=== PATIENT | female | born 1970 | race Two or more races ===

== ENCOUNTER 2021-03-06 11:56 | Outpatient (REF) | payer OTHER, SELFPAY ==
[2021-03-07 12:08] LABS: BV Int Neg Control Negative (Negative); BV Int Pos Control Positive (Positive)
== END 2021-03-06 11:57 | disposition home or self-care (01) ==
LOC: HO.LAB 11:56
PROVIDERS: PCP Internal Medicine; Visit Provider Obstetrics & Gynecology
DX: Z01.411 Encounter for gynecological examination (general) (routine) with abnormal findings (principal); B37.3 Candidiasis of vulva and vagina
CPT/HCPCS: 87480; 87510; 87660

== ENCOUNTER → 2021-03-29 12:27 | Outpatient (BNVA) | payer OTHER, SELFPAY | PROVIDERS: PCP Internal Medicine; Visit Provider Obstetrics & Gynecology | DX: B37.3 Candidiasis of vulva and vagina (principal) | CPT/HCPCS: 99212 ==

== ENCOUNTER 2021-04-03 14:09 | Outpatient (REF) | payer OTHER, SELFPAY ==
--- NOTE | ~2021-04-03 | MM_ITS ---
EXAMINATION: MM SCREENING DIGITAL BREAST TOMOSYNTHESIS, BILATERAL CLINICAL INFORMATION: Screening. Asymptomatic. The lifetime risk of breast cancer based on the Tyrer-Cuzick Model is 18%. COMPARISON: Mammography: 06/19/2019, outside exam 01/07/2016 ([facility]). TECHNIQUE: Digital breast tomosynthesis is performed in both the craniocaudal and mediolateral oblique views along with computer-aided detection (CAD). Synthesized 2D images are generated from the tomosynthesis. Additional left cleavage view is provided. FINDINGS: There are scattered areas of fibroglandular density (ACR BI-RADS breast composition Category b). Parenchymal pattern is similar to prior exams. There are degenerating fibroadenomas again seen with associated coarse calcifications, right breast posterior upper outer quadrant and 3 on left. There is no developing density or interval mass or architectural abnormality. The axilla and skin contours are unremarkable. MM/MM tomosynthesis screening BI IMPRESSION: 1. No mammographic evidence of malignancy. 2. Bilateral degenerating fibroadenomas. No significant changes. ASSESSMENT: BI-RADS 2: Benign RECOMMENDATION: Routine annual mammography screening. This patient's information was entered into a reminder system with a target due date for their next mammogram.
== END 2021-04-03 14:10 | disposition home or self-care (01) ==
LOC: HO.MAMMO 14:09
PROVIDERS: Visit Provider Internal Medicine
DX: Z12.31 Encounter for screening mammogram for malignant neoplasm of breast (principal)
CPT/HCPCS: 77063; 77067

== ENCOUNTER 2021-10-21 06:48 | Outpatient (REF) | payer OTHER, SELFPAY ==
[2021-10-21 11:29] LABS: MANUAL DIFF FLAG NO
[2021-10-21 11:32] LABS: Basophils Absolute Auto 0.1 X10*3/uL (0.0-0.2); Eosinophils Absolute Auto 0.1 X10*3/uL (0.0-0.4); Eosinophils Percent Auto 2.5 % (0-4); Hematocrit 45.2 % (37.0-47.0); Hemoglobin 14.6 g/dl (12.0-16.0); Imm Gran Abs Auto 0.02 X10*3/uL (0.00-0.03); Imm Gran Pct Auto 0.4 % (0.0-0.4); Lymphocytes Absolute Auto 1.8 X10*3/uL (1.2-4.9); Lymphocytes Percent Auto 35.5 % (20-40); Mean Corpuscular HGB Conc 32.3 g/dl (31.0-35.0); Mean Corpuscular Hemoglobin 27.3 pg (27.0-33.0); Mean Corpuscular Volume 84.5 fL (80.0-98.0); Mean Platelet Volume 12.3 fL (9.4-12.3); Monocytes Absolute Auto 0.4 X10*3/uL (0.1-1.2); Monocytes Percent Auto 8.5 % (2-11); Neutrophils Absolute Auto 2.7 x10*3/uL (2.0-8.3); Neutrophils Percent Auto 52.1 % (45-73); Platelet Count 260 X10*3/uL (160-400); Red Blood Count 5.35 X10*6/uL (4.20-5.50); Red Cell Distribution Width 13.8 % (11.0-16.0); White Blood Count 5.2 X10*3/uL (4.8-10.8)
[2021-10-21 12:20] LABS: Anion Gap 15 (12-20); Carbon Dioxide 26 mmol/L (22-29); Chloride 99 mmol/L (96-108); Potassium 4.2 mmol/L (3.3-5.1); Sodium 136 mmol/L (135-145)
[2021-10-21 12:21] LABS: Alanine Aminotransferase 30 U/L (0-31); Albumin Level 3.9 g/dL (3.5-5.0); Alkaline Phosphatase 127 U/L (39-117); Aspartate Amino Transferase 18 U/L (5-31); Bilirubin Total 0.4 mg/dL (0.0-1.0); Blood Urea Nitrogen 12 mg/dL (9-16); Calcium 9.5 mg/dL (8.4-10.2); Cholesterol 326 mg/dL; Estimated Glomerular Filt Rate > 60; HDL Cholesterol 48 mg/dL; LDL Cholesterol Calculated 219 mg/dl; Total Protein 7.4 g/dL (6.5-8.0); Triglycerides 297 mg/dL
[2021-10-21 13:06] LABS: Glucose Fasting 455 mg/dL (60-99)
== END 2021-10-21 06:49 | disposition home or self-care (01) ==
LOC: HO.HMGCLDS 06:48
PROVIDERS: PCP Internal Medicine; Visit Provider Internal Medicine
DX: E11.9 Type 2 diabetes mellitus without complications (principal); Z79.4 Long term (current) use of insulin
CPT/HCPCS: 36415; 80053; 80061; 84443; 85025

== ENCOUNTER 2022-01-23 06:04 | Outpatient (REF) | payer OTHER, SELFPAY ==
[2022-01-23 11:47] LABS: Alanine Aminotransferase 18 U/L (0-31); Albumin Level 3.9 g/dL (3.5-5.0); Alkaline Phosphatase 92 U/L (39-117); Anion Gap 14 (12-20); Aspartate Amino Transferase 13 U/L (5-31); Bilirubin Total 0.4 mg/dL (0.0-1.0); Blood Urea Nitrogen 18 mg/dL (9-16); Calcium 9.5 mg/dL (8.4-10.2); Carbon Dioxide 30 mmol/L (22-29); Chloride 102 mmol/L (96-108); Cholesterol 160 mg/dL; Estimated Glomerular Filt Rate > 60; Glucose Fasting 143 mg/dL (60-99); HDL Cholesterol 50 mg/dL; LDL Cholesterol Calculated 91 mg/dl; Sodium 142 mmol/L (135-145); Total Protein 7.3 g/dL (6.5-8.0); Triglycerides 98 mg/dL
[2022-01-23 12:06] LABS: Estimated Average Glucose 315 mg/dL; Hemoglobin A1c % 12.6 %
[2022-01-23 12:23] LABS: Creatinine Urine 219.79 mg/dL; Microalbum/Creatinine Ratio Ur 31.3 ug/mg cr
== END 2022-01-23 06:05 | disposition home or self-care (01) ==
LOC: HO.HMGCLDS 06:04
PROVIDERS: PCP Internal Medicine; Visit Provider Internal Medicine
DX: E11.9 Type 2 diabetes mellitus without complications (principal); E78.5 Hyperlipidemia, unspecified; Z79.4 Long term (current) use of insulin
CPT/HCPCS: 36415; 80053; 80061; 82043; 83036

== ENCOUNTER 2022-02-01 07:18 | Emergency (ER) | payer OTHER, SELFPAY ==
[2022-02-01 07:22] VITALS: BP 199/94; PULSE 98; RESP 18; TEMP 36.6; O2SAT 99; BMI 25.7
--- NOTE | 2022-02-01 08:11 | ED.GENADULT ---
HPI - General Adult General Chief complaint: Extremity Injury, Lower Stated complaint: R Leg Pain No Injury Time Seen by Provider: 02/01/22 08:11 Source: patient Mode of arrival: ambulatory Limitations: no limitations History of Present Illness HPI narrative: Patient is a 51 year old female presenting to the emergency department today with right right lower back pain that radiates down the right leg. Patient states that for the last month she has had low back pain that radiates down her right leg. Patient states that she was given muscle relaxers at an urgent care but it does not seem to be helping. Patient states that she does have an appointment with a specialist for this in the next few days. Patient denies any dizziness, lightheadedness, abdominal pain, nausea, vomiting, fever, chills, blurry vision, double vision, loss of vision, chest pain, difficulty breathing, shortness of breath, night sweats, pain with urination, increased urinary frequency, increased urinary urgency, blood in her urine or stool, syncope or a near syncopal episode, recent trauma or falls, bowel incontinence, bladder incontinence, bowel retention, bladder retention, or any other complaints at this time. Onset (ago): month(s) (1) Location: back Radiation: extremity Severity: mild Severity scale (1-10): 3 Quality: aching and dull Pain Consistency: intermittent Relieving factors: none Exacerbating factors: none Associated symptoms: denies other symptoms Treatments prior to arrival: none Related Data Home Medications Medication Instructions Recorded Confirmed cyclobenzaprine 10 mg tablet 10 mg PO BEDTIME PRN muscle spasm 01/18/22 01/18/22 meloxicam 7.5 mg tablet 7.5 mg PO DAILY PRN pain 01/18/22 01/18/22 Previous Rx's Medication Instructions Recorded clotrimazole-betamethasone 1 1 appl topical BID 5 days #45 grams 03/06/21 %-0.05 % topical cream terconazole 0.8 % vaginal cream 1 appful vaginal BEDTIME 3 days 03/06/21 #20 grams blood sugar diagnostic (FreeStyle #100 ea 08/02/21 Lite Strips) albuterol sulfate 90 mcg/actuation 2 puff inhalation QID #8.5 grams 10/20/21 aerosol inhaler blood sugar diagnostic (Embrace #100 ea 10/20/21 Blood Glucose System strips) metformin 1,000 mg tablet 1,000 mg PO BID #180 tabs 10/20/21 atorvastatin 40 mg tablet (Lipitor) 40 mg PO DAILY #30 tabs 11/30/21 insulin glargine 100 unit/mL (3 40 unit (0.4 mL) subcut QAM #15 mL 01/18/22 mL) subcutaneous pen (Lantus Solostar U-100 Insulin) prednisone 20 mg tablet 20 mg PO DAILY 12 days #26 tabs 02/01/22 Allergies Allergy/AdvReac Type Severity Reaction Status Date / Time No Known Allergies Allergy Verified 01/18/22 12:26 [No Known Allergies*] Review of Systems Constitutional: Constitutional: Reports no additional constitutional complaints, Denies chills, Denies fever(s) and Denies night sweats Eyes: Eyes: Reports no additional eye complaints, Denies blurry vision, Denies change in vision, Denies diplopia, Denies eye discharge, Denies loss of vision and Denies eye pain ENT: Denies dizziness Cardiovascular: Cardiovascular: Reports no additional cardiovascular complaints, Denies chest pain, Denies lightheadedness, Denies Loss of Consciousness and Denies dyspnea Respiratory: Respiratory: Reports no additional respiratory complaints and Denies dyspnea Gastrointestinal: Gastrointestinal: Reports no additional gastrointestinal complaints, Denies abdominal pain, Denies melena, Denies hematochezia, Denies change in bowel habits and Denies change in stool character Genitourinary: Genitourinary: Denies hematuria, Denies urinary frequency, Denies dysuria, Denies urinary incontinence, Denies urinary hesitancy and Denies urinary urgency Musculoskeletal: Musculoskeletal: Reports no additional musculoskeletal complaints, Reports back pain, Denies numbness and Denies tingling Neurologic: Denies dizziness, Denies loss of vision, Denies numbness and Denies tingling Psychiatric: Psychiatric: Reports no additional psychiatric complaints Endocrine: Endocrine: Reports no additional endocrine complaints Hematologic/Lymphatic: Hematologic/Lymphatic: Reports no additional hematologic/lymphatic complaints Allergic/Immunologic: Allergic/Immunologic: Reports no additional allergic/immunologic complaints PMFSH Past Medical History Attestation statement: The following information was validated with the patient. Source: old records reviewed Medical History Colon cancer screening Diabetes type 2, uncontrolled Surgical History H/O abdominal hysterectomy H/O gastric sleeve Hx of section Family History Family History Sister Breast CA Maternal Aunt Breast CA Social History Social History Housing: Apartment Patient Tobacco Use Status: Never used Tobacco e-Cigarette/Vaping Use: Never Used Second Hand Smoke Exposure: No Advance Directives: No Advance Directives Information Provided: No Current occupational status: employed Current occupation: [employer] 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/hazards: Yes Cognitive needs: No Hearing needs: No Vision needs: No Physical Exam ED Vital Signs: Vital Signs - 24 hr 02/01/22 07:22 Temperature 97.9 F Pulse Rate 98 Respiratory Rate 18 Blood Pressure 199/94 H Pulse Oximetry 99 Oxygen Delivery Method Room Air BMI result Body Mass Index 25.7 Const General: cooperative, no acute distress, alert and awake Nutritional Appearance: well nourished Orientation/consciousness: patient oriented x3 Limitations: no limitations HENMT Head: Yes normal to inspection and Yes atraumatic Ears: hearing grossly normal bilaterally and external ears normal General nose exam: Normal external nose present, no nasal discharge noted and no epistaxis Face and sinus: Yes normal facial exam, No abrasion and No laceration Mouth: Normal oral and palatal mucosa present, no drooling and no muffled voice Eyes General: appearance normal, both eyes and all related structures Periorbital: periorbital findings normal Eyelids: Yes eyelids normal Conjunctivae: conjunctivae normal Pupils: Equal, round and reactive pupils present EOM: EOMs intact bilaterally Neck Neck: Yes normal visual inspection, Yes full ROM and Yes no lymphadenopathy Chest Chest palpation & inspection: normal inspection of the chest Resp Effort & Inspection: normal respiratory effort and able to speak in complete sentences Auscultation: clear to auscultation bilaterally Cardio Rate: regular rate Rhythm: regular rhythm GI Inspection: Yes normal to inspection General: Yes no CVA tenderness Back/Spine/Pelvis Back: no CVA tenderness Cervical Spine: normal cervical lordosis and cervical ROM normal Thoracic/Lumbar Spine: thoracic and lumbar spine normal to inspection and thoraco-lumbar ROM normal Pelvis: no pain with anterior-posterior compression Neuro General: patient oriented x3 and moves all extremities Cranial nerves: Yes Equal, round and reactive pupils present Cognition (Neuro): normal cognition Motor exam (neuro): 5/5 motor strength present throughout Sensory Exam: Normal double simultaneous stimulation for sensation Coordination: [id number] test normal Extrem General: Yes normal to inspection, Yes full ROM and Yes capillary refill normal Psych Appearance: grossly normal Mental Status: mental status grossly normal Affect: normal affect Attitude: cooperative Thought process: Normal thought process present Thought content: Normal thought content present Insight: Good insight present (Psych) Medical Decision Making MDM Narrative Medical decision making narrative: Patient is a 51 year old female presenting to the emergency department today with back pain that radiates down her right leg. Patient's physical exam was unremarkable. I explained my physical exam findings to the patient. I answered all questions asked by the patient. Patient received IM Toradol and PO Flexeril which she stated helped her pain significantly. I stressed the importance of the patient taking her medication as prescribed. I stressed the importance of the patient following up with her primary care provider and keeping the appointment that's scheduled with the specialist for this issue. I stressed the importance of the patient returning to the emergency department immediately if her symptoms were to worsen or if she were to develop any dizziness, shortness of breath, difficulty breathing, chest pain, blurry vision, loss of vision, nausea, vomiting, abdominal pain, fever, chills, back pain, or any other complaints. Patient verbalized agreement and understanding with this treatment plan and discharge. Medical Records Medical records reviewed: Yes I reviewed the patient's medical records. Discharge Plan Discharge Clinical Impression: Sciatica Patient Disposition: Home, Self-Care Instructions: Sciatica (ED) Additional Instructions: Follow up with your primary care provider and the orthopedic / business applications specialist you have scheduled later this month. Return to the emergency department immediately if your symptoms worsen or if you develop any dizziness, shortness of breath, difficulty breathing, chest pain, blurry vision, loss of vision, nausea, vomiting, abdominal pain, fever, chills, back pain, or any other complaints. Wilian un seguimiento con jones proveedor de atenci?n primaria y el especialista en ortop[employer]/colum[place] vertebral que haya programado para finales de matheus mes. Regrese al departamento de emergencias de inmediato si erickson s?ntomas empeoran o si presenta mareos, falta de aire, dificultad para respirar, dolor de pecho, visi?n borrosa, p?rdida de la visi?n, n?useas, v?mitos, dolor abdominal, fiebre, escalofr?os, dolor de espalda o cualquier otras quejas. Prescriptions: New prednisone 20 mg tablet 20 mg PO DAILY 12 Days Qty: 26 0RF Rx Instructions: Take 3 tablets for 5 days THEN; Take 2 tablets for 4 days THEN; Take 1 tablet for 3 days No Action (DME) FreeStyle Lite Strips Strip See Rx Instructions .ROUTE .MEDSUPPLY Qty: 100 3RF Rx Instructions: As directed - twice a day metformin 1,000 mg tablet 1,000 mg PO BID Qty: 180 3RF albuterol sulfate 90 mcg/actuation HFA aerosol inhaler 2 puff inhalation QID Qty: 8.5 1RF (DME) Embrace Blood Glucose System Strip See Rx Instructions .Route Qty: 100 3RF Rx Instructions: 1 bid atorvastatin [Lipitor] 40 mg tablet 40 mg PO DAILY Qty: 30 3RF meloxicam 7.5 mg tablet 7.5 mg PO DAILY PRN (Reason: pain) cyclobenzaprine 10 mg tablet 10 mg PO BEDTIME PRN (Reason: muscle spasm) insulin glargine [Lantus Solostar U-100 Insulin] 100 unit/mL (3 mL) insulin pen 40 unit subcut QAM Qty: 15 3RF clotrimazole-betamethasone 1-0.05 % cream 1 appl topical BID 5 Days Qty: 45 0RF terconazole 0.8 % cream 1 appful vaginal BEDTIME 3 Days Qty: 20 0RF Referrals: [facility] [Provider Group] [facility] [Provider Group] Nichol Brown MD [Primary Care Provider] - Stand Alone Forms: Work/School Release Interventions: ED Discharge Assessment Last Done: 02/01/22 08:45 Discharge Date/Time: 02/01/22 08:45 Print Language: Micronesian
[2022-02-01] MEDS: methylPREDNISolone Sod Succ 125 MG/2 ML VIAL 60 MG IM (08:39)
[2022-02-01] MEDS: Ketorolac Tromethamine 15 MG/ML VIAL IM (08:40)
== END 2022-02-01 08:45 | disposition home or self-care (01) ==
PROVIDERS: Emergency Provider Emergency Medicine Emergency Medical Services; PCP Internal Medicine
DX: M54.41 Lumbago with sciatica, right side (principal); E11.9 Type 2 diabetes mellitus without complications; E78.5 Hyperlipidemia, unspecified; Z79.4 Long term (current) use of insulin; Z79.02 Long term (current) use of antithrombotics/antiplatelets
CPT/HCPCS: 96372; 99283; 99284; J1885; J2930

== ENCOUNTER → 2022-02-06 13:45 | Outpatient (BNVA) | payer OTHER, SELFPAY | PROVIDERS: PCP Internal Medicine; Visit Provider Internal Medicine Endocrinology, Diabetes & Metabolism | DX: E11.9 Type 2 diabetes mellitus without complications (principal); Z79.4 Long term (current) use of insulin | CPT/HCPCS: 82947; 96372; 99202; J1815 ==

== ENCOUNTER 2022-02-08 | Emergency (ER) | payer OTHER, SELFPAY ==
[2022-02-08 00:35] VITALS: BP 161/98; PULSE 76; RESP 14; TEMP 36.7; O2SAT 98; BMI 25.7
--- NOTE | 2022-02-08 03:42 | ED_ITS ---
HPI - Back Pain/Injury General Chief Complaint: Back Pain/Injury Stated Complaint: pain in leg Time Seen by Provider: 02/08/22 03:42 Source: patient Mode of arrival: ambulatory Limitations: no limitations History of Present Illness HPI Narrative: Patient's right lower back pain off and on for last few months seen her PCP ER and urgent care for same plan to see the authorization specialist next week comes here for pain which is not getting better no bladder or bowel incontinence no weakness pain radiates to the right leg no known trauma Related Data Home Medications Medication Instructions Recorded Confirmed cyclobenzaprine 10 mg tablet 10 mg PO BEDTIME PRN muscle spasm 01/18/22 01/18/22 meloxicam 7.5 mg tablet 7.5 mg PO DAILY PRN pain 01/18/22 01/18/22 blood sugar diagnostic (FreeStyle 02/06/22 Lite Strips) lancets 28 gauge (FreeStyle 02/06/22 Lancets) Previous Rx's Medication Instructions Recorded clotrimazole-betamethasone 1 1 appl topical BID 5 days #45 grams 03/06/21 %-0.05 % topical cream terconazole 0.8 % vaginal cream 1 appful vaginal BEDTIME 3 days 03/06/21 #20 grams blood sugar diagnostic (FreeStyle #100 ea 08/02/21 Lite Strips) albuterol sulfate 90 mcg/actuation 2 puff inhalation QID #8.5 grams 10/20/21 aerosol inhaler blood sugar diagnostic (Embrace #100 ea 10/20/21 Blood Glucose System strips) metformin 1,000 mg tablet 1,000 mg PO BID #180 tabs 10/20/21 atorvastatin 40 mg tablet (Lipitor) 40 mg PO DAILY #30 tabs 11/30/21 insulin glargine 100 unit/mL (3 40 unit (0.4 mL) subcut QAM #15 mL 01/18/22 mL) subcutaneous pen (Lantus Solostar U-100 Insulin) prednisone 20 mg tablet 20 mg PO DAILY 12 days #26 tabs 02/01/22 carisoprodol 350 mg tablet (Soma) 350 mg PO TID PRN muscle pain #20 02/08/22 tabs Allergies Allergy/AdvReac Type Severity Reaction Status Date / Time No Known Allergies Allergy Verified 02/06/22 13:54 [No Known Allergies*] Review of Systems Review of Systems: Yes all other systems are reviewed and are negative [facility] Past Medical History Medical History Colon cancer screening Diabetes type 2, uncontrolled Surgical History H/O abdominal hysterectomy H/O gastric sleeve Hx of section Family History Family History Sister Breast CA Maternal Aunt Breast CA Social History Social History Housing: Apartment Patient Tobacco Use Status: Never used Tobacco e-Cigarette/Vaping Use: Never Used Second Hand Smoke Exposure: No Advance Directives: No Current occupational status: employed Current occupation: [employer] 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/hazards: Yes Cognitive needs: No Hearing needs: No Vision needs: No Physical Exam Vital Signs: Vital Signs: Last Vital Signs Temp 98.1 F 02/08/22 00:35 Pulse 76 02/08/22 00:35 Resp 18 02/08/22 04:10 BP 161/98 H 02/08/22 00:35 Pulse Ox 98 02/08/22 00:35 O2 Del Method 02/08/22 00:35 BMI result Body Mass Index 25.7 Appearance: Alert. Oriented X3. No acute distress. Eyes: PERRLA, No Nystagmus ENT: Pharynx normal. Oral Mucosa moist Neck: Normal inspection. Neck supple. CVS: Normal heart rate and rhythm. Pulses normal. Respiratory: No respiratory distress. Equal air entry bilateral, no wheezing/rales/rhonchi Abdomen: Soft and nontender. Bowel sounds are present, no mass palpable, no CVA tenderness Skin: Skin warm and dry. Normal skin color. Normal skin turgor. Extremities: No lower extremity edema. No calf tenderness no spinal tenderness , tenderness at right sciatic notch area SLR positive at 45 degrees right side Neuro: Oriented X 3. No motor deficit. No sensory deficit.No cerebellar signs , cranial nerves II-XII intact Discharge Plan Discharge Clinical Impression: Piriformis muscle pain Patient Disposition: Home, Self-Care Instructions: Piriformis Syndrome (ED) Additional Instructions: Continue to take pain medication as prescribed and follow-up with specialist as scheduled Prescriptions: New carisoprodol [Soma] 350 mg tablet 350 mg PO TID PRN (Reason: muscle pain) Qty: 20 0RF No Action (DME) FreeStyle Lite Strips Strip See Rx Instructions .ROUTE .MEDSUPPLY Qty: 100 3RF Rx Instructions: As directed - twice a day prednisone 20 mg tablet 20 mg PO DAILY 12 Days Qty: 26 0RF Rx Instructions: Take 3 tablets for 5 days THEN; Take 2 tablets for 4 days THEN; Take 1 tablet for 3 days metformin 1,000 mg tablet 1,000 mg PO BID Qty: 180 3RF albuterol sulfate 90 mcg/actuation HFA aerosol inhaler 2 puff inhalation QID Qty: 8.5 1RF (DME) Embrace Blood Glucose System Strip See Rx Instructions .Route Qty: 100 3RF Rx Instructions: 1 bid atorvastatin [Lipitor] 40 mg tablet 40 mg PO DAILY Qty: 30 3RF meloxicam 7.5 mg tablet 7.5 mg PO DAILY PRN (Reason: pain) cyclobenzaprine 10 mg tablet 10 mg PO BEDTIME PRN (Reason: muscle spasm) insulin glargine [Lantus Solostar U-100 Insulin] 100 unit/mL (3 mL) insulin pen 40 unit subcut QAM Qty: 15 3RF clotrimazole-betamethasone 1-0.05 % cream 1 appl topical BID 5 Days Qty: 45 0RF terconazole 0.8 % cream 1 appful vaginal BEDTIME 3 Days Qty: 20 0RF (DME) FreeStyle Lite Strips Strip See Rx Instructions .ROUTE Rx Instructions: As directed (DME) lancets [FreeStyle Lancets] 28 gauge misc See Rx Instructions .ROUTE Rx Instructions: As directed Interventions: ED Discharge Assessment Last Done: 02/08/22 04:22 Discharge Date/Time: 02/08/22 04:23
[2022-02-08 04:10] VITALS: RESP 18
[2022-02-08] MEDS: Morphine Sulfate 4 MG/ML CARTRIDGE IM (04:10)
[2022-02-08] MEDS: Cyclobenzaprine HCl 10 MG TABLET PO (04:10)
== END 2022-02-08 04:23 | disposition home or self-care (01) ==
PROVIDERS: Emergency Provider Internal Medicine; PCP Internal Medicine
DX: G57.01 Lesion of sciatic nerve, right lower limb (principal); M54.50 Low back pain, unspecified; E11.9 Type 2 diabetes mellitus without complications; E78.5 Hyperlipidemia, unspecified; Z79.4 Long term (current) use of insulin; Z79.02 Long term (current) use of antithrombotics/antiplatelets; Z79.899 Other long term (current) drug therapy
CPT/HCPCS: 96372; 99283; 99284; J2270

== ENCOUNTER 2022-02-14 05:18 | Outpatient (REF) | payer OTHER, SELFPAY ==
--- NOTE | ~2022-02-14 | XR_ITS ---
EXAMINATION: XR HIP, RIGHT CLINICAL INFORMATION: Hip pain COMPARISON: None TECHNIQUE: Two views of the right hip. FINDINGS: Bones and soft tissues are normal. No fracture. Alignment is anatomic. Hip joint space is maintained. XR/XR hip RT w PEL1V IMPRESSION: Normal right hip.
== END 2022-02-14 05:19 | disposition home or self-care (01) ==
LOC: HO.HOSX 05:18
PROVIDERS: Visit Provider Physician Assistant
DX: M70.61 Trochanteric bursitis, right hip (principal)
CPT/HCPCS: 73502; 99202

== ENCOUNTER → 2022-02-15 14:06 | Outpatient (BNVA) | payer OTHER, SELFPAY | PROVIDERS: PCP Internal Medicine; Visit Provider Registered Nurse Diabetes Educator | DX: E11.9 Type 2 diabetes mellitus without complications (principal); Z79.4 Long term (current) use of insulin | CPT/HCPCS: 99211 ==

== ENCOUNTER → 2022-03-01 15:10 | Outpatient (BNVA) | payer OTHER, SELFPAY | PROVIDERS: PCP Internal Medicine; Visit Provider Registered Nurse Diabetes Educator | DX: E11.9 Type 2 diabetes mellitus without complications (principal); Z79.4 Long term (current) use of insulin | CPT/HCPCS: 99211 ==

== ENCOUNTER → 2022-03-29 13:40 | Outpatient (BNVA) | payer OTHER, SELFPAY | PROVIDERS: PCP Internal Medicine; Visit Provider Registered Nurse Diabetes Educator | DX: E11.9 Type 2 diabetes mellitus without complications (principal); Z79.4 Long term (current) use of insulin | CPT/HCPCS: 99211 ==

== ENCOUNTER 2022-04-09 | Outpatient (REF) | payer OTHER, SELFPAY | END 2022-04-09 00:01 | disposition home or self-care (01) | LOC: CF | PROVIDERS: PCP Internal Medicine; Visit Provider Anesthesiology | DX: M54.50 Low back pain, unspecified (principal) | CPT/HCPCS: 99202 ==

== ENCOUNTER 2022-04-10 13:54 | Outpatient (REF) | payer OTHER, SELFPAY ==
--- NOTE | ~2022-04-10 | XR_ITS ---
EXAMINATION: XR LUMBOSACRAL SPINE WITH OBLIQUES CLINICAL INFORMATION: Low back pain with sciatica. COMPARISON: None TECHNIQUE: AP, both oblique, and lateral views of the lumbar spine. Lateral view of the lumbosacral junction. FINDINGS: There are 5 [id number] lumbar vertebra. No acute fracture or spondylolysis identified. There is a grade 1 spondylolisthesis at the L1-L2 level. There is significant disc space narrowing with vacuum disc phenomena seen at L4 through S1. Sacroiliac joints appear unremarkable. XR/XR lumbar spine 4V min IMPRESSION: Degenerative disc disease L4 through S1.
== END 2022-04-10 13:55 | disposition home or self-care (01) ==
LOC: HO.XRAY 13:54
PROVIDERS: PCP Internal Medicine; Visit Provider Anesthesiology
DX: M54.50 Low back pain, unspecified (principal)
CPT/HCPCS: 72110

== ENCOUNTER 2022-04-18 13:56 | Outpatient (REF) | payer OTHER, SELFPAY | END 2022-04-18 13:57 | disposition home or self-care (01) | LOC: HO.MAMMO 13:56 | PROVIDERS: PCP Internal Medicine; Visit Provider Internal Medicine | DX: Z12.31 Encounter for screening mammogram for malignant neoplasm of breast (principal) | CPT/HCPCS: 77063; 77067 ==

== ENCOUNTER 2022-04-20 12:34 | Outpatient (REF) | payer OTHER, SELFPAY ==
[2022-04-21 04:37] LABS: CT PCR NOT DETECTED (Not Detect.); NG PCR NOT DETECTED (Not Detect.)
[2022-04-21 11:25] LABS: BV Int Neg Control Negative (Negative); BV Int Pos Control Positive (Positive)
== END 2022-04-20 12:35 | disposition home or self-care (01) ==
LOC: HO.LNP 12:34
PROVIDERS: PCP Internal Medicine; Visit Provider Advanced Practice Midwife
DX: Z01.419 Encounter for gynecological examination (general) (routine) without abnormal findings (principal); I10 Essential (primary) hypertension; M54.30 Sciatica, unspecified side
CPT/HCPCS: 87480; 87491; 87510; 87591; 87660

== ENCOUNTER 2022-04-26 06:55 | Outpatient (REF) | payer OTHER, SELFPAY ==
[2022-04-26 11:11] LABS: MANUAL DIFF FLAG NO
[2022-04-26 11:18] LABS: Basophils Percent Auto 0.6 % (0-2); Eosinophils Absolute Auto 0.1 X10*3/uL (0.0-0.4); Eosinophils Percent Auto 1.6 % (0-4); Hematocrit 46.3 % (37.0-47.0); Hemoglobin 15.3 g/dl (12.0-16.0); Imm Gran Abs Auto 0.02 X10*3/uL (0.00-0.03); Imm Gran Pct Auto 0.3 % (0.0-0.4); Lymphocytes Absolute Auto 2.3 X10*3/uL (1.2-4.9); Mean Corpuscular Hemoglobin 27.9 pg (27.0-33.0); Mean Corpuscular Volume 84.5 fL (80.0-98.0); Mean Platelet Volume 12.1 fL (9.4-12.3); Monocytes Absolute Auto 0.5 X10*3/uL (0.1-1.2); Monocytes Percent Auto 6.7 % (2-11); Neutrophils Absolute Auto 4.1 x10*3/uL (2.0-8.3); Neutrophils Percent Auto 57.8 % (45-73); Platelet Count 311 X10*3/uL (160-400); Red Blood Count 5.48 X10*6/uL (4.20-5.50); Red Cell Distribution Width 13.3 % (11.0-16.0)
[2022-04-26 11:39] LABS: Alanine Aminotransferase 13 U/L (0-31); Alkaline Phosphatase 82 U/L (39-117); Anion Gap 11 (12-20); Aspartate Amino Transferase 11 U/L (5-31); Bilirubin Total 0.8 mg/dL (0.0-1.0); Blood Urea Nitrogen 15 mg/dL (9-16); Calcium 9.7 mg/dL (8.4-10.2); Carbon Dioxide 30 mmol/L (22-29); Chloride 104 mmol/L (96-108); Cholesterol 235 mg/dL; Estimated Glomerular Filt Rate > 60; Glucose Fasting 189 mg/dL (60-99); HDL Cholesterol 49 mg/dL; LDL Cholesterol Calculated 158 mg/dl; Potassium 4.1 mmol/L (3.3-5.1); Sodium 141 mmol/L (135-145); Total Protein 7.3 g/dL (6.5-8.0); Triglycerides 144 mg/dL
[2022-04-26 11:51] LABS: Estimated Average Glucose 183 mg/dL
== END 2022-04-26 06:56 | disposition home or self-care (01) ==
LOC: HO.HMGCLDS 06:55
PROVIDERS: PCP Internal Medicine; Visit Provider Internal Medicine
DX: E11.9 Type 2 diabetes mellitus without complications (principal); E78.5 Hyperlipidemia, unspecified; Z79.4 Long term (current) use of insulin
CPT/HCPCS: 36415; 80053; 80061; 83036; 85025

== ENCOUNTER → 2022-05-09 14:22 | Outpatient (BNVA) | payer OTHER, SELFPAY | PROVIDERS: PCP Internal Medicine; Visit Provider Internal Medicine Endocrinology, Diabetes & Metabolism | DX: E11.9 Type 2 diabetes mellitus without complications (principal); Z79.4 Long term (current) use of insulin | CPT/HCPCS: 82947; 99212 ==

== ENCOUNTER 2022-05-26 06:39 | Outpatient (REF) | payer OTHER, SELFPAY ==
[2022-05-26 11:23] LABS: Anion Gap 12 (12-20); Blood Urea Nitrogen 16 mg/dL (9-16); Calcium 9.4 mg/dL (8.4-10.2); Carbon Dioxide 28 mmol/L (22-29); Chloride 105 mmol/L (96-108); Estimated Glomerular Filt Rate > 60; Glucose Random 101 mg/dL (60-115); Potassium 3.9 mmol/L (3.3-5.1); Sodium 141 mmol/L (135-145)
== END 2022-05-26 06:40 | disposition home or self-care (01) ==
LOC: HO.HMGCLDS 06:39
PROVIDERS: PCP Internal Medicine; Visit Provider Internal Medicine Endocrinology, Diabetes & Metabolism
DX: E11.9 Type 2 diabetes mellitus without complications (principal); Z79.4 Long term (current) use of insulin
CPT/HCPCS: 36415; 80048

== ENCOUNTER 2022-06-11 15:00 | Outpatient (RCR) | payer OTHER, SELFPAY ==
--- NOTE | 2022-05-18 16:08 | MHC.PT.EP ---
[facility] [place] Office [place] Office [place] Office [address] Genaro Horan [address] [phone] F: [phone] F: [phone] F: [phone] F: [phone] Physical Therapy Plan of Care Date of Evaluation: Date of Surgery: Diagnosis: LBP (MD Dx) DDD L4-S1, Gr 1 spondylolisthesis L1-L2 (PT Dx, confirmed x-ray); possible sciatica on R Assessment: Patient is a Stateless speaking 51 y.o. female who is referred to PT by Dr. Mukesh Baptiste MD with Dx of low back pain. PT diagnosis is degenerative disc disease L4-S1 with Gr 1 spondylolisthesis L1-L2, questionable sciatica on R. Patient impairments include pain, limited ROM, weakness in core, hips, and knee. Patient current functional limitations are prolonged sitting or standing, lying down, bending, walking longer distances, stair use, sit to stand.Patient will benefit from skilled PT to address aforementioned impairments and functional limitations to meet established goals. Frequency and Duration: The patient will be seen 2x/week for 4 weeks Short Term Goals: 2 weeks Patient demonstrates consistency and independence with HEP to self manage symptoms. She is able to utilize lumbar support in sitting to reduce LBP and improve sit to stand. Mcfp Goals: 4 weeks Patient presents with increased lumbar spine flexion 90 degrees to be able to improve sit to stand. Patient presents with increased R hip glute med 4+/5 to improve gait longer distances without pain. Treatment Plan: Modalities to reduce pain, spasms and effusion. Manual therapy to restore motion and function. Therapeutic exercise to improve strength and flexibility. Neuromuscular re-education for posture and balance. Therapeutic activities to return to functional activities of daily living. Electronically signed by: Lc Horowitz, PT, DPT Please sign and return to therapist. Thank you for your referral.
--- NOTE | 2022-07-09 16:47 | MHC.PT.DC ---
[facility] [place] Office [place] Office [place] Office [address] Genaro Horan [address] [phone] F: [phone] F: [phone] F: [phone] F: [phone] Physical Therapy Discharge Report Diagnosis: LBP (MD Dx) DDD L4-S1, Gr 1 spondylolisthesis L1-L2 (PT Dx, confirmed x-ray); possible sciatica on R Date of Surgery: Date of Evaluation: 05/18/22 Date of Discharge: 07/09/22 Treatments to Date: 5 Cancellations to Date: 0 No Shows to Date: 0 Discharge Status: Discharge Summary: Patient ceased attending PT on her own accord, with her last PT session being 06/11/22. She is therefore discharged from PT at this time. She has and independent HEP. Electronically signed by: Lc Horowitz, PT, DPT Please sign and return to therapist. Thank you for your referral.
== END 2022-07-09 16:47 | disposition home or self-care (01) ==
LOC: HO.PT 15:00
PROVIDERS: Visit Provider Anesthesiology
DX: M54.50 Low back pain, unspecified (principal)
CPT/HCPCS: 97110; 97140; 97161

== ENCOUNTER → 2022-08-08 14:18 | Outpatient (BNVA) | payer OTHER, SELFPAY | PROVIDERS: PCP Internal Medicine; Visit Provider Internal Medicine Endocrinology, Diabetes & Metabolism | DX: E11.9 Type 2 diabetes mellitus without complications (principal); Z79.4 Long term (current) use of insulin | CPT/HCPCS: 82947; 83036; 99202 ==

== ENCOUNTER → 2022-09-11 12:26 | Outpatient (BNVA) | payer OTHER, SELFPAY | PROVIDERS: PCP Internal Medicine; Visit Provider Dietitian, Registered | DX: E11.65 Type 2 diabetes mellitus with hyperglycemia (principal); E78.00 Pure hypercholesterolemia, unspecified; Z79.4 Long term (current) use of insulin; Z90.3 Acquired absence of stomach [part of]; Z71.3 Dietary counseling and surveillance | CPT/HCPCS: 97802 ==

== ENCOUNTER 2022-10-15 07:34 | Outpatient (REF) | payer OTHER, SELFPAY ==
[2022-10-15 11:36] LABS: Estimated Average Glucose 180 mg/dL; Hemoglobin A1c % 7.9 %
[2022-10-15 11:39] LABS: Creatinine Urine 143.99 mg/dL
[2022-10-15 11:56] LABS: Alanine Aminotransferase 16 U/L (0-31); Albumin Level 3.9 g/dL (3.5-5.0); Alkaline Phosphatase 89 U/L (39-117); Anion Gap 16 (12-20); Aspartate Amino Transferase 12 U/L (5-31); Bilirubin Total 0.9 mg/dL (0.0-1.0); Blood Urea Nitrogen 16 mg/dL (9-16); Carbon Dioxide 24 mmol/L (22-29); Chloride 107 mmol/L (96-108); Cholesterol 278 mg/dL; Estimated Glomerular Filt Rate > 60; Glucose Fasting 164 mg/dL (60-99); HDL Cholesterol 61 mg/dL; LDL Cholesterol Calculated 190 mg/dl; Potassium 4.1 mmol/L (3.3-5.1); Sodium 143 mmol/L (135-145); Total Protein 7.7 g/dL (6.5-8.0); Triglycerides 136 mg/dL
== END 2022-10-15 07:35 | disposition home or self-care (01) ==
LOC: HO.HMGCLDS 07:34
PROVIDERS: PCP Internal Medicine; Visit Provider Internal Medicine
DX: E11.9 Type 2 diabetes mellitus without complications (principal); E78.5 Hyperlipidemia, unspecified; Z79.4 Long term (current) use of insulin
CPT/HCPCS: 36415; 80053; 80061; 82043; 83036

== ENCOUNTER 2022-12-26 14:18 | Outpatient (AMB) | payer OTHER, SELFPAY ==
[2022-12-26 14:23] VITALS: BP 130/90; PULSE 82; BMI 24.4
--- NOTE | 2022-12-26 14:23 | A.OFFVIS_ITS ---
Intake Vital Signs 12/26/22 14:23 Height 5 ft 4 in Weight 142 lb 3.17 oz BMI 24.4 BP 130/90 H Blood Pressure Location Lt brachial Position Sitting Pulse 82 Pulse Source Pulse Oximeter Intake Visit Reasons: DM2/CONFIRM Intake Note: Patient present today to follow up on Type 2 Diabetes Mellitus. Patient receives DME supplies through: Last Diabetic Eye exam: 2020 Last Podiatry Visit: None Random Glucose: 116 mg/dl HgA1C: 7.9% 10/15/2022 Senior Java J2Ee Developer Required: Yes Senior Java J2Ee Developer Language: Technical Director Name: Renate medical staff Information Interpreted: non-clinical & clinical Accompanied by: Self / Same As Patient Allergies No Known Allergies [No Known Allergies*] Allergy (Verified 12/26/22 14:27) HPI HPI Comments History of Present Illness Details 52 YO F who is seen in consultation for T2DM at the request of PCP. Initially diagnosed with T2DM in 22 yrs . Saw darwin at [facility] Was initially started on treatment with metformin . Jardiance 25 mg QD Current regimen metformin 1000 mg QD Trulicity 3 mg Qwkly Lantus 15 units . Joe 3 download from 11/30/2019 3-2022 shows sensors being use 97% of the time. Average glucose is 195 with G mi of 8% and variation of 27.6%. 47% glucoses are in range with 32% hyperglycemia and 21% very hyperglycemic and no8.0 hypoglycemia. Colon shows increase in point cares post breakfast and to lesser extent post lunch Reports no low sugars . Had bariatric surgery 5 yrs ago Family history of T2DM in mother , father and sister . Not Has eyes checked yearly, last eye exam 2 yrs ago , denies retinopathy. Denies neuropathy, , will sees podiatry 02/14/22 . Denies nephropathy,Not on NAYANA/ARB. . Has HLD, on statin. Denies CAD. Had diabetes education many yrs ago . [facility] Medical History (Updated 10/08/22 @ 15:09 by Nichol Brown MD) Colon cancer screening Diabetes type 2, uncontrolled High cholesterol Surgical History H/O abdominal hysterectomy H/O gastric sleeve Hx of section Family History Sister Breast CA Maternal Aunt Breast CA Social History Household Members: None Housing: Apartment Alcohol intake: current Alcohol intake frequency: does not drink Patient Tobacco Use Status: Never used Tobacco e-Cigarette/Vaping Use: Never Used Second Hand Smoke Exposure: No Current occupational status: employed Current occupation: [employer] 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/hazards: Yes Cognitive needs: No Hearing needs: No Vision needs: No Female Reproductive History Menstrual Age of Menarche: 10 Physical Exam Vital Signs: Last Vital Signs Pulse 82 12/26/22 14:23 BP 130/90 H 12/26/22 14:23 BMI result Body Mass Index 24.4 Absence of Cushingoid features. Absence of acromegalic features. Neck exam reveals nl size thyroid about 15 gms. No thyroid nodules palpable. No carotid bruits present. Lungs CTA. Heart S1 S2, Reg R/R. No M/R/ G. Skin exam reveals absence of vitiligo or acanthosis nigricans. Abdominal exam reveals Soft NT/ND with NA BS. No organomegaly present. Neck Other: . Extrem Other: Visual exam of foot performed. No ulcerations or open lesions. No onchomycosis, no callouses.Pulses 2 + distally Sensation intact to monofilament exam. Vibratory sensation sensed is intact with 128 Hz tuning fork Results Reviewed Results Reviewed: 12/26/22 14:33 Glucose, Whole Blood Routine Laboratory Last Values Glucose (Clinic) 116 mg/dL (60-115) H 12/26/22 14:33 Assessment & Plan Assessment & Plan (1) Insulin dependent type 2 diabetes mellitus: Code(s): E11.9 - Type 2 diabetes mellitus without complications; Z79.4 - nursing home (current) use of insulin Plan: This is a 51-year-old female with a history of type 2 diabetes being treated metformin, Trulicity and basal insulin with fair glycemic control and no known microvascular or macrovascular complication Plan is is to start NovoLog scale prior to breakfast with point care 81-150 4 units , 151-200 6 units, > 200 8 units . Patient will follow-up with the inclusion special educator. Orders: Referrals Ophthalmology Referral E11.9 - Type 2 diabetes mellitus without complications, Z79.4 - nursing home (current) use of insulin Medications: New Novolog FlexPen U-100 Insulin (insulin aspart U-100) 6 units (0.06 mL) subcut TID 15 mL 4RF NS Refilled blood-glucose sensor (FreeStyle Joe 3 Sensor device) As directed 2 ea 6RF Coding Level of Care Code Est Pt Level 4 (98026) Diagnoses Insulin dependent type 2 diabetes mellitus E11.9; Z79.4
[2022-12-26 14:37] LABS: Glucose, Whole Blood 116 mg/dL (60-115)
== END 2022-12-26 14:56 | disposition home or self-care (01) ==
PROVIDERS: PCP Internal Medicine; Visit Provider Internal Medicine Endocrinology, Diabetes & Metabolism
DX: E11.9 Type 2 diabetes mellitus without complications (principal); Z79.4 Long term (current) use of insulin
CPT/HCPCS: 99214

== ENCOUNTER → 2022-12-26 14:18 | Outpatient (BNVA) | payer OTHER, SELFPAY | PROVIDERS: PCP Internal Medicine; Visit Provider Internal Medicine Endocrinology, Diabetes & Metabolism | DX: E11.9 Type 2 diabetes mellitus without complications (principal); Z79.4 Long term (current) use of insulin | CPT/HCPCS: 82947; 99212 ==

== ENCOUNTER 2022-12-28 08:02 | Outpatient (AMB) | payer OTHER, SELFPAY ==
--- NOTE | 2022-12-28 08:10 | AM.OFFWIN_ITS ---
Intake Vital Signs 12/28/22 08:11 Height 5 ft 4 in Weight 139 lb BMI 23.9 BP 120/80 Blood Pressure Location Rt brachial Position Sitting Pulse 69 Pulse Source Pulse Oximeter Pulse Oximetry (%) 96 Oxygen Delivery Method Room Air Intake Visit Reasons: EP Work PE Intake Note: Patient here for work Physical. Patient Tobacco Use Status: Never used Tobacco Allergies No Known Allergies [No Known Allergies*] Allergy (Verified 12/28/22 08:23) Medication List - Last Reconciled 12/28/22 by Keegan Givens MD albuterol sulfate 90 mcg/actuation 2 puffs inhalation QID atorvastatin 80 mg PO DAILY blood sugar diagnostic (FreeStyle Lite Strips) As directed - twice a day blood sugar diagnostic (Embrace Blood Glucose System strips) 1 bid blood sugar diagnostic (FreeStyle Lite Strips) As directed tests 4x/day blood-glucose sensor (FreeStyle Joe 3 Sensor device) As directed dulaglutide (Trulicity) 3 mg (0.5 mL) subcut QWEEK empagliflozin (Jardiance) 25 mg PO DAILY insulin glargine (Lantus Solostar U-100 Insulin) 15 units subcut QAM lancets (FreeStyle Lancets) tests 4 X/day metformin 1,000 mg PO BID Novolog FlexPen U-100 Insulin (insulin aspart U-100) 6 units (0.06 mL) subcut TID NS pen needle, diabetic (BD Yumiko 2nd Gen Pen Needle) As directed injects once a day Do you need a note to return to daycare/school/sports/work: No HPI EP Work PE HPI Details 52-year-old female presents for a work physical. She requires a TB test to be allowed to work. [facility] Medical History (Updated 12/28/22 @ 08:24 by Keegan Givens MD) Colon cancer screening Diabetes type 2, uncontrolled High cholesterol Surgical History H/O abdominal hysterectomy H/O gastric sleeve Hx of section Family History Sister Breast CA Maternal Aunt Breast CA Social History Household Members: None Housing: Apartment Alcohol intake: current Alcohol intake frequency: does not drink Patient Tobacco Use Status: Never used Tobacco e-Cigarette/Vaping Use: Never Used Second Hand Smoke Exposure: No Current occupational status: employed Current occupation: [employer] 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/hazards: Yes Cognitive needs: No Hearing needs: No Vision needs: No Female Reproductive History Menstrual Age of Menarche: 10 Physical Exam Vital Signs: Last Vital Signs Pulse 69 12/28/22 08:11 BP 120/80 12/28/22 08:11 Pulse Ox 96 12/28/22 08:11 Oxygen Delivery Method Room Air 12/28/22 08:11 BMI result Body Mass Index 23.9 Const General: cooperative and healthy appearing Nutritional Appearance: well nourished Orientation/consciousness: patient oriented x3 Limitations: no limitations HEENT Head: Yes normal to inspection Eyes General: appearance normal, both eyes and all related structures Neck Neck: Yes normal visual inspection Chest Chest palpation & inspection: normal palpation of entire chest wall Resp Effort & Inspection: normal respiratory effort Neuro General: patient oriented x3 Assessment & Plan Assessment & Plan (1) Physical exam, pre-employment: Code(s): Z02.1 - Encounter for pre-employment examination Plan: Blood work for T spot ordered. Orders: Orders T Spot TB Today Z02.0 - Encounter for examination for admission to educational institution Coding Level of Care Code Sports/Work/School Physical Diagnoses Physical exam, pre-employment Z02.1
[2022-12-28 08:11] VITALS: BP 120/80; PULSE 69; O2SAT 96; BMI 23.9
== END 2022-12-28 09:14 | disposition home or self-care (01) ==
PROVIDERS: PCP Internal Medicine; Visit Provider Internal Medicine
DX: Z02.1 Encounter for pre-employment examination (principal)
CPT/HCPCS: 86580; 99080

== ENCOUNTER 2022-12-28 08:23 | Outpatient (REF) | payer OTHER, SELFPAY ==
[2022-12-31 12:08] LABS: TS Negative Control Passed; TS Panel A 0; TS Panel B 2; TS Positive Control Passed; TSpotTB Negative (Negative)
== END 2022-12-28 08:24 | disposition home or self-care (01) ==
LOC: HO.HMGCLDS 08:23
PROVIDERS: PCP Internal Medicine; Visit Provider Internal Medicine
DX: Z02.0 Encounter for examination for admission to educational institution (principal); K59.01 Slow transit constipation
CPT/HCPCS: 36415; 86481; 99202

== ENCOUNTER 2022-12-28 14:56 | Outpatient (AMB) | payer OTHER, SELFPAY ==
[2022-12-28 15:03] VITALS: BP 139/93; PULSE 96; BMI 24.0
--- NOTE | 2022-12-28 15:03 | A.OFFVIS_ITS ---
Intake Vital Signs 12/28/22 15:03 Height 5 ft 4 in Weight 139 lb 12.369 oz BMI 24.0 BP 139/93 H Blood Pressure Location Lt brachial Position Sitting Pulse 96 Intake Visit Reasons: [place] screening Intake Note: Amee presents in office as a new.patient for a colonoscopy screening. PT CC: pt reports having constipation , 1st colo pt denies any other GI Issues Impregnator Electrolytic Capacitors Required: Yes Impregnator Electrolytic Capacitors Language: Animal Sticker Name: Nivia Accompanied by: Self / Same As Patient Allergies No Known Allergies [No Known Allergies*] Allergy (Verified 12/28/22 15:04) HPI [place] screening HPI Details 52 year old? female here today for pre colonoscopy screening.? Patient was sent to us by her PCP.? This is her first colonoscopy screening.? Patient reports history of constipation sometimes no bowel movements 2-3 days. Denies any personal or family history of gastrointestinal disease, colon polyps, or cancer.? Denies history of difficulty with sedation or anesthesia in the past.? History of gastric sleeve 8 years ago. Negative for history of sleep apnea.? Denies any history of cardiac, renal, pulmonary, or hepatic disease.?? No history of infectious? diseases like hepatitis A, B, C, HIV or tuberculosis.? Patient is not on any anticoagulation therapy. 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/hazards: Yes Cognitive needs: No Hearing needs: No Vision needs: No Female Reproductive History Menstrual Age of Menarche: 10 Review of Systems Const Denies weight gain and Denies weight loss ENT Reports no additional complaints, Denies dysphagia and Denies odynophagia Card Reports no additional complaints Resp Reports no additional complaints GI Denies abdominal pain, Denies belching, Denies melena, Denies bloating, Reports constipation, Denies dysphagia, Denies excessive flatus, Denies dyspepsia, Denies heartburn, Denies diarrhea, Denies loose stools, Denies nausea, Denies odynophagia and Denies vomiting Reports no additional complaints Musc Reports no additional complaints Neuro Reports no additional complaints Psych Reports no additional complaints Endo Reports no additional complaints Physical Exam Vital Signs: Last Vital Signs Pulse 96 12/28/22 15:03 BP 139/93 H 12/28/22 15:03 BMI result Body Mass Index 24.0 Const General: healthy appearing, no acute distress and well developed Nutritional Appearance: well nourished Orientation/consciousness: patient oriented x3 HEENT Head: Yes normal to inspection, Yes normocephalic and Yes atraumatic Face and sinus: Yes normal facial exam Mouth: Normal oral and palatal mucosa present Throat: Yes posterior oropharynx normal, Yes tonsils normal and Yes uvula midline Eyes General: appearance normal, both eyes and all related structures Neck Neck: Yes normal visual inspection, Yes full ROM and Yes trachea midline Thyroid: Thyroid normal Resp Effort & Inspection: normal respiratory effort, able to speak in complete sentences, no tracheal deviation and symmetric chest movement Auscultation: clear to auscultation bilaterally Cardio Rate: regular rate Heart sounds: S1 normal heart sound present and S2 normal heart sound present GI Inspection: Yes normal to inspection and No distended Palpation (GI): Soft to palpation, not firm, nontender and No hepatosplenomegaly present Auscultation: normal bowel sounds General: Yes no CVA tenderness Back/Spine/Pelvis Back: no CVA tenderness Skin General skin exam: elasticity normal, turgor normal and dry skin Neuro General: patient oriented x3 Psych Appearance: grossly normal Mental Status: mental status grossly normal Speech and movement: Normal speech and movement present Assessment & Plan Assessment & Plan (1) Colon cancer screening: Code(s): Z12.11 - Encounter for screening for malignant neoplasm of colon Plan: Patient denies any cardiac or respiratory symptoms.? Denies any issues with anesthesia in the past.? Denies any history of sleep apnea.? No history infectious diseases in the past or present.? Not on any anticoagulation therapy.? No family or personal history of colon cancer or polyps.? Patient denies melena, hematochezia, unintentional weight loss or ribbon like stools.? Patient is not moving her bowels well. Will send her home with script for Senokot. Patient will return and we will rediscuss colonoscopy. Briefly discuss what to expect before during and after the procedure today. (2) Constipation: Code(s): K59.00 - Constipation, unspecified Qualifiers: Constipation type: slow transit constipation Qualified Code(s): K59.01 - Slow transit constipation Plan: Patient reports constipation, no bowel movements for 2-3 days. Patient was encouraged to increase fluid intake and activity to promote better bowel motility. Patient will be started on Senokot. She will call our office in 2 weeks if she will continue to be constipated. I will see her in 5-6 weeks, sooner on as needed basis. Please schedule patient for colonoscopy in the [facility]. She is agreeable to this plan and verbalizes understanding of instructions. She was given the opportunity to ask questions all questions answered. Thank you for allowing me to participate in her care high Medications: New sennosides (Natural Senna Laxative) 17.2 mg (2 x 8.6 mg) PO BEDTIME 60 tabs 3RF constipation K59.00 - Constipation, unspecified Coding Level of Care Code New Pt Level 3 (80107) Diagnoses Colon cancer screening Z12.11 Constipation K59.01 Constipation type: slow transit constipation Time Spent (min) 40 Comment 30 minutes spent with patient and additional 10 minutes spent reviewing her records
== END 2022-12-28 15:34 | disposition home or self-care (01) ==
PROVIDERS: PCP Internal Medicine; Visit Provider Nurse Practitioner Family
DX: Z12.11 Encounter for screening for malignant neoplasm of colon (principal); K59.01 Slow transit constipation; Z01.818 Encounter for other preprocedural examination
CPT/HCPCS: 99203

== ENCOUNTER 2023-01-29 14:28 | Outpatient (AMB) | payer MEDICAID, SELFPAY ==
--- NOTE | 2023-01-29 14:33 | MHC.OFFVIS ---
Intake Vital Signs 01/29/23 14:36 Height 5 ft 4 in Weight 141 lb 1.533 oz BMI 24.2 BP 128/73 Blood Pressure Location Rt brachial Position Sitting Pulse 99 Intake Visit Reasons: 5 week follow up Intake Note: Amee presents in the office as a 5 week follow up. CC: She states that she is not having any GI concerns today. Laboratory Mechanic Helper Required: Yes Laboratory Mechanic Helper Name: Génesis [id number] Allergies No Known Allergies [No Known Allergies*] Allergy (Verified 01/29/23 14:37) HPI 5 week follow up HPI Details LAST VISIT: Colon cancer screening Patient denies any cardiac or respiratory symptoms.? Denies any issues with anesthesia in the past.? Denies any history of sleep apnea.? No history infectious diseases in the past or present.? Not on any anticoagulation therapy.? No family or personal history of colon cancer or polyps.? Patient denies melena, hematochezia, unintentional weight loss or ribbon like stools.? Patient is not moving her bowels well. Will send her home with script for Senokot. Patient will return and we will rediscuss colonoscopy. Briefly discuss what to expect before during and after the procedure today. Constipation Patient reports constipation, no bowel movements for 2-3 days. Patient was encouraged to increase fluid intake and activity to promote better bowel motility. Patient will be started on Senokot. She will call our office in 2 weeks if she will continue to be constipated. I will see her in 5-6 weeks, sooner on as needed basis. Please schedule patient for colonoscopy in the meantime. She is agreeable to this plan and verbalizes understanding of instructions. She was given the opportunity to ask questions all questions answered. TODAY'S VISIT Patient is here today for follow-up and to discuss going for colonoscopy. Patient reports that she is moving her bowels better now she is taking Senokot and states that she is moving her bowels daily. Patient denies any melena, hematochezia, unintentional weight loss or ribbon like stools. Patient denies any dyspepsia, dysphagia or odynophagia. Patient reports that she has been doing well. Patient is on Trulicity and will need to make sure that we will schedule the procedure accordingly. Recent study showed decreased gastric empty that could have an affect on patient's anesthesia causing possible aspiration. Patient denies any nausea or vomiting. Patient denies any cardiac or respiratory symptoms. [facility] Medical History High cholesterol Diabetes type 2, uncontrolled Colon cancer screening Surgical History Hx of section H/O gastric sleeve H/O abdominal hysterectomy Family History Sister Breast CA Maternal Aunt Breast CA Social History Household Members: None Housing: Apartment Alcohol intake: current Alcohol intake frequency: does not drink Patient Tobacco Use Status: Never used Tobacco e-Cigarette/Vaping Use: Never Used Second Hand Smoke Exposure: No Current occupational status: employed Current occupation: [employer] 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/hazards: Yes Cognitive needs: No Hearing needs: No Vision needs: No Female Reproductive History Menstrual Age of Menarche: 10 Review of Systems Const Denies weight gain and Denies weight loss ENT Reports no additional complaints, Denies dysphagia and Denies odynophagia Card Reports no additional complaints Resp Reports no additional complaints GI Denies abdominal pain, Denies belching, Denies melena, Denies bloating, Denies change in bowel habits, Denies dysphagia, Denies excessive flatus, Denies dyspepsia, Denies heartburn, Denies diarrhea, Denies loose stools, Denies nausea, Denies odynophagia and Denies vomiting Musc Reports no additional complaints Neuro Reports no additional complaints Psych Reports no additional complaints Endo Reports no additional complaints Physical Exam Vital Signs: Last Vital Signs Pulse 99 01/29/23 14:36 BP 128/73 01/29/23 14:36 BMI result Body Mass Index 24.2 Const General: healthy appearing, no acute distress and well developed Nutritional Appearance: well nourished Orientation/consciousness: patient oriented x3 HEENT Head: Yes normal to inspection, Yes normocephalic and Yes atraumatic Face and sinus: Yes normal facial exam Mouth: Normal oral and palatal mucosa present Throat: Yes posterior oropharynx normal, Yes tonsils normal and Yes uvula midline Eyes General: appearance normal, both eyes and all related structures Neck Neck: Yes normal visual inspection, Yes full ROM and Yes trachea midline Thyroid: Thyroid normal Resp Effort & Inspection: normal respiratory effort, able to speak in complete sentences, no tracheal deviation and symmetric chest movement Auscultation: clear to auscultation bilaterally Cardio Rate: regular rate Heart sounds: S1 normal heart sound present and S2 normal heart sound present GI Inspection: Yes normal to inspection and No distended Palpation (GI): Soft to palpation, not firm, nontender and No hepatosplenomegaly present Auscultation: normal bowel sounds General: Yes no CVA tenderness Back/Spine/Pelvis Back: no CVA tenderness Skin General skin exam: elasticity normal, turgor normal and dry skin Neuro General: patient oriented x3 Psych Appearance: grossly normal Mental Status: mental status grossly normal Speech and movement: Normal speech and movement present Assessment & Plan Assessment & Plan (1) Colon cancer screening: Code(s): Z12.11 - Encounter for screening for malignant neoplasm of colon (2) Constipation: Code(s): K59.00 - Constipation, unspecified Qualifiers: Constipation type: slow transit constipation Qualified Code(s): K59.01 - Slow transit constipation Plan Continue Senokot. Patient will be scheduled for colonoscopy. Please make sure patient holds Trulicity depending on when her procedure will be scheduled. What to expect before during and after procedure discussed with patient. Clear liquid diet day before procedure discussed with her. Patient is not on any anticoagulation of the patient. No history of sleep apnea. No issues with anesthesia in the past. I will see patient after the procedure, sooner on as needed basis. Patient is agreeable to plan of care and verbalizes understanding of instructions. She was given the opportunity to ask questions and all questions answered. Thank you for allowing me to participate in her care Medications: New bisacodyl (Dulcolax (bisacodyl)) take 2 tabs at noon the day before your colonoscopy 10 mg (2 x 5 mg) PO ONCE 2 tabs 0RF 1 day Z12.11 - Encounter for screening for malignant neoplasm of colon polyethylene glycol 3350 (Miralax) As directed by gastroenterology department at [facility] 238 grams PO ONCE 238 grams 0RF Z12.11 - Encounter for screening for malignant neoplasm of colon Coding Level of Care Code Est Pt Level 3 (28293) Diagnoses Colon cancer screening Z12.11 Slow transit constipation K59.01 Constipation type: slow transit constipation Time Spent (min) 30 Comment 20 minutes spent with patient and additional 10 minutes spent reviewing her records
[2023-01-29 14:36] VITALS: BP 128/73; PULSE 99; BMI 24.2
== END 2023-01-29 15:10 | disposition home or self-care (01) ==
PROVIDERS: PCP Internal Medicine; Visit Provider Nurse Practitioner Family
DX: Z12.11 Encounter for screening for malignant neoplasm of colon (principal); K59.01 Slow transit constipation; Z01.818 Encounter for other preprocedural examination
CPT/HCPCS: 99213

== ENCOUNTER → 2023-01-29 14:28 | Outpatient (BNVA) | payer MEDICAID, SELFPAY | PROVIDERS: PCP Internal Medicine; Visit Provider Nurse Practitioner Family | DX: Z01.818 Encounter for other preprocedural examination (principal); K59.01 Slow transit constipation; Z79.899 Other long term (current) drug therapy | CPT/HCPCS: 99212 ==

== ENCOUNTER 2023-03-06 11:08 | Outpatient (AMB) | payer MEDICAID, SELFPAY ==
[2023-03-06 11:28] VITALS: BMI 25.4
--- NOTE | 2023-03-06 11:28 | MHC.AMNUTRGE ---
Intake VS Expanded 03/06/23 11:28 Height 5 ft 4 in Weight 148 lb 2.41 oz BMI 25.4 Intake Visit Reasons: DM Allergies No Known Allergies [No Known Allergies*] Allergy (Verified 01/29/23 14:37) HPI Nutrition Presentation Details Pt presents for MNT f/u for T2 DM. Pt reports feeling well, reports typically having the same meal routine Hx of sleeve gastrectomy surgery in 2018 9am breakfast meal: cereal with milk or sandwich with egg/ham/cheese, coffee or tea 12-1 pm pasta/ground beef, tomato sauce, water 4-6 tuna sandwich with light olson, water, or milk (nov veg added) 8-11 pm cheerios /milk 1% or sand or crackers or ice cream Pt reports today taking all DM meds Lantus 16 units per day Novolog on a sliding scale at breakfast (4 units for BG 81-15-, 6 unit for BG 151-200, 8 units for BG > 200 Jardiance 25 mg/d Trulicity 3 mg per week Pt bg 14 d bg average 268mg/dl gluc variability 36.6% 21% within target, 31 % high, 48% very high , NO low BG Most Recent Diabetes Results: Microalb/Creat Ratio 318.0 ug/mg cr 10/15/22 Cholesterol 278 mg/dL 10/15/22 HDL Cholesterol 61 mg/dL 10/15/22 Triglycerides 136 mg/dL 10/15/22 Creatinine 0.75 mg/dL (0.5-1.4) 10/15/22 Blood Urea Nitrogen 16 mg/dL (9-16) 10/15/22 Sodium 143 mmol/L (135-145) 10/15/22 Potassium 4.1 mmol/L (3.3-5.1) 10/15/22 Chloride 107 mmol/L (96-108) 10/15/22 Carbon Dioxide 24 mmol/L (22-29) 10/15/22 Calcium 10.0 mg/dL (8.4-10.2) 10/15/22 AST 12 U/L (5-31) 10/15/22 ALT 16 U/L (0-31) 10/15/22 Total Protein 7.7 g/dL (6.5-8.0) 10/15/22 Albumin 3.9 g/dL (3.5-5.0) 10/15/22 [facility] Medical History High cholesterol Diabetes type 2, uncontrolled Colon cancer screening Surgical History Hx of section H/O gastric sleeve H/O abdominal hysterectomy Family History Sister Breast CA Maternal Aunt Breast CA Social History Household Members: None Housing: Apartment Alcohol intake: current Alcohol intake frequency: does not drink Patient Tobacco Use Status: Never used Tobacco e-Cigarette/Vaping Use: Never Used Second Hand Smoke Exposure: No Current occupational status: employed Current occupation: [employer] 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/hazards: Yes Cognitive needs: No Hearing needs: No Vision needs: No Female Reproductive History Menstrual Age of Menarche: 10 Assessment & Plan Assessment & Plan (1) Insulin dependent type 2 diabetes mellitus: Code(s): E11.9 - Type 2 diabetes mellitus without complications; Z79.4 - [facility] (current) use of insulin Plan: Review Pt on healthy plate method, review carbohydrates and fiber rich food Pt having elevated blood glucose with 14 d bg average 268 mg/dl. Case discussed with Dr. Blakely who recommended for Pt to continue all DM meds as established and to take Novolog as per sliding scale 15 minutes prior to breakfast and ALSO 15 minutes prior to dinner (sliding scale 4 units for BG 81-150, 6 units for BG 151-200, 8 units for BG > 200 ? Used wt : 64 kg Est kcal as per MSJ: 1479 (40% carb, 30% fat/prot) Est fluid needs: 1602 ml/d (25 ml/kg bw) Rec fiber: increase to 8-10 g per day and gradually increase to 25 g/d or as tolerated Rec Na: < 2000 mg /d Educate patient on: (R= Reviewed, V = verbalizes understanding N/R= Needs review N/A= not applicable) Food sources of carbohydrates and serving adequate serving sizes : R Difference between complex carbohydrates and simple carbohydrates, role of fiber: R Differences between fats (MUFA/PUFA/saturated fats, trans fats) and food sources of various fats: R Food sources of sodium and salt and healthy modifications for heart health and kidney health: R Vitamins and minerals: R How to interpret food labels: R Healthy Plate method concept: R V Physical activity: benefits and precaution: R Patient Instructions: Bring all your DM medications to your appointment with the clinical document improvement educator on 03/19/2023 Take all your medications as prescribed by your doctor - take novolog 15 minutes before breakfast and also 15 minutes before dinner as per sliding scale (4 units for BG 81-150, 6 units for BG 151-200, 8 units for BG higher than 200 Have a bedtimes snack consisting of 30 g carb and 2 ounces of protein (reducing on carbohydrates at bedtime snack) (2 slice of bread with peanut butter or tuna or ham/cheese or 1/2 sand and 1 cup of milk or 2/3 c cottage cheese and 4 crackers or 1 fruit and peantu butterg or glucerna shake FRISIAN: Parviz todas tus medicinas de diabetes contigo a tu proxima visita con el doctor y con la educadora de diabetes el 03/19/2023 Coge Novolog 15 minutos antes de tu desayuno y tambien antes de la rg siguiendo la escala (4 units for BG 81-150, 6 units for BG 151-200, 8 units for BG higher than 200 Reduce los carbohidratos en la merienda en la noche a menos de 30 g de carbs 1 sandwhich de umer/queso (30 g carbs) o de tuna o de mantequilla de renetta y agua o 1 taza de queso (cottage cheese) y 4 galletas wheaties (cerca de 25 g carbs) 1 manzana con mantequilla de renetta 1 glucerna/high protein shaake Coding Level of Care Code Nutr Indiv Subseq (04698) Diagnoses Insulin dependent type 2 diabetes mellitus E11.9; Z79.4 Time Spent (min) 30
== END 2023-03-06 12:30 | disposition home or self-care (01) ==
PROVIDERS: PCP Internal Medicine; Visit Provider Dietitian, Registered
DX: E11.9 Type 2 diabetes mellitus without complications (principal); Z79.4 Long term (current) use of insulin

== ENCOUNTER → 2023-03-06 11:08 | Outpatient (BNVA) | payer MEDICAID, SELFPAY | PROVIDERS: PCP Internal Medicine; Visit Provider Dietitian, Registered | DX: E11.9 Type 2 diabetes mellitus without complications (principal); Z79.4 Long term (current) use of insulin | CPT/HCPCS: 97803 ==

== ENCOUNTER 2023-03-19 11:06 | Outpatient (AMB) | payer MEDICAID, SELFPAY ==
--- NOTE | 2023-03-19 12:13 | A.OFFVIS_ITS ---
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 Required: Yes Professor Of Pathology Name: Debi [facility] [place] Accompanied by: Self / Same As Patient Allergies No Known Allergies [No Known Allergies*] Allergy (Verified 01/29/23 14:37) HPI Comprehensive Diabetes Asmnt Most Recent Diabetes Results: Microalb/Creat Ratio 318.0 ug/mg cr 10/15/22 Cholesterol 278 mg/dL 10/15/22 HDL Cholesterol 61 mg/dL 10/15/22 Triglycerides 136 mg/dL 10/15/22 Creatinine 0.75 mg/dL (0.5-1.4) 10/15/22 Blood Urea Nitrogen 16 mg/dL (9-16) 10/15/22 Sodium 143 mmol/L (135-145) 10/15/22 Potassium 4.1 mmol/L (3.3-5.1) 10/15/22 Chloride 107 mmol/L (96-108) 10/15/22 Carbon Dioxide 24 mmol/L (22-29) 10/15/22 Calcium 10.0 mg/dL (8.4-10.2) 10/15/22 AST 12 U/L (5-31) 10/15/22 ALT 16 U/L (0-31) 10/15/22 Total Protein 7.7 g/dL (6.5-8.0) 10/15/22 Albumin 3.9 g/dL (3.5-5.0) 10/15/22 [facility] Medical History High cholesterol Diabetes type 2, uncontrolled Colon cancer screening Surgical History Hx of section H/O gastric sleeve H/O abdominal hysterectomy Family History Sister Breast CA Maternal Aunt Breast CA Household Members: None Housing: Apartment Alcohol intake: current Alcohol intake frequency: does not drink Patient Tobacco Use Status: Never used Tobacco e-Cigarette/Vaping Use: Never Used Second Hand Smoke Exposure: No Current occupational status: employed Current occupation: [employer] 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/hazards: Yes Cognitive needs: No Hearing needs: No Vision needs: No Female Reproductive History Menstrual Age of Menarche: 10 Assessment & Plan Assessment & Plan (1) Insulin dependent type 2 diabetes mellitus: Code(s): E11.9 - Type 2 diabetes mellitus without complications; Z79.4 - [facility] (current) use of insulin Plan: Personal Continuous Glucose Monitor: Patients CGM information reviewed Reviewed patient's sensor data: Hypoglycemia: ? 0% Hyperglycemia:?56% Time in Range:?44% Average glucose for the last 2 weeks?207 mg/dL Patient reports taking Lantus 16 units daily NovoLog sliding scale Metformin 1000 mg b.i.d. 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 New prescription requested from Dr. Blakely at today's visit. Patient also requested insulin pen needles and glucometer supplies Patient's blood sugars have improved since visit with RD, average glucose on 03/06/2023 268 mg/dL Reviewed with patient action of Lantus, NovoLog, Trulicity and metformin Instructed patient to restart Trulicity 3 mg, before visit with Dr. Blakely If patient begins to experience hypoglycemic events contact clinic for adjustment in insulin. Reviewed with patient how to treat hypoglycemia with rule of 15s, handout given in Norwegian Recommended to patient she try and be more proactive in self-care. 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 At the end of the visit patient requested carbohydrate list, , Planning Healthy meal handout given in Norwegian Patient has upcoming appointment with Dr. Blakely, nutrition, and PCP all in March 2023 Patient able to insert sensor independently at home without issue.? Patient Instructions: Follow-up with health promotion educator in 3 months Coding Level of Care Code Est Pt Level 1 (04644) Diagnoses Insulin dependent type 2 diabetes mellitus E11.9; Z79.4
== END 2023-03-19 12:18 | disposition home or self-care (01) ==
PROVIDERS: PCP Internal Medicine; Visit Provider Registered Nurse Diabetes Educator
DX: E11.9 Type 2 diabetes mellitus without complications (principal); Z79.4 Long term (current) use of insulin

== ENCOUNTER → 2023-03-19 11:06 | Outpatient (BNVA) | payer MEDICAID, SELFPAY | PROVIDERS: PCP Internal Medicine; Visit Provider Registered Nurse Diabetes Educator | DX: E11.65 Type 2 diabetes mellitus with hyperglycemia (principal); Z79.4 Long term (current) use of insulin | CPT/HCPCS: 99211 ==

== ENCOUNTER 2023-04-04 14:18 | Outpatient (AMB) | payer MEDICAID, SELFPAY ==
[2023-04-04 14:20] VITALS: BP 160/90; PULSE 92; BMI 25.8
--- NOTE | 2023-04-04 14:20 | MHC.OFFVIS ---
Intake Vital Signs 04/04/23 14:20 Height 5 ft 4 in Weight 150 lb 9.211 oz BMI 25.8 BP 160/90 H Blood Pressure Location Rt brachial Position Sitting Pulse 92 Pulse Source Pulse Oximeter Intake Visit Reasons: dm/confirm Intake Note: Patient present today to follow up on Type 2 Diabetes Mellitus. 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 Initially diagnosed with T2DM in 22 yrs . Saw darwin at [facility] Was initially started on treatment with metformin . Jardiance 25 mg QD Current regimen metformin 1000 mg BID Trulicity 3 mg Qwkly Lantus 15 units . Novolog 5 units TID Joe 3 download from 03/22/23-04/04/23 shows sensors being use 98% of the time. Average glucose is 214 with G mi of 8.4% and variation of 32.3%. 33% glucoses are in range with 41% hyperglycemia and 26% very hyperglycemic and no0 hypoglycemia. Colon shows increase in point cares t post lunch Reports occasional low sugars . Had bariatric surgery 5 yrs ago Family history of T2DM in mother , father and sister . Not Has eyes checked yearly, last eye exam yrs ago , denies retinopathy.Needs to make appt Denies neuropathy, , will sees podiatry 02/14/22 . Denies nephropathy,Not on NAYANA/ARB. . Has HLD, on statin. Denies CAD. Had diabetes education many yrs ago . PFSH Medical History High cholesterol Diabetes type 2, uncontrolled Colon cancer screening Surgical History Hx of section H/O gastric sleeve H/O abdominal hysterectomy Family History Sister Breast CA Maternal Aunt Breast CA Social History Household Members: None Housing: Apartment Alcohol intake: current Alcohol intake frequency: does not drink Patient Tobacco Use Status: Never used Tobacco e-Cigarette/Vaping Use: Never Used Second Hand Smoke Exposure: No Current occupational status: employed Current occupation: [employer] 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/hazards: Yes Cognitive needs: No Hearing needs: No Vision needs: No Female Reproductive History Menstrual Age of Menarche: 10 Physical Exam Vital Signs: Last Vital Signs Pulse 92 04/04/23 14:20 BP 160/90 H 04/04/23 14:20 BMI result Body Mass Index 25.8 Absence of Cushingoid features. Absence of acromegalic features. Neck exam reveals nl size thyroid about 15 gms. No thyroid nodules palpable. No carotid bruits present. Lungs CTA. Heart S1 S2, Reg R/R. No M/R/ G. Skin exam reveals absence of vitiligo or acanthosis nigricans. Abdominal exam reveals Soft NT/ND with NA BS. No organomegaly present. Neck Other: . Extrem Other: Visual exam of foot performed. No ulcerations or open lesions. No onchomycosis, no callouses.Pulses 2 + distally Sensation intact to monofilament exam. 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 Patient will follow-up with the certified lactation educator. Want over side effects of Ozempic and Mounjaro including but not limited to nausea, vomiting and rare risk of pancreatitis Donato 2.5 mg samples given to pt . 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
[2023-04-04 14:36] LABS: Glucose, Whole Blood 131 mg/dL (60-115)
== END 2023-04-04 15:20 | disposition home or self-care (01) ==
PROVIDERS: PCP Internal Medicine; Visit Provider Internal Medicine Endocrinology, Diabetes & Metabolism
DX: E11.9 Type 2 diabetes mellitus without complications (principal); Z79.4 Long term (current) use of insulin
CPT/HCPCS: 99214

== ENCOUNTER → 2023-04-04 14:18 | Outpatient (BNVA) | payer MEDICAID, SELFPAY | PROVIDERS: PCP Internal Medicine; Visit Provider Internal Medicine Endocrinology, Diabetes & Metabolism | DX: E11.9 Type 2 diabetes mellitus without complications (principal); Z79.4 Long term (current) use of insulin | CPT/HCPCS: 82947; 83036; 99212 ==

== ENCOUNTER 2023-04-09 12:30 | Outpatient (AMB) | payer MEDICAID, SELFPAY ==
--- NOTE | 2023-04-09 12:47 | A.OFFPC_ITS ---
"Vital Signs 04/09/23 12:49 Height 5 ft 4 in Weight 148 lb BMI 25.4 BP 140/85 H Blood Pressure Location Lt brachial Position Sitting Pulse 93 Pulse Source Pulse Oximeter Pulse Oximetry (%) 98 Oxygen Delivery Method Room Air Intake Visit Reasons: Annual pe Intake Note: Pt is here today for PE. 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 Allergies No Known Allergies [No Known Allergies*] Allergy (Verified 04/09/23 12:51) Medication List - Last Reconciled 04/09/23 by Nichol Brown MD atorvastatin 80 mg PO DAILY bisacodyl (Dulcolax (bisacodyl)) 10 mg (2 x 5 mg) PO ONCE 1 day blood sugar diagnostic ([employer] Blood Glucose System strips) 1 bid blood sugar diagnostic (FreeStyle Lite Strips) As directed - twice a day blood sugar diagnostic (FreeStyle Lite Strips) As directed tests 4x/day blood-glucose sensor (FreeStyle Joe 3 Sensor device) As directed empagliflozin (Jardiance) 25 mg PO DAILY insulin glargine (Lantus Solostar U-100 Insulin) 15 units subcut QAM lancets (FreeStyle Lancets) tests 4 X/day metformin 1,000 mg PO BID Novolog FlexPen U-100 Insulin (insulin aspart U-100) 6 units (0.06 mL) subcut TID NS pen needle, diabetic (BD Yumiko 2nd Gen Pen Needle) As directed injects once a day polyethylene glycol 3350 (Miralax) 238 grams PO ONCE sennosides (Natural Senna Laxative) 17.2 mg (2 x 8.6 mg) PO BEDTIME tirzepatide (Mounjaro) 2.5 mg subcut QWEEK Tobacco use date assessed: 10/20/21 HPI Annual pe HPI Details Patient presents for PE. She reports high fasting blood glucose readings between 160-200 and before bedtime over 200. She has been working on improving her diet and started Mounjaro last weekend. Patient is up-to-date with the Pap smear and mammogram by take away worker and will have a colonoscopy next year. [facility] Medical History High cholesterol Diabetes type 2, uncontrolled Colon cancer screening Surgical History Hx of section H/O gastric sleeve H/O abdominal hysterectomy Family History Sister Breast CA Maternal Aunt Breast CA Social History Household Members: None Housing: Apartment Alcohol intake: current Alcohol intake frequency: does not drink Patient Tobacco Use Status: Never used Tobacco e-Cigarette/Vaping Use: Never Used Second Hand Smoke Exposure: No Current occupational status: employed Current occupation: [employer] 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/hazards: Yes Cognitive needs: No Hearing needs: No Vision needs: No Female Reproductive History Menstrual Age of Menarche: 10 Questionnaire Thrive Questionnaire Date Thrive assessed: 10/08/22 TYLER-7 AMB Questionnaire TYLER-7 Date TYLER - 7 assessed: 10/08/22 Source: Developed by Drs. Bertrand Baker, Julia Sears, Kemar Talley and colleagues, with an educational mariella from [employer]. Review of Systems Const All systems reviewed & are unremarkable except as noted in HPI and below Reports no additional complaints Eyes Reports no additional complaints ENT Reports no additional complaints Card Reports no additional complaints Resp Reports no additional complaints GI Reports no additional complaints Reports no additional complaints Physical exam (Primary Care) Vital Signs: Last Vital Signs Pulse 93 04/09/23 12:49 BP 104/66 04/09/23 12:49 Pulse Ox 98 04/09/23 12:49 Oxygen Delivery Method Room Air 04/09/23 12:49 BMI result Body Mass Index 25.4 Tobacco/Smoking Status: Tobacco use Status Tobacco use date assessed 10/20/21 04/09/23 12:47 Patient Tobacco Use Status Never used Tobacco 04/09/23 12:47 e-Cigarette/Vaping Use Never Used 04/09/23 12:47 Thrive Assessment: Date of Thrive Assessment Date Thrive assessed 10/08/22 04/09/23 12:47 Const General: no acute distress HENMT Head: Yes normal to inspection Ears: hearing grossly normal bilaterally Face and sinus: Yes normal facial exam Mouth: Normal oral and palatal mucosa present Throat: Yes posterior oropharynx normal Eyes General: appearance normal, both eyes and all related structures Neck Neck: Yes no lymphadenopathy and Yes supple Resp Effort & Inspection: normal respiratory effort Auscultation: clear to auscultation bilaterally Cardio Rhythm: regular rhythm Heart sounds: S1 normal heart sound present and S2 normal heart sound present GI Inspection: Yes normal to inspection Palpation (GI): Soft to palpation Percussion: Yes normal to percussion Auscultation: normal bowel sounds Assessment and Plan Assessment & Plan (1) Annual physical exam: Code(s): Z00.00 - Encounter for general adult medical examination without abnormal findings Plan: Well-balanced diet and regular exercise discussed with the patient . she is up-to-date with mammogram Pap smear by lay out technician and will have a colonoscopy next year (2) Insulin dependent type 2 diabetes mellitus: Comment: Poorly controlled, follow-up with Dr. 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 Patient started Mounjaro 2.5 mg 3 days ago. ADA diet, increase physical activity discussed with the patient. She will continue Jardiance, metformin and will increase Lantus to 20 units at bedtime and Humalog with sliding scale between 6-10 units before meals. (3) Hyperlipidemia: Code(s): E78.5 - Hyperlipidemia, unspecified Plan: Continue statin (4) Hypertension: Code(s): I10 - Essential (primary) hypertension Plan: Low-sodium diet regular physical activity discussed with the patient. 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 Medications: New lisinopril 5 mg PO DAILY 90 tabs 0RF Changed From insulin glargine (Lantus Solostar U-100 Insulin) 15 units subcut QAM To insulin glargine (Lantus Solostar U-100 Insulin) 20 units subcut QPM From Novolog FlexPen U-100 Insulin (insulin aspart U-100) 6 units (0.06 mL) subcut TID 15 mL 4RF NS To Novolog FlexPen U-100 Insulin (insulin aspart U-100) before meals tid, if glucose is less than 200 take 6 units, if more then 200 , take 10 units 6 units (0.06 mL) subcut TID 30 mL 4RF NS From Novolog FlexPen U-100 Insulin (insulin aspart U-100) before meals tid, if glucose is less than 200 take 6 units, if more then 200 , take 10 units 6 units (0.06 mL) subcut TID 30 mL 4RF NS To Novolog FlexPen U-100 Insulin (insulin aspart U-100) before meals tid, if glucose is less than 200 take 6 units, if more then 200 , take 10 units 10 units (0.1 mL) subcut TID 30 mL 4RF NS Discontinued blood sugar diagnostic ([employer] Blood Glucose System strips) Discontinued Reason: Doctor's Order 1 bid 100 ea 3RF Coding Level of Care Code Est Pt Prev Care 40-64y(91217) Diagnoses Annual physical exam Z00.00 Insulin dependent type 2 diabetes mellitus E11.9; Z79.4 Hyperlipidemia E78.5 Hypertension I10"
[2023-04-09 12:49] VITALS: BP 140/85; PULSE 93; O2SAT 98; BMI 25.4
== END 2023-04-09 13:54 | disposition home or self-care (01) ==
PROVIDERS: PCP Internal Medicine; Visit Provider Internal Medicine
DX: Z00.00 Encounter for general adult medical examination without abnormal findings (principal); E11.9 Type 2 diabetes mellitus without complications; Z79.4 Long term (current) use of insulin; E78.5 Hyperlipidemia, unspecified; I10 Essential (primary) hypertension
CPT/HCPCS: 99396

== ENCOUNTER 2023-04-11 11:00 | Outpatient (AMB) | payer MEDICAID, SELFPAY ==
[2023-04-11 11:47] VITALS: BMI 25.6
--- NOTE | 2023-04-11 11:47 | A.OFFVIS_ITS ---
Intake VS Expanded 04/11/23 11:47 Height 5 ft 4 in Weight 149 lb 4.047 oz BMI 25.6 Intake Visit Reasons: DM/CONFIRMED Allergies No Known Allergies [No Known Allergies*] Allergy (Verified 04/09/23 12:51) HPI Nutrition Presentation Details Pt presents for MNT for T2DM Pt reports doing well, working on reducing night eating. Pt reports B1-2 boiled eggs with 4 soda crackers and black coffee L: sandwiches (tuna or egg, or ham/cheese and vegetables) , drinks water 30-45 min after dinner: Caesar salad with avocado light dressing snack: fruit or protein shake Choosing water with flavor added following up with inclusion special educator and senior recruiter Most Recent Diabetes Results: No Data to Display [facility] Medical History High cholesterol Diabetes type 2, uncontrolled Colon cancer screening Surgical History Hx of section H/O gastric sleeve H/O abdominal hysterectomy Family History Sister Breast CA Maternal Aunt Breast CA Social History Household Members: None Housing: Apartment Alcohol intake: current Alcohol intake frequency: does not drink Patient Tobacco Use Status: Never used Tobacco e-Cigarette/Vaping Use: Never Used Second Hand Smoke Exposure: No Current occupational status: employed Current occupation: [employer] 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/hazards: Yes Cognitive needs: No Hearing needs: No Vision needs: No Female Reproductive History Menstrual Age of Menarche: 10 Assessment & Plan Assessment & Plan (1) Insulin dependent type 2 diabetes mellitus: Comment: Poorly controlled, follow-up with Dr. Blakely Code(s): E11.9 - Type 2 diabetes mellitus without complications; Z79.4 - intermediate designer (cu rrent) use of insulin Plan: Review carbohydrate counting and working on following healthy plate method, and choosing balanced snacks at bedtime ? Used wt : 64 kg Est kcal as per MSJ: 1479 (40% carb, 30% fat/prot) Est fluid needs: 1602 ml/d (25 ml/kg bw) Rec fiber: increase to 8-10 g per day and gradually increase to 25 g/d or as tolerated Rec Na: < 2000 mg /d Educate patient on: (R= Reviewed, V = verbalizes understanding N/R= Needs review N/A= not applicable) * Food sources of carbohydrates and serving adequate serving sizes : R * Difference between complex carbohydrates and simple carbohydrates, role of fiber: R * Differences between fats (MUFA/PUFA/saturated fats, trans fats) and food sources of various fats: R * Food sources of sodium and salt and healthy modifications for heart health and kidney health: R * Vitamins and minerals: R * How to interpret food labels: R * Healthy Plate method concept: R V * Physical activity: benefits and precaution: R Patient Instructions: Balanced bedtime snack by having 1-2 carb choices and 1-2 protein choices - see list of options Read food labels to help you choice balanced snacks Coding Level of Care Code Nutr Indiv Subseq (42953) Diagnoses Insulin dependent type 2 diabetes mellitus E11.9; Z79.4 Time Spent (min) 30
== END 2023-04-11 12:14 | disposition home or self-care (01) ==
PROVIDERS: PCP Internal Medicine; Visit Provider Dietitian, Registered
DX: E11.9 Type 2 diabetes mellitus without complications (principal); Z79.4 Long term (current) use of insulin

== ENCOUNTER → 2023-04-11 11:00 | Outpatient (BNVA) | payer MEDICAID, SELFPAY | PROVIDERS: PCP Internal Medicine; Visit Provider Dietitian, Registered | DX: E11.9 Type 2 diabetes mellitus without complications (principal); Z79.4 Long term (current) use of insulin | CPT/HCPCS: 97803 ==

== ENCOUNTER 2023-04-25 13:21 | Outpatient (REF) | payer MEDICAID, SELFPAY ==
--- NOTE | ~2023-04-25 | MM_ITS ---
EXAMINATION: MM SCREENING DIGITAL BREAST TOMOSYNTHESIS, BILATERAL CLINICAL INFORMATION: Screening. Asymptomatic. COMPARISON: Mammography: This study is compared with prior exams dating back to 2016. TECHNIQUE: Digital breast tomosynthesis is performed in both the craniocaudal and mediolateral oblique views along with computer-aided detection (CAD). Synthesized 2D images are generated from the tomosynthesis. FINDINGS: There are scattered areas of fibroglandular density (ACR BI-RADS breast composition Category b). There are no significant masses, abnormal calcifications, or other abnormalities. There are 3 coarsely calcified, benign masses in the left breast and one coarsely calcified, benign mass in the right breast. These are litigation claim representative of involuting fibroadenomata. MM/MM tomosynthesis screening BI IMPRESSION: No mammographic evidence of malignancy. ASSESSMENT: BI-RADS BI-RADS 2 - Benign Findings RECOMMENDATION: Routine annual mammography screening. 1 year F/U This examination should not preclude the clinical evaluation of a suspicious palpable abnormality. This patient's information was entered into a reminder system with a target due date for their next mammogram.
== END 2023-04-25 13:22 | disposition home or self-care (01) ==
LOC: HO.MAMMO 13:21
PROVIDERS: Visit Provider Internal Medicine
DX: Z12.31 Encounter for screening mammogram for malignant neoplasm of breast (principal)
CPT/HCPCS: 77063; 77067

== ENCOUNTER → 2023-04-25 14:00 | Outpatient (BNV) | payer MEDICAID, SELFPAY | PROVIDERS: Visit Provider Radiology Diagnostic Radiology | DX: Z12.31 Encounter for screening mammogram for malignant neoplasm of breast (principal) | CPT/HCPCS: 77063; 77067 ==

== ENCOUNTER 2023-06-19 10:43 | Outpatient (AMB) | payer OTHER, SELFPAY ==
--- NOTE | 2023-06-19 11:12 | A.OFFVIS_ITS ---
Intake Intake Visit Reasons: dm Machine Chocolate Molder Required: Yes Machine Chocolate Molder Language: Boat Patcher Plastic Name: [place] [facility] [place] Interpreted: non-clinical & clinical Accompanied by: Self / Same As Patient Allergies No Known Allergies [No Known Allergies*] Allergy (Verified 04/09/23 12:51) HPI Comprehensive Diabetes Asmnt Most Recent Diabetes Results: Hemoglobin A1c 11.4 % 10/07/19 Microalb/Creat Ratio 318.0 ug/mg cr 10/15/22 Cholesterol 278 mg/dL 10/15/22 HDL Cholesterol 61 mg/dL 10/15/22 Triglycerides 136 mg/dL 10/15/22 Creatinine 0.75 mg/dL (0.5-1.4) 10/15/22 Blood Urea Nitrogen 16 mg/dL (9-16) 10/15/22 Sodium 143 mmol/L (135-145) 10/15/22 Potassium 4.1 mmol/L (3.3-5.1) 10/15/22 Chloride 107 mmol/L (96-108) 10/15/22 Carbon Dioxide 24 mmol/L (22-29) 10/15/22 Calcium 10.0 mg/dL (8.4-10.2) 10/15/22 AST 12 U/L (5-31) 10/15/22 ALT 16 U/L (0-31) 10/15/22 Total Protein 7.7 g/dL (6.5-8.0) 10/15/22 Albumin 3.9 g/dL (3.5-5.0) 10/15/22 PFSH Medical History High cholesterol Diabetes type 2, uncontrolled Colon cancer screening Surgical History Hx of section H/O gastric sleeve H/O abdominal hysterectomy Family History Sister Breast CA Maternal Aunt Breast CA Social History Household Members: None Housing: Apartment Alcohol intake: current Alcohol intake frequency: does not drink Patient Tobacco Use Status: Never used Tobacco e-Cigarette/Vaping Use: Never Used Second Hand Smoke Exposure: No Current occupational status: employed Current occupation: [employer] 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/hazards: Yes Cognitive needs: No Hearing needs: No Vision needs: No Female Reproductive History Menstrual Age of Menarche: 10 Assessment & Plan Assessment & Plan (1) Insulin dependent type 2 diabetes mellitus: Comment: Poorly controlled, follow-up with Dr. Blakely Code(s): E11.9 - Type 2 diabetes mellitus without complications; Z79.4 - salvage determiner (current) use of insulin Plan: Personal Continuous Glucose Monitor: Patients CGM information reviewed Reviewed patient's sensor data: Hypoglycemia: ? 0% Hyperglycemia:? 40% Time in Range:60%? Average glucose for the last 2 weeks?177 mg/dL Patient reports she is still taking Trulicity 3 mg weekly, instructed patient on how to use Ozempic pen. Let patient know that she has approval for Ozempic in her chart and she contact pharmacy to traffic personnel supervisor new prescription. No changes made to patient's insulin plan at today's visit, we will follow-up in 1 month after the initiation of Ozempic to see if insulin needs to be adjusted Reviewed how to interpret trend arrows Reminded patient that to check finger sticks if symptoms do not match sensor reading. Discussed lag time between finger stick and sensor data.? Patient able to insert sensor independently at home without issue.? Patient Instructions: Start Ozempic 1 mg Follow-up with special education paraeducator in 1 month Coding Level of Care Code Est Pt Level 1 (62478) Diagnoses Insulin dependent type 2 diabetes mellitus E11.9; Z79.4
== END 2023-06-19 11:16 | disposition home or self-care (01) ==
PROVIDERS: PCP Internal Medicine; Visit Provider Registered Nurse Diabetes Educator
DX: E11.9 Type 2 diabetes mellitus without complications (principal); Z79.4 Long term (current) use of insulin

== ENCOUNTER → 2023-06-19 10:43 | Outpatient (BNVA) | payer OTHER, SELFPAY | PROVIDERS: Visit Provider Registered Nurse Diabetes Educator | DX: E11.9 Type 2 diabetes mellitus without complications (principal); Z79.4 Long term (current) use of insulin | CPT/HCPCS: 99211 ==

== ENCOUNTER 2023-06-24 07:32 | Outpatient (REF) | payer OTHER, SELFPAY ==
[2023-06-24 11:44] LABS: Basophils Percent Auto 0.3 % (0-2); Eosinophils Absolute Auto 0.2 X10*3/uL (0.0-0.4); Eosinophils Percent Auto 2.7 % (0-4); Hematocrit 40.8 % (37.0-47.0); Hemoglobin 13.2 g/dl (12.0-16.0); Imm Gran Abs Auto 0.01 X10*3/uL (0.00-0.03); Imm Gran Pct Auto 0.2 % (0.0-0.4); Lymphocytes Absolute Auto 2.2 X10*3/uL (1.2-4.9); Lymphocytes Percent Auto 37.2 % (20-40); MANUAL DIFF FLAG NO; Mean Corpuscular HGB Conc 32.4 g/dl (31.0-35.0); Mean Corpuscular Hemoglobin 27.3 pg (27.0-33.0); Mean Corpuscular Volume 84.3 fL (80.0-98.0); Mean Platelet Volume 11.8 fL (9.4-12.3); Monocytes Absolute Auto 0.5 X10*3/uL (0.1-1.2); Monocytes Percent Auto 7.7 % (2-11); Neutrophils Percent Auto 51.9 % (45-73); Platelet Count 271 X10*3/uL (160-400); Red Blood Count 4.84 X10*6/uL (4.20-5.50); Red Cell Distribution Width 14.6 % (11.0-16.0); White Blood Count 5.8 X10*3/uL (4.8-10.8)
[2023-06-24 11:55] LABS: Estimated Average Glucose 160 mg/dL; Hemoglobin A1c % 7.2 % (<6.0)
[2023-06-24 12:07] LABS: Alanine Aminotransferase 11 U/L (0-31); Albumin Level 3.9 g/dL (3.5-5.0); Alkaline Phosphatase 93 U/L (39-117); Anion Gap 10 (12-20); Aspartate Amino Transferase 13 U/L (5-31); Bilirubin Total 0.5 mg/dL (0.0-1.0); Blood Urea Nitrogen 16 mg/dL (9-16); Calcium 9.5 mg/dL (8.4-10.2); Carbon Dioxide 28 mmol/L (22-29); Chloride 106 mmol/L (96-108); Cholesterol 249 mg/dL (<200); Estimated Glomerular Filt Rate > 60; Glucose Fasting 177 mg/dL (60-99); HDL Cholesterol 60 mg/dL (>40); LDL Cholesterol Calculated 161 mg/dL (<100); Potassium 3.8 mmol/L (3.3-5.1); Sodium 140 mmol/L (135-145); Total Protein 7.4 g/dL (6.5-8.0); Triglycerides 142 mg/dL (<150)
[2023-06-24 14:42] LABS: Creatinine Urine 260.37 mg/dL
== END 2023-06-24 07:33 | disposition home or self-care (01) ==
LOC: HO.HMGCLDS 07:32
PROVIDERS: PCP Internal Medicine; Visit Provider Internal Medicine
DX: I10 Essential (primary) hypertension (principal); E78.5 Hyperlipidemia, unspecified; E11.9 Type 2 diabetes mellitus without complications; Z79.4 Long term (current) use of insulin
CPT/HCPCS: 36415; 80053; 80061; 82043; 82570; 83036; 85025

== ENCOUNTER 2023-06-28 09:22 | Outpatient (AMB) | payer OTHER, SELFPAY ==
[2023-06-28 09:32] VITALS: BP 118/74; PULSE 99; O2SAT 99; BMI 26.8
--- NOTE | 2023-06-28 09:32 | A.OFFPC_ITS ---
Vital Signs 06/28/23 09:32 Height 5 ft 4 in Weight 156 lb BMI 26.8 BP 118/74 Blood Pressure Location Lt brachial Position Sitting Pulse 99 Pulse Source Pulse Oximeter Pulse Oximetry (%) 99 Oxygen Delivery Method Room Air Intake Visit Reasons: 1 month follow up/No Show 05/12 due to insurance Allergies No Known Allergies [No Known Allergies*] Allergy (Verified 06/28/23 09:34) Tobacco use date assessed: 06/28/23 Dental Screening Dental Screen Date: 06/28/23 Did you have a dental visit in the last 12 months?: Yes Did you have a dental problem in the last 6 months where you did not have access to dental care?: No Was dental information given to patient?: Patient has dentist HPI 1 month follow up/No Show 05/12 due to insurance HPI Details Pt presents for follow-up of type 2 diabetes hyperlipidemia and hypertension stable on current medications. Patient's insurance did not approve Ozempic or Mounjaro and patient has been taking Trulicity for the last 3 weeks. She does not know the dose of Trulicity. Patient reports improving diabetes control with the average glucose readings in the mornings in low 100s but increasing to 200s and above between 15:00 and 20:00. She has been seen diabetic physician and educators and her diet has been improving. Patient has been taking NovoLog on average 10 units before each meal. Patient has been forgetting to take atorvastatin daily. [facility] Medical History High cholesterol Diabetes type 2, uncontrolled Colon cancer screening Surgical History Hx of section H/O gastric sleeve H/O abdominal hysterectomy Family History Sister Breast CA Maternal Aunt Breast CA Social History Household Members: None Housing: Apartment Alcohol intake: current Alcohol intake frequency: does not drink Patient Tobacco Use Status: Never used Tobacco e-Cigarette/Vaping Use: Never Used Second Hand Smoke Exposure: No Current occupational status: employed Current occupation: [employer] 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/hazards: Yes Cognitive needs: No Hearing needs: No Vision needs: No Female Reproductive History Menstrual Age of Menarche: 10 Questionnaire PHQ-9 Over the last 2 weeks, how often have you been bothered by any of the following problems? 1. Little interest or pleasure in doing things: not at all 2. Feeling down, depressed, or hopeless: not at all 3. Trouble falling or staying asleep, or sleeping too much: nearly every day 4. Feeling tired or having little energy: nearly every day 5. Poor appetite or overeating: more than half the days 6. Feeling bad about yourself - or that you are a failure or have let yourself or your family down: not at all 7. Trouble concentrating on things, such as reading the newspaper or watching television: not at all 8. Moving or speaking so slowly that other people could have noticed. Or the opposite - being so fidgety or restless that you have been moving around a lot more than usual: not at all 9. Thoughts that you would be better off or of hurting yourself in some way: not at all Total score: 8 Depression Screening Interpretation: Negative Depression Screening Done: Yes Source: Developed by Drs. Bertrand Baker, Julia Sears, Kemar Talley and colleagues, with an educational mariella from [employer]. Thrive Questionnaire Date Thrive assessed: 06/28/23 I am a: Patient What is your living situation today?: I have a steady place to live Within the past 12 months, did the food you bought not last and you didn't have the money to get more?: Never true Within the past 12 months, did you worry whether your food would run out before you got money to buy more?: Never true Do you have trouble paying for medicines?: No Do you have trouble getting transportation to medical appointments?: No Do you have trouble paying your heating and electricity bill?: No Do you have trouble taking care of your child, family member or friend?: No Do you have trouble with day-to-day activities such as bathing, preparing meals, shopping, managing finances, etc.?: No Are you currently unemployed and looking for a job?: No Are you interested in more education?: No Please select the resources that you would like help with: None Currently or been in a relationship where the following occur: no concerns reported THRIVE Score: 0 AUDIT C Alcohol Use Questionnaire (AUDIT-C) 1. How often do you have a drink containing alcohol?: Never 3. How often do you have six or more drinks on one occasion?: Never Total Score: 0 TYLER-7 AMB Questionnaire TYLER-7 Date TYLER - 7 assessed: 06/28/23 Feeling nervous, anxious, or on edge: 0 = Not at all Not being able to stop or control worryin = Not at all Worrying too much about different things: 0 = Not at all Trouble relaxin = Not at all Being so restless that it is hard to sit still: 0 = Not at all Becoming easily annoyed or irritable: 0 = Not at all Feeling afraid as if something awful might happen: 0 = Not at all Total TYLER-7 score (0-4 normal; 5-9 mild; 10-14 moderate; 15-21 severe): 0 Source: Developed by Drs. Bertrand Baker, Julia Sears, Kemar Talley and colleagues, with an educational mariella from [employer]. Review of Systems Const All systems reviewed & are unremarkable except as noted in HPI and below Reports no additional complaints Eyes Reports no additional complaints ENT Reports no additional complaints Card Reports no additional complaints Resp Reports no additional complaints GI Reports no additional complaints Musc Reports no additional complaints Physical exam (Primary Care) Vital Signs: Last Vital Signs Pulse 99 06/28/23 09:32 BP 118/74 06/28/23 09:32 Pulse Ox 99 06/28/23 09:32 Oxygen Delivery Method Room Air 06/28/23 09:32 BMI result Body Mass Index 26.8 Tobacco/Smoking Status: Tobacco use Status Tobacco use date assessed 06/28/23 06/28/23 09:37 Patient Tobacco Use Status Never used Tobacco 06/28/23 09:37 e-Cigarette/Vaping Use Never Used 06/28/23 09:32 PHQ-9: PHQ-9 Score PHQ-9: Total score 8 06/28/23 09:37 Depression Screening Interpretation: Negative Thrive Assessment: Date of Thrive Assessment Date Thrive assessed 06/28/23 06/28/23 09:37 Currently or been in a relationship where the following occur: no concerns reported Const General: no acute distress HENMT Head: Yes normal to inspection Ears: hearing grossly normal bilaterally Mouth: Normal oral and palatal mucosa present Eyes General: appearance normal, both eyes and all related structures Neck Neck: Yes no lymphadenopathy Resp Effort & Inspection: normal respiratory effort Auscultation: clear to auscultation bilaterally Cardio Rhythm: regular rhythm Heart sounds: S1 normal heart sound present and S2 normal heart sound present GI Inspection: Yes normal to inspection Palpation (GI): Soft to palpation Percussion: Yes normal to percussion Auscultation: normal bowel sounds Assessment and Plan Assessment & Plan (1) Hypertension: Code(s): I10 - Essential (primary) hypertension Plan: Continue lisinopril (2) Hyperlipidemia: Code(s): E78.5 - Hyperlipidemia, unspecified Plan: Restart atorvastatin (3) Insulin dependent type 2 diabetes mellitus: Comment: Poorly controlled, follow-up with Dr. Blakely Code(s): E11.9 - Type 2 diabetes mellitus without complications; Z79.4 - adjunct faculty for medical terminology (current) use of insulin Plan: A1c is down to 7.3, ADA diet regular exercise discussed with the patient. She was advised to increase NovoLog before lunch and dinner to 14 units and have a snack with a protein at bedtime to avoid nocturnal hypoglycemia. Patient needs a refill on Trulicity and will call the office with the dose of medication. She will continue metformin Jardiance and Lantus. Patient follows up with endocrinology. Follow-up in 3 months with a fasting labs Orders: Orders Hemoglobin A1c 3 Months E11.9 - Type 2 diabetes mellitus without complications, E78.5 - Hyperlipidemia, unspecified, I10 - Essential (primary) hypertension, Z79.4 - adjunct faculty for medical terminology (current) use of insulin Comprehensive [place]. Panel Fast 3 Months E11.9 - Type 2 diabetes mellitus without complications, E78.5 - Hyperlipidemia, unspecified, I10 - Essential (primary) hypertension, Z79.4 - adjunct faculty for medical terminology (current) use of insulin Complete Blood Count Auto Diff 3 Months E11.9 - Type 2 diabetes mellitus without complications, E78.5 - Hyperlipidemia, unspecified, I10 - Essential (primary) hypertension, Z79.4 - [facility] (current) use of insulin Lipid Panel 3 Months E11.9 - Type 2 diabetes mellitus without complications, E78.5 - Hyperlipidemia, unspecified, I10 - Essential (primary) hypertension, Z79.4 - adjunct faculty for medical terminology (current) use of insulin Microalbumin, Random (w Creat) 3 Months E11.9 - Type 2 diabetes mellitus without complications, E78.5 - Hyperlipidemia, unspecified, I10 - Essential (primary) hy pertension, Z79.4 - adjunct faculty for medical terminology (current) use of insulin Medications: Changed From Novolog FlexPen U-100 Insulin (insulin aspart U-100) before meals tid, if glucose is less than 200 take 6 units, if more then 200 , take 10 units 10 units (0.1 mL) subcut TID 30 mL 4RF NS To Novolog FlexPen U-100 Insulin (insulin aspart U-100) take 10 units before breakfast, 14 units before lunch and dinner 10 units (0.1 mL) subcut TID 30 mL 4RF NS Refilled blood-glucose sensor (FiberLightStyle Joe 3 Sensor device) As directed 2 ea 6RF lisinopril 5 mg PO DAILY 90 tabs 3RF metformin 1,000 mg PO BID 180 tabs 3RF atorvastatin 80 mg PO DAILY 90 tabs 3RF empagliflozin (Jardiance) 25 mg PO DAILY 90 tabs 3RF insulin glargine (Lantus Solostar U-100 Insulin) 20 units (0.2 mL) subcut QPM 15 mL 5RF Coding Level of Care Code Est Pt Level 4 (30604) Diagnoses Hypertension I10 Hyperlipidemia E78.5 Insulin dependent type 2 diabetes mellitus E11.9; Z79.4
== END 2023-06-28 10:32 | disposition home or self-care (01) ==
PROVIDERS: PCP Internal Medicine; Visit Provider Internal Medicine
DX: I10 Essential (primary) hypertension (principal); E78.5 Hyperlipidemia, unspecified; E11.9 Type 2 diabetes mellitus without complications; Z79.4 Long term (current) use of insulin
CPT/HCPCS: 99214

== ENCOUNTER 2023-07-23 10:22 | Outpatient (AMB) | payer OTHER, SELFPAY ==
--- NOTE | 2023-07-23 10:56 | A.OFFVIS_ITS ---
Intake Intake Visit Reasons: DM/CONFIRMED Department Supervisor Required: Yes Department Supervisor Language: Hydraulic Corrugating Machine Operator Name: Jillian [facility] [place] Information Interpreted: non-clinical & clinical Accompanied by: Self / Same As Patient Allergies No Known Allergies [No Known Allergies*] Allergy (Verified 06/28/23 09:34) HPI Comprehensive Diabetes Asmnt Most Recent Diabetes Results: Microalb/Creat Ratio 13.0 ug/mg cr (<30) 06/24/23 Cholesterol 249 mg/dL (<200) H 06/24/23 HDL Cholesterol 60 mg/dL (>40) 06/24/23 Triglycerides 142 mg/dL (<150) 06/24/23 Creatinine 0.77 mg/dL (0.5-1.4) 06/24/23 Blood Urea Nitrogen 16 mg/dL (9-16) 06/24/23 Sodium 140 mmol/L (135-145) 06/24/23 Potassium 3.8 mmol/L (3.3-5.1) 06/24/23 Chloride 106 mmol/L (96-108) 06/24/23 Carbon Dioxide 28 mmol/L (22-29) 06/24/23 Calcium 9.5 mg/dL (8.4-10.2) 06/24/23 AST 13 U/L (5-31) 06/24/23 ALT 11 U/L (0-31) 06/24/23 Total Protein 7.4 g/dL (6.5-8.0) 06/24/23 Albumin 3.9 g/dL (3.5-5.0) 06/24/23 PFSH Medical History High cholesterol Diabetes type 2, uncontrolled Colon cancer screening Surgical History Hx of section H/O gastric sleeve H/O abdominal hysterectomy Family History Sister Breast CA Maternal Aunt Breast CA Social History Household Members: None Housing: Apartment Alcohol intake: current Alcohol intake frequency: does not drink Patient Tobacco Use Status: Never used Tobacco e-Cigarette/Vaping Use: Never Used Second Hand Smoke Exposure: No Current occupational status: employed Current occupation: [employer] 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/hazards: Yes Cognitive needs: No Hearing needs: No Vision needs: No Female Reproductive History Menstrual Age of Menarche: 10 Assessment & Plan Assessment & Plan (1) Insulin dependent type 2 diabetes mellitus: Comment: Poorly controlled, follow-up with Dr. Blakely Code(s): E11.9 - Type 2 diabetes mellitus without complications; Z79.4 - senior care (current) use of insulin Plan: Personal Continuous Glucose Monitor: Patients CGM information reviewed Reviewed patient's sensor data: Hypoglycemia: ? 0% Hyperglycemia:? 59% Time in Range:? 41% Average glucose for the last 2 weeks?217 mg/dL Patient has not started Ozempic, waiting on insurance approval. Contacted pharmacy patient has insurance approval and can flower buncher or picker Ozempic 1 mg daily this afternoon Patient has been out of Trulicity for 2 weeks, this could influence increase in glucose levels Discuss common side effects from Ozempic, instructed patient if she cannot flower buncher or picker Ozempic to contact clinic so we can represcribed Trulicity until Ozempic is available Reviewed how to interpret trend arrows Reminded patient that to check finger sticks if symptoms do not match sensor reading. Discussed lag time between finger stick and sensor data.? Patient able to insert sensor independently at home without issue.? Patient has follow-up appointment [address] Blakely Patient Instructions: Patient will follow-up with clinical trial educator in 2 months Coding Level of Care Code Est Pt Level 1 (90660) Diagnoses Insulin dependent type 2 diabetes mellitus E11.9; Z79.4
== END 2023-07-23 11:11 | disposition home or self-care (01) ==
PROVIDERS: PCP Internal Medicine; Visit Provider Registered Nurse Diabetes Educator
DX: E11.9 Type 2 diabetes mellitus without complications (principal); Z79.4 Long term (current) use of insulin

== ENCOUNTER → 2023-07-23 10:22 | Outpatient (BNVA) | payer OTHER, SELFPAY | PROVIDERS: Visit Provider Registered Nurse Diabetes Educator | DX: E11.9 Type 2 diabetes mellitus without complications (principal); Z79.4 Long term (current) use of insulin | CPT/HCPCS: 99211 ==

== ENCOUNTER 2023-08-13 14:03 | Outpatient (AMB) | payer OTHER, SELFPAY ==
--- NOTE | 2023-08-13 14:14 | MHC.OFFVIS ---
Intake Vital Signs 08/13/23 14:16 Height 5 ft 4 in Weight 165 lb 5.547 oz BMI 28.4 BP 146/82 H Blood Pressure Location Lt brachial Position Sitting Pulse 89 Pulse Source Pulse Oximeter Intake Visit Reasons: [id number] Intake Note: Patient present today to follow up on Type 2 Diabetes Mellitus. Last Diabetic Eye exam: 06/2023 Last Podiatry Visit: Doesn't have one. Random Glucose: 214 mg/dl HgA1C: DUE Forest Fire Equipment Operator Required: Yes Forest Fire Equipment Operator Language: Steeping Press Operator Name: Nely medical staff Information Interpreted: non-clinical & clinical Accompanied by: Self / Same As Patient Allergies No Known Allergies [No Known Allergies*] Allergy (Verified 08/13/23 14:20) HPI HPI Comments History of Present Illness Details 52 YO F who is seen in consultation for T2DM at the request of PCP. Initially diagnosed with T2DM in 22 yrs . Saw darwin at [facility] Was initially started on treatment with metformin . Jardiance 25 mg QD Current regimen metformin 1000 mg BID Ozempic 1 mg Qwkly started 2 wks a go Lantus 15 units . Novolog 5 units TID not taking because waiting for approval from insurance? Joe 3 download from 07/31/2023 -08/13/2023 shows sensors being use 90% of the time. Average glucose is 289 with G mi of 10.2 % and variation of 31.9 %. 14% glucoses are in range with 25% hyperglycemia and 61% very hyperglycemic and no0 hypoglycemia. Colon shows increase in point cares t post lunch and to a lesser degree post breakfast with falls and blood sugar overnight Reports No low sugars . Had bariatric surgery 5 yrs ago Family history of T2DM in mother , father and sister . Not Has eyes checked yearly, last eye exam , Has retinopathy. getting injections Denies neuropathy, , will sees podiatry 02/14/22 . Denies nephropathy,Not on NAYANA/ARB. . Has HLD, on statin. Denies CAD. Had diabetes education many yrs ago . PFS Medical History High cholesterol Diabetes type 2, uncontrolled Colon cancer screening Surgical History Hx of section H/O gastric sleeve H/O abdominal hysterectomy Family History Sister Breast CA Maternal Aunt Breast [place] Social History Household Members: None Housing: Apartment Alcohol intake: current Alcohol intake frequency: does not drink Patient Tobacco Use Status: Never used Tobacco e-Cigarette/Vaping Use: Never Used Second Hand Smoke Exposure: No Current occupational status: employed Current occupation: [employer] 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/hazards: Yes Cognitive needs: No Hearing needs: No Vision needs: No Female Reproductive History Menstrual Age of Menarche: 10 Physical Exam Vital Signs: Last Vital Signs Pulse 89 08/13/23 14:16 BP 146/82 H 08/13/23 14:16 BMI result Body Mass Index 28.4 Absence of Cushingoid features. Absence of acromegalic features. Neck exam reveals nl size thyroid about 15 gms. No thyroid nodules palpable. No carotid bruits present. Lungs CTA. Heart S1 S2, Reg R/R. No M/R/ G. Skin exam reveals absence of vitiligo or acanthosis nigricans. Abdominal exam reveals Soft NT/ND with NA BS. No organomegaly present. Neck Other: . Extrem Other: Visual exam of foot performed. No ulcerations or open lesions. No onchomycosis, no callouses.Pulses 2 + distally Sensation intact to monofilament exam. Vibratory sensation sensed is intact with 128 Hz tuning fork Results Reviewed Results Reviewed: Laboratory Last Values Glucose (Clinic) 214 mg/dL (60-115) H 08/13/23 14:23 Assessment & Plan Assessment & Plan (1) Insulin dependent type 2 diabetes mellitus: Comment: Poorly controlled, follow-up with Dr. Blakely Code(s): E11.9 - Type 2 diabetes mellitus without complications; Z79.4 - half-way (current) use of insulin Plan: This is a 52-year-old female with a history of type 2 diabetes being treated metformin, Ozempic and basal insulin with poor glycemic control and no known microvascular or macrovascular complication Plan is is to reinitiate the prandial insulin Fiasp at 6-8 units premeals . Explained difference between Lantus, glargine and NovoLog. Will make follow-up appointment with early childhood special educator Coding Level of Care Code Est Pt Level 4 (79554) Diagnoses Insulin dependent type 2 diabetes mellitus E11.9; Z79.4
[2023-08-13 14:16] VITALS: BP 146/82; PULSE 89; BMI 28.4
[2023-08-13 14:28] LABS: Glucose, Whole Blood 214 mg/dL (60-115)
== END 2023-08-13 15:06 | disposition home or self-care (01) ==
PROVIDERS: PCP Internal Medicine; Referring Provider Internal Medicine; Visit Provider Internal Medicine Endocrinology, Diabetes & Metabolism
DX: E11.9 Type 2 diabetes mellitus without complications (principal); Z79.4 Long term (current) use of insulin
CPT/HCPCS: 99214

== ENCOUNTER → 2023-08-13 14:03 | Outpatient (BNVA) | payer OTHER, SELFPAY | PROVIDERS: PCP Internal Medicine; Visit Provider Internal Medicine Endocrinology, Diabetes & Metabolism | DX: E11.9 Type 2 diabetes mellitus without complications (principal); Z79.4 Long term (current) use of insulin | CPT/HCPCS: 82947; 99212 ==

== ENCOUNTER 2023-09-24 10:47 | Outpatient (AMB) | payer OTHER, SELFPAY ==
--- NOTE | 2023-09-24 10:50 | A.OFFVIS_ITS ---
Intake Intake Visit Reasons: Dm2 Refrigerator Tester Required: Yes Refrigerator Tester Language: Asian Studies Professor Name: Kvng [facility] [place] Information Interpreted: non-clinical & clinical Accompanied by: Self / Same As Patient Allergies No Known Allergies [No Known Allergies*] Allergy (Verified 08/13/23 14:20) HPI Comprehensive Diabetes Asmnt Most Recent Diabetes Results: Hemoglobin A1c 11.4 % 10/07/19 Microalb/Creat Ratio 13.0 ug/mg cr (<30) 06/24/23 Cholesterol 249 mg/dL (<200) H 06/24/23 HDL Cholesterol 60 mg/dL (>40) 06/24/23 Triglycerides 142 mg/dL (<150) 06/24/23 Creatinine 0.77 mg/dL (0.5-1.4) 06/24/23 Blood Urea Nitrogen 16 mg/dL (9-16) 06/24/23 Sodium 140 mmol/L (135-145) 06/24/23 Potassium 3.8 mmol/L (3.3-5.1) 06/24/23 Chloride 106 mmol/L (96-108) 06/24/23 Carbon Dioxide 28 mmol/L (22-29) 06/24/23 Calcium 9.5 mg/dL (8.4-10.2) 06/24/23 AST 13 U/L (5-31) 06/24/23 ALT 11 U/L (0-31) 06/24/23 Total Protein 7.4 g/dL (6.5-8.0) 06/24/23 Albumin 3.9 g/dL (3.5-5.0) 06/24/23 [facility] Medical History High cholesterol Diabetes type 2, uncontrolled Colon cancer screening Surgical History Hx of section H/O gastric sleeve H/O abdominal hysterectomy Family History Sister Breast CA Maternal Aunt Breast CA Social History Household Members: None Housing: Apartment Alcohol intake: current Alcohol intake frequency: does not drink Patient Tobacco Use Status: Never used Tobacco e-Cigarette/Vaping Use: Never Used Second Hand Smoke Exposure: No Current occupational status: employed Current occupation: [employer] 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/hazards: Yes Cognitive needs: No Hearing needs: No Vision needs: No Female Reproductive History Menstrual Age of Menarche: 10 Assessment & Plan Assessment & Plan (1) Insulin dependent type 2 diabetes mellitus: Comment: Poorly controlled, follow-up with Dr. Blakely Code(s): E11.9 - Type 2 diabetes mellitus without complications; Z79.4 - vermin exterminator (current) use of insulin Plan: Personal Continuous Glucose Monitor: Patients CGM information reviewed Reviewed patient's sensor data: Hypoglycemia: 0% Hyperglycemia:? 66% Time in Range:?34% Average glucose for the last 2 weeks? 222 mg/dL Patient has recently had difficulty getting mealtime insulin due to insurance issue. She is currently taking Apidra 6-10 units before meals, reviewed insulin action of Apidra. Reviewed target goals, with patient. Recommended to patient she increased Ozempic 1 mg weekly to Ozempic 2 mg weekly Prescription request sent to Dr. Blakely Patient has follow-up appointment with PCP on 10/02/2023, reminded patient that she has fasting labs that need to be drawn before that appointment Patient has follow-up appointment with Dr. Blakely in 12/17/2023, patient instructed to follow-up with certified adaptive physical educator a month after appointment with Dr. Blakely. Reviewed how to interpret trend arrows Reminded patient that to check finger sticks if symptoms do not match sensor reading. Discussed lag time between finger stick and sensor data.? Patient able to insert sensor independently at home without issue.? Portions of this note were created using voice recognition software, please excuse any words or phrases that may have been misinterpreted. Medications: Discontinued semaglutide (Ozempic) Discontinued Reason: Doctor's Order 1 mg (0.75 mL) subcut QWEEK 3 mL 4RF Coding Level of Care Code Est Pt Level 1 (69498) Diagnoses Insulin dependent type 2 diabetes mellitus E11.9; Z79.4
== END 2023-09-24 11:18 | disposition home or self-care (01) ==
PROVIDERS: PCP Internal Medicine; Visit Provider Registered Nurse Diabetes Educator
DX: E11.9 Type 2 diabetes mellitus without complications (principal); Z79.4 Long term (current) use of insulin

== ENCOUNTER → 2023-09-24 10:47 | Outpatient (BNVA) | payer OTHER, SELFPAY | PROVIDERS: PCP Internal Medicine; Visit Provider Registered Nurse Diabetes Educator | DX: E11.9 Type 2 diabetes mellitus without complications (principal); Z79.4 Long term (current) use of insulin | CPT/HCPCS: 99211 ==

== ENCOUNTER 2023-09-25 07:05 | Outpatient (REF) | payer OTHER, SELFPAY ==
[2023-09-25 10:42] LABS: MANUAL DIFF FLAG NO
[2023-09-25 10:47] LABS: Basophils Percent Auto 0.7 % (0-2); Eosinophils Absolute Auto 0.2 X10*3/uL (0.0-0.4); Eosinophils Percent Auto 3.5 % (0-4); Hematocrit 40.4 % (37.0-47.0); Imm Gran Abs Auto 0.01 X10*3/uL (0.00-0.03); Imm Gran Pct Auto 0.2 % (0.0-0.4); Lymphocytes Absolute Auto 2.3 X10*3/uL (1.2-4.9); Lymphocytes Percent Auto 38.3 % (20-40); Mean Corpuscular HGB Conc 32.2 g/dl (31.0-35.0); Mean Corpuscular Hemoglobin 26.8 pg (27.0-33.0); Mean Corpuscular Volume 83.3 fL (80.0-98.0); Mean Platelet Volume 11.9 fL (9.4-12.3); Monocytes Absolute Auto 0.5 X10*3/uL (0.1-1.2); Monocytes Percent Auto 7.9 % (2-11); Neutrophils Absolute Auto 2.9 x10*3/uL (2.0-8.3); Neutrophils Percent Auto 49.4 % (45-73); Platelet Count 292 X10*3/uL (160-400); Red Blood Count 4.85 X10*6/uL (4.20-5.50); Red Cell Distribution Width 13.8 % (11.0-16.0); White Blood Count 5.9 X10*3/uL (4.8-10.8)
[2023-09-25 11:02] LABS: Estimated Average Glucose 194 mg/dL; Hemoglobin A1c % 8.4 % (<6.0)
[2023-09-25 11:17] LABS: Alanine Aminotransferase 12 U/L (0-31); Albumin Level 3.7 g/dL (3.5-5.0); Alkaline Phosphatase 102 U/L (39-117); Anion Gap 12 (12-20); Aspartate Amino Transferase 14 U/L (5-31); Bilirubin Total 0.4 mg/dL (0.0-1.0); Blood Urea Nitrogen 25 mg/dL (9-16); Calcium 9.3 mg/dL (8.4-10.2); Carbon Dioxide 25 mmol/L (22-29); Chloride 108 mmol/L (96-108); Cholesterol 257 mg/dL (<200); Estimated Glomerular Filt Rate > 60; Glucose Fasting 187 mg/dL (60-99); HDL Cholesterol 63 mg/dL (>40); LDL Cholesterol Calculated 170 mg/dL (<100); Potassium 3.9 mmol/L (3.3-5.1); Sodium 141 mmol/L (135-145); Total Protein 7.4 g/dL (6.5-8.0); Triglycerides 123 mg/dL (<150)
[2023-09-25 11:43] LABS: Creatinine Urine 131.87 mg/dL; Microalbum/Creatinine Ratio Ur 26.5 ug/mg cr (<30)
== END 2023-09-25 07:06 | disposition home or self-care (01) ==
LOC: HO.HMGCLDS 07:05
PROVIDERS: PCP Internal Medicine; Visit Provider Internal Medicine
DX: I10 Essential (primary) hypertension (principal); E78.5 Hyperlipidemia, unspecified; E11.9 Type 2 diabetes mellitus without complications; Z79.4 Long term (current) use of insulin
CPT/HCPCS: 36415; 80053; 80061; 82043; 82570; 83036; 85025

== ENCOUNTER 2023-10-02 10:29 | Outpatient (AMB) | payer OTHER, SELFPAY ==
--- NOTE | 2023-10-02 10:50 | MHC.PC.OV ---
Vital Signs 10/02/23 10:56 Height 5 ft 4 in Weight 175 lb BMI 30.0 BP 118/76 Blood Pressure Location Lt brachial Position Sitting Pulse 95 Pulse Source Pulse Oximeter Pulse Oximetry (%) 99 Oxygen Delivery Method Room Air Intake Visit Reasons: 3 month follow up Intake Note: Pt is here today for 3 months follow up visit. Pt needs a refill on Albuterol and allergy medication. Allergies atorvastatin Adverse Reaction (Intermediate, Verified 10/02/23 11:29) Depression Medication List - Last Reconciled 10/02/23 by Nichol Brown MD bisacodyl (Dulcolax (bisacodyl)) 10 mg (2 x 5 mg) PO ONCE 1 day bisacodyl (Dulcolax (bisacodyl)) 20 mg (4 x 5 mg) PO ONCE 1 day blood sugar diagnostic (FreeStyle Lite Strips) As directed - twice a day blood sugar diagnostic (FreeStyle Lite Strips) As directed tests 4x/day blood-glucose sensor (FreeStyle Joe 3 Sensor device) As directed empagliflozin (Jardiance) 25 mg PO DAILY insulin glargine (Lantus Solostar U-100 Insulin) 20 units (0.2 mL) subcut QPM insulin glargine-yfgn units subcut insulin glulisine U-100 (Apidra SoloStar U-100 Insulin) 10 units (0.1 mL) subcut TIDWMEAL lancets (FreeStyle Lancets) tests 4 X/day lisinopril 5 mg PO DAILY metformin 1,000 mg PO BID pen needle, diabetic (BD Yumiko 2nd Gen Pen Needle) As directed injects once a day polyethylene glycol 3350 (Miralax) 238 grams PO ONCE 1 day polyethylene glycol 3350 (Miralax) 238 grams PO ONCE rosuvastatin (Crestor) 40 mg PO DAILY semaglutide (Ozempic) 2 mg (0.75 mL) subcut QWEEK sennosides (Natural Senna Laxative) 17.2 mg (2 x 8.6 mg) PO BEDTIME Tobacco use date assessed: 10/02/23 Dental Screening Dental Screen Date: 06/28/23 HPI 3 month follow up HPI Details Patient presents for the follow-up of hyperlipidemia hypertension poorly controlled type 2 diabetes. Patient has not been taking atorvastatin because it makes her ?depressed . She reports fluctuating blood glucose mostly over 200 occasionally over 350. She has recently increased Ozempic to 2 mg and has been taking 20 units of Lantus and 10 units of Humalog before each meal. Patient reports occasional skipping lunch and having hypoglycemia self treated with candy. Patient usually has high load carbohydrate meals consisting of rice and mashed potatoes PFSH Medical History High cholesterol Diabetes type 2, uncontrolled Colon cancer screening Surgical History Hx of section H/O gastric sleeve H/O abdominal hysterectomy Family History Sister Breast CA Maternal Aunt Breast CA Social History Household Members: None Housing: Apartment Alcohol intake: current Alcohol intake frequency: does not drink Patient Tobacco Use Status: Never used Tobacco e-Cigarette/Vaping Use: Never Used Second Hand Smoke Exposure: No Current occupational status: employed Current occupation: [employer] 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/hazards: Yes Cognitive needs: No Hearing needs: No Vision needs: No Female Reproductive History Menstrual Age of Menarche: 10 Questionnaire Thrive Questionnaire Date Thrive assessed: 06/28/23 TYLER-7 AMB Questionnaire TYLER-7 Date TYLER - 7 assessed: 06/28/23 Source: Developed by Drs. Bertrand Baker, Julia Sears, Kemar Talley and colleagues, with an educational mariella from [employer]. Review of Systems Const All systems reviewed & are unremarkable except as noted in HPI and below Eyes Reports no additional complaints ENT Reports no additional complaints Card Reports no additional complaints Resp Reports no additional complaints GI Reports no additional complaints Reports no additional complaints Physical exam (Primary Care) Vital Signs: Last Vital Signs Pulse 95 10/02/23 10:56 BP 118/76 10/02/23 10:56 Pulse Ox 99 10/02/23 10:56 Oxygen Delivery Method Room Air 10/02/23 10:56 BMI result Body Mass Index 30.0 Tobacco/Smoking Status: Tobacco use Status Tobacco use date assessed 10/02/23 10/02/23 11:01 Patient Tobacco Use Status Never used Tobacco 10/02/23 11:01 e-Cigarette/Vaping Use Never Used 10/02/23 10:51 Thrive Assessment: Date of Thrive Assessment Date Thrive assessed 06/28/23 10/02/23 10:51 Const General: no acute distress HENMT Ears: hearing grossly normal bilaterally Face and sinus: Yes normal facial exam Eyes General: appearance normal, both eyes and all related structures Neck Neck: Yes supple Resp Effort & Inspection: normal respiratory effort Auscultation: clear to auscultation bilaterally Cardio Rhythm: regular rhythm Heart sounds: S1 normal heart sound present and S2 normal heart sound present GI Inspection: Yes normal to inspection Assessment and Plan Assessment & Plan (1) Insulin dependent type 2 diabetes mellitus: Comment: Poorly controlled, follow-up with Dr. Blakely Code(s): E11.9 - Type 2 diabetes mellitus without complications; Z79.4 - [facility] (current) use of insulin Plan: A1c was 8.4, ADA diet eating at least 3 regular meals, adding protein and healthy fats and avoiding high carbohydrate foods discussed with the patient. She will increase Lantus to 30 units continue Ozempic metformin Jardiance and short-acting insulin before meals. Patient has a follow-up with diabetic music manager and steam fitter supervisor maintenance within 2 months (2) Hypertension: Code(s): I10 - Essential (primary) hypertension Plan: Continue Lisinopril (3) Hyperlipidemia: Comment: Intolerant to atorvastatin, depression Code(s): E78.5 - Hyperlipidemia, unspecified Plan: Start Crestor 40 mg check lipid profile in 2 months follow-up in 4 months with a fasting labs before Orders: Orders Comprehensive Stanley. Panel Fast 2 Months E11.9 - Type 2 diabetes mellitus without complications, I10 - Essential (primary) hypertension, Z79.4 - exterminator (current) use of insulin Comprehensive Stanley. Panel Fast 4 Months E11.9 - Type 2 diabetes mellitus without complications, E78.5 - Hyperlipidemia, unspecified, I10 - Essential (primary) hypertension, Z79.4 - [facility] (current) use of insulin TSH reflex Free T4 4 Months E11.9 - Type 2 diabetes mellitus without complications, E78.5 - Hyperlipidemia, unspecified, I10 - Essential (primary) hypertension, Z79.4 - [facility] (current) use of insulin Lipid Panel 2 Months E11.9 - Type 2 diabetes mellitus without complications, I10 - Essential (primary) hypertension, Z79.4 - [facility] (current) use of insulin Lipid Panel 4 Months E11.9 - Type 2 diabetes mellitus without complications, E78.5 - Hyperlipidemia, unspecified, I10 - Essential (primary) hypertension, Z79.4 - [facility] (current) use of insulin Hemoglobin A1c 4 Months E11.9 - Type 2 diabetes mellitus without complications, E78.5 - Hyperlipidemia, unspecified, I10 - Essential (primary) hypertension, Z79.4 - exterminator (current) use of insulin Complete Blood Count Auto Diff 4 Months E11.9 - Type 2 diabetes mellitus without complications, E78.5 - Hyperlipidemia, unspecified, I10 - Essential (primary) hypertension, Z79.4 - [facility] (current) use of insulin Microalbumin, Random (w Creat) 4 Months E11.9 - Type 2 diabetes mellitus without complications, E78.5 - Hyperlipidemia, unspecified, I10 - Essential (primary) hypertension, Z79.4 - [facility] (current) use of insulin Medications: New rosuvastatin (Crestor) 40 mg PO DAILY 90 tabs 3RF albuterol sulfate 90 mcg/actuation 2 puffs inhalation Q6H PRN 6.7 grams 5RF shortness of breath or wheezing Changed From insulin glargine (Lantus Solostar U-100 Insulin) 20 units (0.2 mL) subcut QPM 15 mL 5RF To insulin glargine (Lantus Solostar U-100 Insulin) 30 units (0.3 mL) subcut QPM 15 mL 5RF Discontinued atorvastatin Discontinued Reason: Doctor's Order 80 mg PO DAILY 90 tabs 3RF Coding Level of Care Code Est Pt Level 4 (30742) Diagnoses Insulin dependent type 2 diabetes mellitus E11.9; Z79.4 Hypertension I10 Hyperlipidemia E78.5
[2023-10-02 10:56] VITALS: BP 118/76; PULSE 95; O2SAT 99
== END 2023-10-02 11:42 | disposition home or self-care (01) ==
PROVIDERS: PCP Internal Medicine; Visit Provider Internal Medicine
DX: E11.9 Type 2 diabetes mellitus without complications (principal); Z79.4 Long term (current) use of insulin; I10 Essential (primary) hypertension; E78.5 Hyperlipidemia, unspecified
CPT/HCPCS: 99214

== ENCOUNTER 2023-11-07 07:42 | Outpatient (REF) | payer OTHER, SELFPAY ==
[2023-11-07 11:15] LABS: Alanine Aminotransferase 12 U/L (0-31); Albumin Level 3.8 g/dL (3.5-5.0); Alkaline Phosphatase 121 U/L (39-117); Anion Gap 12 (12-20); Aspartate Amino Transferase 10 U/L (5-31); Bilirubin Total 0.5 mg/dL (0.0-1.0); Blood Urea Nitrogen 18 mg/dL (9-16); Calcium 9.8 mg/dL (8.4-10.2); Carbon Dioxide 24 mmol/L (22-29); Chloride 107 mmol/L (96-108); Cholesterol 205 mg/dL (<200); Estimated Glomerular Filt Rate > 60; Glucose Fasting 213 mg/dL (60-99); HDL Cholesterol 55 mg/dL (>40); LDL Cholesterol Calculated 116 mg/dL (<100); Sodium 139 mmol/L (135-145); Total Protein 7.7 g/dL (6.5-8.0); Triglycerides 173 mg/dL (<150)
== END 2023-11-07 07:43 | disposition home or self-care (01) ==
LOC: HO.HMGCLDS 07:42
PROVIDERS: PCP Internal Medicine; Visit Provider Internal Medicine
DX: I10 Essential (primary) hypertension (principal); E11.9 Type 2 diabetes mellitus without complications; Z79.4 Long term (current) use of insulin
CPT/HCPCS: 36415; 80053; 80061

== ENCOUNTER 2023-11-18 09:12 | Day surgery (SDC) | payer OTHER, SELFPAY ==
--- NOTE | 2023-07-03 15:12 | HO.ANESPROP2 ---
HPI - Anesthesia Eval Consult details Narrative: 52yo F for Colonoscopy Anesthesia Pre-Procedure Meds Is the patient on any of the following meds?: Semaglutide (Ozempic) PMFSH Active Problems Active Problems: All Active Problems (Updated 04/09/23 @ 13:53 by Nichol Brown MD) Hypertension (Acute) Annual physical exam (Acute) Physical exam, pre-employment (Acute) Sciatica (Acute) H/O abdominal hysterectomy (Acute) Low back pain (Acute) Trochanteric bursitis of right hip (Acute) Hyperlipidemia (Acute) Insulin dependent type 2 diabetes mellitus (Acute) Candidal vulvovaginitis (Acute) Well woman exam (Acute) Colon cancer screening (Acute) Past Medical History Medical History High cholesterol Diabetes type 2, uncontrolled Colon cancer screening Family History Family History Sister Breast CA Maternal Aunt Breast CA Surgical History Surgical History Hx of section H/O gastric sleeve H/O abdominal hysterectomy Social History Social History Household Members: None Housing: Apartment Alcohol intake: current Alcohol intake frequency: does not drink Patient Tobacco Use Status: Never used Tobacco e-Cigarette/Vaping Use: Never Used Second Hand Smoke Exposure: No Current occupational status: employed Current occupation: [employer] 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/hazards: Yes Cognitive needs: No Hearing needs: No Vision needs: No Meds Allergies Allergy/AdvReac Type Severity Reaction Status Date / Time No Known Allergies Allergy Verified 06/28/23 09:34 [No Known Allergies*] Home Medications Medication Instructions Recorded Confirmed Last Taken Type lancets 28 gauge (FreeStyle 02/15/22 04/09/23 Unknown History Lancets) Assessment and Plan Assessment Anesthesia Assessment: Chart Reviewed
[2023-11-18 10:28] VITALS: BMI 31.9
[2023-11-18 10:34] VITALS: BP 141/80; PULSE 80; RESP 16; TEMP 36.9; O2SAT 100
--- NOTE | 2023-11-18 10:40 | MHC.SHP ---
Pre-Procedural Eval Section A - 24 Hr Update-Section A only Date of Service: 11/18/23 The patient is an INPATIENT: No The patient has been examined within 24 hours of the surgical procedure. The History & Physical has been completed within 30 days and I have reviewed it.: No Section B - Complete if H&P > 30 days Chief Complaint: Colon cancer screening Relevant Family History (Specify if Yes): No Relevant Social History: None Present Medications: see Short Stay Collaborative assessment Medical History: Significant History (High cholesterol Diabetes type 2, uncontrolled Colon cancer screening) History of Previous Operations: Relevant previous surgery/procedure and date(s) (Hx of section H/O gastric sleeve H/O abdominal hysterectomy) Allergies: Allergies Allergy/AdvReac Type Severity Reaction Status Date / Time atorvastatin AdvReac Intermediate Depression Verified 10/02/23 11:29 Review of Systems Sugical H&P ROS: Negative: Constitution, Cardiovascular, Respiratory and Gastrointestinal Exam Surgical H&P Exam: Normal: Heart, Normal: Lungs, Normal: Extremities and Normal: Abdomen Plan Diagnosis/Plan: Unchanged I have reviewed the history and physical and performed a pertinent physical examination on my patient. No changes have occurred unless specified. Time Spent With Patient Time: Total time managing care of this patient today ____ minutes.
--- NOTE | 2023-11-18 10:43 | HO.ANESPROP2 ---
[facility] Active Problems Active Problems: All Active Problems Hypertension (Acute) Annual physical exam (Acute) Physical exam, pre-employment (Acute) Sciatica (Acute) H/O abdominal hysterectomy (Acute) Low back pain (Acute) Trochanteric bursitis of right hip (Acute) Hyperlipidemia (Acute) Insulin dependent type 2 diabetes mellitus (Acute) Candidal vulvovaginitis (Acute) Well woman exam (Acute) Colon cancer screening (Acute) Past Medical History Medical History High cholesterol Diabetes type 2, uncontrolled Colon cancer screening Family History Family History Sister Breast CA Maternal Aunt Breast CA Family history of problems with anesthesia: No Surgical History Surgical History Hx of section H/O gastric sleeve H/O abdominal hysterectomy History of Problems with Anesthesia: No Social History Social History Household Members: None Housing: Apartment Alcohol intake: current Alcohol intake frequency: holidays/special occasions only Patient Tobacco Use Status: Never used Tobacco e-Cigarette/Vaping Use: Never Used Second Hand Smoke Exposure: No Use of substances other than those prescribed or required for medical reasons: No Are you DNR?: No Advance Directives: No Advance Directives Information Provided: Yes Current occupational status: employed Current occupation: [employer] 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/hazards: Yes Cognitive needs: No Hearing needs: No Vision needs: No Meds Allergies Allergy/AdvReac Type Severity Reaction Status Date / Time atorvastatin AdvReac Intermediate Depression Verified 10/02/23 11:29 Active Medications: Current Medications Lactated Ringer's (Lr) 1,000 mls @ 100 mls/hr IVCONT .Q10H PANCHITO Home Medications ?Medication ?Instructions ?Recorded ?Confirmed ?Last Taken ?Type lancets 28 gauge (FreeStyle 02/15/22 10/02/23 Unknown History Lancets) insulin glargine-yfgn 100 unit/mL unit subcut 08/13/23 10/02/23 Unknown History (3 mL) subcutaneous pen Exam Height,Weight and Vital Signs: Height 5 ft 4 in Weight 84.368 kg Last Vital Signs Temp 98.5 F 11/18/23 10:34 Pulse 80 11/18/23 10:34 Resp 16 11/18/23 10:34 BP 141/80 H 11/18/23 10:34 Pulse Ox 100 11/18/23 10:34 O2 Del Method Room Air 11/18/23 10:34 Airway Mallampati Class: II TM Dist: >3cm Neck ROM: Full Heart: rrr Lungs: cta Assessment and Plan Assessment Anesthesia Assessment: Anesthesia Plan Discussed and Chart Reviewed Final Anesthetic Review Family History of Problems with Anesthesia: No History of Problems with Anesthesia: No NPO: Yes ASA Class: II Final Preanesthetic Review: No Changes in Pt Med Stat, Meds/Allgs Chart Reviewed and Consent Obtained/Reviewed Patient Risk: Low Procedure Risk: Low Anesthetic Plan Anesthetic Plan: MAC: Disposition: Standard PACU
[2023-11-18] MEDS: Lactated Ringers 1,000 ML 100 ML IVCONT (10:58)
--- NOTE | 2023-11-18 12:42 | P.OPN-COLO_ITS ---
Colonoscopy Operative Note Operative Note Date of Service: 11/18/23 Narrative: COLONOSCOPY TILL CECUM WITH BIOPSIES Pre-op diagnosis: Colon cancer screening (First colonoscopy). Post-op diagnosis:? Colon polyp, Diverticulosis, hemorrhoids Endoscopist:? Wilfredo Olvera MD Anesthesia:?MAC Consent: Indications for the procedure and potential complications of bleeding, perforation, reaction to medications and missed diagnosis were discussed with the patient and informed consent was obtained. Instrument: Olympus PCF H 190 L variable stiffness pediatric colonoscope Monitoring: Vital signs and clinical assessment, intermittent blood pressure monitoring, continuous EKG monitoring, Pulse oximetry and Carbon Dioxide monitoring were done throughout the procedure. Please see anesthesia flowsheet. Colon withdrawl time was 15 minutes. Procedure: The patient was placed in the left lateral decubitis position and pre-procedure medications were administered. After a digital rectal examination of the ano-rectum, the video colonoscope was inserted into the rectum and advanced through the colon to the cecum. The colonoscope was slowly withdrawn in a retrograde panoramic fashion and the colon mucosa was carefully examined including a retroflexed view of the rectum. Findings and interventions are described below. Procedure Difficulty: without difficulty Findings: Terminal Ileum: Not evaluated Cecum: Normal Ascending Colon: A 2-3 mm sessile polyp in the distal AC - removed with a cold biopsy Transverse Colon: A 3-4 mm sessile polyp - removed with a cold biopsy Descending Colon: Normal Sigmoid Colon: A 3-4 mm sessile polyp - removed with a cold biopsy. Moderate diverticulosis Rectum: Normal Ano-rectum: Small internal hemorrhoids Colon preparation: Good after some irrigation. [place] Bowel Preparation Scale Right colon; 2 Transverse colon: 2 Left colon; 2 (0 = Unprepared colon segment with mucosa not seen due to solid stool that cannot be cleared. 1 = Portion of mucosa of the colon segment seen, but other areas of the colon segment not well seen due to staining, residual stool and/or opaque liquid. 2 = Minor amount of residual staining, small fragments of stool and/or opaque liquid, but mucosa of colon segment seen well. 3 = Entire mucosa of colon segment seen well with no residual staining, small fragments of stool or opaque liquid) Impression and Post Procedure Diagnosis: Colonoscopy Findings: Three small polyps were removed Moderate diverticulosis seen in the sigmoid colon Small hemorrhoids on retroflexed exam. Plan: Pt has a FU appointment on 12/02/23 with Chinyere Cobian NP Repeat Colonoscopy in 3-5 years if polyps are adenomatous and 10 year if polyps are hyperplastic. Above findings were reviewed with the patient and relevant handouts were given and the discharge area.
[2023-11-18 12:43] VITALS: BP 140/76; PULSE 81; RESP 24; TEMP 36.7; O2SAT 99
[2023-11-18 13:02] VITALS: BP 141/85; PULSE 82; RESP 18; TEMP 36.7; O2SAT 99
== END 2023-11-18 13:40 | disposition home or self-care (01) ==
PROVIDERS: PCP Internal Medicine; Visit Provider Internal Medicine Gastroenterology
PROC: 0DJD8ZZ Inspection of Lower Intestinal Tract, Via Natural or Artificial Opening Endoscopic (ICD-10-PCS; CPT 45378; principal; 2023-11-18 11:00)
DX: Z12.11 Encounter for screening for malignant neoplasm of colon (principal); K63.5 Polyp of colon; K57.30 Diverticulosis of large intestine without perforation or abscess without bleeding; K64.8 Other hemorrhoids; K59.01 Slow transit constipation; E78.00 Pure hypercholesterolemia, unspecified; E11.9 Type 2 diabetes mellitus without complications; Z79.4 Long term (current) use of insulin; Z88.8 Allergy status to other drugs, medicaments and biological substances; Z98.84 Bariatric surgery status
CPT/HCPCS: 45380; 88305; J2704

== ENCOUNTER → 2023-11-18 09:12 | Outpatient (BNV) | payer OTHER, SELFPAY | PROVIDERS: PCP Internal Medicine; Visit Provider Internal Medicine Gastroenterology | DX: Z12.11 Encounter for screening for malignant neoplasm of colon (principal); K63.5 Polyp of colon; K57.30 Diverticulosis of large intestine without perforation or abscess without bleeding; K64.8 Other hemorrhoids | CPT/HCPCS: 45380 ==

== ENCOUNTER 2023-12-02 09:17 | Outpatient (AMB) | payer OTHER, SELFPAY ==
--- NOTE | 2023-12-02 09:28 | MHC.OFFVIS ---
Vital Signs 12/02/23 09:32 Height 5 ft 4 in Weight 187 lb 6.287 oz BMI 32.2 BP 136/74 Blood Pressure Location Lt brachial Position Sitting Pulse 91 Intake Visit Reasons: s/p colon Intake Note: Amee presents in the office as a follow up Colonoscopy CC: No concerns since her procedure. Upper Doubler Required: Yes Upper Doubler Name: [id number] Shahbaz Allergies atorvastatin Adverse Reaction (Intermediate, Verified 12/02/23 09:36) Depression HPI HPI s/p colon: Details: LAST VISIT: Colon cancer screening Constipation Plan Continue Senokot. Patient will be scheduled for colonoscopy. Please make sure patient holds Trulicity depending on when her procedure will be scheduled. What to expect before during and after procedure discussed with patient. Clear liquid diet day before procedure discussed with her. Patient is not on any anticoagulation of the patient. No history of sleep apnea. No issues with anesthesia in the past. I will see patient after the procedure, sooner on as needed basis. Patient is agreeable to plan of care and verbalizes understanding of instructions. She was given the opportunity to ask questions and all questions answered. ? Thank you for allowing me to participate in her care Medications New bisacodyl (Dulcolax (bisacodyl)) take 2 tabs at noon the day before your colonoscopy 10 mg (2 x 5 mg) PO ONCE 2 tabs 0RF 1 day Z12.11 polyethylene glycol 3350 (Miralax) As directed by gastroenterology department at [facility] 238 grams PO ONCE 238 grams 0RF Z12.11 COLONOSCOPY: Findings: Terminal Ileum: Not evaluated Cecum: Normal Ascending Colon: A 2-3 mm sessile polyp in the distal AC - removed with a cold biopsy Transverse Colon: A 3-4 mm sessile polyp - removed with a cold biopsy Descending Colon: Normal Sigmoid Colon: A 3-4 mm sessile polyp - removed with a cold biopsy. Moderate diverticulosis Rectum: Normal Ano-rectum: Small internal hemorrhoids Colon preparation: Good after some irrigation. [place] Bowel Preparation Scale Right colon; 2 Transverse colon: 2 Left colon; 2 (0 = Unprepared colon segment with mucosa not seen due to solid stool that cannot be cleared. 1 = Portion of mucosa of the colon segment seen, but other areas of the colon segment not well seen due to staining, residual stool and/or opaque liquid. 2 = Minor amount of residual staining, small fragments of stool and/or opaque liquid, but mucosa of colon segment seen well. 3 = Entire mucosa of colon segment seen well with no residual staining, small fragments of stool or opaque liquid) Impression and Post Procedure Diagnosis: Colonoscopy Findings: Three small polyps were removed Moderate diverticulosis seen in the sigmoid colon Small hemorrhoids on retroflexed exam. Plan: Repeat Colonoscopy in 3-5 years if polyps are adenomatous and 10 year if polyps are hyperplastic. Above findings were reviewed with the patient and relevant handouts were given and the discharge area. PATHOLOGY: Diagnosis A. Colon, ascending, polypectomy: Colonic mucosa with prominent lymphoid aggregate. B. Colon, transverse, polypectomy: Colonic mucosa with prominent lymphoid aggregate. C. Colon, sigmoid, polypectomy: Colonic mucosa with small lymphoid aggregates. Comment: Multiple additional levels are examined on all 3 blocks TODAY'S VISIT Patient is here today for follow-up and to discuss colonoscopy results. Patient denies any ill effects from the prep, anesthesia or procedure itself. Lymphoid aggregate found no tubular adenoma. Colonoscopy in 10 years, sooner if clinically necessary. Patient states that she does not know any family members with history of CRC. Patient denies any melena, hematochezia. Patient reports that she is moving her bowels every 3 days or so. States that Senokot was helpful when she was taking it. Will refill script today. Patient denies any GI concerning symptoms. [facility] Medical History High cholesterol Diabetes type 2, uncontrolled Colon cancer screening Surgical History Hx of colonoscopy Hx of section H/O gastric sleeve H/O abdominal hysterectomy Family History Sister Breast CA Maternal Aunt Breast CA Social History Household Members: None Housing: Apartment Alcohol intake: current Alcohol intake frequency: holidays/special occasions only Patient Tobacco Use Status: Never used Tobacco e-Cigarette/Vaping Use: Never Used Second Hand Smoke Exposure: No Current occupational status: employed Current occupation: [employer] 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/hazards: Yes Cognitive needs: No Hearing needs: No Vision needs: No Female Reproductive History Menstrual Age of Menarche: 10 Review of Systems Const Denies weight gain and Denies weight loss ENT Reports no additional complaints, Denies dysphagia and Denies odynophagia Card Reports no additional complaints Resp Reports no additional complaints GI Denies abdominal pain, Denies belching, Denies melena, Denies bloating, Denies change in bowel habits, Reports constipation, Denies dysphagia, Denies excessive flatus, Denies dyspepsia, Denies heartburn, Denies diarrhea, Denies loose stools, Denies nausea, Denies odynophagia and Denies vomiting Reports no additional complaints Musc Reports no additional complaints Neuro Reports no additional complaints Psych Reports no additional complaints Endo Reports no additional complaints Physical Exam Vital Signs: Last Vital Signs Pulse 91 12/02/23 09:32 BP 136/74 12/02/23 09:32 BMI result Body Mass Index 32.2 Const General: healthy appearing, no acute distress and well developed Nutritional Appearance: well nourished Orientation/consciousness: patient oriented x3 Resp Effort & Inspection: normal respiratory effort, able to speak in complete sentences, no tracheal deviation and symmetric chest movement Auscultation: clear to auscultation bilaterally Cardio Rate: regular rate GI Inspection: Yes normal to inspection and No distended Palpation (GI): Soft to palpation, not firm, nontender and No hepatosplenomegaly present Auscultation: normal bowel sounds General: Yes no CVA tenderness Back/Spine/Pelvis Back: no CVA tenderness Skin General skin exam: elasticity normal, turgor normal and dry skin Neuro General: patient oriented x3 Psych Appearance: grossly normal Mental Status: mental status grossly normal Assessment & Plan Assessment & Plan (1) Status post colonoscopy: Code(s): Z98.890 - Other specified postprocedural states (2) Constipation: Code(s): K59.00 - Constipation, unspecified Qualifiers: Constipation type: slow transit constipation Qualified Code(s): K59.01 - Slow transit constipation Plan Colonoscopy in 10 years, sooner if clinically necessary. Patient will continue taking Senokot daily. Increase fluid intake and activity to promote better bowel motility. Follow-up in the office in 6 months. Patient will call our office if she will have any GI concerning symptoms. She is agreeable to this plan and verbalizes understanding of instructions. She was given the opportunity to ask questions and all questions answered. Thank you for allowing me participate in her care Medications: Refilled sennosides (Natural Senna Laxative) 17.2 mg (2 x 8.6 mg) PO BEDTIME 180 tabs 3RF constipation K59.00 - Constipation, unspecified Coding Level of Care Code Est Pt Level 3 (32687) Diagnoses Status post colonoscopy Z98.890 Slow transit constipation K59.01 Constipation type: slow transit constipation Time Spent (min) 25 Comment 15 minutes spent with patient and additional 10 minutes spent reviewing her records
[2023-12-02 09:32] VITALS: BP 136/74; PULSE 91; BMI 32.2
== END 2023-12-02 10:05 | disposition home or self-care (01) ==
PROVIDERS: PCP Internal Medicine; Visit Provider Nurse Practitioner Family
DX: Z98.890 Other specified postprocedural states (principal); K59.01 Slow transit constipation
CPT/HCPCS: 99213

== ENCOUNTER → 2023-12-02 09:17 | Outpatient (BNVA) | payer OTHER, SELFPAY | PROVIDERS: PCP Internal Medicine; Visit Provider Nurse Practitioner Family | DX: K59.01 Slow transit constipation (principal); Z98.890 Other specified postprocedural states | CPT/HCPCS: 99212 ==

== ENCOUNTER 2023-12-13 14:18 | Outpatient (AMB) | payer OTHER, SELFPAY ==
--- NOTE | 2023-12-13 14:32 | MHC.OFFVIS ---
Vital Signs 12/13/23 14:39 Height 5 ft 4 in Weight 191 lb 2.252 oz BMI 32.8 BP 130/70 Blood Pressure Location Lt brachial Position Sitting Pulse 84 Pulse Source Pulse Oximeter Intake Visit Reasons: T2DM/CONFIRMED Intake Note: Patient presents today to re-establish treatment on Type 2 Diabetes Mellitus: Last Diabetic Eye exam: DUE Last Podiatry Exam: Does not see a Machine Builder Random Glucose: 90 mg/dl Most recent HbA1c: 8.4%, 09/25/2023 Game Breeding Farm Manager Required: Yes Game Breeding Farm Manager Language: Machine Stitcher Services: Game Breeding Farm Manager Present Game Breeding Farm Manager Name: Jim [id number] Information Interpreted: non-clinical & clinical Accompanied by: Self / Same As Patient Allergies atorvastatin Adverse Reaction (Intermediate, Verified 12/13/23 14:40) Depression HPI Comments Details: This is a 53-year-old female with a past medical history of insulin-dependent type 2 diabetes, hyperlipidemia and hypertension presenting for diabetic management. She was last seen by Dr. Blakely in 08/17/2023. I reviewed today's CGM download: CGM in use: 97 % of the time Average glucose 211 and GMI my 8.4%. Blood glucose in target range (70-180) 41 % of the time Blood glucose high (181-250) 30 % of the time Blood glucose very high (>250) 29 % of the time Blood glucose low (55-69) 0 % of the time Blood glucose very low (less than 55) 0 % of the time POCs trend up after 13:00 or 14:00 and tend to remain elevated until manager budget hours. This is when she says she experiences low blood sugar. Hemoglobin a1c 8.4% 09/25/23. Current medication regimen: Ozempic 2 mg every 7 days, metformin 1000 mg twice daily, Apidra 10 units 15 minutes prior to meals, Lantus 30 units at bedtime, Jardiance 25 mg daily. Hypoglycemia symptoms: She says she is having blood sugars in the 60s several times during the past month. She corrects with fruit juice and this corrects. She gets a little shaky and stomach feels tight. This happens in the manager budget hours. Hyperglycemia symptoms: none Eye exam: [facility] Microvascular complications: none Macrovascular complications: none Hypertension: treated with lisinopril 5 mg. Hyperlipidemia: Atorvastatin switch to rosuvastatin because atorvastatin reportedly caused depressive symptoms for patient. Denies side effects on Rosuvastatin. ROS: Constitutional: No unexplained weight loss, fever, chills, fatigue or night sweats. Eyes: No vision changes Respiratory: No shortness of breath Cardiovascular: No chest pain Gastrointestinal: No anorexia, nausea, vomiting or diarrhea. No abdominal pain Endocrine: No cold or heat intolerance. No polyuria or polydipsia. Physical exam: Constitutional: Alert, in no distress. Eyes: Pupils are equal, round and reactive to light. Extraocular muscles intact. Neck: Supple, Full range of motion. No lymphadenopathy. Respiratory: Clear to auscultation. Cardiovascular: S1 S2 regular. No murmurs. Right foot: Warm and well perfused. No clubbing, cyanosis or edema. DP pulse 3+. Intact vibratory sensation. Intact sensation to monofilament. Left foot: Warm and well perfused. No clubbing, cyanosis or edema. DP pulse 3+. Intact vibratory sensation. Intact sensation to monofilament. [facility] Medical History High cholesterol Diabetes type 2, uncontrolled Colon cancer screening Surgical History Hx of colonoscopy Hx of section H/O gastric sleeve H/O abdominal hysterectomy Family History Sister Breast CA Maternal Aunt Breast CA Social History Household Members: None Housing: Apartment Alcohol intake: current Alcohol intake frequency: holidays/special occasions only Patient Tobacco Use Status: Never used Tobacco e-Cigarette/Vaping Use: Never Used Second Hand Smoke Exposure: No Current occupational status: employed Current occupation: [employer] 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/hazards: Yes Cognitive needs: No Hearing needs: No Vision needs: No Female Reproductive History Menstrual Age of Menarche: 10 Physical Exam Vital Signs: BMI result Body Mass Index 32.8 Results Reviewed Results Reviewed: Laboratory Tests 09/25/23 11/07/23 07:13 Unknown Creatinine 0.80 Estimated GFR > 60 Hemoglobin A1c % 8.4 H Triglycerides 173 H Cholesterol 205 H LDL Cholesterol, Calc 116 H HDL Cholesterol 55 Urine Creatinine 131.87 Urine Microalbumin 35.0 Microalb/Creat Ratio 26.5 Assessment & Plan Assessment & Plan (1) Insulin dependent type 2 diabetes mellitus: Code(s): E11.9 - Type 2 diabetes mellitus without complications; Z79.4 - exterminator termite (current) use of insulin Category: Medical (2) Hypertension: Code(s): I10 - Essential (primary) hypertension Category: Medical Qualifiers: Hypertension type: primary hypertension Qualified Code(s): I10 - Essential (primary) hypertension (3) Hyperlipidemia: Code(s): E78.5 - Hyperlipidemia, unspecified Category: Medical Qualifiers: Hyperlipidemia type: pure hypercholesterolemia Qualified Code(s): E78.00 - Pure hypercholesterolemia, unspecified Plan In summary this is a 53 year old female with insulin dependent Type II DM with suboptimal control reporting low blood sugars overnight that occur regularly. Switch Lantus to Tresiba and decrease to 28 units (28 units of lantus until she gets the new prescription.) Will tighten control of postprandial hyperglycemia once hypoglycemic episodes are resolved with medication changes. Continue other medications at this time. Followed by EM. HTN Controlled. Continue lisinopril. Hyperlipidemia Tolerating rosuvastatin. She has orders for blood work to be done in a couple of months. Follow up in 4-6 weeks for diabetes. Medications: New insulin degludec (Tresiba FlexTouch U-100 insulin) 28 units (0.28 mL) subcut BEDTIME 15 mL 5RF Coding Level of Care Code Est Pt Level 5 (46518) Complex EM visit Add On G2211 Diagnoses Insulin dependent type 2 diabetes mellitus E11.9; Z79.4 Primary hypertension I10 Hypertension type: primary hypertension Pure hypercholesterolemia E78.00 Hyperlipidemia type: pure hypercholesterolemia Time Spent (min) 50 Comment reviewing chart and labs, direct patient care, completing documentation
[2023-12-13 14:39] VITALS: BP 130/70; PULSE 84; BMI 32.8
[2023-12-13 14:58] LABS: Glucose, Whole Blood 90 mg/dL (60-115)
== END 2023-12-13 15:22 | disposition home or self-care (01) ==
PROVIDERS: PCP Internal Medicine; Visit Provider Physician Assistant Medical
DX: E11.9 Type 2 diabetes mellitus without complications (principal); Z79.4 Long term (current) use of insulin; I10 Essential (primary) hypertension; E78.00 Pure hypercholesterolemia, unspecified
CPT/HCPCS: 99215; G2211

== ENCOUNTER → 2023-12-13 14:18 | Outpatient (BNVA) | payer OTHER, SELFPAY | PROVIDERS: PCP Internal Medicine; Visit Provider Physician Assistant Medical | DX: E11.9 Type 2 diabetes mellitus without complications (principal); I10 Essential (primary) hypertension; E78.00 Pure hypercholesterolemia, unspecified; Z79.4 Long term (current) use of insulin; Z79.899 Other long term (current) drug therapy | CPT/HCPCS: 82947; 99212 ==

== ENCOUNTER 2024-01-07 08:33 | Outpatient (REF) | payer OTHER, SELFPAY ==
--- NOTE | ~2024-01-07 | XR_ITS ---
EXAMINATION: XR HAND, RIGHT XR HAND, LEFT CLINICAL INFORMATION: Pain in the bilateral hands. COMPARISON: None available. TECHNIQUE: PA, lateral, and oblique views of each hand. FINDINGS: RIGHT HAND: No fracture. Alignment is anatomic. Joint spaces are maintained. There is cortical irregularity along the ulnar margin of the lunate with subtle flattening, potentially corresponding to chronic changes of ulnocarpal abutment. Neutral ulnar variance. No erosions or soft tissue calcifications. Bone mineralization is normal. LEFT HAND: No fracture. Alignment is anatomic. Joint spaces are maintained. Subtle cortical irregularity and bone resorption at the ulnar margin of the lunate. Neutral ulnar variance. No erosions or soft tissue calcifications. XR/XR hand RT min 3V IMPRESSION: 1. Subtle cortical irregularity and bone resorption at the ulnar margins of the lunates bilaterally, potentially corresponding to chronic changes of ulnocarpal abutment. 2. No acute osseous findings. No evidence of inflammatory arthropathy. Electronically signed by: Brain Dela Cruz MD 01/20/2024 11:49 PM EDT
--- NOTE | ~2024-01-07 | XR_ITS ---
EXAMINATION: XR HAND, RIGHT XR HAND, LEFT CLINICAL INFORMATION: Pain in the bilateral hands. COMPARISON: None available. TECHNIQUE: PA, lateral, and oblique views of each hand. FINDINGS: RIGHT HAND: No fracture. Alignment is anatomic. Joint spaces are maintained. There is cortical irregularity along the ulnar margin of the lunate with subtle flattening, potentially corresponding to chronic changes of ulnocarpal abutment. Neutral ulnar variance. No erosions or soft tissue calcifications. Bone mineralization is normal. LEFT HAND: No fracture. Alignment is anatomic. Joint spaces are maintained. Subtle cortical irregularity and bone resorption at the ulnar margin of the lunate. Neutral ulnar variance. No erosions or soft tissue calcifications. XR/XR hand LT min 3V IMPRESSION: 1. Subtle cortical irregularity and bone resorption at the ulnar margins of the lunates bilaterally, potentially corresponding to chronic changes of ulnocarpal abutment. 2. No acute osseous findings. No evidence of inflammatory arthropathy. Electronically signed by: Brain Dela Cruz MD 01/20/2024 11:49 PM EDT
== END 2024-01-07 08:34 | disposition home or self-care (01) ==
LOC: HO.HOSX 08:33
PROVIDERS: PCP Internal Medicine; Visit Provider Orthopaedic Surgery
DX: M79.642 Pain in left hand (principal); M79.641 Pain in right hand; M65.4 Radial styloid tenosynovitis [de Quervain]; M65.331 Trigger finger, right middle finger; M25.641 Stiffness of right hand, not elsewhere classified; M65.322 Trigger finger, left index finger; E11.9 Type 2 diabetes mellitus without complications; Z79.4 Long term (current) use of insulin
CPT/HCPCS: 20550; 73130; 99202; J1100

== ENCOUNTER 2024-01-07 09:21 | Outpatient (AMB) | payer OTHER, SELFPAY ==
--- NOTE | 2024-01-07 10:33 | MHC.OFFVIS ---
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 Patient reports having locking and catching in both the middle finger and thumb making it difficult to manager documentation and squeeze. Patient states pain is worse in her left hand than the right, she tends to have more pain when she is gripping. Has tried voltaren gel and OT meds without relief. Denies any prior injuries or surgeries. 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 She speaks some [place] Verdean and no elementary librarian was needed today. She complains of painful locking of her left index & right middle fingers. She says this has been present for ~1 year now and limits her ability to manager documentation without pain. She says she has not been bending her right middle finger, and she performs ROM exercises at home using a squeeze ball. She also complains of left radial-sided wrist pain, which is worse with pinching & gripping activities. She denies any prior treatment options, and has found no relief from Volaten gel or OTC medication. 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 She is a Diabetic, which is somewhat controlled. Her most recent HgA1c was 8.4% on 09/25/23. [facility] Medical History High cholesterol Diabetes type 2, uncontrolled Colon cancer screening Surgical History Hx of colonoscopy Hx of section H/O gastric sleeve H/O abdominal hysterectomy Family History Sister Breast CA Maternal Aunt Breast CA Social History (Updated 01/07/24 @ 10:39 by Jade Carl) Household Members: None Housing: Apartment Alcohol intake: current Alcohol intake frequency: holidays/special occasions only Patient Tobacco Use Status: Never used Tobacco e-Cigarette/Vaping Use: Never Used Second Hand Smoke Exposure: No Current occupational status: employed 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/hazards: Yes Cognitive needs: No Hearing needs: No Vision needs: No Female Reproductive History Menstrual Age of Menarche: 10 Review of Systems Const All systems reviewed & are unremarkable except as noted in HPI and below Physical Exam Vital Signs: BMI result Body Mass Index 32.8 Const General: cooperative, healthy appearing and no acute distress Orientation/consciousness: patient oriented x3 HEENT Head: Yes normocephalic and Yes atraumatic Eyes EOM: EOMs intact bilaterally Resp Effort & Inspection: normal respiratory effort and able to speak in complete sentences Cardio Jugular venous distension: no JVD Skin General skin exam: turgor normal Rashes: no rashes Neuro General: patient oriented x3 Extrem Other: Evaluation of Bilateral Upper Extremity: The patient is alert, oriented, and in no acute distress Neuro: Median, Ulnar, Radial nerves motor and sensory intact and sensation is normal to the tips of all digits Vascular: Cap refill brisk ROM: She can make a fist and extend all her digits of her left hand Visible & palpable locking and catching of the left index finger No visible locking of the right middle finger. However, She was unable to actively bring her middle finger PIP joint closed to a fist and had some significant extrinsic tightness. We worked on this with some [id number] exercises in clinic. She also had a flexion contracture about 20 degrees that was not easily reducible. Again, because of the trigger finger in her right middle finger it looks like she has not been using the right middle finger and has developed some significant stiffness. Tender over the a1 carol ann of the left index finger & right middle finger She can place her left hand flat on the table, but has difficulty doing this on the right side because of her right middle finger tightness and PIP flexion contracture. Skin: No lacerations or abrasions. General: No Ecchymosis. No Erythema or evidence of infection. + Abdelrahman test on the left Tender over the left 1st dorsal compartment as it passes over the radial styloid. Radiographs: 3 views of the right hand were taken and viewed by me today in clinic. They show no fractures, dislocations, or significant arthritic changes 3 views of the left hand were taken and viewed by me today in clinic. They show no fractures, dislocations, or significant arthritic changes Psych Appearance: grossly normal Affect: normal affect Attitude: cooperative Office Procedures Fracture Care Details: No fracture, injection Fracture Billing Code: Fracture Billing Code Assessment & Plan Assessment & Plan (1) De Quervain's tenosynovitis, left: Code(s): M65.4 - Radial styloid tenosynovitis [de Quervain] Category: Medical (2) Trigger middle finger of right hand: Code(s): M65.331 - Trigger finger, right middle finger Category: Medical (3) Stiffness of finger joint of right hand: Code(s): M25.641 - Stiffness of right hand, not elsewhere classified Category: Medical (4) Trigger index finger of left hand: Code(s): M65.322 - Trigger finger, left index finger Category: Medical (5) Insulin dependent type 2 diabetes mellitus: Code(s): E11.9 - Type 2 diabetes mellitus without complications; Z79.4 - group home (current) use of insulin Category: Medical Plan Assessment & Plan: 1. Left De Quervains Tenosynovitis Positive Abdelrahman test I educated her about this condition I discussed operative and non-operative treatment options The patient would like to proceed with an injection today I discussed activity modification, they should limit or avoid any heavy or repetitive pinching or gripping activities She was fitted for a comfort cool brace to wear with daily activity Injection #1: The risks and benefits of a steroid injection including but not limited to risk of damage to blood vessels, nerves, tendons, infection, skin bleaching, failure to improve symptoms, increased pain, and possible need for further injections or other intervention were discussed with the patient and the patient wishes to proceed with the steroid injection. Once consent was obtained, I sterilely prepped the area over the 1st dorsal compartment of the Left wrist I then injected the 1st dorsal compartment with a combination of 1 mL of dexamethasone (4mg/ml), and 1% lidocaine. The patient tolerated the procedure well with no complications and good resolution of their symptoms prior to leaving clinic. If the patient continues to have pain 6-8 weeks following this injection, they may call to schedule appointment to discuss alternative treatment options 2. Right middle finger trigger finger 3. Right hand stiffness Primarily in the middle finger Likely secondary to disuse due to a middle finger trigger finger I educated her about these conditions I discussed operative and non-operative treatment options The patient would like to proceed with surgery I discussed activity modification, she should work on ROM exercises at home, 20x daily. She should work on making a closed fist and discontinue using her squeeze ball We worked on ROM exercises today in clinic The risks and benefits of operative treatment were discussed with the patient and the patient wishes to proceed with surgery. These risks include, but are not limited to risk of damage to blood vessels, nerves, tendons, infection, recurrence, incomplete relief of preoperative symptoms, persistent pain, possible need for further surgery and the risks associated with regional blocks and anesthesia. The plan is to take the patient to the operating room sometime in the next few weeks for the following procedures: 1. Right middle finger trigger release, under local 2. Right middle finger PIP joint manipulation UA, under local All of the preoperative paperwork including the consent was reviewed today. All the patient's questions were answered. The patient understands that they will be contacted by our assistant professor of surgery soon to schedule this procedure She denies blood thinners, asthma, heart, lung, kidney issues She has Diabetes, and her most recent HgA1c was 8.9% on 09/25/23 They will need an updated HgA1c that is <8.1% in order to proceed with surgery, and they expressed understanding 4. Left index finger trigger finger We can discuss treatment for this at a later date Scribed for Aurora Arias MD by Kaushal cSott, spanish medical interpreter, on 01/07/24 at 10:50 AM, EST. Orders: Orders XR hand LT min 3V Today NASIR Vallejo M79.642 - Pain in left hand XR hand RT min 3V Today Aurora Arias MD M79.641 - Pain in right hand Coding Level of Care Code New Pt Level 4 (18201) Diagnoses De Quervain's tenosynovitis, left M65.4 Trigger middle finger of right hand M65.331 Stiffness of finger joint of right hand M25.641 Trigger index finger of left hand M65.322 Insulin dependent type 2 diabetes mellitus E11.9; Z79.4 CPT Codes Fracture Care - Fracture Billing Code: Fracture Billing Code ([id number])
[2024-01-07 10:39] VITALS: BMI 32.8
== END 2024-01-07 11:15 | disposition home or self-care (01) ==
PROVIDERS: PCP Internal Medicine; Visit Provider Orthopaedic Surgery
DX: M65.4 Radial styloid tenosynovitis [de Quervain] (principal); M65.331 Trigger finger, right middle finger; M25.641 Stiffness of right hand, not elsewhere classified; M65.322 Trigger finger, left index finger; E11.9 Type 2 diabetes mellitus without complications; Z79.4 Long term (current) use of insulin
CPT/HCPCS: 20550; 99204

== ENCOUNTER 2024-01-23 10:42 | Outpatient (AMB) | payer OTHER, SELFPAY ==
--- NOTE | 2024-01-23 11:24 | MHC.AMDMED ---
Intake Intake Visit Reasons: T2DM/CONFIRMED Accompanied by: Self / Same As Patient Allergies atorvastatin Adverse Reaction (Intermediate, Verified 01/07/24 10:38) Depression HPI Comprehensive Diabetes Asmnt Most Recent Diabetes Results: Microalb/Creat Ratio 26.5 ug/mg cr (<30) 09/25/23 Cholesterol 205 mg/dL (<200) H 11/07/23 HDL Cholesterol 55 mg/dL (>40) 11/07/23 Triglycerides 173 mg/dL (<150) H 11/07/23 Creatinine 0.80 mg/dL (0.5-1.4) 11/07/23 Blood Urea Nitrogen 18 mg/dL (9-16) H 11/07/23 Sodium 139 mmol/L (135-145) 11/07/23 Potassium 4.0 mmol/L (3.3-5.1) 11/07/23 Chloride 107 mmol/L (96-108) 11/07/23 Carbon Dioxide 24 mmol/L (22-29) 11/07/23 Calcium 9.8 mg/dL (8.4-10.2) 11/07/23 AST 10 U/L (5-31) 11/07/23 ALT 12 U/L (0-31) 11/07/23 Total Protein 7.7 g/dL (6.5-8.0) 11/07/23 Albumin 3.8 g/dL (3.5-5.0) 11/07/23 PFSH Medical History High cholesterol Diabetes type 2, uncontrolled Colon cancer screening Surgical History Hx of colonoscopy Hx of section H/O gastric sleeve H/O abdominal hysterectomy Family History Sister Breast CA Maternal Aunt Breast CA Social History (Updated 01/07/24 @ 10:39 by Jade Carl) Household Members: None Housing: Apartment Alcohol intake: current Alcohol intake frequency: holidays/special occasions only Patient Tobacco Use Status: Never used Tobacco e-Cigarette/Vaping Use: Never Used Second Hand Smoke Exposure: No Current occupational status: employed 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 0% Hyperglycemia:? 63% Time in Range:? 37% Average glucose for the last 2 weeks? 229 mg/dL Patient has significant rise in glucose at approximately 03:00, patient reports that she gets up in the middle of the night and sometimes has a snack of crackers cheese Patient's last A1c was 8.4% Reviewed with patient the importance of taking Apidra 5-10 minutes before having meals or if her snacks are greater than 15 g of carbohydrate Discussed insulin action of Apidra and Lantus. Patient is scheduled for surgery on her hand in February, and was told her A1c needed to be 8% or below Patient will be due for next A1c at tomorrow's visit with physician's virtual assistant Reviewed how to interpret trend arrows Reminded patient that to check finger sticks if symptoms do not match sensor reading. Discussed lag time between finger stick and sensor data.? Patient able to insert sensor independently at home without issue.? Portions of this note were created using voice recognition software, please excuse any words or phrases that may have been misinterpreted. Coding Level of Care Code Est Pt Level 1 (03816) Diagnoses Insulin dependent type 2 diabetes mellitus E11.9; Z79.4
== END 2024-01-23 11:29 | disposition home or self-care (01) ==
PROVIDERS: PCP Internal Medicine; Visit Provider Registered Nurse Diabetes Educator
DX: E11.9 Type 2 diabetes mellitus without complications (principal); Z79.4 Long term (current) use of insulin

== ENCOUNTER → 2024-01-23 10:42 | Outpatient (BNVA) | payer OTHER, SELFPAY | PROVIDERS: PCP Internal Medicine; Visit Provider Registered Nurse Diabetes Educator | DX: E11.9 Type 2 diabetes mellitus without complications (principal); Z79.4 Long term (current) use of insulin | CPT/HCPCS: 99211 ==

== ENCOUNTER 2024-01-24 14:09 | Outpatient (AMB) | payer OTHER, SELFPAY ==
--- NOTE | 2024-01-24 14:12 | MHC.OFFVIS ---
Vital Signs 01/24/24 14:13 Height 5 ft 4 in Weight 194 lb 3.636 oz BMI 33.3 BP 148/80 H Blood Pressure Location Lt brachial Position Sitting Pulse 91 Pulse Source Pulse Oximeter Intake Visit Reasons: T2DM/CONFIRMED Intake Note: Patient presents today for [facility] follow up visit. Last Diabetic Eye exam: 12/2023 Last Podiatry Visit: Doesn't have one Random Glucose:127 mg/dl HgA1c: 8.8% Fourth Officer Required: Yes Fourth Officer Language: Rehabilitation Physician Services: Fourth Officer Present Fourth Officer Name: Rita [id number] Information Interpreted: non-clinical & clinical Accompanied by: Self / Same As Patient Allergies atorvastatin Adverse Reaction (Intermediate, Verified 01/24/24 14:18) Depression HPI Comments Details: This is a 53-year-old female with a past medical history of insulin-dependent type 2 diabetes, hyperlipidemia and hypertension presenting for diabetic management. She was last seen by me 12/13/23. I reviewed today's CGM download for 01/09/24 to 01/22/24: CGM in use: 71% of the time Average glucose 229 Blood glucose in target range (70-180) 37 % of the time Blood glucose high (181-250) 36 % of the time Blood glucose very high (>250) 27 % of the time Blood glucose low (55-69) 0 % of the time Blood glucose very low (less than 55) 0 % of the time Trend is overnight and morning hyperglycemia. Hemoglobin a1c 8.8% today. Current medication regimen: Ozempic 1 mg every 7 days, metformin 1000 mg twice daily, Apidra 10 units 15 minutes prior to meals, Tresiba 28 units daily, Jardiance 25 mg daily. She is having brown sugar in her coffee. She is snacking on cookies in the middle of the night. She forgets the evening dose of Metformin once or twice per week. Hypoglycemia resolved since switching to Tresiba from Lantus. Hypoglycemia symptoms: none Hyperglycemia symptoms: none Eye exam: [facility] Microvascular complications: none Macrovascular complications: none Hypertension: treated with lisinopril 5 mg. Her blood pressure is persistently elevated when I rechecked it today. Hyperlipidemia: Atorvastatin switch to rosuvastatin because atorvastatin reportedly caused depressive symptoms for patient. Denies side effects on Rosuvastatin. ROS: Constitutional: No unexplained weight loss, fever, chills, fatigue or night sweats. Eyes: No vision changes Respiratory: No shortness of breath Cardiovascular: No chest pain Gastrointestinal: No anorexia, nausea, vomiting or diarrhea. No abdominal pain Endocrine: No cold or heat intolerance. No polyuria or polydipsia. Physical exam: Constitutional: Alert, in no distress. Eyes: Pupils are equal, round and reactive to light. Extraocular muscles intact. Neck: Supple, Full range of motion. No lymphadenopathy. Respiratory: Clear to auscultation. Cardiovascular: S1 S2 regular. No murmurs. Extremities: Warm and well perfused. No clubbing, cyanosis or edema. 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/hazards: Yes Cognitive needs: No Hearing needs: No Vision needs: No Female Reproductive History Menstrual Age of Menarche: 10 Physical Exam Vital Signs: Last Vital Signs Pulse 91 01/24/24 14:13 BP 148/80 H 01/24/24 14:13 BMI result Body Mass Index 33.3 Office Procedures Glucose Monitoring Details Details: see [facility] [address] - Glucose monitoring, continuous-physician I&R Procedure code (CPT) selection complete Results AMB Hemoglobin A1c AMB Hemoglobin A1c 8.8 % Last Edit by ANTONIA Mckenzie on 01/24/24 14:43 Results Reviewed Results Reviewed: Laboratory Last Values Glucose (Clinic) 127 mg/dL (60-115) H 01/24/24 14:21 Hgb A1c (Clinic) 8.8 % (4.0-6.0) H 01/24/24 14:42 Assessment & Plan Assessment & Plan (1) Insulin dependent type 2 diabetes mellitus: Code(s): E11.9 - Type 2 diabetes mellitus without complications; Z79.4 - long term (current) use of insulin Category: Medical (2) Hypertension: Code(s): I10 - Essential (primary) hypertension Category: Medical Qualifiers: Hypertension type: primary hypertension Qualified Code(s): I10 - Essential (primary) hypertension (3) Hyperlipidemia: Code(s): E78.5 - Hyperlipidemia, unspecified Category: Medical Qualifiers: Hyperlipidemia type: pure hypercholesterolemia Qualified Code(s): E78.00 - Pure hypercholesterolemia, unspecified Plan In summary this is a 53 year old female with insulin dependent Type II DM with suboptimal control. Hypoglycemia resolved after switching to Tresiba from Lantus. Increase Tresiba to 30 units. Increase Apidra to 12 units with breakfast and continue 10 units with lunch and dinner. Change Metformin to extended release formula and take 4 tablets (2000 mg) in the morning to avoid missed dosages. Continue Jardiance 25 mg daily and Ozempic 1 mg weekly. Reviewed lifestyle modifications. I recommended substituting Truvia for regular or brown sugar. She agreed to stop having a cookie in the middle of the night. If she needs to snack we discussed acceptable options. She asked about shakes, and we discussed glucerna. HTN Continue lisinopril. Normal BP at last visit. Suboptimal today. She has a follow up with her PCP in January. If BP remains elevated they could increase Lisinopril dosage. Hyperlipidemia Tolerating rosuvastatin. She has orders for blood work to be done. Follow up in 6 weeks for Type II Diabetes. Orders: Orders AMB Hemoglobin A1c Today E11.9 - Type 2 diabetes mellitus without complications, Z13.9 - Encounter for screening, unspecified, Z79.4 - [facility] (current) use of insulin AMB Glucose Monitoring Today E11.9 - Type 2 diabetes mellitus without complications Medications: New metformin ER 2,000 mg (4 x 500 mg) PO DAILY 90 days 360 tabs 3RF Discontinued metformin Discontinued Reason: Doctor's Order 1,000 mg PO BID 180 tabs 3RF Patient Instructions: Aumente Tresiba a 30 unidades diarias. Isha Apidra 12 unidades con desayuno y 10 unidades con comida y rn medical surgical. Cambie Metformina a liberaci?n prolongada y tome 4 tabletas por la ma?cliff. Continuar con las dosis de Jardiance y Ozempic. Coding Level of Care Code Est Pt Level 5 (04904) Diagnoses Insulin dependent type 2 diabetes mellitus E11.9; Z79.4 Primary hypertension I10 Hypertension type: primary hypertension Pure hypercholesterolemia E78.00 Hyperlipidemia type: pure hypercholesterolemia CPT Codes Details - CPT: 26482 - Glucose monitoring, continuous-physician I&R ([id number]) Time Spent (min) 48 Comment reviewing chart, direct patient care, completing documentation
[2024-01-24 14:13] VITALS: BP 148/80; PULSE 91; BMI 33.3
[2024-01-24 14:27] LABS: Glucose, Whole Blood 127 mg/dL (60-115)
== END 2024-01-24 14:59 | disposition home or self-care (01) ==
PROVIDERS: PCP Internal Medicine; Visit Provider Physician Assistant Medical
DX: E11.9 Type 2 diabetes mellitus without complications (principal); Z79.4 Long term (current) use of insulin; I10 Essential (primary) hypertension; E78.00 Pure hypercholesterolemia, unspecified; Z13.9 Encounter for screening, unspecified

== ENCOUNTER → 2024-01-24 14:09 | Outpatient (BNVA) | payer OTHER, SELFPAY | PROVIDERS: PCP Internal Medicine; Visit Provider Physician Assistant Medical | DX: E11.9 Type 2 diabetes mellitus without complications (principal); E78.00 Pure hypercholesterolemia, unspecified; I10 Essential (primary) hypertension; Z79.4 Long term (current) use of insulin; Z79.84 Long term (current) use of oral hypoglycemic drugs | CPT/HCPCS: 82947; 83036; 99212 ==

== ENCOUNTER 2024-01-31 08:45 | Outpatient (REF) | payer OTHER, SELFPAY ==
[2024-01-31 09:59] LABS: MANUAL DIFF FLAG NO
[2024-01-31 10:07] LABS: Basophils Percent Auto 0.5 % (0-2); Eosinophils Absolute Auto 0.2 X10*3/uL (0.0-0.4); Eosinophils Percent Auto 3.5 % (0-4); Hematocrit 38.9 % (37.0-47.0); Hemoglobin 12.2 g/dl (12.0-16.0); Imm Gran Abs Auto 0.01 X10*3/uL (0.00-0.03); Imm Gran Pct Auto 0.2 % (0.0-0.4); Lymphocytes Absolute Auto 1.9 X10*3/uL (1.2-4.9); Lymphocytes Percent Auto 31.9 % (20-40); Mean Corpuscular HGB Conc 31.4 g/dl (31.0-35.0); Mean Corpuscular Hemoglobin 25.8 pg (27.0-33.0); Mean Corpuscular Volume 82.4 fL (80.0-98.0); Mean Platelet Volume 11.8 fL (9.4-12.3); Monocytes Absolute Auto 0.5 X10*3/uL (0.1-1.2); Monocytes Percent Auto 7.6 % (2-11); Neutrophils Absolute Auto 3.4 x10*3/uL (2.0-8.3); Neutrophils Percent Auto 56.3 % (45-73); Platelet Count 302 X10*3/uL (160-400); Red Blood Count 4.72 X10*6/uL (4.20-5.50); Red Cell Distribution Width 15.1 % (11.0-16.0)
[2024-01-31 10:38] LABS: Creatinine Urine 302.02 mg/dL; Microalbum/Creatinine Ratio Ur 11.2 ug/mg cr (<30)
[2024-01-31 10:48] LABS: Estimated Average Glucose 186 mg/dL; Hemoglobin A1C 199.3081 umol/L; Hemoglobin A1c % 8.1 % (<6.0); Total Hemoglobin (HGBA1C) 3045.4282 umol/L
[2024-01-31 11:06] LABS: Alanine Aminotransferase 11 U/L (0-31); Albumin Level 3.7 g/dL (3.5-5.0); Alkaline Phosphatase 109 U/L (39-117); Anion Gap 11 (12-20); Aspartate Amino Transferase 13 U/L (5-31); Bilirubin Total 0.3 mg/dL (0.0-1.0); Blood Urea Nitrogen 15 mg/dL (9-16); Carbon Dioxide 25 mmol/L (22-29); Chloride 112 mmol/L (96-108); Cholesterol 196 mg/dL (<200); Estimated Glomerular Filt Rate > 60; Glucose Fasting 103 mg/dL (60-99); HDL Cholesterol 56 mg/dL (>40); LDL Cholesterol Calculated 125 mg/dL (<100); Potassium 3.8 mmol/L (3.3-5.1); Sodium 144 mmol/L (135-145); TSH reflex Free T4 1.08 uIU/mL (0.32-4.0); Total Protein 7.6 g/dL (6.5-8.0); Triglycerides 79 mg/dL (<150)
== END 2024-01-31 08:46 | disposition home or self-care (01) ==
LOC: HO.HMGCLDS 08:45
PROVIDERS: PCP Internal Medicine; Visit Provider Internal Medicine
DX: I10 Essential (primary) hypertension (principal); E11.9 Type 2 diabetes mellitus without complications; Z79.4 Long term (current) use of insulin; E78.5 Hyperlipidemia, unspecified
CPT/HCPCS: 36415; 80053; 80061; 82043; 82570; 83036; 84443; 85025

== ENCOUNTER 2024-02-03 10:44 | Outpatient (AMB) | payer OTHER, SELFPAY ==
--- NOTE | 2024-02-03 11:08 | MHC.PC.OV ---
Vital Signs 02/03/24 11:09 Height 5 ft 4 in Weight 193 lb BMI 33.1 BP 124/76 Blood Pressure Location Lt brachial Position Sitting Pulse 90 Pulse Source Pulse Oximeter Pulse Oximetry (%) 97 Oxygen Delivery Method Room Air Intake Visit Reasons: 4 month follow up Intake Note: Pt is here today for 4 months follow up visit. Allergies atorvastatin Adverse Reaction (Intermediate, Verified 02/03/24 11:12) Depression Medication List - Last Reconciled 02/03/24 by Nichol Brown MD albuterol sulfate 90 mcg/actuation 2 puffs inhalation Q6H PRN blood sugar diagnostic (FreeStyle Lite Strips) DIRECTED - TWICE A DAY blood sugar diagnostic (FreeStyle Lite Strips) As directed tests 4x/day blood-glucose meter,continuous (DexCouchbase G7 Radio Journalist) As directed blood-glucose sensor (Dexcom G7 Sensor device) apply new sensor every 10 days as directed empagliflozin (Jardiance) 25 mg PO DAILY insulin degludec (Tresiba FlexTouch U-100 insulin) 30 units subcut BEDTIME insulin glargine-yfgn units subcut insulin glulisine U-100 (Apidra SoloStar U-100 Insulin) 12 units subcut TIDWMEAL lancets (FreeStyle Lancets) tests 4 X/day lisinopril 5 mg PO DAILY metformin ER 2,000 mg (4 x 500 mg) PO DAILY 90 days pen needle, diabetic (BD Yumiko 2nd Gen Pen Needle) As directed injects once a day rosuvastatin (Crestor) 40 mg PO DAILY semaglutide (Ozempic) mg subcut sennosides (Natural Senna Laxative) 17.2 mg (2 x 8.6 mg) PO BEDTIME Tobacco use date assessed: 02/03/24 Dental Screening Dental Screen Date: 02/03/24 Did you have a dental visit in the last 12 months?: Yes Did you have a dental problem in the last 6 months where you did not have access to dental care?: No Was dental information given to patient?: Patient has dentist HPI 4 month follow up HPI Details Pt presents for f/u IDDM,hyperlipid. She reports significant fluctuation in her blood glucose readings getting low 2 hours after breakfast but high before dinner at around 300s. Patient has been taking 10 units of short-acting insulin before each meal and long-acting insulin was increased to 30 units. She has seen interior design teacher but still does not follow ADA diet, eating cookies flavored yogurt and granola bars. 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 1. Little interest or pleasure in doing things: not at all 2. Feeling down, depressed, or hopeless: not at all 3. Trouble falling or staying asleep, or sleeping too much: not at all 4. Feeling tired or having little energy: not at all 5. Poor appetite or overeating: not at all 6. Feeling bad about yourself - or that you are a failure or have let yourself or your family down: not at all 7. Trouble concentrating on things, such as reading the newspaper or watching television: not at all 8. Moving or speaking so slowly that other people could have noticed. Or the opposite - being so fidgety or restless that you have been moving around a lot more than usual: not at all 9. Thoughts that you would be better off or of hurting yourself in some way: not at all Total score: 0 Depression Screening Interpretation: Negative Depression Screening Done: Yes 35526 - PHQ-9 Billing: Yes Source: Developed by Drs. Bertrand Baker, Julia Sears, Kemar Talley and colleagues, with an educational mariella from [employer]. Thrive Questionnaire Date Thrive assessed: 02/03/24 I am a: Patient What is your living situation today?: I have a steady place to live Within the past 12 months, did the food you bought not last and you didn't have the money to get more?: I choose not to answer this question Within the past 12 months, did you worry whether your food would run out before you got money to buy more?: Often true Do you have trouble paying for medicines?: No Do you have trouble getting transportation to medical appointments?: No Do you have trouble paying your heating and electricity bill?: Yes Do you have trouble taking care of your child, family member or friend?: No Do you have trouble with day-to-day activities such as bathing, preparing meals, shopping, managing finances, etc.?: No Are you currently unemployed and looking for a job?: No Are you interested in more education?: No Please select the resources that you would like help with: Food and Foodzieities Currently or been in a relationship where the following occur: I choose not to answer THRIVE Score: 2 AUDIT C Alcohol Use Questionnaire (AUDIT-C) 1. How often do you have a drink containing alcohol?: Never 3. How often do you have six or more drinks on one occasion?: Never Total Score: 0 TYLER-7 AMB Questionnaire TYLER-7 Date TYLER - 7 assessed: 02/03/24 Feeling nervous, anxious, or on edge: 0 = Not at all Not being able to stop or control worryin = Not at all Worrying too much about different things: 0 = Not at all Trouble relaxin = Not at all Being so restless that it is hard to sit still: 0 = Not at all Becoming easily annoyed or irritable: 0 = Not at all Feeling afraid as if something awful might happen: 0 = Not at all Total TYLER-7 score (0-4 normal; 5-9 mild; 10-14 moderate; 15-21 severe): 0 Source: Developed by Drs. Bertrand Baker, Kemar De Jesus and colleagues, with an educational mariella from [employer]. TYLER-7 Assessment Billing TYLER-7 Assessment Tool: TYLER-7 Assessment 26613 Review of Systems Const All systems reviewed & are unremarkable except as noted in HPI and below Eyes Reports no additional complaints ENT Reports no additional complaints Card Reports as per HPI Resp Reports as per HPI GI Reports as per HPI Physical exam (Primary Care) Vital Signs: Last Vital Signs Pulse 90 02/03/24 11:09 BP 124/76 02/03/24 11:09 Pulse Ox 97 02/03/24 11:09 Oxygen Delivery Method Room Air 02/03/24 11:09 BMI result Body Mass Index 33.1 Tobacco/Smoking Status: Tobacco use Status Tobacco use date assessed 02/03/24 02/03/24 11:17 Patient Tobacco Use Status Never used Tobacco 02/03/24 11:17 e-Cigarette/Vaping Use Never Used 02/03/24 11:17 PHQ-9: PHQ-9 Score PHQ-9: Total score 0 02/03/24 12:10 Depression Screening Interpretation: Negative Thrive Assessment: Date of Thrive Assessment Date Thrive assessed 02/03/24 02/03/24 11:17 Currently or been in a relationship where the following occur: I choose not to answer Const General: no acute distress HENMT Head: Yes normal to inspection Face and sinus: Yes normal facial exam Throat: Yes posterior oropharynx normal Eyes General: appearance normal, both eyes and all related structures Resp Effort & Inspection: normal respiratory effort Auscultation: clear to auscultation bilaterally Cardio Rhythm: regular rhythm Heart sounds: S1 normal heart sound present and S2 normal heart sound present GI Inspection: Yes normal to inspection Extrem General: Yes no clubbing, cyanosis or edema Office Meds glucose 4 gram chewable tablet Performing Provider: Nichol Brown MD Performing [place]: [facility] Administered by: Ariane Del Cid RN on 02/03/24 12:10 Dose Route Admin Location Dispensed Lot Number Expiration Date [facility] Territory Outside Sales Manager 16 g PO 16 grams [id number] NIPRO DIAG/TRIV Results AMB Random Glucose (hemocue) AMB Random Glucose (hemocue) 60 mg/dL Last Edit by ANTONIA Marcelo on 02/03/24 11:58 Results Reviewed Results Reviewed: Laboratory Last Values Random Glu (Clinic) 60 mg/dL 02/03/24 11:58 Coding Level of Care Code Est Pt Level 3 (95421) Diagnoses Insulin dependent type 2 diabetes mellitus E11.9; Z79.4 Additional Codes TYLER-7 Assessment Billing - TYLER-7 Assessment Tool: TYLER-7 Assessment 00553 ([id number]) Assessment & Plan Assessment & Plan (1) Insulin dependent type 2 diabetes mellitus: Comment: Poorly controlled due to noncompliance with ADA diet Code(s): E11.9 - Type 2 diabetes mellitus without complications; Z79.4 - senior living (current) use of insulin Category: Medical Plan: A1c is 8.1. ADA diet increase physical activity eating regular meals and snacks in between to prevent hypoglycemia discussed with the patient. Ozempic will be changed to Mounjaro and patient was advised to return in 1 month with recording of her Dexcom readings. She was advised to increase short-acting insulin to 16 units before dinner Orders: Orders AMB Glucose Adult Dose Today Nichol Brown MD E16.2 - Hypoglycemia, unspecified AMB Random Glucose (hemocue) Today Nichol Brown MD Z13.9 - Encounter for screening, unspecified Medications: New Mounjaro (tirzepatide) 12.5 mg (0.5 mL) subcut QWEEK 6 mL 0RF NS Nichol Brown MD Changed From insulin degludec (Tresiba FlexTouch U-100 insulin) 28 units (0.28 mL) subcut BEDTIME 15 mL 5RF To insulin degludec (Tresiba FlexTouch U-100 insulin) 30 units subcut BEDTIME NASIR Chacko From insulin glulisine U-100 (Apidra SoloStar U-100 Insulin) 12 units in the AM and 12 units at lunch and at 16 PM 12 units subcut TID To insulin glulisine U-100 (Apidra SoloStar U-100 Insulin) subcutaneously 3 times a day; 12 units in the AM and 12 units at lunch and at 12 units, Nichol Brown MD
[2024-02-03 11:09] VITALS: BP 124/76; PULSE 90; O2SAT 97; BMI 33.1
== END 2024-02-03 12:02 | disposition home or self-care (01) ==
PROVIDERS: PCP Internal Medicine; Visit Provider Internal Medicine
DX: E11.9 Type 2 diabetes mellitus without complications (principal); Z79.4 Long term (current) use of insulin; E16.2 Hypoglycemia, unspecified; Z13.9 Encounter for screening, unspecified

== ENCOUNTER → 2024-02-03 10:44 | Outpatient (BNVA) | payer OTHER, SELFPAY | PROVIDERS: PCP Internal Medicine; Visit Provider Internal Medicine | DX: E11.9 Type 2 diabetes mellitus without complications (principal); Z79.4 Long term (current) use of insulin; E78.5 Hyperlipidemia, unspecified; Z79.899 Other long term (current) drug therapy | CPT/HCPCS: 82948; 96127; 99212 ==

== ENCOUNTER 2024-02-27 13:44 | Outpatient (AMB) | payer OTHER, SELFPAY ==
--- NOTE | 2024-02-27 14:11 | MHC.AMDMED ---
Intake Intake Visit Reasons: 60 min-conf Allergies atorvastatin Adverse Reaction (Intermediate, Verified 02/03/24 11:12) Depression HPI Comprehensive Diabetes Asmnt Most Recent Diabetes Results: Hemoglobin A1c 11.4 % 10/07/19 Microalb/Creat Ratio 11.2 ug/mg cr (<30) 01/31/24 Cholesterol 196 mg/dL (<200) 01/31/24 HDL Cholesterol 56 mg/dL (>40) 01/31/24 Triglycerides 79 mg/dL (<150) 01/31/24 Creatinine 0.68 mg/dL (0.5-1.4) 01/31/24 Blood Urea Nitrogen 15 mg/dL (9-16) 01/31/24 Sodium 144 mmol/L (135-145) 01/31/24 Potassium 3.8 mmol/L (3.3-5.1) 01/31/24 Chloride 112 mmol/L (96-108) H 01/31/24 Carbon Dioxide 25 mmol/L (22-29) 01/31/24 Calcium 9.0 mg/dL (8.4-10.2) 01/31/24 AST 13 U/L (5-31) 01/31/24 ALT 11 U/L (0-31) 01/31/24 Total Protein 7.6 g/dL (6.5-8.0) 01/31/24 Albumin 3.7 g/dL (3.5-5.0) 01/31/24 PFSH Medical History High cholesterol Diabetes type 2, uncontrolled Colon cancer screening Surgical History Hx of colonoscopy Hx of section H/O gastric sleeve H/O abdominal hysterectomy Family History Sister Breast CA Maternal Aunt Breast CA Social History Household Members: None Housing: Apartment Alcohol intake: current Alcohol intake frequency: holidays/special occasions only Patient Tobacco Use Status: Never used Tobacco e-Cigarette/Vaping Use: Never Used Second Hand Smoke Exposure: No service: No Current occupational status: employed 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 1% Hyperglycemia:? 53% Time in Range:? 46% Average glucose for the last 2 weeks?201 mg/dL Patient's last A1c on 01/31/2024 8.1% Patient is preparing for hand surgery, at last visit with PCP patient's PCP switched her Ozempic to Mounjaro 12.5 mg, but patient has not received Mounjaro from pharmacy. Instructed patient to contact PCPs office to find out if they submitted prior authorization if necessary In addition discussed with patient having diabetes medications managed by provider here [facility] instead of having [facility]CP and [facility] both trying to manage diabetes which can cause confusion for patient, providers, and pharmacy Patient stated she would prefer to have diabetes care here at [facility]. Discussed with patient the effects that surgery, and pain can cause glucose levels to be elevated. In addition recommended patient watch for signs and symptoms of infection, which can also cause elevation in glucose levels. Patient is having some postprandial hypoglycemia, reviewed how to treat hypoglycemia with rule of 15s, patient reports she uses fruit juice to treat low blood sugar. Patient has pattern in the evening shows postprandial hyperglycemia after last meal of the day. Patient is taking Apidra t.i.d. 12 units for breakfast 10 units for lunch 16 years for supper, recommended to patient to try Apidra 18 units if eating high carb at suppertime. Discuss the importance of keeping carbohydrates consistent throughout meals if using fixed doses of insulin Patient has follow-up with physician's pharmacy sales assistant on 03/06/2024 Patient able to insert sensor independently at home without issue.? Portions of this note were created using voice recognition software, please excuse any words or phrases that may have been misinterpreted. Patient Instructions: Patient will follow-up with early childhood special educator in 4 months Coding Level of Care Code Est Pt Level 1 (78220) Diagnoses Insulin dependent type 2 diabetes mellitus E11.9; Z79.4
== END 2024-02-27 14:30 | disposition home or self-care (01) ==
LOC: HO.ENCR 13:45
PROVIDERS: PCP Internal Medicine; Visit Provider Registered Nurse Diabetes Educator
DX: E11.9 Type 2 diabetes mellitus without complications (principal); Z79.4 Long term (current) use of insulin

== ENCOUNTER → 2024-02-27 13:44 | Outpatient (BNVA) | payer OTHER, SELFPAY | PROVIDERS: PCP Internal Medicine; Visit Provider Registered Nurse Diabetes Educator | DX: E11.9 Type 2 diabetes mellitus without complications (principal); Z79.4 Long term (current) use of insulin | CPT/HCPCS: 99211 ==

== ENCOUNTER 2024-03-02 09:21 | Day surgery (SDC) | payer OTHER, SELFPAY ==
[2024-03-02 12:50] VITALS: BMI 33.3
--- NOTE | 2024-03-02 13:39 | MHC.SHP ---
Pre-Procedural Eval Section A - 24 Hr Update-Section A only Date of Service: 03/02/24 The patient is an INPATIENT: No Changes since office visit: No Cold of Flu in the past 2 weeks, No New Medical Problems, No Changes in Medication and No Patient answered all questions The patient has been examined within 24 hours of the surgical procedure. The History & Physical has been completed within 30 days and I have reviewed it.: Yes Section B - Complete if H&P > 30 days Chief Complaint: Trigger finger, right middle finger Allergies: Allergies Allergy/AdvReac Type Severity Reaction Status Date / Time atorvastatin AdvReac Intermediate Depression Verified 02/03/24 11:12 Plan Diagnosis/Plan: Unchanged I have reviewed the history and physical and performed a pertinent physical examination on my patient. No changes have occurred unless specified. Time Spent With Patient Time: Total time managing care of this patient today ____ minutes.
--- NOTE | 2024-03-02 13:40 | W.PM.OPN ---
Operative Note Operative Note Date of Service: 03/02/24 Narrative: Operative Note Preop diagnosis: 1. Right middle finger Trigger finger 2. Right middle finger PIP joint stiffness Postop diagnosis: Same Procedure: 1. Right middle finger A1 carol ann release 2. Right middle finger PIP joint manipulation under anesthesia Surgeon: Auroar Arias MD [place] Worker: None Anesthesia: local block using 1% lidocaine with epinephrine Findings: No locking or catching of the middle finger after A1 carol ann release. However, she was noted to have some catching of the right index finger EBL: Less than 5 mL Tourniquet time: None Specimens: None Complications: None Disposition: Brought to recovery room in stable condition Plan: Follow-up for 10-14 days for wound check and suture removal Indications: The patient is 53 years old, with a a right middle finger trigger finger, and stiffness of the right middle finger particularly the PIP joint that have been unresponsive to nonoperative management. The risks and benefits of operative treatment including but not limited to risk of damage to blood vessels, nerves, tendons, infection, persistent pain, persistent symptoms, recurrence or possible need for additional surgery were discussed with the patient and the patient wishes to proceed with surgery. Procedure: Once consent was obtained a local block was performed in the preop area using a combination of 1% lidocaine with epinephrine. The patient was then brought back to the operating suite and placed on the operative table in supine position. The right upper extremity was prepped and draped in a standard surgical fashion. Once assured that we had a good block, a 1.5 cm oblique incision was made centered over the A1 carol ann of the right middle finger . The incision was made through the skin to the subcutaneous tissues using a #15 blade. Careful dissection was made down to the level of the A1 carol ann using tenotomy scissors, with care being taken to protect the nearby neurovascular structures. A longitudinal incision was made in the A1 carol ann 1st using a #15 blade, then using tenotomy scissors under direct visualization. The A1 carol ann was noted to be thickened. I then performed a manipulation under anesthesia of the right middle finger. Once we completed our manipulation she was able to actively bring all fingers including the middle finger close to a fist and back into extension. Following our A1 carol ann release and manipulation under anesthesia, we no longer saw any locking or catching of the digit with flexion and extension. We did however see catching of the right index finger with flexion extension. Once satisfied with our A1 carol ann release the wound was copiously irrigated with normal saline and hemostasis was obtained with a brief period of local pressure. The skin edges were reapproximated with some 5.0 nylon suture material and a sterile dressing was applied. The patient appears to have tolerated the procedure well and with no complications. All digits were well vascularized at the conclusion of the case.
[2024-03-02 15:12] VITALS: BP 155/85; PULSE 81; RESP 16; O2SAT 97
== END 2024-03-02 15:14 | disposition home or self-care (01) ==
PROVIDERS: PCP Internal Medicine; Visit Provider Orthopaedic Surgery
PROC: (CPT 26055; principal; 2024-03-02 12:00)
PROC: (CPT 26055; 2024-03-02 12:00)
DX: M65.331 Trigger finger, right middle finger (principal); M25.641 Stiffness of right hand, not elsewhere classified; M79.641 Pain in right hand; E78.00 Pure hypercholesterolemia, unspecified; E11.9 Type 2 diabetes mellitus without complications; Z98.84 Bariatric surgery status; Z79.4 Long term (current) use of insulin; Z88.8 Allergy status to other drugs, medicaments and biological substances; Z98.890 Other specified postprocedural states
CPT/HCPCS: 26055; 26340; J0171; J2003

== ENCOUNTER → 2024-03-02 09:21 | Outpatient (BNV) | payer OTHER, SELFPAY | PROVIDERS: PCP Internal Medicine; Visit Provider Orthopaedic Surgery | DX: M65.331 Trigger finger, right middle finger (principal) | CPT/HCPCS: 26055 ==

== ENCOUNTER 2024-03-06 09:25 | Outpatient (AMB) | payer OTHER, SELFPAY ==
[2024-03-06 09:29] VITALS: BP 128/74; PULSE 100; BMI 33.7
--- NOTE | 2024-03-06 09:29 | MHC.OFFVIS ---
Vital Signs 03/06/24 09:29 Height 5 ft 4 in Weight 196 lb 3.382 oz BMI 33.7 BP 128/74 Blood Pressure Location Rt brachial Position Sitting Pulse 100 Pulse Source Pulse Oximeter Intake Visit Reasons: type II diabetes/CONFIRMED Intake Note: Patient presents today for [facility] follow up visit. Last Diabetic Eye exam: 12/2023 Last Podiatry Visit: Doesn't have one Most Recent HgA1c: 8.1%, 01/31/2024 Random Glucose: 231 mg/dL, Today Superintendent Custodian Janitor Required: Yes Superintendent Custodian Janitor Language: Albanian Information Interpreted: non-clinical & clinical Accompanied by: Self / Same As Patient Allergies atorvastatin Adverse Reaction (Intermediate, Verified 02/03/24 11:12) Depression HPI Comments Details: This is a 53-year-old female with a past medical history of insulin-dependent type 2 diabetes, hyperlipidemia and hypertension presenting for diabetic management. Video american sign language interpreter used. Reviewed CGM GMI 8.1% Very high 24% High 33% In range 43% 0% low Less than 1% very low - patient says due to sensor error. Sensor failed last week. She is given a new sample today. Hemoglobin a1c 8.1% 01/31/24. Current medication regimen: Ozempic 1 mg weekly,, metformin ER 2000 mg daily,, Apidra 12 units before breakfast, 10 before lunch, 16-18 before dinner, Tresiba 30 units daily, Jardiance 25 mg daily. Her PCP prescribed Mounjaro, but she did not dispense it from the pharmacy. She wants to change because she is not losing weight on Ozempic. Hypoglycemia symptoms: The patient said she had 1 or 2 episodes within the past few weeks. She says they were a result of not eating. Hyperglycemia symptoms: none Eye exam: [facility] Microvascular complications: none Macrovascular complications: none Hypertension: treated with lisinopril 5 mg. Hyperlipidemia: Treated with 40 mg rosuvastatin. Intolerant to atorvastatin. She had surgery for her right hand, and she is doing well. ROS: Constitutional: No unexplained weight loss, fever, chills, fatigue or night sweats. Eyes: No vision changes Respiratory: No shortness of breath Cardiovascular: No chest pain Gastrointestinal: No anorexia, nausea, vomiting or diarrhea. No abdominal pain Endocrine: No cold or heat intolerance. No polyuria or polydipsia. Physical exam: Constitutional: Alert, in no distress. Eyes: Pupils are equal, round and reactive to light. Extraocular muscles intact. Neck: Supple, Full range of motion. No lymphadenopathy. Respiratory: Clear to auscultation. Cardiovascular: S1 S2 regular. No murmurs. Extremities: Warm and well perfused. No clubbing, cyanosis or edema. [facility] Medical History (Updated 03/06/24 @ 12:40 by NASIR Chacko) High cholesterol Diabetes type 2, uncontrolled Colon cancer screening Surgical History (Updated 03/02/24 @ 12:52 by Kelsie Mendez RN) H/O hand surgery Hx of colonoscopy Hx of section H/O gastric sleeve H/O abdominal hysterectomy Family History Sister Breast CA Maternal Aunt Breast CA Social History Household Members: None Housing: Apartment Alcohol intake: current Alcohol intake frequency: holidays/special occasions only Patient Tobacco Use Status: Never used Tobacco e-Cigarette/Vaping Use: Never Used Second Hand Smoke Exposure: No service: No Current occupational status: employed 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/hazards: Yes Cognitive needs: No Hearing needs: No Vision needs: No Female Reproductive History Menstrual Age of Menarche: 10 Physical Exam Vital Signs: Last Vital Signs Pulse 100 03/06/24 09:29 BP 128/74 03/06/24 09:29 BMI result Body Mass Index 33.7 Results Reviewed Results Reviewed: Laboratory Last Values Glucose (Clinic) 231 mg/dL (60-115) H 03/06/24 09:32 Assessment & Plan Assessment & Plan (1) Insulin dependent type 2 diabetes mellitus: Code(s): E11.9 - Type 2 diabetes mellitus without complications; Z79.4 - alf (current) use of insulin Category: Medical (2) Hypertension: Code(s): I10 - Essential (primary) hypertension Category: Medical Qualifiers: Hypertension type: primary hypertension Qualified Code(s): I10 - Essential (primary) hypertension (3) Hyperlipidemia: Code(s): E78.5 - Hyperlipidemia, unspecified Category: Medical Qualifiers: Hyperlipidemia type: pure hypercholesterolemia Qualified Code(s): E78.00 - Pure hypercholesterolemia, unspecified Plan In summary this is a 53 year old female with insulin dependent Type II DM with suboptimal control. Continue current dosages of Tresiba and Apidra. Continue metformin extended release 2000 mg daily. Continue Jardiance 25 mg daily. Start Mounjaro 2.5 mg 1 week after last dose of Ozempic. Side effects, administration reviewed with the patient. Discussed need for titration based on tolerability and response. Bring glucometer to all appointments. HTN Continue lisinopril. Normal BP at last visit. Suboptimal today. She has a follow up with her PCP in January. If BP remains elevated they could increase Lisinopril dosage. Hyperlipidemia Continue rosuvastatin. Follow up in 4 weeks for Type II Diabetes. Medications: New tirzepatide (Mounjaro) Replaces semaglutide (ozempic) 2.5 mg (0.5 mL) subcut QWEEK 2 mL 0RF Discontinued Mounjaro (tirzepatide) Discontinued Reason: Doctor's Order 12.5 mg (0.5 mL) subcut QWEEK 6 mL 0RF NS Coding Level of Care Code Est Pt Level 4 (84908) Complex EM visit Add On G2211 Diagnoses Insulin dependent type 2 diabetes mellitus E11.9; Z79.4 Primary hypertension I10 Hypertension type: primary hypertension Pure hypercholesterolemia E78.00 Hyperlipidemia type: pure hypercholesterolemia
[2024-03-06 09:39] LABS: Glucose, Whole Blood 231 mg/dL (60-115)
== END 2024-03-06 10:23 | disposition home or self-care (01) ==
PROVIDERS: PCP Internal Medicine; Visit Provider Physician Assistant Medical
DX: E11.9 Type 2 diabetes mellitus without complications (principal); Z79.4 Long term (current) use of insulin; I10 Essential (primary) hypertension; E78.00 Pure hypercholesterolemia, unspecified

== ENCOUNTER → 2024-03-06 09:25 | Outpatient (BNVA) | payer OTHER, SELFPAY | PROVIDERS: PCP Internal Medicine; Visit Provider Physician Assistant Medical | DX: E11.9 Type 2 diabetes mellitus without complications (principal); I10 Essential (primary) hypertension; E78.00 Pure hypercholesterolemia, unspecified; Z79.4 Long term (current) use of insulin | CPT/HCPCS: 82947; 99212 ==

== ENCOUNTER 2024-03-10 10:52 | Outpatient (AMB) | payer OTHER, SELFPAY ==
--- NOTE | 2024-03-10 11:18 | MHC.PC.OV ---
Vital Signs 03/10/24 11:19 Height 5 ft 4 in Weight 196 lb BMI 33.6 BP 126/78 Blood Pressure Location Lt brachial Position Sitting Pulse 83 Pulse Source Pulse Oximeter Pulse Oximetry (%) 97 Oxygen Delivery Method Room Air Intake Visit Reasons: 1 month follow up Intake Note: Pt is here today for 1 month follow up visit. Allergies atorvastatin Adverse Reaction (Intermediate, Verified 03/10/24 11:32) Depression Medication List - Last Reconciled 03/10/24 by Nichol Brown MD albuterol sulfate 90 mcg/actuation 2 puffs inhalation Q6H PRN blood sugar diagnostic (FreeStyle Lite Strips) DIRECTED - TWICE A DAY blood sugar diagnostic (FreeStyle Lite Strips) As directed tests 4x/day blood-glucose meter,continuous (Dexcom G7 Adjunct Instructor Of Women'S Studies) As directed blood-glucose sensor (Dexcom G7 Sensor device) apply new sensor every 10 days as directed empagliflozin (Jardiance) 25 mg PO DAILY insulin degludec (Tresiba FlexTouch U-100 insulin) 30 units subcut BEDTIME insulin glargine-yfgn units subcut insulin glulisine U-100 (Apidra SoloStar U-100 Insulin) subcutaneously 15 minutes prior to meals; 12 units before breakfast and 10 units before lunch and dinner. lancets (FreeStyle Lancets) tests 4 X/day lisinopril 5 mg PO DAILY metformin ER 2,000 mg (4 x 500 mg) PO DAILY 90 days oxycodone-acetaminophen 5-325 mg 1 tab PO Q6H PRN pen needle, diabetic (BD Yumiko 2nd Gen Pen Needle) As directed injects once a day rosuvastatin (Crestor) 40 mg PO DAILY sennosides (Natural Senna Laxative) 17.2 mg (2 x 8.6 mg) PO BEDTIME tirzepatide (Mounjaro) 2.5 mg (0.5 mL) subcut QWEEK Tobacco use date assessed: 03/10/24 Dental Screening Dental Screen Date: 02/03/24 HPI 1 month follow up HPI Details Patient presents for the follow-up of type 2 diabetes hypertension hyperlipidemia. Patient reports fluctuating blood glucose readings between 100-300 fasting depending on level of compliance with ADA diet. Patient is still consumes large amount of white rice bread and sweets. 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 1. Little interest or pleasure in doing things: not at all 2. Feeling down, depressed, or hopeless: not at all Source: Developed by Drs. Bertrand Baker, Julia Sears, Kemar Talley and colleagues, with an educational mariella from [employer]. Thrive Questionnaire Date Thrive assessed: 02/01/24 I am a: Patient What is your living situation today?: I have a steady place to live Within the past 12 months, did the food you bought not last and you didn't have the money to get more?: I choose not to answer this question Within the past 12 months, did you worry whether your food would run out before you got money to buy more?: Often true Do you have trouble paying for medicines?: No Do you have trouble getting transportation to medical appointments?: No Do you have trouble paying your heating and electricity bill?: Yes Do you have trouble taking care of your child, family member or friend?: No Do you have trouble with day-to-day activities such as bathing, preparing meals, shopping, managing finances, etc.?: No Are you currently unemployed and looking for a job?: No Are you interested in more education?: No Currently or been in a relationship where the following occur: I choose not to answer THRIVE Score: 2 TYLER-7 AMB Questionnaire TYLER-7 Date TYLER - 7 assessed: 02/03/24 Source: Developed by Drs. Bertrand Baker, Julia Sears, Kemar Talley and colleagues, with an educational mariella from [employer]. Review of Systems Const All systems reviewed & are unremarkable except as noted in HPI and below ENT Reports no additional complaints Card Reports no additional complaints Resp Reports no additional complaints GI Reports no additional complaints Reports no additional complaints Physical exam (Primary Care) Vital Signs: Last Vital Signs Pulse 83 03/10/24 11:19 BP 126/78 03/10/24 11:19 Pulse Ox 97 03/10/24 11:19 Oxygen Delivery Method Room Air 03/10/24 11:19 BMI result Body Mass Index 33.6 Tobacco/Smoking Status: Tobacco use Status Tobacco use date assessed 03/10/24 03/10/24 11:37 Patient Tobacco Use Status Never used Tobacco 03/10/24 11:19 e-Cigarette/Vaping Use Never Used 03/10/24 11:19 Thrive Assessment: Date of Thrive Assessment Date Thrive assessed 02/01/24 03/10/24 11:19 Currently or been in a relationship where the following occur: I choose not to answer Const General: no acute distress Eyes General: appearance normal, both eyes and all related structures Neck Neck: Yes supple Resp Effort & Inspection: normal respiratory effort Auscultation: clear to auscultation bilaterally Cardio Rhythm: regular rhythm Heart sounds: S1 normal heart sound present and S2 normal heart sound present Coding Level of Care Code Est Pt Level 4 (98408) Diagnoses Pure hypercholesterolemia E78.00 Hyperlipidemia type: pure hypercholesterolemia Insulin dependent type 2 diabetes mellitus E11.9; Z79.4 Primary hypertension I10 Hypertension type: primary hypertension Annual physical exam Z00.00 Assessment & Plan Assessment & Plan (1) Hyperlipidemia: Code(s): E78.5 - Hyperlipidemia, unspecified Category: Medical Qualifiers: Hyperlipidemia type: pure hypercholesterolemia Qualified Code(s): E78.00 - Pure hypercholesterolemia, unspecified Plan: Continue statin (2) Insulin dependent type 2 diabetes mellitus: Comment: Poorly controlled due to noncompliance with ADA diet Code(s): E11.9 - Type 2 diabetes mellitus without complications; Z79.4 - exterminator (current) use of insulin Category: Medical Plan: ADA diet increase exercise weight loss discussed with the patient prescription was sent for Donato by [facility]. She will continue current medications and return for physical with a fasting labs before (3) Hypertension: Code(s): I10 - Essential (primary) hypertension Category: Medical Qualifiers: Hypertension type: primary hypertension Qualified Code(s): I10 - Essential (primary) hypertension Plan: Continue current medications (4) Annual physical exam: Code(s): Z00.00 - Encounter for general adult medical examination without abnormal findings Category: Medical Plan: Return for physical in April Orders: Orders Lipid Panel 2 Months E11.9 - Type 2 diabetes mellitus without complications, E78.00 - Pure hypercholesterolemia, unspecified, I10 - Essential (primary) hypertension, Z00.00 - Encounter for general adult medical examination without abnormal findings, Z79.4 - USP (current) use of insulin Comprehensive [place]. Panel Fast 2 Months E11.9 - Type 2 diabetes mellitus without complications, E78.00 - Pure hypercholesterolemia, unspecified, I10 - Essential (primary) hypertension, Z00.00 - Encounter for general adult medical examination without abnormal findings, Z79.4 - USP (current) use of insulin Hemoglobin A1c 2 Months E11.9 - Type 2 diabetes mellitus without complications, E78.00 - Pure hypercholesterolemia, unspecified, I10 - Essential (primary) hypertension, Z00.00 - Encounter for general adult medical examination without abnormal findings, Z79.4 - exterminator (current) use of insulin Complete Blood Count Auto Diff 2 Months E11.9 - Type 2 diabetes mellitus without complications, E78.00 - Pure hypercholesterolemia, unspecified, I10 - Essential (primary) hypertension, Z00.00 - Encounter for general adult medical examination without abnormal findings, Z79.4 - exterminator (current) use of insulin Medications: Refilled albuterol sulfate 90 mcg/actuation 2 puffs inhalation Q6H PRN 6.7 grams 5RF shortness of breath or wheezing
[2024-03-10 11:19] VITALS: BP 126/78; PULSE 83; O2SAT 97; BMI 33.6
== END 2024-03-10 12:04 | disposition home or self-care (01) ==
PROVIDERS: PCP Internal Medicine; Visit Provider Internal Medicine
DX: E78.00 Pure hypercholesterolemia, unspecified (principal); E11.9 Type 2 diabetes mellitus without complications; Z79.4 Long term (current) use of insulin; I10 Essential (primary) hypertension; Z00.00 Encounter for general adult medical examination without abnormal findings

== ENCOUNTER → 2024-03-10 10:52 | Outpatient (BNVA) | payer OTHER, SELFPAY | PROVIDERS: PCP Internal Medicine; Visit Provider Internal Medicine | DX: E78.00 Pure hypercholesterolemia, unspecified (principal); I10 Essential (primary) hypertension; E11.9 Type 2 diabetes mellitus without complications; Z79.4 Long term (current) use of insulin | CPT/HCPCS: 99212 ==

== ENCOUNTER 2024-03-17 11:00 | Outpatient (AMB) | payer OTHER, SELFPAY ==
--- NOTE | 2024-03-17 11:20 | A.OFFVIS_ITS ---
Intake Visit Reasons: PO RT MF Trigger/manipulation PIP/MCP 03/02/24 AR Intake Note: Amee is a 53 year old righthand dominant female who presents today post operatively s/p right middle finger trigger release and right middle finger PIP joint manipulation under anesthesia w/ DR Arias DOS: 03/02/2024. Patient reports her ROM has improved since her surgery. She was unable to bend her right middle finger down and says now she is able to. Fuel Injection Servicer Required: Yes Fuel Injection Servicer Language: Landscape Designer Name: [id number] Allergies atorvastatin Adverse Reaction (Intermediate, Verified 03/17/24 11:27) Depression HPI HPI PO RT MF Trigger/manipulation PIP/MCP 03/02/24 AR: Details: Patient is a 53-year-old female who presents for postoperative evaluation status post right middle finger trigger release and closed manipulation of the MCP and PIP joints, DOS 03/02/2024. Today, the patient states that she is feeling very well, and has vastly improved range of motion of her right hand, although she is still unable to make a full closed fist. The patient denies any further locking catching right middle finger. Patient denies any numbness or tingling of the right hand. No other acute complaints or concerns at this time. 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 Neuro: Normal sensation of the tips of all digits of the right hand at this time Vascular: Cap refill brisk Pain: Patient reports no tenderness to palpation around the incision site of the for the A1 carol ann of the right middle finger The patient does report some pain with range of motion testing of the right hand, but this has improved since prior to surgery ROM: Patient is able to get close to making a closed fist Patient is able to extend all digits of the right hand fully and without difficulty Skin: Well approximated and well healing incision site noted over the A1 carol ann of the right middle finger No evidence of infection General: No ecchymosis, erythema, or evidence of infection. Psych: Appears grossly normal Affect normal Attitude cooperative Assessment & Plan Assessment & Plan (1) Stiffness of finger joint of right hand: Code(s): M25.641 - Stiffness of right hand, not elsewhere classified Category: Medical (2) Trigger middle finger of right hand: Code(s): M65.331 - Trigger finger, right middle finger Category: Medical Plan 1. Trigger finger, right middle finger status post trigger release 2. Stiffness of right hand status post closed manipulation under anesthesia DOS 03/02/2024 Patient appears to be recovering well postoperatively Patient is educated about the typical recovery course Patient is educated that although her range of motion has improved significantly, it was not yet full, so she should have a course of occupational therapy for range of motion and strengthening of the right hand Patient was amenable to this plan Patient was educated that she appears to be recovering very well from her trigger finger release, and is not expected that she will experience any recurrent locking or catching Patient will follow-up as needed with any acute concerns, particularly if she notices limited range of motion after 6-8 weeks of occupational therapy Orders: Orders OT Evaluation and Treatment Today M25.641 - Stiffness of right hand, not elsewhere classified, M65.331 - Trigger finger, right middle finger Coding Level of Care Code Global (85150) Diagnoses Stiffness of finger joint of right hand M25.641 Trigger middle finger of right hand M65.331
== END 2024-03-17 11:45 | disposition home or self-care (01) ==
PROVIDERS: PCP Internal Medicine
DX: M25.641 Stiffness of right hand, not elsewhere classified (principal); M65.331 Trigger finger, right middle finger
CPT/HCPCS: 99024

== ENCOUNTER → 2024-03-17 11:00 | Outpatient (BNVA) | payer OTHER, SELFPAY | PROVIDERS: PCP Internal Medicine | DX: M25.641 Stiffness of right hand, not elsewhere classified (principal); M65.331 Trigger finger, right middle finger | CPT/HCPCS: 99212 ==

== ENCOUNTER 2024-04-03 10:03 | Outpatient (AMB) | payer OTHER, SELFPAY ==
--- NOTE | 2024-04-03 10:06 | MHC.OFFVIS ---
Vital Signs 04/03/24 10:08 Height 5 ft 4 in Weight 198 lb 10.184 oz BMI 34.1 BP 148/82 H Blood Pressure Location Rt brachial Position Sitting Pulse 83 Pulse Source Pulse Oximeter Intake Visit Reasons: Type II DM follow up/CONF Intake Note: Patient present today to follow up on Type 2 Diabetes Mellitus. Last Diabetic Eye exam: 12/2023 Last Podiatry Visit: Does not see a Social Work Administrator Random Glucose: 153 mg/dl HgA1C: 8.1% 01/31/24 Refractory Technician Required: Yes Refractory Technician Language: River Boat Captain Services: Refractory Technician Present Refractory Technician Name: Saji [id number] Information Interpreted: non-clinical & clinical Accompanied by: Self / Same As Patient Allergies atorvastatin Adverse Reaction (Intermediate, Verified 04/03/24 10:10) Depression HPI Comments Details: This is a 53-year-old female with a past medical history of insulin-dependent type 2 diabetes, hyperlipidemia and hypertension presenting for diabetic management. Video control system manager used. Reviewed CGM data for the past 14 days: 0% hypoglycemia 35% in target range 32% high 32% very high Average glucose 219 77 mg/dL standard deviation The patient has a pattern of daytime hyperglycemia after lunch. Hemoglobin a1c 8.1% 01/31/24. Current medication regimen: She was suppose to stop Ozempic 1 mg weekly, and start Mounjaro 2.5 mg weekly, but she didn't pick it up because she didn't realize it was approved. Taking Metformin ER 2000 mg daily, Apidra 12 units before breakfast, 10 before lunch, 16-18 before dinner, Tresiba 30 units daily, Jardiance 25 mg daily. Hypoglycemia symptoms: The patient said she had 1 or 2 episodes within the past month. She treated with orange juice. Hyperglycemia symptoms: none Eye exam: [facility] Microvascular complications: none Macrovascular complications: none Hypertension: treated with lisinopril 5 mg. Hyperlipidemia: Treated with 40 mg rosuvastatin. Intolerant to atorvastatin. ROS: Constitutional: No unexplained weight loss, fever, chills, fatigue or night sweats. Eyes: No vision changes Respiratory: No shortness of breath Cardiovascular: No chest pain Gastrointestinal: No anorexia, nausea, vomiting or diarrhea. No abdominal pain Endocrine: No cold or heat intolerance. No polyuria or polydipsia. Physical exam: Constitutional: Alert, in no distress. Eyes: Pupils are equal, round and reactive to light. Extraocular muscles intact. Neck: Supple, Full range of motion. No lymphadenopathy. Respiratory: Clear to auscultation. Cardiovascular: S1 S2 regular. No murmurs. Extremities: Warm and well perfused. No clubbing, cyanosis or edema. 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/hazards: Yes Cognitive needs: No Hearing needs: No Vision needs: No Female Reproductive History Menstrual Age of Menarche: 10 Office Procedures Glucose Monitoring Details 72805 - Glucose monitoring, continuous-physician I&R Procedure code (CPT) selection complete Assessment & Plan Assessment & Plan (1) Insulin dependent type 2 diabetes mellitus: Comment: Poorly controlled due to noncompliance with ADA diet Code(s): E11.9 - Type 2 diabetes mellitus without complications; Z79.4 - half-way (current) use of insulin Category: Medical (2) Hypertension: Code(s): I10 - Essential (primary) hypertension Category: Medical Qualifiers: Hypertension type: primary hypertension Qualified Code(s): I10 - Essential (primary) hypertension (3) Hyperlipidemia: Code(s): E78.5 - Hyperlipidemia, unspecified Category: Medical Qualifiers: Hyperlipidemia type: pure hypercholesterolemia Qualified Code(s): E78.00 - Pure hypercholesterolemia, unspecified Plan In summary this is a 53 year old female with insulin dependent Type II DM with suboptimal control. Continue Tresiba 30 units daily Take Apidra 12 units before breakfast and lunch and 16-18 units before dinner. Start Mounjaro 2.5 mg this Saturday and discontinue Ozempic. Continue metformin extended release 2000 mg daily. Continue Jardiance 25 mg daily. Bring glucometer to all appointments. HTN Continue lisinopril. BP elevated this morning which she attributes to having a flat tire and rushing to the appointment. We can recheck it at her appointment next month. It was normal on 03/10/2024. Hyperlipidemia Continue rosuvastatin. Follow up in 4 weeks for Type II Diabetes. Orders: Orders AMB Glucose Monitoring Today E11.9 - Type 2 diabetes mellitus without complications Medications: Refilled tirzepatide (Mounjaro) Replaces semaglutide (ozempic) 2.5 mg (0.5 mL) subcut QWEEK 2 mL 0RF Patient Instructions: Continuar Tresiba 30 unidades diarias Isha Apidra 12 unidades antes del desayuno y almuerzo y 16-18 unidades antes de la rg. Comience Mounjaro 2.5 mg matheus lunes y suspenda Ozempic. Contin?e con metformina de liberaci?n prolongada 2000 mg al d?a. Contin?e con Jardiance 25 mg al d?a. Coding Level of Care Code Est Pt Level 4 (43786) Diagnoses Insulin dependent type 2 diabetes mellitus E11.9; Z79.4 Primary hypertension I10 Hypertension type: primary hypertension Pure hypercholesterolemia E78.00 Hyperlipidemia type: pure hypercholesterolemia CPT Codes Details - CPT: 31212 - Glucose monitoring, continuous-physician I&R ([id number])
[2024-04-03 10:08] VITALS: BP 148/82; PULSE 83; BMI 34.1
[2024-04-03 10:22] LABS: Glucose, Whole Blood 153 mg/dL (60-115)
== END 2024-04-03 10:41 | disposition home or self-care (01) ==
PROVIDERS: PCP Internal Medicine; Visit Provider Physician Assistant Medical
DX: E11.9 Type 2 diabetes mellitus without complications (principal); Z79.4 Long term (current) use of insulin; I10 Essential (primary) hypertension; E78.00 Pure hypercholesterolemia, unspecified

== ENCOUNTER → 2024-04-03 10:03 | Outpatient (BNVA) | payer OTHER, SELFPAY | PROVIDERS: PCP Internal Medicine; Visit Provider Physician Assistant Medical | DX: E11.9 Type 2 diabetes mellitus without complications (principal); E78.00 Pure hypercholesterolemia, unspecified; I10 Essential (primary) hypertension; Z79.4 Long term (current) use of insulin; Z79.84 Long term (current) use of oral hypoglycemic drugs | CPT/HCPCS: 82947; 99212 ==

== ENCOUNTER 2024-04-27 13:08 | Outpatient (REF) | payer OTHER, SELFPAY | END 2024-04-27 13:09 | disposition home or self-care (01) | LOC: HO.MAMMO 13:08 | PROVIDERS: PCP Internal Medicine; Visit Provider Internal Medicine | DX: Z12.31 Encounter for screening mammogram for malignant neoplasm of breast (principal) | CPT/HCPCS: 77063; 77067 ==

== ENCOUNTER → 2024-04-27 13:30 | Outpatient (BNV) | payer OTHER, SELFPAY | PROVIDERS: PCP Internal Medicine; Visit Provider Internal Medicine | DX: Z12.31 Encounter for screening mammogram for malignant neoplasm of breast (principal) | CPT/HCPCS: 77063; 77067 ==

== ENCOUNTER 2024-05-05 11:15 | Outpatient (AMB) | payer OTHER, SELFPAY ==
[2024-05-05 11:27] VITALS: BP 128/76; PULSE 87; O2SAT 99; BMI 33.8
--- NOTE | 2024-05-05 11:27 | A.OFFPC_ITS ---
Vital Signs 05/05/24 11:27 Height 5 ft 4 in Weight 197 lb BMI 33.8 BP 128/76 Blood Pressure Location Rt brachial Position Sitting Pulse 87 Pulse Source Pulse Oximeter Pulse Oximetry (%) 99 Oxygen Delivery Method Room Air Intake Visit Reasons: Annual pe Intake Note: Pt is here today for PE. Allergies atorvastatin Adverse Reaction (Intermediate, Verified 05/05/24 12:00) Depression Medication List - Last Reconciled 05/05/24 by Nichol Brown MD albuterol sulfate 90 mcg/actuation 2 puffs inhalation Q6H PRN blood sugar diagnostic (FreeStyle Lite Strips) DIRECTED - TWICE A DAY blood sugar diagnostic (FreeStyle Lite Strips) As directed tests 4x/day blood-glucose meter,continuous (Dexcom G7 Gate Operator) As directed blood-glucose sensor (Dexcom G7 Sensor device) apply new sensor every 10 days as directed empagliflozin (Jardiance) 25 mg PO DAILY insulin degludec (Tresiba FlexTouch U-100 insulin) 30 units subcut BEDTIME insulin glargine-yfgn units subcut insulin glulisine U-100 (Apidra SoloStar U-100 Insulin) subcutaneously 15 minutes prior to meals; 12 units before breakfast and 10 units before lunch and dinner. lancets (FreeStyle Lancets) tests 4 X/day lisinopril 5 mg PO DAILY metformin ER 2,000 mg (4 x 500 mg) PO DAILY 90 days oxycodone-acetaminophen 5-325 mg 1 tab PO Q6H PRN pen needle, diabetic (BD Yumiko 2nd Gen Pen Needle) DIRECTED INJECTS ONCE A DAY rosuvastatin (Crestor) 40 mg PO DAILY sennosides (Natural Senna Laxative) 17.2 mg (2 x 8.6 mg) PO BEDTIME tirzepatide (Mounjaro) 2.5 mg (0.5 mL) subcut QWEEK Tobacco use date assessed: 05/05/24 Dental Screening Dental Screen Date: 05/05/24 Did you have a dental visit in the last 12 months?: Yes Did you have a dental problem in the last 6 months where you did not have access to dental care?: No Was dental information given to patient?: Patient has dentist HPI Annual pe HPI Details Pt presents for PE. 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 1. Little interest or pleasure in doing things: several days 2. Feeling down, depressed, or hopeless: not at all 3. Trouble falling or staying asleep, or sleeping too much: several days 4. Feeling tired or having little energy: several days 5. Poor appetite or overeating: several days 6. Feeling bad about yourself - or that you are a failure or have let yourself or your family down: not at all 7. Trouble concentrating on things, such as reading the newspaper or watching television: not at all 8. Moving or speaking so slowly that other people could have noticed. Or the opposite - being so fidgety or restless that you have been moving around a lot more than usual: not at all 9. Thoughts that you would be better off or of hurting yourself in some way: not at all Total score: 4 Depression Screening Interpretation: Negative Depression Screening Done: Yes 59106 - PHQ-9 Billing: Yes Source: Developed by Drs. Bertrand Baker, Julia Sears, Kemar Talley and colleagues, with an educational mariella from [employer]. Thrive Questionnaire Date Thrive assessed: 01/07/25 I am a: Patient What is your living situation today?: I have a steady place to live Within the past 12 months, did the food you bought not last and you didn't have the money to get more?: I choose not to answer this question Within the past 12 months, did you worry whether your food would run out before you got money to buy more?: Often true Do you have trouble paying for medicines?: No Do you have trouble getting transportation to medical appointments?: No Do you have trouble paying your heating and electricity bill?: Yes Do you have trouble taking care of your child, family member or friend?: No Do you have trouble with day-to-day activities such as bathing, preparing meals, shopping, managing finances, etc.?: No Are you currently unemployed and looking for a job?: No Are you interested in more education?: No Please select the resources that you would like help with: Food and Utilities Currently or been in a relationship where the following occur: I choose not to answer THRIVE Score: 2 AUDIT C Alcohol Use Questionnaire (AUDIT-C) 1. How often do you have a drink containing alcohol?: Never 3. How often do you have six or more drinks on one occasion?: Never Total Score: 0 TYLER-7 AMB Questionnaire TYLER-7 Date TYLER - 7 assessed: 05/05/24 Feeling nervous, anxious, or on edge: 0 = Not at all Not being able to stop or control worryin = Not at all Worrying too much about different things: 0 = Not at all Trouble relaxin = Not at all Being so restless that it is hard to sit still: 0 = Not at all Becoming easily annoyed or irritable: 0 = Not at all Feeling afraid as if something awful might happen: 0 = Not at all Total TYLER-7 score (0-4 normal; 5-9 mild; 10-14 moderate; 15-21 severe): 0 Source: Developed by Drs. Bertrand Baker, Julia Sears, Kemar Talley and colleagues, with an educational mariella from [employer]. TYLER-7 Assessment Billing TYLER-7 Assessment Tool: TYLER-7 Assessment 98813 Review of Systems Const All systems reviewed & are unremarkable except as noted in HPI and below Eyes Reports no additional complaints ENT Reports no additional complaints Card Reports no additional complaints Resp Reports no additional complaints GI Reports no additional complaints Reports no additional complaints Physical exam (Primary Care) Vital Signs: Last Vital Signs Pulse 87 05/05/24 11:27 BP 128/76 05/05/24 11:27 Pulse Ox 99 05/05/24 11:27 Oxygen Delivery Method Room Air 05/05/24 11:27 BMI result Body Mass Index 33.8 Tobacco/Smoking Status: Tobacco use Status Tobacco use date assessed 05/05/24 05/05/24 11:28 Patient Tobacco Use Status Never used Tobacco 05/05/24 11:28 e-Cigarette/Vaping Use Never Used 05/05/24 11:28 PHQ-9: PHQ-9 Score PHQ-9: Total score 4 05/05/24 12:32 Depression Screening Interpretation: Negative Thrive Assessment: Date of Thrive Assessment Date Thrive assessed 05/05/24 05/05/24 11:28 Currently or been in a relationship where the following occur: I choose not to answer Const General: no acute distress HENMT Ears: hearing grossly normal bilaterally General nose exam: Normal external nose present Mouth: Normal oral and palatal mucosa present Throat: Yes posterior oropharynx normal Eyes General: appearance normal, both eyes and all related structures Neck Neck: Yes no lymphadenopathy and Yes supple Resp Effort & Inspection: normal respiratory effort Auscultation: clear to auscultation bilaterally Cardio Rhythm: regular rhythm Heart sounds: S1 normal heart sound present and S2 normal heart sound present GI Inspection: Yes normal to inspection Palpation (GI): Soft to palpation Percussion: Yes normal to percussion Auscultation: normal bowel sounds Extrem General: Yes no clubbing, cyanosis or edema Results AMB Hemoglobin A1c AMB Hemoglobin A1c 7.7 % Last Edit by ANTONIA Marcelo on 05/05/24 12:4 8 Coding Level of Care Code Est Pt Prev Care 40-64y(66113) Diagnoses Insulin dependent type 2 diabetes mellitus E11.9; Z79.4 Annual physical exam Z00.00 Primary hypertension I10 Hypertension type: primary hypertension Pure hypercholesterolemia E78.00 Hyperlipidemia type: pure hypercholesterolemia Additional Codes TYLER-7 Assessment Billing - TYLER-7 Assessment Tool: TYLER-7 Assessment 54181 ([id number]) PHQ-9 - 57739 - PHQ-9 Billing: Yes ([id number]) Assessment & Plan Assessment & Plan (1) Insulin dependent type 2 diabetes mellitus: Comment: Poorly controlled due to noncompliance with ADA diet Code(s): E11.9 - Type 2 diabetes mellitus without complications; Z79.4 - terminal operations manager (current) use of insulin Category: Medical Plan: A1C is 7.7 today, patient has been tolerating 2.5 mg of Mounjaro for the 1st month. Will increase Mounjaro to 5 mg weekly continue current medications, ADA diet , eating small frequent meals , avoiding simple carbohydrates including rice, increasing physical activity discussed with the patient, follow-up in 3 months with a fasting blood work before (2) Annual physical exam: Code(s): Z00.00 - Encounter for general adult medical examination without abnormal findings Category: Medical Plan: Well-balanced diet regular physical activity discussed with the patient she is up-to-date with the mammogram and colonoscopy and Pap smear by assistant manager trainee (3) Hypertension: Code(s): I10 - Essential (primary) hypertension Category: Medical Qualifiers: Hypertension type: primary hypertension Qualified Code(s): I10 - Essential (primary) hypertension Plan: Increase lisinopril to 10 mg a day (4) Hyperlipidemia: Code(s): E78.5 - Hyperlipidemia, unspecified Category: Medical Qualifiers: Hyperlipidemia type: pure hypercholesterolemia Qualified Code(s): E78.00 - Pure hypercholesterolemia, unspecified Plan: Continue Crestor Orders: Orders Hemoglobin A1c 3 Months E11.9 - Type 2 diabetes mellitus without complications, I10 - Essential (primary) hypertension, Z00.00 - Encounter for general adult medical examination without abnormal findings, Z79.4 - penitentiary (current) use of insulin Complete Blood Count Auto Diff 3 Months E11.9 - Type 2 diabetes mellitus without complications, I10 - Essential (primary) hypertension, Z00.00 - Encounter for general adult medical examination without abnormal findings, Z79.4 - terminal operations manager (current) use of insulin Microalbumin, Random (w Creat) 3 Months E11.9 - Type 2 diabetes mellitus with out complications, I10 - Essential (primary) hypertension, Z00.00 - Encounter for general adult medical examination without abnormal findings, Z79.4 - terminal operations manager (current) use of insulin Comprehensive [place]. Panel Fast 3 Months E11.9 - Type 2 diabetes mellitus without complications, I10 - Essential (primary) hypertension, Z00.00 - Encounter for general adult medical examination without abnormal findings, Z79.4 - penitentiary (current) use of insulin Lipid Panel 3 Months E11.9 - Type 2 diabetes mellitus without complications, I10 - Essential (primary) hypertension, Z00.00 - Encounter for general adult medical examination without abnormal findings, Z79.4 - penitentiary (current) use of insulin AMB Hemoglobin A1c Today Z13.9 - Encounter for screening, unspecified Medications: New Mounjaro (tirzepatide) 5 mg (0.5 mL) subcut QWEEK 2 mL 1RF NS lisinopril 10 mg PO DAILY 90 tabs 1RF Discontinued lisinopril Discontinued Reason: Doctor's Order 5 mg PO DAILY 90 tabs 3RF tirzepatide (Mounjaro) Replaces semaglutide (ozempic) Discontinued Reason: Doctor's Order 2.5 mg (0.5 mL) subcut QWEEK 2 mL 0RF
== END 2024-05-05 12:48 | disposition home or self-care (01) ==
PROVIDERS: PCP Internal Medicine; Visit Provider Internal Medicine
DX: E11.9 Type 2 diabetes mellitus without complications (principal); Z79.4 Long term (current) use of insulin; Z00.00 Encounter for general adult medical examination without abnormal findings; I10 Essential (primary) hypertension; E78.00 Pure hypercholesterolemia, unspecified; Z13.9 Encounter for screening, unspecified

== ENCOUNTER → 2024-05-05 11:15 | Outpatient (BNVA) | payer OTHER, SELFPAY | PROVIDERS: PCP Internal Medicine; Visit Provider Internal Medicine | DX: Z00.00 Encounter for general adult medical examination without abnormal findings (principal); E11.9 Type 2 diabetes mellitus without complications; I10 Essential (primary) hypertension; E78.00 Pure hypercholesterolemia, unspecified; Z79.4 Long term (current) use of insulin | CPT/HCPCS: 83036; 96127; 99396 ==

== ENCOUNTER 2024-05-08 09:36 | Outpatient (AMB) | payer OTHER, SELFPAY ==
--- NOTE | 2024-05-08 09:45 | A.OFFVIS_ITS ---
Vital Signs 05/08/24 09:48 Height 5 ft 4 in Weight 196 lb 6.91 oz BMI 33.7 BP 132/78 Blood Pressure Location Rt brachial Position Sitting Pulse 87 Pulse Source Pulse Oximeter Intake Visit Reasons: Type II diabetes Intake Note: Patient present today to follow up on Type 2 Diabetes Mellitus. Last Diabetic Eye exam: 12/2023 Last Podiatry Visit: Does not see a Cruller Maker Machine Random Glucose: 155 mg/dl HgA1C: 7.7.% 05/05/2024 Resident Care Assistant Required: Yes Resident Care Assistant Language: Pickers Material Handlers Services: Resident Care Assistant Present Resident Care Assistant Name: Francesca [id number] Information Interpreted: non-clinical & clinical Accompanied by: Self / Same As Patient Allergies atorvastatin Adverse Reaction (Intermediate, Verified 05/08/24 09:49) Depression Medication List - Last Reconciled 05/08/24 by NASIR Chacko albuterol sulfate 90 mcg/actuation 2 puffs inhalation Q6H PRN blood sugar diagnostic (FreeStyle Lite Strips) DIRECTED - TWICE A DAY blood sugar diagnostic (FreeStyle Lite Strips) As directed tests 4x/day blood-glucose meter,continuous (Dexcom G7 Bench Mechanic) As directed blood-glucose sensor (Dexcom G7 Sensor device) apply new sensor every 10 days as directed empagliflozin (Jardiance) 25 mg PO DAILY insulin degludec (Tresiba FlexTouch U-100 insulin) 30 units subcut BEDTIME insulin glargine-yfgn units subcut insulin glulisine U-100 (Apidra SoloStar U-100 Insulin) subcutaneously 15 minutes prior to meals; 12 units three times daily before meals. lancets (FreeStyle Lancets) tests 4 X/day lisinopril 10 mg PO DAILY metformin ER 2,000 mg (4 x 500 mg) PO DAILY 90 days Mounjaro (tirzepatide) 5 mg (0.5 mL) subcut QWEEK NS oxycodone-acetaminophen 5-325 mg 1 tab PO Q6H PRN pen needle, diabetic (BD Yumiko 2nd Gen Pen Needle) DIRECTED INJECTS ONCE A DAY rosuvastatin (Crestor) 40 mg PO DAILY sennosides (Natural Senna Laxative) 17.2 mg (2 x 8.6 mg) PO BEDTIME HPI Comments Details: This is a 53-year-old female with a past medical history of insulin-dependent type 2 diabetes, hyperlipidemia and hypertension presenting for diabetic management. [place] interpretation provided. Dexcom download reviewed for April 25 through May 08 Average glucose 177 mg/dL Standard deviation 63 mg/dL G [place] 7.5% 14% very high 26% high 59% in range 1% low Less than 1% very low She had a pattern of daytime highs between 10:00am and 12:30pm Low glucose events: 8pm on May 06. Sugar went as low as 44 mg/dL. May 05 with a blood sugar of 63 around 8:30am. May 03 at 9:30pm with a sugar of 60. 2pm glucose 50 mg/dL on 04/29/2024. April 28 she had a low glucose event at 53 mg/dL at 2:30pm. 58 mg/dL at 1pm on 04/25/2024. Hemoglobin a1c 8.1% 01/31/24. Hemoglobin A1c 05/05/2024 is 7.7%. Current medication regimen: Mounjaro 5 mg weekly (increased this week at pcp appt). Taking Metformin ER 2000 mg daily, Apidra 16-18 units before meals, Tresiba 30 units daily, Jardiance 25 mg daily. Compliance issues: She did not decrease the Apidra dose. Hypoglycemia symptoms: Weak, dizzy. She treats with orange juice and lemonade. Hyperglycemia symptoms: none [facility]: [facility] Microvascular complications: none Macrovascular complications: none Hypertension: treated with lisinopril 10 mg. Hyperlipidemia: Treated with 40 mg rosuvastatin. Intolerant to atorvastatin. ROS: Constitutional: No unexplained weight loss, fever, chills, fatigue or night sweats. Eyes: No vision changes Respiratory: No shortness of breath Cardiovascular: No chest pain Gastrointestinal: No anorexia, nausea, vomiting or diarrhea. No abdominal pain Endocrine: No cold or heat intolerance. No polyuria or polydipsia. Physical exam: Constitutional: Alert, in no distress. Eyes: Pupils are equal, round and reactive to light. Extraocular muscles intact. Neck: Supple, Full range of motion. No lymphadenopathy. Respiratory: Clear to auscultation. Cardiovascular: S1 S2 regular. No murmurs. 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/hazards: Yes Cognitive needs: No Hearing needs: No Vision needs: No Female Reproductive History Menstrual Age of Menarche: 10 Physical Exam Vital Signs: Last Vital Signs Pulse 87 05/08/24 09:48 BP 132/78 05/08/24 09:48 BMI result Body Mass Index 33.7 Office Procedures Glucose Monitoring Details Details: see [facility] [id number] - Glucose monitoring, continuous-physician I&R Procedure code (CPT) selection complete Results Reviewed Results Reviewed: Laboratory Last Values Glucose (Clinic) 155 mg/dL (60-115) H 05/08/24 09:55 Laboratory Tests 09/25/23 11/07/23 07:13 Unknown Creatinine 0.80 Estimated GFR > 60 Hemoglobin A1c % 8.4 H Triglycerides 173 H Cholesterol 205 H LDL Cholesterol, Calc 116 H HDL Cholesterol 55 Urine Creatinine 131.87 Urine Microalbumin 35.0 Microalb/Creat Ratio 26.5 Assessment & Plan Assessment & Plan (1) Insulin dependent type 2 diabetes mellitus: Comment: Poorly controlled due to noncompliance with ADA diet Code(s): E11.9 - Type 2 diabetes mellitus without complications; Z79.4 - terminal worker (current) use of insulin Category: Medical (2) Hyperlipidemia: Code(s): E78.5 - Hyperlipidemia, unspecified Category: Medical Qualifiers: Hyperlipidemia type: pure hypercholesterolemia Qualified Code(s): E78.00 - Pure hypercholesterolemia, unspecified Plan In summary this is a 53 year old female with insulin dependent Type II DM with suboptimal but improved control and frequent hypoglycemia. Continue Tresiba 30 units daily DECREASE Apidra to 12 units before meals. Apidra should be administered within 15 minutes before or within 20 minutes after starting a meal. Patient advised to call if she is still experiencing hypoglycemia after this decreased. Continue Mounjaro 5 mg weekly. Continue metformin extended release 2000 mg daily. Continue Jardiance 25 mg daily. Treatment of hypoglycemia reviewed with the patient. Provided instructions in Malay and [place]. Glucose tablets sent to pharmacy. Bring glucometer to all appointments. Hyperlipidemia Continue rosuvastatin. Follow up in 2 weeks for Type II Diabetes. Orders: Orders AMB Glucose Monitoring Today E11.9 - Type 2 diabetes mellitus without complications Medications: New glucose (Dex4 Glucose) until blood sugar is >70 (hasta que el nivel de azucar en [place] sea superior a 70) 16 grams (4 x 4 gram) PO Q15M PRN 10 tabs 5RF hypoglycemia (hipoglucemia) Changed From insulin glulisine U-100 (Apidra SoloStar U-100 Insulin) subcutaneously 15 minutes prior to meals; 12 units three times daily before meals. To insulin glulisine U-100 (Apidra SoloStar U-100 Insulin) subcutaneously 12 units 15 minutes prior to meals 15 mL 5RF Patient Instructions: If you experience low blood sugar, treat this by eating a chewable fruit candy like skittles or jelly beans (about 8 pieces), 4 ounces (1/2 cup) of fruit juice (not diet), 1 tablespoon of honey or 4 glucose tablets. If your blood sugar is under 55, take double the amount of one of the above. Recheck your blood sugar in 15 minutes. Si experimenta un nivel bajo de az?car en la [place], tr?telo comiendo un tony de fruta masticable dudley bolos o gominolas (aproximadamente 8 piezas), 4 onzas (1/2 taza) de jugo de fruta (no diet?ingrid), 1 cucharada de miel o 4 tabletas de glucosa. . Si jones nivel de az?car en [place]on[place] es inferior a 55, tome el doble de tye de los anteriores. Vuelva a controlar jones nivel de az?car en la [place] en 15 minutos. Continue Tresiba 30 units daily DECREASE Apidra to 12 units before meals. Apidra should be administered within 15 minutes before or within 20 minutes after starting a meal. Continue Mounjaro 5 mg weekly. Continue metformin extended release 2000 mg daily. Continue Jardiance 25 mg daily. Continuar Tresiba 30 unidades diarias DISMINUIR Apidra a 12 unidades antes de las comidas. Apidra debe administrarse 15 minutos antes o 20 minutos despu?s de comenzar jet comida. Contin?e con Mounjaro 5 mg por semana. Contin?e con metformina de liberaci?n prolongada 2000 mg al d?a. Contin?e con Jardiance 25 mg al d?a. Coding Level of Care Code Est Pt Level 4 (01597) Diagnoses Insulin dependent type 2 diabetes mellitus E11.9; Z79.4 Pure hypercholesterolemia E78.00 Hyperlipidemia type: pure hypercholesterolemia CPT Codes Details - CPT: 03022 - Glucose monitoring, continuous-physician I&R ([id number])
[2024-05-08 09:48] VITALS: BP 132/78; PULSE 87; BMI 33.7
[2024-05-08 10:00] LABS: Glucose, Whole Blood 155 mg/dL (60-115)
== END 2024-05-08 10:42 | disposition home or self-care (01) ==
PROVIDERS: PCP Internal Medicine; Visit Provider Physician Assistant Medical
DX: E11.9 Type 2 diabetes mellitus without complications (principal); Z79.4 Long term (current) use of insulin; E78.00 Pure hypercholesterolemia, unspecified

== ENCOUNTER → 2024-05-08 09:36 | Outpatient (BNVA) | payer OTHER, SELFPAY | PROVIDERS: PCP Internal Medicine; Visit Provider Physician Assistant Medical | DX: E11.9 Type 2 diabetes mellitus without complications (principal); E78.00 Pure hypercholesterolemia, unspecified; Z79.4 Long term (current) use of insulin | CPT/HCPCS: 82947; 99212 ==

== ENCOUNTER 2024-05-25 09:37 | Outpatient (RCR) | payer OTHER, SELFPAY ==
--- NOTE | 2024-03-31 13:59 | MHC.OT.EP ---
[address] [phone] Occupational Therapy Plan of Care Patient Name: Amee Burroughs Date of Evaluation: 03/31/24 Diagnosis: Right Hand Stiffness; Post-op Trigger finger Release Pain Location: Mostly pain free at rest, increases w/ movement, force to close or straighten Pain Score: 5 Pain Scale Used: Numeric (0 - 10) Aggravating Factors: Movement, force Alleviating Factors: No pain meds, warm water Assessment: 53 yo female w/ hx of right long finger triggering, now post-op trigger finger release and intra-op manipulation. Referred to OT for ROM and strengthening. On assessment today, her incision is healing well, very soft scar tissue, dry throughout right hand but minimal edema. Middle finger range is limited with about 20 degree PIP flex contracture and about 2 cm tip-palm w/ composite fist, improves after heat and stretch in office today. she was observed to have active triggering in both index fingers, which we splinted w/ oval 8 splints and educated on reducing active flexion. I anticipate she will do with course of OT to improve range, strength and overall functional use of right hand. Frequency and Duration: The patient will be seen 2x/wk for 4 weeks Short Term Goals: Ind w/ self massage Ind w/ HEP for passive stretching Active D3 PIP ext to 10 degrees Good follow through w/ B/L index oval 8 wear Mcc Goals: Full active tip-palm flexion right middle finger Active PIP ext to <5 degrees Right gross grasp >40lb Pt to report ease w/ opening containers Pt to report ease of B/L index triggering Treatment Plan: Therapeutic Exercise Therapeutic Activity Home Exercise Program Splinting Patient Education Edema Control ADL Training Paraffin Fluidotherapy MHP Cold Packs Joint Mobilization Soft Tissue Mobilization Electronically Signed By: Geni Woodard, OTR/L CHT Please Sign and return to therapist. Thank you once again for your referral.
--- NOTE | 2024-05-26 10:22 | MHC.OT.DC ---
[address] [phone] F: [phone] Occupational Therapy Discharge Note Patient Name: Amee Burroughs Provider: Simone Tai PA-C Diagnosis: Right Hand Stiffness; Post-op Trigger finger Release Date of Surgery: 03/02/24 Date of Evaluation: 03/31/24 Date of Discharge: 05/25/24 Treatments to Date: 8 Discharge Status: Achieved Goals Improved Function Independent with HEP Discharge Summary: Amee was referred to OT post-op right middle finger trigger release. She is doing well, progressing w/ range and strength and now wearing nighttime orthosis for end range extension stretch. She has good follow through w/ HEP and is making gains w/ functional activities, still difficulty opening containers, but overall good improvements and functional use of right hand. She does have signs of early triggering in right index and has been somewhat limited with full gains due to need to modify tasks and therapy to limit active use of index. Otherwise she is Ind w/ self management and no further outpatient services needed at this time. Electronically Signed By: ANGIE Pedersen/Jesse CHT Reviewed/agree with student documentation: Therapist: Please Sign and return to therapist, thank you for your referral.
== END 2024-05-26 10:23 | disposition home or self-care (01) ==
LOC: HO.OT 09:37
PROVIDERS: PCP Internal Medicine
DX: M25.641 Stiffness of right hand, not elsewhere classified (principal); M65.331 Trigger finger, right middle finger
CPT/HCPCS: 97110; 97140; 97165; 97760

== ENCOUNTER 2024-05-29 09:22 | Outpatient (AMB) | payer OTHER, SELFPAY ==
--- NOTE | 2024-05-29 09:33 | MHC.OFFVIS ---
Vital Signs 05/29/24 09:38 Height 5 ft 4 in Weight 192 lb 10.944 oz BMI 33.1 BP 112/70 Blood Pressure Location Rt brachial Position Sitting Pulse 91 Pulse Source Pulse Oximeter Intake Visit Reasons: T2DM Intake Note: Patient present today to follow up on Type 2 Diabetes Mellitus. Last Diabetic Eye exam: 12/2023 Last Podiatry Visit: Does not see a Electrical Timing Device Calibrator Random Glucose: 248 mg/dl HgA1C: 7.7% 05/05/2024 Nurse Practitioner Manager Required: Yes Nurse Practitioner Manager Language: Security Ambassador Services: Nurse Practitioner Manager Present Nurse Practitioner Manager Name: Vick [id number] Information Interpreted: non-clinical & clinical Accompanied by: Self / Same As Patient Allergies atorvastatin Adverse Reaction (Intermediate, Verified 05/29/24 09:38) Depression Medication List - Last Reconciled 05/29/24 by NASIR Chacko albuterol sulfate 90 mcg/actuation 2 puffs inhalation Q6H PRN blood sugar diagnostic (FreeStyle Lite Strips) DIRECTED - TWICE A DAY blood sugar diagnostic (FreeStyle Lite Strips) As directed tests 4x/day blood-glucose meter,continuous (Dexcom G7 Director Medical Science) As directed blood-glucose sensor (Dexcom G7 Sensor device) apply new sensor every 10 days as directed dextrose (TRUEplus Glucose) 15 grams (32 mL) PO Q15M PRN empagliflozin (Jardiance) 25 mg PO DAILY glucose (Dex4 Glucose) 16 grams (4 x 4 gram) PO Q15M PRN insulin degludec (Tresiba FlexTouch U-100 insulin) 22 units subcut BEDTIME insulin glargine-yfgn units subcut insulin glulisine U-100 (Apidra SoloStar U-100 Insulin) subcutaneously 10 units 15 minutes prior to meals lancets (FreeStyle Lancets) tests 4 X/day lisinopril 10 mg PO DAILY metformin ER 2,000 mg (4 x 500 mg) PO DAILY 90 days oxycodone-acetaminophen 5-325 mg 1 tab PO Q6H PRN pen needle, diabetic (BD Yumiko 2nd Gen Pen Needle) DIRECTED INJECTS ONCE A DAY rosuvastatin (Crestor) 40 mg PO DAILY sennosides (Natural Senna Laxative) 17.2 mg (2 x 8.6 mg) PO BEDTIME tirzepatide (Mounjaro) 7.5 mg (0.5 mL) subcut QWEEK HPI Comments Details: This is a 53-year-old female with a past medical history of insulin-dependent type 2 diabetes, hyperlipidemia and hypertension presenting for diabetic management. Greek interpretation provided. 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 Hemoglobin a1c 8.1% 01/31/24. Hemoglobin A1c 05/05/2024 is 7.7%. Current medication regimen: Mounjaro 5 mg weekly. Taking Metformin ER 2000 mg daily, Apidra 12 units before meals, Tresiba 30 units daily, Jardiance 25 mg daily. Compliance issues: The pharmacy did not dispense Apidra for the past month because they needed a prior authorization, but it was not sent to the office. Hypoglycemia symptoms: Weak, dizzy. She treats with orange juice and lemonade. Hyperglycemia symptoms: none [facility]: [facility] Microvascular complications: none Macrovascular complications: none Hypertension: treated with lisinopril 10 mg. Hyperlipidemia: Treated with 40 mg rosuvastatin. Intolerant to atorvastatin. ROS: Constitutional: No unexplained weight loss, fever, chills, fatigue or night sweats. Eyes: No vision changes Respiratory: No shortness of breath Cardiovascular: No chest pain Gastrointestinal: No anorexia, nausea, vomiting or diarrhea. No abdominal pain Endocrine: No cold or heat intolerance. No polyuria or polydipsia. Physical exam: Constitutional: Alert, in no distress. Eyes: Pupils are equal, round and reactive to light. Extraocular muscles intact. Neck: Supple, Full range of motion. No lymphadenopathy. Respiratory: Clear to auscultation. Cardiovascular: S1 S2 regular. No murmurs. [facility]LY [facility] Medical History (Updated 05/29/24 @ 12:48 by NASIR Chacko) Diabetes type 2, uncontrolled Colon cancer screening Surgical History H/O hand surgery Hx of colonoscopy Hx of section H/O gastric sleeve H/O abdominal hysterectomy Family History Sister Breast CA Maternal Aunt Breast CA Social History Household Members: None Housing: Apartment Alcohol intake: current Alcohol intake frequency: holidays/special occasions only Patient Tobacco Use Status: Never used Tobacco e-Cigarette/Vaping Use: Never Used Second Hand Smoke Exposure: No service: No Current occupational status: employed 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 [address] - Glucose monitoring, continuous-physician I&R Procedure code (CPT) selection complete Results Reviewed Results Reviewed: Laboratory Last Values Glucose (Clinic) 248 mg/dL (60-115) H 05/29/24 09:45 Laboratory Tests 09/25/23 11/07/23 07:13 Unknown Creatinine 0.80 Estimated GFR > 60 Hemoglobin A1c % 8.4 H Triglycerides 173 H Cholesterol 205 H LDL Cholesterol, Calc 116 H HDL Cholesterol 55 Urine Creatinine 131.87 Urine Microalbumin 35.0 Microalb/Creat Ratio 26.5 Assessment & Plan Assessment & Plan (1) Insulin dependent type 2 diabetes mellitus: Code(s): E11.9 - Type 2 diabetes mellitus without complications; Z79.4 - terminal worker (current) use of insulin Category: Medical (2) Hyperlipidemia: Code(s): E78.5 - Hyperlipidemia, unspecified Category: Medical Qualifiers: Hyperlipidemia type: pure hypercholesterolemia Qualified Code(s): E78.00 - Pure hypercholesterolemia, unspecified Plan In summary this is a 53 year old female with insulin dependent Type II DM. Reduce Tresiba to 22 units nightly. Increase Mounjaro to 7.5 mg weekly. She wants to increase the dose to continue to promote weight loss. She had lost another 4 lb Restart Apidra 10 units before meals. Continue metformin extended release 2000 mg daily. Continue Jardiance 25 mg daily. Treatment of hypoglycemia reviewed with the patient. She has written instructions in Wolof and Greek. Glucose tablets and gel sent to pharmacy. Bring glucometer to all appointments. Hyperlipidemia Continue rosuvastatin. Follow up in 4 weeks for type 2 diabetes. Orders: Orders AMB Glucose Monitoring Today E11.9 - Type 2 diabetes mellitus without complications Medications: New tirzepatide (Mounjaro) 7.5 mg (0.5 mL) subcut QWEEK 2 mL 1RF dextrose (TRUEplus Glucose) until symptoms of low blood sugar are controlled 15 grams (32 mL) PO Q15M PRN 128 mL 3RF hypoglycemia Changed From insulin glulisine U-100 (Apidra SoloStar U-100 Insulin) subcutaneously 12 units 15 minutes prior to meals 15 mL 5RF To insulin glulisine U-100 (Apidra SoloStar U-100 Insulin) subcutaneously 10 units 15 minutes prior to meals Refilled glucose (Dex4 Glucose) until blood sugar is >70 (hasta que el nivel de azucar en [place] sea superior a 70) 16 grams (4 x 4 gram) PO Q15M PRN 10 tabs 5RF hypoglycemia (hipoglucemia) Discontinued Mounjaro (tirzepatide) Discontinued Reason: Doctor's Order 5 mg (0.5 mL) subcut QWEEK 2 mL 1RF NS Patient Instructions: Reduce Tresiba from 30 units to 22 units at night. Increase Mounjaro 7.5 weekly. Apidra: Restart 10 units administered before meals. Reducir Tresiba de 30 unidades a 22 unidades por la noche. Incrementar Mounjaro 7.5 semanalmente. Apidra: Reiniciar 10 unidades administradas antes de las comidas. GMI 6.7% Average glucose 140 3% very high 16% high 79% in range 2% low 1% very low Coding Level of Care Code Est Pt Level 4 (61817) Diagnoses Insulin dependent type 2 diabetes mellitus E11.9; Z79.4 Pure hypercholesterolemia E78.00 Hyperlipidemia type: pure hypercholesterolemia CPT Codes Details - CPT: 53694 - Glucose monitoring, continuous-physician I&R ([id number])
[2024-05-29 09:38] VITALS: BP 112/70; PULSE 91; BMI 33.1
--- OUTSIDE RECORDS SUMMARY | 2024-05-29 09:50 | XMS_ITS | Encounter Summary ---
Author Organization [facility] Address [address] [place] [address] [address] [address] Care Team Providers Care Factory Machine Computer Operator Name Role Phone Unavailable Primary Care Provider Unavailabl e Encounter Details Date Type Department Care Team (Latest Contact Info) Description 08/08/2021 Abstract [facility] CONVERSIONS Dental, Provider, DDS Social History Tobacco Use Types Packs/Day Years Used Date Smoking Tobacco: Never Assessed Comments Unknown Sex and Gender Information Value Date Recorded Sex Assigned at Female 02/26/2022 10:16 AM EDT Legal Sex Female 10:16 AM EDT Gender Identity Choose not to disclose 10:16 AM EDT Sexual Orientation Choose not to disclose 2021 10:16 AM EDT documented as of this encounter Plan of Treatment Not on file documented as of this encounter Visit Diagnoses Not on filedocumented in this encounter
--- OUTSIDE RECORDS SUMMARY | 2024-05-29 09:50 | XMS_ITS | Encounter Summary ---
Author Organization [facility] Address [address] [place] [address] [address], [place] [address] Care Team Providers Care Varnishing Unit Operator Name Role Phone Unavailable Primary Care Provider Unavailabl e Encounter Details Date Type Department Care Team (Latest Contact Info) Description 08/08/2021 Abstract [facility] CONVERSIONS Dental, Provider, DDS Social History [...]
--- OUTSIDE RECORDS SUMMARY | 2024-05-29 09:50 | XMS_ITS | Clinical Summary ---
Author Organization [employer] Address [address] [place] [address] [address] [place] [address] Care Team Providers Care Lining Baster Name Role Phone Unavailable Primary Care Provider Unavailabl e Social History Tobacco Use Types Packs/Day Years Used Date Smoking Tobacco: Never Assessed Comments Unknown Sex and Gender Information Value Date Recorded Sex Assigned at Female 02/26/2022 10:16 AM EDT Legal Sex Female 10:16 AM EDT Gender Identity Choose not to disclose 10:16 AM EDT Sexual Orientation Choose not to disclose 2021 10:16 AM EDT Plan of Treatment Health Maintenance Due Date Last Done Comments CT Colonography 1968 Colonoscopy 1968 Colorectal Cancer Screening 1968 Depression Screening 1968 FIT DNA/Cologuard 1968 FIT 1968 FOBT 1968 HIV Screening 1968 SDOH Screening 1968 Sigmoidoscopy 1968 Alcohol/Substance Use Screening 1980 Tobacco Screening 1980 Hepatitis C Screening 1986 DTaP/Tdap/Td Vaccines (1 - Tdap) 11/18/1987 Hepatitis B Vaccines (1 of 3 - 19+ 3-dose series) 11/18/1987 Pap Smear 1989 Cervical Cancer Screening 1998 HPV/Cotest 1998 Mammogram 2008 Pneumococcal Vaccine: 50+ Years (2 of 2 - PCV) 2018 02/07/2016 Zoster Vaccines (1 of 2) 2018 COVID-19 Vaccine (4 - 2023-2 5 season) 2023 05/06/2021, 07/29/2020, 07/08/2020 Influenza Vaccine (#1) 2023 3, 02/18/2020, 02/07/2016 RSV Patients and Patients Aged 60 years or older (1 - 1-dose 75+ series) 11/18/2043 HIB Vaccines Aged Out No longer eligi ble based on patient's age to complete this topic HPV Vaccines Aged Out No longer eligi ble based on patient's age to complete this topic Hepatitis A Vaccines Aged Out No long er eligible based on patient's age to complete this topic IPV Vaccines Aged Out No longer eligi ble based on patient's age to complete this topic Meningococcal Vaccine Aged Out No jade ruby eligible based on patient's age to complete this topic RSV under 20 months Aged Out No longe r eligible based on patient's age to complete this topic Rotavirus Vaccines Aged Out No longer eligible based on patient's age to complete this topic Insurance [facility] [place] [address] [place] [address] * Guarantor: Amee Burroughs Account Type Relation to Patient Date of Phone Billing Address Personal/Family Self [address] [place] [address]
--- OUTSIDE RECORDS SUMMARY | 2024-05-29 09:50 | XMS_ITS | Clinical Summary ---
Author Organization [employer] Address [address] [place] [address] Care Team Providers Care Textile Worker Name Role Phone Anisha Monroe MD Primary Care Provider [phone] Social History Tobacco Use Types Packs/Day Years Used Date Smoking Tobacco: Never Assessed Sex and Gender Information Value Date Recorded Sex Assigned at Not on file Gender Identity Not on file Sexual Orientation Not on file Plan of Treatment Health Maintenance Due Date Last Done Comments Breast Cancer Screening 1968 DTaP,Tdap,and Td Vaccines (1 - Tdap) 11/18/1987 Hepatitis B Vaccines (1 of 3 - 19+ 3-dose series) 11/18/1987 Cervical Cancer Screening: P ap Smear 1989 Zoster Vaccines (1 of 2) 2018 COVID-19 Vaccine ( - 2023-2 5 season) 2023 Influenza Vaccine (#1) 2023 HIB Vaccines Aged Out No longer eligi [...] on patient's age to complete this topic MMR Vaccines Aged Out No longer eligi ble based on patient's age to complete this topic Meningococcal ACWY Vaccine Aged Out N o longer eligible based on patient's age to complete this topic Pneumococcal Vaccine: Pediat rics (0 to 5 Years) and At-Risk Patients (6 to 64 Years) Aged Out No longer eligible b ased on patient's age to complete this topic RSV Immunization Patients Un carmen 20 months Aged Out No longer eligible b ased on patient's age to complete this topic Varicella Vaccines Aged Out No longer eligible based on patient's age to complete this topic Care Teams Textile Worker Relationship Specialty Start Date End Date Anisha Monroe MD [address] [place] [address] PCP - General Internal Medicine 12/04/17
[2024-05-29 09:53] LABS: Glucose, Whole Blood 248 mg/dL (60-115)
== END 2024-05-29 10:59 | disposition home or self-care (01) ==
PROVIDERS: PCP Internal Medicine; Visit Provider Physician Assistant Medical
DX: E11.9 Type 2 diabetes mellitus without complications (principal); Z79.4 Long term (current) use of insulin; E78.00 Pure hypercholesterolemia, unspecified

== ENCOUNTER → 2024-05-29 09:22 | Outpatient (BNVA) | payer OTHER, SELFPAY | PROVIDERS: PCP Internal Medicine; Visit Provider Physician Assistant Medical | DX: E11.9 Type 2 diabetes mellitus without complications (principal); E78.00 Pure hypercholesterolemia, unspecified; Z79.4 Long term (current) use of insulin | CPT/HCPCS: 82947; 99212 ==

== ENCOUNTER → 2024-06-05 09:10 | Outpatient (AMB) | payer OTHER, SELFPAY ==
--- NOTE | 2024-06-05 09:14 | A.OFFVIS_ITS ---
Vital Signs 06/05/24 09:16 Height 5 ft 4 in Weight 190 lb 7.67 oz BMI 32.7 BP 124/72 Blood Pressure Location Rt brachial Position Sitting Pulse 90 Pulse Source Pulse Oximeter Pulse Oximetry (%) 96 Oxygen Delivery Method Room Air Intake Visit Reasons: 6 month follow up Intake Note: ESTABLISHED PATIENT for Constipation mgmt. Chief Complaint; c/o worsening constipation despite taking senna PRN @ bedtime. Pt also complaining of new onset of reflux w/o dysphagia. Cutter Apprentice Hand Required: Yes Cutter Apprentice Hand Name: Alon [id number] + GI Lang. med. Information Interpreted: clinical only Accompanied by: Self / Same As Patient Allergies atorvastatin Adverse Reaction (Intermediate, Verified 06/05/24 09:14) Depression HPI HPI 6 month follow up: Details: LAST VISIT Status post colonoscopy Constipation Plan Colonoscopy in 10 years, sooner if clinically necessary. Patient will continue taking Senokot daily. Increase fluid intake and activity to promote better bowel motility. Follow-up in the office in 6 months. Patient will call our office if she will have any GI concerning symptoms. She is agreeable to this plan and verbalizes understanding of instructions. She was given the opportunity to ask questions and all questions answered. ? Thank you for allowing me participate in her care Medications Refilled sennosides (Natural Senna Laxative) 17.2 mg (2 x 8.6 mg) PO BEDTIME 180 tabs 3RF constipation K59.00 TODAY'S VISIT Patient is here today for follow-up. Patient reports that she has been doing well, however occasionally she will have epigastric pain and severe reflux at night time. Patient denies any postprandial epigastric pain or postprandial reflux. Patient reports that her symptoms are happening at night only. Not every single night but about 3 to 4 times a week. Patient denies any nausea or vomiting. Reports that she is moving her bowels, however occasionally patient will be constipated. Uses Senokot as needed. Patient denies dyspepsia, dysphagia or odynophagia. Denies melena, hematochezia. Patient denies any nausea or vomiting. Patient denies any diarrhea, no mucus in her stools. 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/hazards: Yes Cognitive needs: No Hearing needs: No Vision needs: No Female Reproductive History Menstrual Age of Menarche: 10 Review of Systems Const Denies weight gain and Denies weight loss ENT Reports no additional complaints, Denies dysphagia and Denies odynophagia Card Reports no additional complaints Resp Reports no additional complaints GI Denies abdominal pain, Denies belching, Denies melena, Denies bloating, Denies change in bowel habits, Reports constipation, Denies dysphagia, Denies excessive flatus, Denies dyspepsia, Reports heartburn, Denies diarrhea, Denies loose stools, Denies nausea, Denies odynophagia and Denies vomiting Reports no additional complaints Musc Reports no additional complaints Neuro Reports no additional complaints Psych Reports no additional complaints Endo Reports no additional complaints Physical Exam Const General: healthy appearing and no acute distress Nutritional Appearance: obese Orientation/consciousness: patient oriented x3 Resp Effort & Inspection: normal respiratory effort, able to speak in complete sentences, no tracheal deviation and symmetric chest movement Auscultation: clear to auscultation bilaterally Cardio Rate: regular rate GI Inspection: Yes normal to inspection, No distended and Yes obesity Palpation (GI): Soft to palpation, not firm, nontender and No hepatosplenomegaly present Auscultation: normal bowel sounds General: Yes no CVA tenderness Back/Spine/Pelvis Back: no CVA tenderness Skin General skin exam: elasticity normal, turgor normal and dry skin Neuro General: patient oriented x3 Psych Appearance: grossly normal Mental Status: mental status grossly normal Assessment & Plan Assessment & Plan (1) Constipation: Code(s): K59.00 - Constipation, unspecified Qualifiers: Constipation type: slow transit constipation Qualified Code(s): K59.01 - Slow transit constipation (2) GERD (gastroesophageal reflux disease): Code(s): K21.9 - Gastro-esophageal reflux disease without esophagitis Qualifiers: Esophagitis presence: esophagitis presence not specified Qualified Code(s): K21.9 - Gastro-esophageal reflux disease without esophagitis Plan Avoid dietary triggers and late night snacking. Staying upright for minimum 3 hours after meals discussed with patient. Patient will start taking p antoprazole daily. Continue Senokot on as needed basis. Increase fluid intake and activity to promote better bowel motility. Patient will follow-up in 3 months, sooner on as needed basis. Patient is agreeable to this plan and verbalizes understanding of instructions. She was given the opportunity to ask questions and all questions answered. Medications: New pantoprazole take one tablet half an hour before breakfast 40 mg PO DAILY 30 tabs 2RF K21.9 - Gastro-esophageal reflux disease without esophagitis Coding Level of Care Code Est Pt Level 3 (43180) Diagnoses Slow transit constipation K59.01 Constipation type: slow transit constipation Gastroesophageal reflux disease, unspecified whether esophagitis present K21.9 Esophagitis presence: esophagitis presence not specified Time Spent (min) 30 Comment 20 minutes spent with patient and additional 10 minutes spent reviewing her records
== END | disposition home or self-care (01) ==
PROVIDERS: PCP Internal Medicine; Visit Provider Nurse Practitioner Family
CPT/HCPCS: 99213

== ENCOUNTER → 2024-06-05 09:10 | Outpatient (BNVA) | payer OTHER, SELFPAY | PROVIDERS: PCP Internal Medicine; Visit Provider Nurse Practitioner Family | DX: K59.01 Slow transit constipation (principal); K21.9 Gastro-esophageal reflux disease without esophagitis | CPT/HCPCS: 99212 ==

== ENCOUNTER 2024-06-25 14:29 | Outpatient (AMB) | payer OTHER, SELFPAY ==
--- NOTE | 2024-06-25 15:10 | A.OFFVIS_ITS ---
Intake Intake Visit Reasons: 60 min Motor Winder Required: Yes Motor Winder Language: Taiwanese Accompanied by: Self / Same As Patient Allergies atorvastatin Adverse Reaction (Intermediate, Verified 06/05/24 09:14) Depression HPI Comprehensive Diabetes Asmnt Most Recent Diabetes Results: Hemoglobin A1c 11.4 % 10/07/19 Microalb/Creat Ratio 11.2 ug/mg cr (<30) 01/31/24 Cholesterol 196 mg/dL (<200) 01/31/24 HDL Cholesterol 56 mg/dL (>40) 01/31/24 Triglycerides 79 mg/dL (<150) 01/31/24 Creatinine 0.68 mg/dL (0.5-1.4) 01/31/24 Blood Urea Nitrogen 15 mg/dL (9-16) 01/31/24 Sodium 144 mmol/L (135-145) 01/31/24 Potassium 3.8 mmol/L (3.3-5.1) 01/31/24 Chloride 112 mmol/L (96-108) H 01/31/24 Carbon Dioxide 25 mmol/L (22-29) 01/31/24 Calcium 9.0 mg/dL (8.4-10.2) 01/31/24 AST 13 U/L (5-31) 01/31/24 ALT 11 U/L (0-31) 01/31/24 Total Protein 7.6 g/dL (6.5-8.0) 01/31/24 Albumin 3.7 g/dL (3.5-5.0) 01/31/24 PFSH Medical History Diabetes type 2, uncontrolled Colon cancer screening Surgical History H/O hand surgery Hx of colonoscopy Hx of section H/O gastric sleeve H/O abdominal hysterectomy Family History Sister Breast CA Maternal Aunt Breast CA Social History Household Members: None Housing: Apartment Alcohol intake: current Alcohol intake frequency: holidays/special occasions only Patient Tobacco Use Status: Never used Tobacco e-Cigarette/Vaping Use: Never Used Second Hand Smoke Exposure: No service: No Current occupational status: employed 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 0% Hyperglycemia:? 39% Time in Range:? 61% Average glucose for the last 2 weeks? mg/dL Last A1c 7.7% on 05/05/2024 Patient reports she had hand surgery, feels it went well she has more range of motion in her finger. Completed occupational therapy Discussed GMI verses A1c, if you want an estimate of your A1c you must look at the GMI for the last 90 days not just the last 14 days Patient reports she has not increased Mounjaro dose, she is finishing up her 5 mg Mounjaro pens. Reports she will start Mounjaro 7.5 mg next week Discuss with patient target goal of A1c to be 7% or under Patient able to insert sensor independently at home without issue.? Portions of this note were created using voice recognition software, please excuse any words or phrases that may have been misinterpreted. Patient Instructions: Follow-up with clinical trial educator in 1 month Coding Level of Care Code Est Pt Level 1 (37920) Diagnoses Insulin dependent type 2 diabetes mellitus E11.9; Z79.4
--- OUTSIDE RECORDS SUMMARY | 2024-06-25 17:42 | XMS_ITS | Clinical Summary ---
Author Organization [employer] Address [address] [place] [address] [address] [place] [address] Care Team Providers Care Rail Gang Supervisor Name Role Phone Unavailable Primary Care Provider [...] Tobacco Screening 1980 Hepatitis C Screening 1986 Hepatitis B Vaccines (1 of 3 - 19+ 3-dose series) 11/18/1987 Pap Smear 1989 Cervical Cancer Screening 1998 HPV/Cotest 1998 Mammogram 2008 Zoster Vaccines (1 of 2) 2018 COVID-19 Vaccine ( season) 2023 05/06/2021, 07/29/2020, 07/08/2020 DTaP/Tdap/Td Vaccines (2 - Td or Tdap) 03/06/2034 03/06/2024 RSV Patients and Patients Aged 60 years or older (1 - 1-dose 75+ series) 11/18/2043 Influenza Vaccine Completed 03/06/2024, , 02/18/2020, Additional history exists Pneumococcal Vaccine: 50+ Years Completed 03/06/2024, 02/07/2016 HIB Vaccines Aged Out No longer eligi [...] patient's age to complete this topic Insurance [facility] [place] [address] [place] [id number] * Guarantor: Amee Burroughs Account Type Relation to Patient Date of Phone Billing Address Personal/Family Self [address] [facility] [address] [place] [id number]
--- OUTSIDE RECORDS SUMMARY | 2024-06-25 17:42 | XMS_ITS | Encounter Summary ---
Author Organization [employer] [facility] Address [address] [place] [address] [address] [address] Care Team Providers Care Neighborhood Service Center Director Name Role Phone Unavailable Primary Care Provider Unavailabl e Encounter Details Date Type Department Care Team (Latest Contact Info) Description 08/08/2021 Abstract [facility] CONVERSIONS Dental, Provider, DDS Social History Tobacco [...]
--- OUTSIDE RECORDS SUMMARY | 2024-06-25 17:42 | XMS_ITS | Clinical Summary ---
Author Organization [employer] [facility] ity Address [address] [place] [address] Care Team Providers Care Logging Rafter Laborer Name Role Phone Anisha Monroe MD Primary Care Provider [phone] Social History Tobacco Use Types Packs/Day Years Used Date Smoking Tobacco: Never Assessed Comments Unknown Sex and Gender Information Value Date Recorded Sex Assigned at Not on file Legal Sex Female 5:43 AM EST Gender Identity Not on file Sexual Orientation Not on file Plan of Treatment Health Maintenance Due Date Last Done Comments Breast Cancer Screening 1968 DTaP,Tdap,and Td Vaccines (1 - Tdap) 11/18/1987 Hepatitis B Vaccines (1 of 3 - 19+ 3-dose series) 11/18/1987 Cervical Cancer Screening: P ap Smear 1989 Pneumococcal Vaccine: 50+ Ye ars (1 of 1 - PCV) 2018 Zoster Vaccines (1 of 2) 2018 COVID-19 [...] patient's age to complete this topic Meningococcal B Vacine Aged Out No lo nger eligible based on patient's age to complete [...] age to complete this topic Care Teams Logging Rafter Laborer Relationship Specialty Start Date End Date Anisha Monroe MD [address] [place] [address] PCP - General Internal Medicine 12/04/17
--- OUTSIDE RECORDS SUMMARY | 2024-06-25 17:42 | XMS_ITS | Encounter Summary ---
Author Organization [employer] [facility] Address [address] [place] [address] [address] [address] Care Team Providers Care Instructor Nurse Name Role Phone Unavailable Primary Care Provider Unavailabl e Encounter Details Date Type Department Care Team (Latest Contact Info) Description 08/08/2021 Abstract [facility] CONVERSIONS Dental, Provider, DDS Social History [...]
== END 2024-06-25 15:12 | disposition home or self-care (01) ==
PROVIDERS: PCP Internal Medicine; Visit Provider Registered Nurse Diabetes Educator
DX: E11.9 Type 2 diabetes mellitus without complications (principal); Z79.4 Long term (current) use of insulin

== ENCOUNTER → 2024-06-25 14:29 | Outpatient (BNVA) | payer OTHER, SELFPAY | PROVIDERS: PCP Internal Medicine; Visit Provider Registered Nurse Diabetes Educator | DX: E11.9 Type 2 diabetes mellitus without complications (principal); Z79.4 Long term (current) use of insulin | CPT/HCPCS: 99211 ==

== ENCOUNTER 2024-06-30 09:34 | Outpatient (AMB) | payer OTHER, SELFPAY ==
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
[2024-06-30 09:45] VITALS: BP 124/84; PULSE 99; O2SAT 99; BMI 32.7
[2024-06-30 09:59] LABS: Glucose, Whole Blood 160 mg/dL (60-115)
--- OUTSIDE RECORDS SUMMARY | 2024-06-30 10:43 | XMS_ITS | Clinical Summary ---
Author Organization [employer] [facility] ity Address [address] [place] [address] Care Team Providers Care Snack Bar Cook Name Role Phone Anisha Monroe MD Primary Care Provider [phone] Social History Tobacco Use Types Packs/Day Years [...] age to complete this topic Care Teams Snack Bar Cook Relationship Specialty Start Date End Date Anisha Monroe MD [address] [place] [address] PCP - General Internal Medicine 12/04/17
--- OUTSIDE RECORDS SUMMARY | 2024-06-30 10:43 | XMS_ITS | Encounter Summary ---
Author Organization [employer] [facility] Address [address] [place] [address] [place], [place] [address] Care Team Providers Care Commercial Census Taker Name Role Phone Unavailable Primary Care Provider Unavailabl e Encounter Details Date Type Department Care Team (Latest Contact Info) Description 08/08/2021 Abstract [facility] CONVERSIONS Dental, Provider, DDS Social History [...]
--- OUTSIDE RECORDS SUMMARY | 2024-06-30 10:43 | XMS_ITS | Clinical Summary ---
Author Organization [employer] Address [address] [place] [address] [address] [place] [address] Care Team Providers Care Bulb Farmworker Name Role Phone Unavailable Primary Care Provider [...] patient's age to complete this topic Insurance [facility] [address] [place] [address] * Guarantor: Amee Burroughs Account Type Relation to Patient Date of Phone Billing Address Personal/Family Self [address] [facility] [address] [id number]
--- OUTSIDE RECORDS SUMMARY | 2024-06-30 10:43 | XMS_ITS | Encounter Summary ---
Author Organization [employer] [facility] Address [address] [place] [address] [address] [address] Care Team Providers Care Panel Machine Operator Name Role Phone Unavailable Primary Care Provider Unavailabl e Encounter Details Date Type Department Care Team (Latest Contact Info) Description 08/08/2021 Abstract [facility] CONVERSIONS Dental, Provider, DDS Social History [...]
== END 2024-06-30 10:21 | disposition home or self-care (01) ==
PROVIDERS: PCP Internal Medicine; Visit Provider Physician Assistant Medical
DX: E11.9 Type 2 diabetes mellitus without complications (principal); Z79.4 Long term (current) use of insulin; E78.00 Pure hypercholesterolemia, unspecified

== ENCOUNTER → 2024-06-30 09:34 | Outpatient (BNVA) | payer OTHER, SELFPAY | PROVIDERS: PCP Internal Medicine; Visit Provider Physician Assistant Medical | DX: E11.9 Type 2 diabetes mellitus without complications (principal); E78.00 Pure hypercholesterolemia, unspecified; Z79.4 Long term (current) use of insulin | CPT/HCPCS: 82947; 99212 ==

== ENCOUNTER 2024-08-06 07:45 | Outpatient (REF) | payer OTHER, SELFPAY ==
--- OUTSIDE RECORDS SUMMARY | 2024-08-06 07:51 | XMS_ITS | Encounter Summary ---
Author Organization [employer] [facility] Address [address] [place] [address] [address] [address] Care Team Providers Care Accountant Assistant Name Role Phone Unavailable Primary Care Provider Unavailabl e Encounter Details Date Type Department Care Team (Latest Contact Info) Description 08/08/2021 Abstract [facility] CONVERSIONS Dental, Provider, DDS Social History [...]
--- OUTSIDE RECORDS SUMMARY | 2024-08-06 07:51 | XMS_ITS | Clinical Summary ---
Author Organization [employer] Address [address] [place] [address] [address] [place] [address] Care Team Providers Care Pattern Maker Programer Name Role Phone Unavailable Primary Care Provider [...] patient's age to complete this topic Insurance [facility] [address] [place] [address] * Guarantor: Amee Burroughs Account Type Relation to Patient Date of Phone Billing Address Personal/Family Self [address] [facility] [address] [place] [phone]
--- OUTSIDE RECORDS SUMMARY | 2024-08-06 07:51 | XMS_ITS | Clinical Summary ---
Author Organization [employer] [facility] ity Address [address] [place] [address] Care Team Providers Care Reed Repairer Name Role Phone Anisha Monroe MD Primary Care Provider [phone] Social History Tobacco Use Types Packs/Day Years [...] age to complete this topic Meningococcal B Vaccine Aged Out No l onger eligible based on patient's age to complete [...] age to complete this topic Care Teams Reed Repairer Relationship Specialty Start Date End Date Anisha Monroe MD [address] [place] [address] PCP - General Internal Medicine 12/04/17
--- OUTSIDE RECORDS SUMMARY | 2024-08-06 07:51 | XMS_ITS | Encounter Summary ---
Author Organization [employer] [facility] Address [address] [place] [address] [address], [place] [address] Care Team Providers Care Rn Telephonic Name Role Phone Unavailable Primary Care Provider Unavailabl e Encounter Details Date Type Department Care Team (Latest Contact Info) Description 08/08/[address] [facility] CONVERSIONS Dental, Provider, DDS Social History Tobacco [...]
[2024-08-06 10:07] LABS: MANUAL DIFF FLAG NO
[2024-08-06 10:15] LABS: Basophils Percent Auto 0.5 % (0-2); Eosinophils Absolute Auto 0.2 X10*3/uL (0.0-0.4); Eosinophils Percent Auto 2.5 % (0-4); Hematocrit 39.6 % (37.0-47.0); Imm Gran Abs Auto 0.01 X10*3/uL (0.00-0.03); Imm Gran Pct Auto 0.2 % (0.0-0.4); Lymphocytes Absolute Auto 1.8 X10*3/uL (1.2-4.9); Lymphocytes Percent Auto 30.1 % (20-40); Mean Corpuscular HGB Conc 32.8 g/dl (31.0-35.0); Mean Corpuscular Hemoglobin 25.7 pg (27.0-33.0); Mean Corpuscular Volume 78.3 fL (80.0-98.0); Mean Platelet Volume 11.5 fL (9.4-12.3); Monocytes Absolute Auto 0.4 X10*3/uL (0.1-1.2); Monocytes Percent Auto 7.4 % (2-11); Neutrophils Absolute Auto 3.5 x10*3/uL (2.0-8.3); Neutrophils Percent Auto 59.3 % (45-73); Platelet Count 266 X10*3/uL (160-400); Red Blood Count 5.06 X10*6/uL (4.20-5.50); Red Cell Distribution Width 16.1 % (11.0-16.0); White Blood Count 5.9 X10*3/uL (4.8-10.8)
[2024-08-06 10:28] LABS: Estimated Average Glucose 148 mg/dL; Hemoglobin A1C 177.0948 umol/L; Hemoglobin A1c % 6.8 % (<6.0); Total Hemoglobin (HGBA1C) 3466.1796 umol/L
[2024-08-06 10:32] LABS: B Type Natriuretic Peptide 14 pg/mL (<100)
[2024-08-06 10:37] LABS: Alanine Aminotransferase 12 U/L (0-31); Albumin Level 3.9 g/dL (3.5-5.0); Alkaline Phosphatase 91 U/L (39-117); Anion Gap 12 (12-20); Aspartate Amino Transferase 18 U/L (5-31); Bilirubin Total 0.4 mg/dL (0.0-1.0); Blood Urea Nitrogen 15 mg/dL (9-16); Carbon Dioxide 25 mmol/L (22-29); Chloride 108 mmol/L (96-108); Cholesterol 224 mg/dL (<200); Estimated Glomerular Filt Rate > 60; Glucose Fasting 152 mg/dL (60-99); HDL Cholesterol 48 mg/dL (>40); LDL Cholesterol Calculated 146 mg/dL (<100); Potassium 3.8 mmol/L (3.3-5.1); Sodium 141 mmol/L (135-145); Total Protein 7.4 g/dL (6.5-8.0); Triglycerides 153 mg/dL (<150)
[2024-08-06 11:24] LABS: Creatinine Urine 364.56 mg/dL
== END 2024-08-06 07:46 | disposition home or self-care (01) ==
LOC: HO.HMGCLDS 07:45
PROVIDERS: PCP Internal Medicine; Referring Provider Physician Assistant Medical; Visit Provider Internal Medicine
DX: E11.9 Type 2 diabetes mellitus without complications (principal); Z00.00 Encounter for general adult medical examination without abnormal findings; I10 Essential (primary) hypertension; Z79.4 Long term (current) use of insulin
CPT/HCPCS: 36415; 80053; 80061; 82043; 82570; 83036; 83880; 85025

== ENCOUNTER 2024-08-11 08:56 | Outpatient (AMB) | payer OTHER, SELFPAY ==
--- NOTE | 2024-08-11 09:10 | A.OFFVIS_ITS ---
Vital Signs 08/11/24 09:12 Height 5 ft 4 in Weight 180 lb 12.465 oz BMI 31.0 BP 116/70 Blood Pressure Location Lt brachial Position Sitting Pulse 92 Pulse Source Pulse Oximeter Intake Visit Reasons: Type II diabetes Intake Note: Patient present today to follow up on Type 2 Diabetes Mellitus. Last Diabetic Eye exam: 12/2023 Last Podiatry Visit: Does not see a Application Manager Random Glucose: 120 mg/dl HgA1C: 6.8% 08/06/2024 Software Support Technician Required: Yes Software Support Technician Language: Personnel Research Scientist Services: Software Support Technician Present Software Support Technician Name: Arvind [id number] Information Interpreted: non-clinical & clinical Accompanied by: Self / Same As Patient Allergies atorvastatin Adverse Reaction (Intermediate, Verified 08/11/24 09:13) Depression HPI Comments Details: This is a 53-year-old female with a past medical history of insulin-dependent type 2 diabetes, hyperlipidemia and hypertension presenting for diabetic management. kiln stoker present. Reviewed Dexcom download GMI 7.5% Average glucose 174 Coefficient variation 25.8% Very high 7% High 30% In range 63% 0% hypoglycemia. Patient experiences occasional hyperglycemia in the afternoon and evening. Hemoglobin A1c 6.8% 08/06/2024. Current medication regimen: Mounjaro 7.5 mg weekly, etformin ER 2000 mg daily, Apidra 10 units before meals, Tresiba 20 units daily, Jardiance 25 mg daily. Compliance issues: None Hypoglycemia symptoms: Patient reports only rare hypoglycemia treated with orange juice or lemonade. She feels shaky when her blood sugar is low. Hyperglycemia symptoms: none Eye exam: [facility] Microvascular complications: microalbuminuria x 1 Macrovascular complications: none Hypertension: treated with lisinopril 10 mg. Hyperlipidemia: Treated with 40 mg rosuvastatin. Intolerant to atorvastatin. Patient admits she is only taking rosuvastatin once or twice per week. ROS: Constitutional: No unexplained weight loss, fever, chills, fatigue or night sweats. Eyes: No vision changes Respiratory: No shortness of breath Cardiovascular: No chest pain Gastrointestinal: No anorexia, nausea, vomiting or diarrhea. No abdominal pain Endocrine: No cold or heat intolerance. No polyuria or polydipsia. Physical exam: Constitutional: Alert, in no distress. Eyes: Pupils are equal, round and reactive to light. Extraocular muscles intact. Neck: Supple, Full range of motion. No lymphadenopathy. Respiratory: Clear to auscultation. Cardiovascular: S1 S2 regular. No murmurs. 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/hazards: Yes Cognitive needs: No Hearing needs: No Vision needs: No Female Reproductive History Menstrual Age of Menarche: 10 Physical Exam Vital Signs: Last Vital Signs Pulse 92 08/11/24 09:12 BP 116/70 08/11/24 09:12 BMI result Body Mass Index 31.0 Office Procedures Glucose Monitoring Details Details: See [facility] [id number] - Glucose monitoring, continuous-physician I&R Procedure code (CPT) selection complete Results Reviewed Results Reviewed: Laboratory Last Values Glucose (Clinic) 120 mg/dL (60-115) H 08/11/24 09:17 Laboratory Tests 08/06/24 08/06/24 08:05 08:10 Plt Count 266 Creatinine 0.75 Estimated GFR > 60 Hemoglobin A1c % 6.8 H AST 18 ALT 12 B-Natriuretic Peptide 14 Triglycerides 153 H Cholesterol 224 H LDL Cholesterol, Calc 146 H HDL Cholesterol 48 Urine Creatinine 364.56 Urine Microalbumin 157.0 Microalb/Creat Ratio 43.0 H Fib 4 value 1.07 Assessment & Plan Assessment & Plan (1) Insulin dependent type 2 diabetes mellitus: Code(s): E11.9 - Type 2 diabetes mellitus without complications; Z79.4 - rat exterminator (current) use of insulin Category: Medical (2) Hyperlipidemia: Code(s): E78.5 - Hyperlipidemia, unspecified Category: Medical Qualifiers: Hyperlipidemia type: pure hypercholesterolemia Qualified Code(s): E78.00 - Pure hypercholesterolemia, unspecified Plan In summary this is a 53 year old female with controlled insulin-dependent type 2 diabetes. She has microalbuminuria x1. We will repeat this in 3 months' time. Continue NAYANA inhibitor, Jardiance. Stressed the importance of glycemic and blood pressure control. Continue Tresiba 20 units nightly. Continue Mounjaro to 7.5 mg weekly. Continue Apidra 10 units before meals. Continue metformin extended release 2000 mg daily. Continue Jardiance 25 mg daily. Treatment of hypoglycemia reviewed with the patient. She has written instructions in Indian and Gibraltarian. Bring glucometer to all appointments. Hyperlipidemia-patient agreed to restart rosuvastatin. I explained the importance of this medication and reducing cardiovascular risk and hyperlipidemia. Recommended low-cholesterol diet. Follow up in 3 months for type 2 diabetes. She will have labs done prior to the next appointment. Orders: Orders AMB Glucose Monitoring Today E11.9 - Type 2 diabetes mellitus without complications Microalbumin, Random (w Creat) 3 Months E11.9 - Type 2 diabetes mellitus without complications, Z79.4 - senior living (current) use of insulin Lipid Panel 3 Months E11.9 - Type 2 diabetes mellitus without complications, E78.5 - Hyperlipidemia, unspecified, Z79.4 - rat exterminator (current) use of insulin Vitamin B12 3 Months E11.9 - Type 2 diabetes mellitus without complications, Z79.4 - rat exterminator (current) use of insulin, Z91.89 - Other specified personal risk factors, not elsewhere classified Basic Metabolic Panel 3 Months E11.9 - Type 2 diabetes mellitus without com plications, Z79.4 - rat exterminator (current) use of insulin Hemoglobin A1c 3 Months E11.9 - Type 2 diabetes mellitus without complications, Z79.4 - senior living (current) use of insulin Coding Level of Care Code Est Pt Level 4 (30690) Diagnoses Insulin dependent type 2 diabetes mellitus E11.9; Z79.4 Pure hypercholesterolemia E78.00 Hyperlipidemia type: pure hypercholesterolemia CPT Codes Details - CPT: 76111 - Glucose monitoring, continuous-physician I&R ([id number])
[2024-08-11 09:12] VITALS: BP 116/70; PULSE 92; BMI 31.0
[2024-08-11 09:21] LABS: Glucose, Whole Blood 120 mg/dL (60-115)
--- OUTSIDE RECORDS SUMMARY | 2024-08-11 09:32 | XMS_ITS | Clinical Summary ---
Author Organization [employer] Address [address] [place] [address] [address] [place] [address] Care Team Providers Care Slumber Room Attendant Name Role Phone Unavailable Primary Care Provider [...] patient's age to complete this topic Insurance [facility] [place] [address] [place] [address] * Guarantor: Amee Burroughs Account Type Relation to Patient Date of Phone Billing Address Personal/Family Self [address] [facility] [address] [place] [id number]
--- OUTSIDE RECORDS SUMMARY | 2024-08-11 09:32 | XMS_ITS | Encounter Summary ---
Author Organization [employer] [facility] Address [address] [place] [address] [address] [address] Care Team Providers Care Java Consultant Name Role Phone Unavailable Primary Care Provider Unavailabl e Encounter Details Date Type Department Care Team (Latest Contact Info) Description 08/08/2021 Abstract [facility] CONVERSIONS Dental, Provider, DDS Social History [...]
--- OUTSIDE RECORDS SUMMARY | 2024-08-11 09:32 | XMS_ITS | Clinical Summary ---
Author Organization [employer] it[facility] Address [address] [place] [address] Care Team Providers Care Social Service Assistant Name Role Phone Anisha Monroe MD Primary Care Provider [phone] Social History Tobacco Use Types Packs/Day Years [...] - 2023-2 5 season) 2023 Influenza Vaccine (Season Ended) 2024 HIB Vaccines Aged Out No longer eligi [...] age to complete this topic Care Teams Social Service Assistant Relationship Specialty Start Date End Date Anisha Monroe MD [address] [place] [address] PCP - General Internal Medicine 12/04/17
--- OUTSIDE RECORDS SUMMARY | 2024-08-11 09:32 | XMS_ITS | Encounter Summary ---
Author Organization [facility] Address [address] [place] [address] [address] [address] Care Team Providers Care Continuous Miner Operator Name Role Phone Unavailable Primary Care Provider Unavailabl e Encounter Details Date Type Department Care Team (Latest Contact Info) Description 08/08/2021 Abstract [facility] CONVERSIONS Dental, Provider, DDS Social [...]
== END 2024-08-11 09:42 | disposition home or self-care (01) ==
LOC: HO.ENCR 08:59
PROVIDERS: PCP Internal Medicine; Visit Provider Physician Assistant Medical
DX: E11.9 Type 2 diabetes mellitus without complications (principal); Z79.4 Long term (current) use of insulin; E78.00 Pure hypercholesterolemia, unspecified

== ENCOUNTER → 2024-08-11 08:56 | Outpatient (BNVA) | payer OTHER, SELFPAY | PROVIDERS: PCP Internal Medicine; Visit Provider Physician Assistant Medical | DX: E11.9 Type 2 diabetes mellitus without complications (principal); E78.00 Pure hypercholesterolemia, unspecified; I10 Essential (primary) hypertension; Z79.4 Long term (current) use of insulin | CPT/HCPCS: 82947; 99212 ==

== ENCOUNTER 2024-08-19 08:57 | Outpatient (AMB) | payer OTHER, SELFPAY ==
[2024-08-19 09:19] VITALS: BP 114/70; PULSE 91; RESP 18; TEMP 37; O2SAT 98; BMI 30.6
--- NOTE | 2024-08-19 09:19 | MHC.PC.OV ---
Vital Signs 08/19/24 09:19 Height 5 ft 4 in Weight 178 lb BMI 30.6 BP 114/70 Blood Pressure Location Rt brachial Position Sitting Respiration 18 Pulse 91 Pulse Source Pulse Oximeter Temp 98.6 F Temp Source Oral Pulse Oximetry (%) 98 Oxygen Delivery Method Room Air Intake Visit Reasons: 3 months f/up Intake Note: Pt is here today for 3 months follow up visit. Allergies atorvastatin Adverse Reaction (Intermediate, Verified 08/19/24 09:20) Depression Medication List - Last Reconciled 08/19/24 by Nichol Brown MD albuterol sulfate 90 mcg/actuation 2 puffs inhalation Q6H PRN blood-glucose sensor (DexBokee G7 Sensor device) apply new sensor every 10 days as directed blood-glucose,cash processor,cont (Dexcom G7 Phone Technician) As directed dextrose (TRUEplus Glucose) 15 grams (32 mL) PO Q15M PRN empagliflozin (Jardiance) 25 mg PO DAILY glucose (Dex4 Glucose) 16 grams (4 x 4 gram) PO Q15M PRN insulin degludec (Tresiba FlexTouch U-100 insulin) 16 units subcut BEDTIME insulin glulisine U-100 (Apidra SoloStar U-100 Insulin) subcutaneously 10 units 15 minutes prior to meals lancets (FreeStyle Lancets) tests 4 X/day lisinopril 10 mg PO DAILY metformin ER 2,000 mg (4 x 500 mg) PO DAILY 90 days Mounjaro (tirzepatide) 10 mg (0.5 mL) subcut QWEEK NS pantoprazole 40 mg PO QAM pen needle, diabetic (BD Yumiko 2nd Gen Pen Needle) DIRECTED INJECTS ONCE A DAY rosuvastatin (Crestor) 40 mg PO DAILY sennosides (Natural Senna Laxative) 17.2 mg (2 x 8.6 mg) PO BEDTIME Tobacco use date assessed: 08/19/24 Dental Screening Dental Screen Date: 05/05/24 HPI 3 months f/up HPI Details Patient presents for the follow-up of type 2 diabetes hypertension hyperlipidemia. Patient reports better controlled type 2 diabetes but having hypoglycemic episodes with fasting blood glucose down to 40s for the last month. She has been tolerating 7.5 mg of Mounjaro taking 20 units of Tresiba and Apidra 10 units before each meal. Patient denies hypoglycemia after meals. She has been trying to follow ADA diet. 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/hazards: Yes Cognitive needs: No Hearing needs: No Vision needs: No Female Reproductive History Menstrual Age of Menarche: 10 Questionnaire Thrive Questionnaire Date Thrive assessed: 05/05/24 I am a: Patient What is your living situation today?: I have a steady place to live Within the past 12 months, did the food you bought not last and you didn't have the money to get more?: I choose not to answer this question Within the past 12 months, did you worry whether your food would run out before you got money to buy more?: Often true Do you have trouble paying for medicines?: No Do you have trouble getting transportation to medical appointments?: No Do you have trouble paying your heating and electricity bill?: Yes Do you have trouble taking care of your child, family member or friend?: No Do you have trouble with day-to-day activities such as bathing, preparing meals, shopping, managing finances, etc.?: No Are you currently unemployed and looking for a job?: No Are you interested in more education?: No Currently or been in a relationship where the following occur: I choose not to answer THRIVE Score: 2 TYLER-7 AMB Questionnaire TYLER-7 Date TYLER - 7 assessed: 05/05/24 Source: Developed by Drs. Bertrand Baker, Julia B.W. Kemar Sears and colleagues, with an educational mariella from [employer]. Review of Systems Const All systems reviewed & are unremarkable except as noted in HPI and below Eyes Reports no additional complaints ENT Reports no additional complaints Card Reports no additional complaints Resp Reports no additional complaints GI Reports no additional complaints Reports no additional complaints Physical exam (Primary Care) Vital Signs: Last Vital Signs Temp 98.6 F 08/19/24 09:19 Pulse 91 08/19/24 09:19 Resp 18 08/19/24 09:19 BP 114/70 08/19/24 09:19 Pulse Ox 98 08/19/24 09:19 Oxygen Delivery Method Room Air 08/19/24 09:19 BMI result Body Mass Index 30.6 Tobacco/Smoking Status: Tobacco use Status Tobacco use date assessed 08/19/24 08/19/24 09:22 Patient Tobacco Use Status Never used Tobacco 08/19/24 09:22 e-Cigarette/Vaping Use Never Used 08/19/24 09:22 Thrive Assessment: Date of Thrive Assessment Date Thrive assessed 05/05/24 08/19/24 09:22 Currently or been in a relationship where the following occur: I choose not to answer Const General: no acute distress HENMT Head: Yes normal to inspection Ears: hearing grossly normal bilaterally Face and sinus: Yes normal facial exam Throat: Yes posterior oropharynx normal Neck Neck: Yes no lymphadenopathy and Yes supple Resp Effort & Inspection: normal respiratory effort Auscultation: clear to auscultation bilaterally Cardio Rhythm: regular rhythm Heart sounds: S1 normal heart sound present and S2 normal heart sound present GI Inspection: Yes normal to inspection Palpation (GI): Soft to palpation Percussion: Yes normal to percussion Auscultation: normal bowel sounds Coding Level of Care Code Est Pt Level 4 (10564) Diagnoses Insulin dependent type 2 diabetes mellitus E11.9; Z79.4 Pure hypercholesterolemia E78.00 Hyperlipidemia type: pure hypercholesterolemia Primary hypertension I10 Hypertension type: primary hypertension Assessment & Plan Assessment & Plan (1) Insulin dependent type 2 diabetes mellitus: Code(s): E11.9 - Type 2 diabetes mellitus without complications; Z79.4 - truck terminal manager (current) use of insulin Category: Medical Plan: A1c is down to 6.8. ADA diet regular physical activity discussed with the patient. Tresiba will be decreased to 16 units because of fasting hypoglycemia and Mounjaro will be increased to 10 mg weekly starting next week. Patient was advised to monitor her blood glucose 2 hours after meals. She will follow-up in 1 month (2) Hyperlipidemia: Code(s): E78.5 - Hyperlipidemia, unspecified Category: Medical Qualifiers: Hyperlipidemia type: pure hypercholesterolemia Qualified Code(s): E78.00 - Pure hypercholesterolemia, unspecified Plan: Patient was advised to restart Crestor (3) Hypertension: Code(s): I10 - Essential (primary) hypertension Category: Medical Qualifiers: Hypertension type: primary hypertension Qualified Code(s): I10 - Essential (primary) hypertension Plan: Continue current medications Medications: New Mounjaro (tirzepatide) 10 mg (0.5 mL) subcut QWEEK 2 mL 3RF NS Nichol Brown MD Changed From insulin degludec (Tresiba FlexTouch U-100 insulin) 20 units (0.2 mL) subcut BEDTIME 30 mL 5RF To insulin degludec (Tresiba FlexTouch U-100 insulin) 16 units subcut BEDTIME NASIR Chacko Discontinued blood sugar diagnostic (FreeStyle Lite Strips) Discontinued Reason: Doctor's Order DIRECTED - TWICE A DAY 100 strips 3RF E11.9 - Type 2 diabetes mellitus without complications blood sugar diagnostic (FreeStyle Lite Strips) Discontinued Reason: Doctor's Order As directed tests 4x/day 100 ea 5RF tirzepatide (Mounjaro) Discontinued Reason: Doctor's Order 7.5 mg (0.5 mL) subcut QWEEK 2 mL 1RF
--- OUTSIDE RECORDS SUMMARY | 2024-08-19 09:38 | XMS_ITS | Encounter Summary ---
Author Organization [employer] [facility] Address [address] [place] [address] [address] [address] Care Team Providers Care Channel Marketing Manager Name Role Phone Unavailable Primary Care Provider Unavailabl e Encounter Details Date Type Department Care Team (Latest Contact Info) Description 08/08/2021 Abstract [facility] CONVERSIONS Dental, Provider, DDS Social [...]
--- OUTSIDE RECORDS SUMMARY | 2024-08-19 09:38 | XMS_ITS | Clinical Summary ---
Author Organization [employer] Address [address] [place] [address] [address] [place] [address] Care Team Providers Care Collection Technician Name Role Phone Unavailable Primary Care Provider [...] patient's age to complete this topic Insurance [facility] [address] [place] [id number] * Guarantor: Amee Burroughs Account Type Relation to Patient Date of Phone Billing Address Personal/Family Self [address] [facility] [address] [place] [address] [id number]
--- OUTSIDE RECORDS SUMMARY | 2024-08-19 09:38 | XMS_ITS | Encounter Summary ---
Author Organization [employer] [facility] Address [address] [place] [address] [address] [address] Care Team Providers Care Research/Program Director Name Role Phone Unavailable Primary Care Provider Unavailabl e Encounter Details Date Type Department Care Team (Latest Contact Info) Description 08/08/2021 Abstract [facility] CONVERSIONS Dental, Provider, DDS Social History Tobacco [...]
--- OUTSIDE RECORDS SUMMARY | 2024-08-19 09:38 | XMS_ITS | Clinical Summary ---
Author Organization [facility] Address [address] [place] [address] Care Team Providers Care Clinical Education Manager Name Role Phone Anisha Monroe MD Primary Care Provider [phone] Social History Tobacco Use Types Packs/Day Years [...] age to complete this topic Care Teams Clinical Education Manager Relationship Specialty Start Date End Date Anisha Monroe MD [address] [place] [address] PCP - General Internal Medicine 12/04/17
== END 2024-08-19 10:27 | disposition home or self-care (01) ==
LOC: HO.HMCC 08:58
PROVIDERS: PCP Internal Medicine; Visit Provider Internal Medicine
DX: E11.9 Type 2 diabetes mellitus without complications (principal); Z79.4 Long term (current) use of insulin; E78.00 Pure hypercholesterolemia, unspecified; I10 Essential (primary) hypertension

== ENCOUNTER → 2024-08-19 08:57 | Outpatient (BNVA) | payer OTHER, SELFPAY | PROVIDERS: PCP Internal Medicine; Visit Provider Internal Medicine | DX: E11.9 Type 2 diabetes mellitus without complications (principal); E78.00 Pure hypercholesterolemia, unspecified; I10 Essential (primary) hypertension; Z79.4 Long term (current) use of insulin | CPT/HCPCS: 99212 ==

== ENCOUNTER 2024-09-25 10:25 | Outpatient (AMB) | payer OTHER, SELFPAY ==
[2024-09-25 10:26] VITALS: BP 98/68; PULSE 93; RESP 18; TEMP 36.9; O2SAT 99; BMI 29.5
--- NOTE | 2024-09-25 10:26 | MHC.PC.OV ---
Vital Signs 09/25/24 10:26 Height 5 ft 4 in Weight 172 lb BMI 29.5 BP 98/68 Blood Pressure Location Lt brachial Position Sitting Respiration 18 Pulse 93 Pulse Source Pulse Oximeter Temp 98.4 F Temp Source Oral Pulse Oximetry (%) 99 Oxygen Delivery Method Room Air Intake Visit Reasons: 1 months f/up Intake Note: Pt is here today for 1 month follow up visit. Allergies atorvastatin Adverse Reaction (Intermediate, Verified 09/25/24 10:28) Depression Medication List - Last Reconciled 09/25/24 by Nichol Brown MD albuterol sulfate 90 mcg/actuation 2 puffs inhalation Q6H PRN blood-glucose sensor (Dexuma information technology G7 Sensor device) apply new sensor every 10 days as directed blood-glucose,overhead foreman,cont (Dexcom G7 Middle School Band Teacher) As directed dextrose (TRUEplus Glucose) 15 grams (32 mL) PO Q15M PRN empagliflozin (Jardiance) 25 mg PO DAILY glucose (Dex4 Glucose) 16 grams (4 x 4 gram) PO Q15M PRN insulin degludec (Tresiba FlexTouch U-100 insulin) 16 units subcut BEDTIME insulin glulisine U-100 (Apidra SoloStar U-100 Insulin) subcutaneously 10 units 15 minutes prior to meals lancets (FreeStyle Lancets) tests 4 X/day lisinopril 5 mg PO DAILY metformin ER 2,000 mg (4 x 500 mg) PO DAILY 90 days Mounjaro (tirzepatide) 10 mg (0.5 mL) subcut QWEEK NS pantoprazole 40 mg PO QAM pen needle, diabetic (BD Yumiko 2nd Gen Pen Needle) DIRECTED INJECTS ONCE A DAY rosuvastatin (Crestor) 40 mg PO DAILY sennosides (Natural Senna Laxative) 17.2 mg (2 x 8.6 mg) PO BEDTIME Tobacco use date assessed: 08/19/24 Dental Screening Dental Screen Date: 05/05/24 HPI 1 months f/up HPI Details Patient presents for the follow-up. She reports a few episodes of lightheadedness when standing at work for long time in the last 2 weeks. She denies loss of consciousness, chest pain shortness or breath or palpitations. Patient denies recurrent hypoglycemia episodes since she lowered the dose of Tresiba. She reports high blood glucose readings up to 250 1-2 hours after dinner, which is her largest meal of the day. Patient has not been compliant taking rosuvastatin regularly. [facility] Medical History (Updated 09/25/24 @ 13:15 by Nichol Brown MD) Annual physical exam Hyperlipidemia Hypertension Insulin dependent type 2 diabetes mellitus Colon cancer screening Surgical History H/O hand surgery Hx of colonoscopy Hx of section H/O gastric sleeve H/O abdominal hysterectomy Family History Sister Breast CA Maternal Aunt Breast CA Social History Household Members: None Housing: Apartment Alcohol intake: current Alcohol intake frequency: holidays/special occasions only Patient Tobacco Use Status: Never used Tobacco e-Cigarette/Vaping Use: Never Used Second Hand Smoke Exposure: No service: No Current occupational status: employed 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/hazards: Yes Cognitive needs: No Hearing needs: No Vision needs: No Female Reproductive History Menstrual Age of Menarche: 10 Questionnaire Thrive Questionnaire Date Thrive assessed: 05/05/24 I am a: Patient What is your living situation today?: I have a steady place to live Within the past 12 months, did the food you bought not last and you didn't have the money to get more?: I choose not to answer this question Within the past 12 months, did you worry whether your food would run out before you got money to buy more?: Often true Do you have trouble paying for medicines?: No Do you have trouble getting transportation to medical appointments?: No Do you have trouble paying your heating and electricity bill?: Yes Do you have trouble taking care of your child, family member or friend?: No Do you have trouble with day-to-day activities such as bathing, preparing meals, shopping, managing finances, etc.?: No Are you currently unemployed and looking for a job?: No Are you interested in more education?: No Currently or been in a relationship where the following occur: I choose not to answer THRIVE Score: 2 TYLER-7 AMB Questionnaire TYLER-7 Date TYLER - 7 assessed: 05/05/24 Source: Developed by Drs. Bertrand Baker, Julia Sears, Kemar Talley and colleagues, with an educational mariella from [employer]. Review of Systems Const All systems reviewed & are unremarkable except as noted in HPI and below Eyes Reports no additional complaints ENT Reports no additional complaints Resp Reports no additional complaints GI Reports no additional complaints Reports no additional complaints Physical exam (Primary Care) Vital Signs: Last Vital Signs Temp 98.4 F 09/25/24 10:26 Pulse 93 09/25/24 10:26 Resp 18 09/25/24 10:26 BP 98/68 09/25/24 10:26 Pulse Ox 99 09/25/24 10:26 Oxygen Delivery Method Room Air 09/25/24 10:26 BMI result Body Mass Index 29.5 Tobacco/Smoking Status: Tobacco use Status Tobacco use date assessed 08/19/24 09/25/24 10:26 Patient Tobacco Use Status Never used Tobacco 09/25/24 10:26 e-Cigarette/Vaping Use Never Used 09/25/24 10:26 Thrive Assessment: Date of Thrive Assessment Date Thrive assessed 05/05/24 09/25/24 10:26 Currently or been in a relationship where the following occur: I choose not to answer Const General: no acute distress HENMT Head: Yes normal to inspection Face and sinus: Yes normal facial exam Throat: Yes posterior oropharynx normal Neck Neck: Yes supple Resp Effort & Inspection: normal respiratory effort Auscultation: clear to auscultation bilaterally Cardio Rhythm: regular rhythm Heart sounds: S1 normal heart sound present and S2 normal heart sound present Coding Level of Care Code Est Pt Level 4 (73280) Diagnoses Primary hypertension I10 Hypertension type: primary hypertension Pure hypercholesterolemia E78.00 Hyperlipidemia type: pure hypercholesterolemia Insulin dependent type 2 diabetes mellitus E11.9; Z79.4 Assessment & Plan Assessment & Plan (1) Hypertension: Code(s): I10 - Essential (primary) hypertension Category: Medical Qualifiers: Hypertension type: primary hypertension Qualified Code(s): I10 - Essential (primary) hypertension Plan: Blood pressure is low and patient has episodes of lightheadedness. Lisinopril will be decreased to 5 mg q.h.s.. Patient will follow-up in 1 month (2) Hyperlipidemia: Code(s): E78.5 - Hyperlipidemia, unspecified Category: Medical Qualifiers: Hyperlipidemia type: pure hypercholesterolemia Qualified Code(s): E78.00 - Pure hypercholesterolemia, unspecified Plan: Medication compliance discussed with the patient. She will restart Crestor and have lipid profile in 1 (3) Insulin dependent type 2 diabetes mellitus: Code(s): E11.9 - Type 2 diabetes mellitus without complications; Z79.4 - correction (current) use of insulin Category: Medical Plan: Continue current medications including metformin Jardiance Mounjaro Tresiba and Apidra. She was advised to increase Apidra from 10-14 units before dinner and continue to monitor her blood glucose regularly Orders: Orders Hemoglobin A1c 1 Month E11.9 - Type 2 diabetes mellitus without complications, E78.00 - Pure hypercholesterolemia, unspecified, I10 - Essential (primary) hypertension, Z79.4 - correction (current) use of insulin Comprehensive [place]. Panel Fast 1 Month E11.9 - Type 2 diabetes mellitus without complications, E78.00 - Pure hypercholesterolemia, unspecified, I10 - Essential (primary) hypertension, Z79.4 - termite control technician (current) use of insulin Lipid Panel 1 Month E11.9 - Type 2 diabetes mellitus without complications, E78.00 - Pure hypercholesterolemia, unspecified, I10 - Essential (primary) hypertension, Z79.4 - correction (current) use of insulin Microalbumin, Random (w Creat) 1 Month E11.9 - Type 2 diabetes mellitus without complications, E78.00 - Pure hypercholesterolemia, unspecified, I10 - Essential (primary) hypertension, Z79.4 - correction (current) use of insulin Medications: New lisinopril 5 mg PO DAILY 90 tabs 0RF Discontinued lisinopril Discontinued Reason: Doctor's Order 10 mg PO DAILY 90 tabs 1RF
--- OUTSIDE RECORDS SUMMARY | 2024-09-25 11:06 | XMS_ITS | Clinical Summary ---
Author Organization [facility] Address [address] [place] [address] Care Team Providers Care Syrup Machine Laborer Name Role Phone Anisha Monroe MD Primary Care Provider [phone] Social History Tobacco Use Types Packs/Day Years [...] age to complete this topic Care Teams Syrup Machine Laborer Relationship Specialty Start Date End Date Anisha Monroe MD [address] [place] [address] PCP - General Internal Medicine 12/04/17
== END 2024-09-25 11:13 | disposition home or self-care (01) ==
LOC: HO.HMCC 10:25
PROVIDERS: PCP Internal Medicine; Visit Provider Internal Medicine
DX: I10 Essential (primary) hypertension (principal); E78.00 Pure hypercholesterolemia, unspecified; E11.9 Type 2 diabetes mellitus without complications; Z79.4 Long term (current) use of insulin

== ENCOUNTER → 2024-09-25 10:25 | Outpatient (BNVA) | payer OTHER, SELFPAY | PROVIDERS: PCP Internal Medicine; Visit Provider Internal Medicine | DX: I10 Essential (primary) hypertension (principal); E78.5 Hyperlipidemia, unspecified; E11.9 Type 2 diabetes mellitus without complications; Z79.4 Long term (current) use of insulin; Z79.84 Long term (current) use of oral hypoglycemic drugs; Z79.85 Long-term (current) use of injectable non-insulin antidiabetic drugs; Z79.899 Other long term (current) drug therapy | CPT/HCPCS: 99212 ==

== ENCOUNTER 2024-10-13 06:38 | Outpatient (REF) | payer OTHER, SELFPAY ==
[2024-10-13 10:29] LABS: Platelet Count 243 X10*3/uL (160-400)
[2024-10-13 10:53] LABS: Alanine Aminotransferase 13 U/L (0-31); Aspartate Amino Transferase 22 U/L (5-31); Cholesterol 162 mg/dL (<200); HDL Cholesterol 46 mg/dL (>40); LDL Cholesterol Calculated 91 mg/dL (<100); Triglycerides 126 mg/dL (<150)
[2024-10-13 10:54] LABS: Alanine Aminotransferase 17 U/L (0-31); Albumin Level 4.2 g/dL (3.5-5.0); Alkaline Phosphatase 95 U/L (39-117); Anion Gap 11 (12-20); Aspartate Amino Transferase 20 U/L (5-31); Bilirubin Total 0.5 mg/dL (0.0-1.0); Blood Urea Nitrogen 26 mg/dL (9-16); Calcium 9.6 mg/dL (8.4-10.2); Carbon Dioxide 26 mmol/L (22-29); Chloride 108 mmol/L (96-108); Cholesterol 162 mg/dL (<200); Estimated Glomerular Filt Rate > 60; Glucose Fasting 146 mg/dL (60-99); HDL Cholesterol 46 mg/dL (>40); LDL Cholesterol Calculated 92 mg/dL (<100); Potassium 3.8 mmol/L (3.3-5.1); Sodium 141 mmol/L (135-145); Total Protein 7.7 g/dL (6.5-8.0); Triglycerides 124 mg/dL (<150)
[2024-10-13 10:57] LABS: Estimated Average Glucose 148 mg/dL; Hemoglobin A1c % 6.8 % (<6.0)
[2024-10-13 11:11] LABS: Microalbum/Creatinine Ratio Ur 84.1 ug/mg cr (<30)
== END 2024-10-13 06:39 | disposition home or self-care (01) ==
LOC: HO.HMGCLDS 06:38
PROVIDERS: Physician Assistant Medical; PCP Internal Medicine; Visit Provider Internal Medicine
DX: E11.9 Type 2 diabetes mellitus without complications (principal); E78.5 Hyperlipidemia, unspecified; Z79.4 Long term (current) use of insulin; E78.00 Pure hypercholesterolemia, unspecified; I10 Essential (primary) hypertension
CPT/HCPCS: 36415; 80053; 80061; 82043; 82570; 83036; 84450; 84460; 85049

== ENCOUNTER 2024-10-21 09:01 | Outpatient (AMB) | payer OTHER, SELFPAY ==
[2024-10-21 09:12] VITALS: BP 108/70; PULSE 101; RESP 18; TEMP 36.9; O2SAT 97; BMI 28.3
--- NOTE | 2024-10-21 09:12 | MHC.PC.OV ---
Vital Signs 10/21/24 09:12 Height 5 ft 4 in Weight 165 lb BMI 28.3 BP 108/70 Blood Pressure Location Rt brachial Position Sitting Respiration 18 Pulse 101 H Pulse Source Pulse Oximeter Temp 98.5 F Temp Source Oral Pulse Oximetry (%) 97 Oxygen Delivery Method Room Air Intake Visit Reasons: 1 months f/up Intake Note: Pt is here today for 1 month follow up visit. Allergies atorvastatin Adverse Reaction (Intermediate, Verified 10/21/24 09:13) Depression Medication List - Last Reconciled 10/21/24 by Nichol Brown MD albuterol sulfate 90 mcg/actuation 2 puffs inhalation Q6H PRN blood-glucose sensor ([employer] G7 Sensor device) apply new sensor every 10 days as directed blood-glucose,multiple drum sander,cont (Dexcom G7 Balloon Maker) As directed dextrose (TRUEplus Glucose) 15 grams (32 mL) PO Q15M PRN empagliflozin (Jardiance) 25 mg PO DAILY glucose (Dex4 Glucose) 16 grams (4 x 4 gram) PO Q15M PRN insulin degludec (Tresiba FlexTouch U-100 insulin) 16 units subcut BEDTIME insulin glulisine U-100 (Apidra SoloStar U-100 Insulin) subcutaneously 10 units 15 minutes prior to meals lancets (FreeStyle Lancets) tests 4 X/day lisinopril 5 mg PO DAILY metformin ER 2,000 mg (4 x 500 mg) PO DAILY 90 days Mounjaro (tirzepatide) 7.5 mg (0.5 mL) subcut QWEEK NS pantoprazole 40 mg PO QAM pen needle, diabetic (BD Yumiko 2nd Gen Pen Needle) DIRECTED INJECTS ONCE A DAY rosuvastatin (Crestor) 40 mg PO DAILY sennosides (Natural Senna Laxative) 17.2 mg (2 x 8.6 mg) PO BEDTIME Tobacco use date assessed: 10/21/24 Dental Screening Dental Screen Date: 05/05/24 HPI 1 months f/up HPI Details Patient presents for the follow-up of type 2 diabetes hyperlipidemia. Patient has not been tolerating 10 mg of Mounjaro well. She complains of nausea, decreased appetite skipping meals and feeling tired. Patient reports fluctuation in the blood glucose usually around 140 in the mornings but patient has frequent hypoglycemia when she skip a meal. She has been drinking orange juice to treat low blood glucose. Patient has struggles with the ADA diet and has not been eating enough protein. She has an appointment with endocrinology next month and could benefit from nutritional consultation and teaching. [facility] Medical History (Updated 10/21/24 @ 10:10 by Nichol Brown MD) Diabetes mellitus with nephropathy Annual physical exam Hyperlipidemia Insulin dependent type 2 diabetes mellitus Surgical History H/O hand surgery Hx of colonoscopy Hx of section H/O gastric sleeve H/O abdominal hysterectomy Family History Sister Breast CA Maternal Aunt Breast CA Social History Household Members: None Housing: Apartment Alcohol intake: current Alcohol intake frequency: holidays/special occasions only Patient Tobacco Use Status: Never used Tobacco e-Cigarette/Vaping Use: Never Used Second Hand Smoke Exposure: No service: No Current occupational status: employed 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/hazards: Yes Cognitive needs: No Hearing needs: No Vision needs: No Female Reproductive History Menstrual Age of Menarche: 10 Questionnaire Thrive Questionnaire Date Thrive assessed: 05/05/24 I am a: Patient What is your living situation today?: I have a steady place to live Within the past 12 months, did the food you bought not last and you didn't have the money to get more?: I choose not to answer this question Within the past 12 months, did you worry whether your food would run out before you got money to buy more?: Often true Do you have trouble paying for medicines?: No Do you have trouble getting transportation to medical appointments?: No Do you have trouble paying your heating and electricity bill?: Yes Do you have trouble taking care of your child, family member or friend?: No Do you have trouble with day-to-day activities such as bathing, preparing meals, shopping, managing finances, etc.?: No Are you currently unemployed and looking for a job?: No Are you interested in more education?: No Currently or been in a relationship where the following occur: I choose not to answer THRIVE Score: 2 TYLER-7 AMB Questionnaire TYLER-7 Date TYLER - 7 assessed: 05/05/24 Source: Developed by Drs. Bertrand Baker, Julia Sears, Kemar Talley and colleagues, with an educational mariella from [employer]. Review of Systems Const All systems reviewed & are unremarkable except as noted in HPI and below Eyes Reports no additional complaints ENT Reports no additional complaints Card Reports no additional complaints Resp Reports no additional complaints GI Reports no additional complaints Reports no additional complaints Physical exam (Primary Care) Vital Signs: Last Vital Signs Temp 98.5 F 10/21/24 09:12 Pulse 101 H 10/21/24 09:12 Resp 18 10/21/24 09:12 BP 108/70 10/21/24 09:12 Pulse Ox 97 10/21/24 09:12 Oxygen Delivery Method Room Air 10/21/24 09:12 BMI result Body Mass Index 28.3 Tobacco/Smoking Status: Tobacco use Status Tobacco use date assessed 10/21/24 10/21/24 09:13 Patient Tobacco Use Status Never used Tobacco 10/21/24 09:13 e-Cigarette/Vaping Use Never Used 10/21/24 09:13 Thrive Assessment: Date of Thrive Assessment Date Thrive assessed 05/05/24 10/21/24 09:13 Currently or been in a relationship where the following occur: I choose not to answer Const General: no acute distress HENMT Head: Yes normal to inspection Eyes General: appearance normal, both eyes and all related structures Neck Neck: Yes supple Resp Effort & Inspection: normal respiratory effort Auscultation: clear to auscultation bilaterally Cardio Rhythm: regular rhythm Heart sounds: S1 normal heart sound present and S2 normal heart sound present GI Inspection: Yes normal to inspection Palpation (GI): Soft to palpation Percussion: Yes normal to percussion Auscultation: normal bowel sounds Coding Level of Care Code Est Pt Level 4 (44794) Complex EM visit Add On G2211 Diagnoses Insulin dependent type 2 diabetes mellitus E11.9; Z79.4 Pure hypercholesterolemia E78.00 Hyperlipidemia type: pure hypercholesterolemia Diabetes mellitus with nephropathy E11.21 Assessment & Plan Assessment & Plan (1) Insulin dependent type 2 diabetes mellitus: Code(s): E11.9 - Type 2 diabetes mellitus without complications; Z79.4 - prison (current) use of insulin Category: Medical Plan: A1c is 6.8. Mounjaro will be decreased to 7.5 mg . patient will continue the rest of her medications. ADA diet, eating small frequent meals at least 3 day and snacks in between, adding protein to each meal and avoidance of highly processed foods discussed with the patient. She could benefit from additional nutritional consultation (2) Hyperlipidemia: Code(s): E78.5 - Hyperlipidemia, unspecified Category: Medical Qualifiers: Hyperlipidemia type: pure hypercholesterolemia Qualified Code(s): E78.00 - Pure hypercholesterolemia, unspecified Plan: Continue statin (3) Diabetes mellitus with nephropathy: Comment: On NAYANA inhibitor Code(s): E11.21 - Type 2 diabetes mellitus with diabetic nephropathy Category: Medical Plan: Continue lisinopril. Orders: Orders Comprehensive [place]. Panel Fast 3 Months E11.9 - Type 2 diabetes mellitus without complications, E78.00 - Pure hypercholesterolemia, unspecified, I10 - Essential (primary) hypertension, Z79.4 - prison (current) use of insulin Hemoglobin A1c 3 Months E11.9 - Type 2 diabetes mellitus without complications, E78.00 - Pure hypercholesterolemia, unspecified, I10 - Essential (primary) hypertension, Z79.4 - emt intermediate (current) use of insulin Complete Blood Count Auto Diff 3 Months E11.9 - Type 2 diabetes mellitus without complications, E78.00 - Pure hypercholesterolemia, unspecified, I10 - Essential (primary) hypertension, Z79.4 - emt intermediate (current) use of insulin Microalbumin, Random (w Creat) 3 Months E11.9 - Type 2 diabetes mellitus without complications, E78.00 - Pure hypercholesterolemia, unspecified, I10 - Essential (primary) hypertension, Z79.4 - emt intermediate (current) use of insulin Medications: New Mounjaro (tirzepatide) 7.5 mg (0.5 mL) subcut QWEEK 6 mL 3RF NS Discontinued Mounjaro (tirzepatide) Discontinued Reason: Doctor's Order 10 mg (0.5 mL) subcut QWEEK 2 mL 3RF NS
--- OUTSIDE RECORDS SUMMARY | 2024-10-21 09:43 | XMS_ITS | Clinical Summary ---
Author Organization [facility] Address [address] [place] [address] Care Team Providers Care Compacting Machine Operator/Tender Name Role Phone Anisha Monroe MD Primary Care Provider [phone] Social History Tobacco Use Types Packs/Day Years [...] age to complete this topic Care Teams Compacting Machine Operator/Tender Relationship Specialty Start Date End Date Anisha Monroe MD [address] [place] [address] PCP - General Internal Medicine 12/04/17
== END 2024-10-21 09:59 | disposition home or self-care (01) ==
LOC: HO.HMCC 09:02
PROVIDERS: PCP Internal Medicine; Visit Provider Internal Medicine
DX: E11.21 Type 2 diabetes mellitus with diabetic nephropathy (principal); Z79.4 Long term (current) use of insulin; E78.00 Pure hypercholesterolemia, unspecified

== ENCOUNTER → 2024-10-21 09:01 | Outpatient (BNVA) | payer OTHER, SELFPAY | PROVIDERS: PCP Internal Medicine; Visit Provider Internal Medicine | DX: E11.21 Type 2 diabetes mellitus with diabetic nephropathy (principal); E78.00 Pure hypercholesterolemia, unspecified; I10 Essential (primary) hypertension; Z79.4 Long term (current) use of insulin | CPT/HCPCS: 99212 ==

== ENCOUNTER 2024-11-10 08:58 | Outpatient (AMB) | payer OTHER, SELFPAY ==
--- NOTE | 2024-11-10 09:02 | MHC.OFFVIS ---
Vital Signs 11/10/24 09:17 Height 5 ft 4 in Weight 168 lb 3.403 oz BMI 28.9 BP 142/82 H Blood Pressure Location Rt brachial Position Sitting Pulse 91 Pulse Source Pulse Oximeter Pulse Oximetry (%) 98 Oxygen Delivery Method Room Air Intake Visit Reasons: Type II diabetes Intake Note: Patient present today to follow up on Type 2 Diabetes Mellitus. Last Diabetic Eye exam: 12/2023 Last Podiatry Visit: Does not see a Farm Or Ranch Animal Caretaker Random Glucose: 190 mg/dl HgA1C: 6.8% 10/13/2024 Fish Header Required: Yes Fish Header Language: Steam Plant Control Room Operator Services: Fish Header Present Fish Header Name: [facility] [place] [facility] Information Interpreted: non-clinical & clinical Accompanied by: Self / Same As Patient Allergies atorvastatin Adverse Reaction (Intermediate, Verified 11/10/24 09:18) Depression Medication List - Last Reconciled 11/10/24 by NASIR Chacko albuterol sulfate 90 mcg/actuation 2 puffs inhalation Q6H PRN blood-glucose sensor (Dexcom G7 Sensor device) apply new sensor every 10 days as directed blood-glucose,dice maker,cont (Dexcom G7 Ear Nose Throat Physician) As directed dextrose (TRUEplus Glucose) 15 grams (32 mL) PO Q15M PRN empagliflozin (Jardiance) 25 mg PO DAILY glucose (Dex4 Glucose) 16 grams (4 x 4 gram) PO Q15M PRN insulin degludec (Tresiba FlexTouch U-100 insulin) 16 units subcut BEDTIME insulin glulisine U-100 (Apidra SoloStar U-100 Insulin) subcutaneously 10 units 15 minutes prior to meals lancets (FreeStyle Lancets) tests 4 X/day lisinopril 5 mg PO DAILY metformin ER 2,000 mg (4 x 500 mg) PO DAILY 90 days pantoprazole 40 mg PO QAM pen needle, diabetic (BD Yumiko 2nd Gen Pen Needle) DIRECTED INJECTS ONCE A DAY rosuvastatin (Crestor) 40 mg PO DAILY sennosides (Natural Senna Laxative) 17.2 mg (2 x 8.6 mg) PO BEDTIME tirzepatide (Mounjaro) 5 mg (0.5 mL) subcut QWEEK HPI Comments Details: This is a 53-year-old female with a past medical history of insulin-dependent type 2 diabetes, hyperlipidemia and hypertension presenting for diabetic management. court interpreter present. Reviewed Dexcom download October 28 to November 10 G AR 8.3% 26% very high 31% high 43% in range 0% hypoglycemia She has a pattern of hyperglycemia during the day with better blood sugars overnight. Her POC is 190 today, but Dexcom reading is 239. Hemoglobin A1c 6.8% 10/13/2024. Current medication regimen: Mounjaro 7.5 mg weekly, metformin ER 2000 mg daily, Apidra 10 units before meals, Tresiba 16 units daily, Jardiance 25 mg daily. Compliance issues: None She endorses vomiting for 1-4 days after injection of Mounjaro. Sometimes she has a mild abdominal pain associated with this. She denies hematemesis, fevers, chills or current abdominal pain. Past medications: Ozempic ineffective and tried Trulicity in the past Hypoglycemia symptoms: No episodes. Hyperglycemia symptoms: none [facility]: [facility] Microvascular complications: Nephropathy (microalbuminuria) and OU retinopathy and macular edema Macrovascular complications: none Hypertension: treated with lisinopril 5 mg. Her blood pressure is elevated today. Hyperlipidemia: Treated with 40 mg rosuvastatin. Intolerant to atorvastatin. ROS: Constitutional: No unexplained weight loss, fever, chills, fatigue or night sweats. Eyes: No vision changes Respiratory: No shortness of breath Cardiovascular: No chest pain Gastrointestinal: See HPI Endocrine: No cold or heat intolerance. No polyuria or polydipsia. Physical exam: Constitutional: Alert, in no distress. Eyes: Pupils are equal, round and reactive to light. Extraocular muscles intact. Neck: Supple, Full range of motion. No lymphadenopathy. Respiratory: Clear to auscultation. Cardiovascular: S1 S2 regular. No murmurs. [facility] Medical History (Updated 11/10/24 @ 09:59 by NASIR Chacko) Essential hypertension Diabetes mellitus with nephropathy Annual physical exam Hyperlipidemia Insulin dependent type 2 diabetes mellitus Surgical History H/O hand surgery Hx of colonoscopy Hx of section H/O gastric sleeve H/O abdominal hysterectomy Family History Sister Breast CA Maternal Aunt Breast CA Social History Household Members: None Housing: Apartment Alcohol intake: current Alcohol intake frequency: holidays/special occasions only Patient Tobacco Use Status: Never used Tobacco e-Cigarette/Vaping Use: Never Used Second Hand Smoke Exposure: No service: No Current occupational status: employed 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/hazards: Yes Cognitive needs: No Hearing needs: No Vision needs: No Female Reproductive History Menstrual Age of Menarche: 10 Physical Exam Vital Signs: Last Vital Signs Pulse 91 11/10/24 09:17 BP 142/82 H 11/10/24 09:17 Pulse Ox 98 11/10/24 09:17 Oxygen Delivery Method Room Air 11/10/24 09:17 BMI result Body Mass Index 28.9 Office Procedures Glucose Monitoring Details Details: See [facility] [address] - Glucose monitoring, continuous-physician I&R Procedure code (CPT) selection complete Results Reviewed Results Reviewed: Laboratory Last Values Glucose (Clinic) 190 mg/dL (60-115) H 11/10/24 09:22 Laboratory Tests 10/13/24 10/13/24 07:08 07:15 Plt Count 243 Creatinine 0.86 Estimated GFR > 60 Hemoglobin A1c % 6.8 H Total Bilirubin 0.5 AST 22 Triglycerides 126 Cholesterol 162 LDL Cholesterol, Calc 91 HDL Cholesterol 46 Urine Creatinine 517.99 Urine Microalbumin 436.0 Microalb/Creat Ratio 84.1 H Assessment & Plan Assessment & Plan (1) Insulin dependent type 2 diabetes mellitus: Code(s): E11.9 - Type 2 diabetes mellitus without complications; Z79.4 - joint terminal attack controller (current) use of insulin Category: Medical (2) Hyperlipidemia: Code(s): E78.5 - Hyperlipidemia, unspecified Category: Medical Qualifiers: Hyperlipidemia type: pure hypercholesterolemia Qualified Code(s): E78.00 - Pure hypercholesterolemia, unspecified (3) Essential hypertension: Code(s): I10 - Essential (primary) hypertension Category: Medical Plan In summary this is a 53 year old female with controlled insulin-dependent type 2 diabetes with complications. We reviewed her complications and other risks associated with diabetes. Continue Tresiba 16 units nightly. Reduce Mounjaro to 5 mg weekly due to vomiting reported with the medication. If she has continued symptoms she was instructed to call the office. Continue Apidra 10 units before meals. Continue metformin extended release 2000 mg daily. Continue Jardiance 25 mg daily. Treatment of hypoglycemia reviewed with the patient. She has written instructions. Bring glucometer to all appointments. Hyperlipidemia - continue rosuvastatin. I explained the importance of this medication and reducing cardiovascular risk and hyperlipidemia. Recommended low-cholesterol diet. Her blood pressure is mildly elevated today. She will continue lisinopril and recheck this at her follow up in a month. I will increase the dose to 10 mg if her blood pressure is still elevated. Follow up in 1 month for type 2 diabetes. Orders: Orders AMB Glucose Monitoring Today E11.9 - Type 2 diabetes mellitus without complications Medications: New insulin glulisine U-100 (Apidra SoloStar U-100 Insulin) subcutaneously 10 units 15 minutes prior to meals 15 mL 5RF tirzepatide (Mounjaro) 5 mg (0.5 mL) subcut QWEEK 2 mL 3RF Discontinued Mounjaro (tirzepatide) Discontinued Reason: Doctor's Order 7.5 mg (0.5 mL) subcut QWEEK 6 mL 3RF NS Coding Level of Care Code Est Pt Level 4 (71577) Diagnoses Insulin dependent type 2 diabetes mellitus E11.9; Z79.4 Pure hypercholesterolemia E78.00 Hyperlipidemia type: pure hypercholesterolemia Essential hypertension I10 CPT Codes Details - CPT: 18744 - Glucose monitoring, continuous-physician I&R ([id number])
--- OUTSIDE RECORDS SUMMARY | 2024-11-10 09:16 | XMS_ITS | Clinical Summary ---
Author Organization [facility] [facility] ity Address [address] [place] [address] Care Team Providers Care Surgical Clinical Reviewer Name Role Phone Anisha Monroe MD Primary Care Provider [phone] Social History Tobacco Use Types Packs/Day Years [...] 2023-2 5 season) 2023 Influenza Vaccine (#1) 2024 HIB Vaccines Aged Out No longer [...] age to complete this topic Care Teams Surgical Clinical Reviewer Relationship Specialty Start Date End Date Anisha Monroe MD [address] [place] [address] PCP - General Internal Medicine 12/04/17
--- OUTSIDE RECORDS SUMMARY | 2024-11-10 09:16 | XMS_ITS | Encounter Summary ---
Author Organization [facility] Address [address] [place] [address] [address] [address] Care Team Providers Care Beam Department Supervisor Name Role Phone Unavailable Primary Care Provider Unavailabl e Encounter Details Date Type Department Care Team (Latest Contact Info) Description 08/08/2021 Abstract [facility] CONVERSIONS Dental, Provider, DDS Social History [...]
[2024-11-10 09:17] VITALS: BP 142/82; PULSE 91; O2SAT 98; BMI 28.9
[2024-11-10 09:27] LABS: Glucose, Whole Blood 190 mg/dL (60-115)
== END 2024-11-10 09:56 | disposition home or self-care (01) ==
LOC: HO.ENCR 08:59
PROVIDERS: PCP Internal Medicine; Visit Provider Physician Assistant Medical
DX: E11.9 Type 2 diabetes mellitus without complications (principal); Z79.4 Long term (current) use of insulin; E78.00 Pure hypercholesterolemia, unspecified; I10 Essential (primary) hypertension

== ENCOUNTER → 2024-11-10 08:58 | Outpatient (BNVA) | payer OTHER, SELFPAY | PROVIDERS: PCP Internal Medicine; Visit Provider Physician Assistant Medical | DX: E11.9 Type 2 diabetes mellitus without complications (principal); Z79.4 Long term (current) use of insulin; I10 Essential (primary) hypertension | CPT/HCPCS: 82947; 99212 ==

== ENCOUNTER 2024-12-15 09:42 | Outpatient (AMB) | payer OTHER, SELFPAY ==
[2024-12-15 09:45] VITALS: BP 122/80; PULSE 81; O2SAT 96; BMI 28.0
--- NOTE | 2024-12-15 09:45 | A.OFFVIS_ITS ---
Vital Signs 12/15/24 09:45 Height 5 ft 4 in Weight 163 lb 2.273 oz BMI 28.0 BP 122/80 Blood Pressure Location Rt brachial Position Sitting Pulse 81 Pulse Source Pulse Oximeter Pulse Oximetry (%) 96 Oxygen Delivery Method Room Air Intake Visit Reasons: Type II diabetes Intake Note: Patient present today to follow up on Type 2 Diabetes Mellitus. Patient receives Decom G7 supplies through: [email or web address] Last Diabetic Eye exam: Dec 2023 Last Podiatry Visit: Does not see a Decorating Consultant Most Recent HgA1C: 6.8%, 10/13/2024 Random Glucose: 163 mg/dL Exchange Underwriting Consultant Required: Yes Exchange Underwriting Consultant Language: Motor Polarizer Services: Exchange Underwriting Consultant Present Exchange Underwriting Consultant Name: [facility] [facility] Information Interpreted: non-clinical & clinical Accompanied by: Self / Same As Patient Allergies atorvastatin Adverse Reaction (Intermediate, Verified 12/15/24 09:47) Depression Medication List - Last Reconciled 12/15/24 by NASIR Chacko albuterol sulfate 90 mcg/actuation 2 puffs inhalation Q6H PRN blood-glucose sensor (Dexcom G7 Sensor device) apply new sensor every 10 days as directed blood-glucose,youth program director,cont (Dexcom G7 Teacher Home Therapy) As directed dextrose (TRUEplus Glucose) 15 grams (32 mL) PO Q15M PRN empagliflozin (Jardiance) 25 mg PO DAILY glucose (Dex4 Glucose) 16 grams (4 x 4 gram) PO Q15M PRN insulin degludec (Tresiba FlexTouch U-100 insulin) 16 units subcut BEDTIME insulin glulisine U-100 (Apidra SoloStar U-100 Insulin) subcutaneously 12 units with breakfast and lunch and 10 units with dinner, 15 minutes prior to meals lancets (FreeStyle Lancets) tests 4 X/day lisinopril 5 mg PO DAILY metformin ER 2,000 mg (4 x 500 mg) PO DAILY 90 days pantoprazole 40 mg PO QAM pen needle, diabetic (BD Yumkio 2nd Gen Pen Needle) DIRECTED INJECTS ONCE A DAY rosuvastatin (Crestor) 40 mg PO DAILY sennosides (Natural Senna Laxative) 17.2 mg (2 x 8.6 mg) PO BEDTIME tirzepatide (Mounjaro) 5 mg (0.5 mL) subcut QWEEK HPI Comments Details: This is a 53-year-old female with a past medical history of insulin-dependent type 2 diabetes, hyperlipidemia and hypertension presenting for diabetic management. spanish interpreter/translator present. Reviewed Dexcom data for the past 10 days G PA 7.7% Average glucose 184 Very high 14% High 31% In range 55% Low 0% She has a pattern of postprandial hyperglycemia during the day. Hemoglobin A1c 6.8% 10/13/2024. Current medication regimen: Mounjaro 5 mg weekly, metformin ER 2000 mg daily, Apidra 10 units before meals, Tresiba 16 units daily, Jardiance 25 mg daily. Compliance issues: None Mounjaro was reduced at her last visit due to report of vomiting for 1-4 days on higher dosage. Patient says she is doing a lot better on this dose. She administers it in the morning. Sometimes still having vomiting the day after injection. Past medications: Ozempic ineffective and tried Trulicity in the past Hypoglycemia symptoms: No episodes. Hyperglycemia symptoms: none [facility]: [facility] Microvascular complications: Nephropathy (microalbuminuria) and OU retinopathy and macular edema Macrovascular complications: none Hypertension: treated with lisinopril 5 mg. Normotensive today. Hyperlipidemia: Treated with 40 mg rosuvastatin. Intolerant to atorvastatin. ROS: Constitutional: No unexplained weight loss, fever, chills, fatigue or night sweats. Eyes: No vision changes Respiratory: No shortness of breath Cardiovascular: No chest pain Gastrointestinal: See HPI Endocrine: No cold or heat intolerance. No polyuria or polydipsia. Physical exam: Constitutional: Alert, in no distress. Eyes: Pupils are equal, round and reactive to light. Extraocular muscles intact. Neck: Supple, Full range of motion. No lymphadenopathy. Respiratory: Clear to auscultation. Cardiovascular: S1 S2 regular. No murmurs. [facility] Medical History (Updated 11/10/24 @ 09:59 by NASIR Chacko) Essential hypertension Diabetes mellitus with nephropathy Annual physical exam Hyperlipidemia Insulin dependent type 2 diabetes mellitus Surgical History H/O hand surgery Hx of colonoscopy Hx of section H/O gastric sleeve H/O abdominal hysterectomy Family History Sister Breast CA Maternal Aunt Breast CA Social History Household Members: None Housing: Apartment Alcohol intake: current Alcohol intake frequency: holidays/special occasions only Patient Tobacco Use Status: Never used Tobacco e-Cigarette/Vaping Use: Never Used Second Hand Smoke Exposure: No service: No Current occupational status: employed 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/hazards: Yes Cognitive needs: No Hearing needs: No Vision needs: No Female Reproductive History Menstrual Age of Menarche: 10 Physical Exam Vital Signs: Last Vital Signs Pulse 81 12/15/24 09:45 BP 122/80 12/15/24 09:45 Pulse Ox 96 12/15/24 09:45 Oxygen Delivery Method Room Air 12/15/24 09:45 BMI result Body Mass Index 28.0 Office Procedures Glucose Monitoring Details Details: See HPI 85051 - Glucose monitoring, continuous-physician I&R Procedure code (CPT) selection complete Results Reviewed Results Reviewed: Laboratory Last Values Glucose (Clinic) 169 mg/dL (60-115) H 12/15/24 09:52 Laboratory Tests 10/13/24 10/13/24 07:08 07:15 Plt Count 243 Creatinine 0.86 Estimated GFR > 60 Hemoglobin A1c % 6.8 H Total Bilirubin 0.5 AST 22 Triglycerides 126 Cholesterol 162 LDL Cholesterol, Calc 91 HDL Cholesterol 46 Urine Creatinine 517.99 Urine Microalbumin 436.0 Microalb/Creat Ratio 84.1 H Assessment & Plan Assessment & Plan (1) Insulin dependent type 2 diabetes mellitus: Code(s): E11.9 - Type 2 diabetes mellitus without complications; Z79.4 - substance abuse prevention coordinator (current) use of insulin Category: Medical (2) Hyperlipidemia: Code(s): E78.5 - Hyperlipidemia, unspecified Category: Medical Qualifiers: Hyperlipidemia type: pure hypercholesterolemia Qualified Code(s): E78.00 - Pure hypercholesterolemia, unspecified (3) Essential hypertension: Code(s): I10 - Essential (primary) hypertension Category: Medical Plan In summary this is a 53 year old female with controlled insulin-dependent type 2 diabetes with complications. We reviewed her complications and other risks associated with diabetes. Continue Tresiba 16 units nightly. Continue Mounjaro 5 mg weekly. Increase Apidra to 12 units before breakfast and lunch and continue 10 before dinner. Continue metformin extended release 2000 mg daily. Continue Jardiance 25 mg daily. We discussed methods for reducing GI side effects on GLP 1. She will change injection time to taking it before dinner or bedtime. Avoid greasy or fatty foods the day after, and eat smaller more frequent meals throughout the day. Provided list of diabetic friendly snacks for [email or web address]. Treatment of hypoglycemia reviewed with the patient. She has written instructions. Bring glucometer to all appointments. Hyperlipidemia - continue rosuvastatin. I explained the importance of this medication and reducing cardiovascular risk and hyperlipidemia. Recommended low-cholesterol diet. Continue lisinopril for hypertension and renal protection. Follow up in 1 month for type 2 diabetes. Orders: Orders AMB Glucose Monitoring Today E11.9 - Type 2 diabetes mellitus without complications Medications: Changed From insulin glulisine U-100 (Apidra SoloStar U-100 Insulin) subcutaneously 10 units 15 minutes prior to meals 15 mL 5RF To insulin glulisine U-100 (Apidra SoloStar U-100 Insulin) subcutaneously 12 units with breakfast and lunch and 10 units with dinner, 15 minutes prior to meals Patient Instructions: Continue Tresiba 16 units nightly. Continue Mounjaro 5 mg weekly. Increase Apidra to 12 units before breakfast and lunch and continue 10 before dinner. Continue metformin extended release 2000 mg daily. Continue Jardiance 25 mg daily. Contin?e con Tresiba 16 unidades cada noche. Contin?e con Mounjaro 5 mg semanalmente. Aumente Apidra a 12 unidades antes del desayuno y el almuerzo, y contin?e con 10 unidades antes de la bullet charging machine operator. Contin?e con metformina de liberaci?n prolongada 2000 mg al d?a. Contin?e con Jardiance 25 mg al d?a. Coding Level of Care Code Est Pt Level 4 (58645) Diagnoses Insulin dependent type 2 diabetes mellitus E11.9; Z79.4 Pure hypercholesterolemia E78.00 Hyperlipidemia type: pure hypercholesterolemia Essential hypertension I10 CPT Codes Details - CPT: 64494 - Glucose monitoring, continuous-physician I&R ([id number])
[2024-12-15 09:56] LABS: Glucose, Whole Blood 169 mg/dL (60-115)
--- OUTSIDE RECORDS SUMMARY | 2024-12-15 10:49 | XMS_ITS | Clinical Summary ---
Author Organization [employer] ity Address [address] [place] [address] Care Team Providers Care Can Worker Name Role Phone Anisha Monroe MD Primary Care Provider [phone] Social History Tobacco Use Types Packs/Day Years [...] Vaccine ( - 2023-2 5 season) 2023 Depression Screening 04/29/2024 Influenza Vaccine (#1) 2024 HIB Vaccines Aged [...] age to complete this topic Care Teams Can Worker Relationship Specialty Start Date End Date Anisha Monroe MD [address] [place] [address] PCP - General Internal Medicine 12/04/17
--- OUTSIDE RECORDS SUMMARY | 2024-12-15 10:49 | XMS_ITS | Clinical Summary ---
Author Organization [facility] Address [address] [place] [id number] Phone Care Team Providers Care Jet Mechanic Name Role Phone Nichol Brown MD Primary Care Provider [phone] Allergies No known active allergies Medications atorvastatin (LIPITOR) 80 MG tablet Take 80 mg by mouth daily. 01/20/2023 Active JARDIANCE 25 mg tablet Take 25 mg by mouth daily. 01/17/2023 Active NOVOLOG FLEXPEN U-100 INSULIN 100 unit/mL (3 mL) flexpen Inject 6 Units under the skin 3 (three) times a day with meals. 12/26/2022 Active TRULICITY 3 mg/0.5 mL subcutaneous injection Inject 3 mg under the skin every 7 days. 03/19/2023 Active metFORMIN (GLUCOPHAGE) 1000 MG tablet Take 1,000 mg by mouth 2 (two) times a day with meals. 01/14/2023 Active insulin glargine,hum.rec. anlog (LANTUS SUBQ) Inject 15 mg under the skin daily. Active Family History Medical History Relation Comments Diabetes Father Throat cancer Father Diabetes Mother Heart disease Mother Hypertension Mother Relation Status Comments Father Mother Social History Tobacco Use Types Packs/Day Years Used Date Smoking Tobacco: Never Smokeless Tobacco: Never Tobacco Cessation:Counseling Given: Not Answered Alcohol Use Standard Drinks/Week Comments Yes 0 (1 standard drink = 0.6 oz pur e alcohol) Rare Education Answer Date Recorded Are you interested in more education? Not on vidal e 01/18/2023 Are you concerned about learning? Not on file 01/18/2023 No 01/18/2023 No 01/18/2023 Digital Access Answer Date Recorded No 01/18/2023 No 01/18/2023 Reliable internet access at home? Not on file 01/18/2023 Device with a working camera? Not on file Comments Unknown Sex and Gender Information Value Date Recorded Sex Assigned at Not on file Legal Sex Female 1:36 PM EDT Gender Identity Not on file Sexual Orientation Not on file Last Filed Vital Signs Vital Sign Reading Time Taken Comments Blood Pressure 146/92 04/02/2023 1:55 PM EST Pulse 95 04/02/2023 1:55 PM EST Temperature - - Respiratory Rate - - Oxygen Saturation - - Inhaled Oxygen Concentration - - Weight 68.4 kg (150 lb 12.8 oz) 04/02/2023 1:55 PM EST Height 161.3 cm (5' 3.5 ) 04/02/2023 1:55 PM EST Body Mass Index 26.29 04/02/2023 1:55 PM EST Plan of Treatment Health Maintenance Due Date Last Done Comments Adult Td,Tdap Booster 1968 CREATININE LEVEL 1968 LIPID PANEL 1968 DEPRESSION SCREENING 1980 HEPATITIS C SCREENING 1986 HIV ONE-TIME SCREENING (18-6 5 YEARS) 1986 PAP SMEAR 1989 SCREENING FOR DIABETES 11/18/2003 MAMMOGRAM 2008 COLOGUARD 2013 COLONOSCOPY 2013 COLORECTAL CANCER SCREENING 2013 FIT TEST 2013 FOBT 2013 SIGMOIDOSCOPY 2013 VIRTUAL COLONOSCOPY 2013 PNEUMOCOCCAL VACCINES (50+ y ears) (1 of 1 - PCV) 2018 ZOSTER VACCINES (1 of 2) 2018 COVID-19 VACCINE (2023-2 5 season) 2023 SMOKING STATUS SCREENING (On ce After 26 Yrs) Completed 04/02/2023 HEPATITIS A VACCINES Aged Out No long er eligible based on patient's age to complete this topic HIB VACCINES Aged Out No longer eligi ble based on patient's age to complete this topic MENINGOCOCCAL VACCINES (ACWY) Aged Out No longer eligible based on patient's age to complete this topic MENINGOCOCCAL VACCINES (B) Aged Out N o longer eligible based on patient's age to complete this topic Medical Devices Not on file Insurance [address] [place] [address] [place] [id number] [place] [address] C3 ACO C3 ACO C3 ACO C3 ACO Care Teams Jet Mechanic Relationship Specialty Start Date End Date Nichol Brown MD [address] [address] PCP - General Internal Medicine 01/18/23 Additional Source Comments The information contained in this document represents components of the legal health record. It is not the complete legal health record.[facility]
== END 2024-12-15 10:19 | disposition home or self-care (01) ==
LOC: HO.ENCR 09:43
PROVIDERS: PCP Internal Medicine; Visit Provider Physician Assistant Medical
DX: E11.9 Type 2 diabetes mellitus without complications (principal); Z79.4 Long term (current) use of insulin; E78.00 Pure hypercholesterolemia, unspecified; I10 Essential (primary) hypertension

== ENCOUNTER → 2024-12-15 09:42 | Outpatient (BNVA) | payer OTHER, SELFPAY | PROVIDERS: PCP Internal Medicine; Visit Provider Physician Assistant Medical | DX: E11.9 Type 2 diabetes mellitus without complications (principal); Z79.4 Long term (current) use of insulin; E78.5 Hyperlipidemia, unspecified; E78.00 Pure hypercholesterolemia, unspecified; I10 Essential (primary) hypertension | CPT/HCPCS: 82947; 99212 ==

== ENCOUNTER 2024-12-31 09:56 | Outpatient (REF) | payer OTHER, SELFPAY ==
--- OUTSIDE RECORDS SUMMARY | 2024-12-31 11:02 | XMS_ITS | Clinical Summary ---
Author Organization [employer] Address [address] [place] [address] [address] [address] Care Team Providers Care Skiver Welt End Name Role Phone Unavailable Primary Care Provider [...] Screening 1968 SDOH Screening 1968 Sigmoidoscopy 1968 Disability Screening 1968 Alcohol/Substance Use Screening 1980 Tobacco Screening 1980 Hepatitis C Screening 1986 Hepatitis B Vaccines (1 of 3 - 19+ 3-dose series) 11/18/1987 Pap Smear 1989 Cervical Cancer Screening 1998 HPV/Cotest 1998 Mammogram 2008 Zoster Vaccines (1 of 2) 2018 COVID-19 Vaccine ( season) 2024 05/06/2021, 07/29/2020, 07/08/2020 Influenza Vaccine (#1) 2024 , 01/25/2023, 02/18/2020, Additional history exists DTaP/Tdap/Td Vaccines (2 - Td or Tdap) 03/06/2034 03/06/2024 RSV Patients and Patients Aged 60 years or older (1 - 1-dose 75+ series) 11/18/2043 Pneumococcal Vaccine: 50+ Years Completed 03/06/2024, 02/07/2016 [...] patient's age to complete this topic Insurance [facility] C3 HSN FULL * Guarantor: Amee Burroughs Account Type Relation to Patient Date of Phone Billing Address Personal/Family Self [address] [facility] [address] [place] [id number] * Guarantor: Amee Burroughs Account Type Relation to Patient Date of Phone Billing Address Personal/Family Self [address] [facility] [address] [place] [phone] * Guarantor: Amee Burroughs Account Type Relation to Patient Date of Phone Billing Address Personal/Family Self [address] [facility] [address] [place] [id number]
--- OUTSIDE RECORDS SUMMARY | 2024-12-31 11:02 | XMS_ITS | Clinical Summary ---
Author Organization [facility] Address [address] [place] [address] Phone Care Team Providers Care Table Worker Packager Name Role Phone Nichol Brown MD Primary Care Provider [phone] Allergies No known active allergies Medications atorvastatin [...] Devices Not on file Insurance [address] [place] [address] [place] [id number] [place] [address] C3 ACO C3 ACO C3 ACO C3 ACO Care Teams Table Worker Packager Relationship Specialty Start Date End Date Nichol Brown MD [address] [facility] [place] [address] PCP - General Internal Medicine 01/18/23 Additional Source Comments The information contained in this document represents components of the legal health record. It is not the complete legal health record.[facility]
--- OUTSIDE RECORDS SUMMARY | 2024-12-31 11:02 | XMS_ITS | Encounter Summary ---
Author Organization [facility] Address [address] [place] [address] [address] [address] Care Team Providers Care Animal Skinner Name Role Phone Unavailable Primary Care Provider Unavailabl e Encounter Details Date Type Department Care Team (Latest Contact Info) Description 08/08/2021 Abstract [facility] CONVERSIONS Dental, Provider, DDS Social History Tobacco [...]
--- OUTSIDE RECORDS SUMMARY | 2024-12-31 11:02 | XMS_ITS | Encounter Summary ---
Author Organization [facility] Address [address] [place] [address] [address] [address] Care Team Providers Care Wood Pole Treater Name Role Phone Unavailable Primary Care Provider Unavailabl e Encounter Details Date Type Department Care Team (Latest Contact Info) Description 08/08/[address] [facility] CONVERSIONS Dental, Provider, DDS Social [...]
--- OUTSIDE RECORDS SUMMARY | 2024-12-31 11:02 | XMS_ITS | Clinical Summary ---
Author Organization [employer] [facility] Address [address] [place] [address] Care Team Providers Care Station Cleaning Porter Name Role Phone Anisha Monroe MD Primary Care Provider [phone] Social History Tobacco Use Types Packs/Day Years [...] 2018 Zoster Vaccines (1 of 2) 2018 Depression Screening 04/29/2024 COVID-19 Vaccine ( - 2023-2 5 season) 2024 Influenza Vaccine (#1) 2024 HIB Vaccines Aged [...] age to complete this topic Care Teams Station Cleaning Porter Relationship Specialty Start Date End Date Anisha Monroe MD [address] [place] [address] PCP - General Internal Medicine 12/04/17
[2025-01-03 08:08] LABS: TS Negative Control Passed; TS Panel A 0; TS Panel B 0; TS Positive Control Passed; TSpotTB Negative (Negative)
== END 2024-12-31 09:57 | disposition home or self-care (01) ==
LOC: HO.HMGCLDS 09:56
PROVIDERS: PCP Internal Medicine; Visit Provider Internal Medicine
DX: Z00.00 Encounter for general adult medical examination without abnormal findings (principal); Z11.1 Encounter for screening for respiratory tuberculosis
CPT/HCPCS: 36415; 86481

== ENCOUNTER 2025-01-15 10:04 | Outpatient (AMB) | payer OTHER, SELFPAY ==
--- NOTE | 2025-01-15 10:05 | A.OFFVIS_ITS ---
Vital Signs 01/15/25 10:08 Height 5 ft 4 in Weight 162 lb 11.218 oz BMI 27.9 BP 102/72 Blood Pressure Location Rt brachial Position Sitting Intake Visit Reasons: Type II Diabetes Intake Note: Patient present today to follow up on Type 2 Diabetes Mellitus. Patient receives Decom G7 supplies through: [facility] Last Diabetic Eye exam: Dec 2023 Last Podiatry Visit: Does not see a Equipment Technician Random Glucose: 121 mg/dL Most Recent HgA1C: 7.3% 01/15/2025 Director Of Manufacturing Required: Yes Director Of Manufacturing Language: Sales Center Manager Services: Director Of Manufacturing Present Director Of Manufacturing Name: Laura [id number] Information Interpreted: non-clinical & clinical Accompanied by: Self / Same As Patient Allergies atorvastatin Adverse Reaction (Intermediate, Verified 01/15/25 10:09) Depression Medication List - Last Reconciled 01/15/25 by NASIR Chacko blood sugar diagnostic (FreeStyle Lite Strips) 1 strip miscellaneous TID blood-glucose sensor (Dexcom G7 Sensor device) apply new sensor every 10 days as directed blood-glucose,masking machine feeder,cont (Dexcom G7 Armorer Technician) As directed dextrose (TRUEplus Glucose) 15 grams (32 mL) PO Q15M PRN empagliflozin (Jardiance) 25 mg PO DAILY glucose (Dex4 Glucose) 16 grams (4 x 4 gram) PO Q15M PRN insulin degludec (Tresiba FlexTouch U-100 insulin) 14 units subcut BEDTIME insulin glulisine U-100 (Apidra SoloStar U-100 Insulin) subcutaneously 14 units with breakfast and lunch and 10 units with dinner, 15 minutes prior to meals lancets (FreeStyle Lancets) tests 4 X/day lisinopril 5 mg PO DAILY metformin ER 2,000 mg (4 x 500 mg) PO DAILY 90 days pantoprazole 40 mg PO QAM pen needle, diabetic (BD Yumiko 2nd Gen Pen Needle) DIRECTED INJECTS ONCE A DAY rosuvastatin (Crestor) 40 mg PO DAILY sennosides (senna) 17.2 mg (2 x 8.6 mg) PO BEDTIME tirzepatide (Mounjaro) 5 mg (0.5 mL) subcut QWEEK Ventolin HFA 90 mcg/actuation (albuterol sulfate) 2 puffs inhalation Q6H PRN 30 days NS HPI Comments Details: This is a 53-year-old female with a past medical history of insulin-dependent type 2 diabetes, hyperlipidemia and hypertension presenting for diabetic management. 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 Reviewed Dexcom data G SD 7.4% 10% very high 27% high 63% in range 0% hypoglycemia She has a pattern of postprandial hyperglycemia during the day. She had one low sugar overnight in the 40s. She was asleep. She was alerted by CGM and felt very hungry. She had juice and fruit and BG was 102 when rechecked. Hemoglobin A1c 7.3% today 01/15/2025. Current medication regimen: Mounjaro 5 mg weekly, metformin ER 2000 mg daily, Apidra 10 units before meals, Tresiba 16 units daily, Jardiance 25 mg daily. Compliance issues: None She did not tolerate the higher dosage of Mounjaro due to vomiting. She switch the administration to night and is avoiding heavy, greasy foods, and she is tolerating it fine now. Past medications: Ozempic ineffective and tried Trulicity in the past Hypoglycemia symptoms: No episodes. Hyperglycemia symptoms: none Eye exam: [facility] Microvascular complications: Nephropathy (microalbuminuria) and OU retinopathy and macular edema Macrovascular complications: none Hypertension: treated with lisinopril 5 mg. Normotensive today. Hyperlipidemia: Treated with 40 mg rosuvastatin. Intolerant to atorvastatin. ROS: Constitutional: No unexplained weight loss, fever, chills, fatigue or night sweats. Eyes: No vision changes Respiratory: No shortness of breath Cardiovascular: No chest pain Gastrointestinal: See HPI Endocrine: No cold or heat intolerance. No polyuria or polydipsia. Physical exam: Constitutional: Alert, in no distress. Eyes: Pupils are equal, round and reactive to light. Extraocular muscles intact. Neck: Supple, Full range of motion. No lymphadenopathy. Respiratory: Clear to auscultation. Cardiovascular: S1 S2 regular. No murmurs. [facility] Medical History (Updated 11/10/24 @ 09:59 by NASIR Chacko) Essential hypertension Diabetes mellitus with nephropathy Annual physical exam Hyperlipidemia Insulin dependent type 2 diabetes mellitus Surgical History H/O hand surgery Hx of colonoscopy Hx of section H/O gastric sleeve H/O abdominal hysterectomy Family History Sister Breast CA Maternal Aunt Breast CA Social History Household Members: None Housing: Apartment Alcohol intake: current Alcohol intake frequency: holidays/special occasions only Patient Tobacco Use Status: Never used Tobacco e-Cigarette/Vaping Use: Never Used Second Hand Smoke Exposure: No service: No Current occupational status: employed 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/hazards: Yes Cognitive needs: No Hearing needs: No Vision needs: No Female Reproductive History Menstrual Age of Menarche: 10 Physical Exam Vital Signs: Last Vital Signs BP 102/72 01/15/25 10:08 BMI result Body Mass Index 27.9 Office Procedures Glucose Monitoring Details Details: see HPI 99915 - Glucose monitoring, continuous-physician I&R Procedure code (CPT) selection complete Results AMB Hemoglobin A1c AMB Hemoglobin A1c 7.3 % Last Edit by ANTONIA Posey on 01/15/25 10:27 Results Reviewed Results Reviewed: Laboratory Tests 10/13/24 10/13/24 07:08 07:15 Plt Count 243 Creatinine 0.86 Estimated GFR > 60 Hemoglobin A1c % 6.8 H Total Bilirubin 0.5 AST 22 Triglycerides 126 Cholesterol 162 LDL Cholesterol, Calc 91 HDL Cholesterol 46 Urine Creatinine 517.99 Urine Microalbumin 436.0 Microalb/Creat Ratio 84.1 H Assessment & Plan Assessment & Plan (1) Insulin dependent type 2 diabetes mellitus: Code(s): E11.9 - Type 2 diabetes mellitus without complications; Z79.4 - penitentiary (current) use of insulin Category: Medical (2) Hyperlipidemia: Code(s): E78.5 - Hyperlipidemia, unspecified Category: Medical Qualifiers: Hyperlipidemia type: pure hypercholesterolemia Qualified Code(s): E78.00 - Pure hypercholesterolemia, unspecified (3) Essential hypertension: Code(s): I10 - Essential (primary) hypertension Category: Medical Plan In summary this is a 53 year old female with controlled insulin-dependent type 2 diabetes with complications. We reviewed her complications and other risks associated with diabetes. Reduce Tresiba to 14 units nightly due to recent episode of blood sugar in the 40s overnight. Continue Mounjaro 5 mg weekly. Increase Apidra to 14 units before breakfast and lunch and continue 10 before dinner. If postprandial blood sugars are still over 180 during the day increase Apidra to 16 units before breakfast and lunch. Continue metformin extended release 2000 mg daily. Continue Jardiance 25 mg daily. Treatment of hypoglycemia reviewed with the patient. She has written instructions. Bring glucometer to all appointments. Hyperlipidemia - continue rosuvastatin. I explained the importance of this medication and reducing cardiovascular risk and hyperlipidemia. Recommended low-cholesterol diet. Continue lisinopril for hypertension and renal protection. Follow up in 3 months for type 2 diabetes. Orders: Orders AMB Hemoglobin A1c Today E11.9 - Type 2 diabetes mellitus without complications, Z79.4 - penitentiary (current) use of insulin AMB Glucose Monitoring Today E11.9 - Type 2 diabetes mellitus without complic ations Medications: Refilled tirzepatide (Mounjaro) 5 mg (0.5 mL) subcut QWEEK 2 mL 5RF Patient Instructions: Decrease Tresiba to 14 units nightly. Continue Mounjaro 5 mg weekly. Increase Apidra to 14 units before breakfast and lunch and continue 10 before dinner. If your blood sugars are still over 180 after breakfast and lunch, increase to 16 units before these meals. Continue metformin extended release 2000 mg daily. Continue Jardiance 25 mg daily. If you experience low blood sugar, treat this by eating a chewable fruit candy like skittles or jelly beans (about 8 pieces), 4 ounces (1/2 cup) of fruit juice (not diet), 1 tablespoon of honey or 4 glucose tablets. If your blood sugar is under 50, take double the amount of one of the above. Recheck your blood sugar in 15 minutes. Reduzca la dosis de Tresiba a 14 unidades por la noche. Contin?e con Mounjaro 5 mg semanalmente. Aumente la dosis de Apidra a 14 unidades antes del desayuno y el almuerzo, y contin?e con 10 unidades antes de la rg. Si jones nivel de az?car en ronak sigue siendo superior a 180 despu?s del desayuno y el almuerzo, aumente a 16 unidades antes de estas comidas. Contin?e con metformina de liberaci?n prolongada 2000 mg al d?a. Contin?e con Jardiance 25 mg al d?a. Coding Level of Care Code Est Pt Level 4 (77073) Diagnoses Insulin dependent type 2 diabetes mellitus E11.9; Z79.4 Pure hypercholesterolemia E78.00 Hyperlipidemia type: pure hypercholesterolemia Essential hypertension I10 CPT Codes Details - CPT: 75317 - Glucose monitoring, continuous-physician I&R ([id number])
[2025-01-15 10:08] VITALS: BP 102/72; BMI 27.9
[2025-01-15 10:17] LABS: Glucose, Whole Blood 121 mg/dL (60-115)
--- OUTSIDE RECORDS SUMMARY | 2025-01-15 10:38 | XMS_ITS | Clinical Summary ---
Author Organization [facility] Address [address] [place] [address] Phone Care Team Providers Care Surgical Physician Assistant Name Role Phone Nichol Brown MD Primary Care Provider [phone] Allergies No known active allergies Medications atorvastatin [...] 2018 ZOSTER VACCINES (1 of 2) 2018 INFLUENZA VACCINE (#1) 2024 COVID-19 VACCINE ( - 2023-2 5 season) 2024 SMOKING STATUS SCREENING (On ce After 26 [...] topic Medical Devices Not on file Insurance C3 ACO C3 ACO C3 ACO C3 ACO C[address] [place] [address] [place] [address] C3 ACO Care Teams Surgical Physician Assistant Relationship Specialty Start Date End Date Nichol Brown MD [address] [facility] [place] [address] PCP - General Internal Medicine 01/18/23 Additional Source Comments The information contained in this document represents components of the legal health record. It is not the complete legal health record.[facility]
--- OUTSIDE RECORDS SUMMARY | 2025-01-15 10:38 | XMS_ITS | Clinical Summary ---
Author Organization [employer] [facility] Address [address] [place] [address] Care Team Providers Care Billboard Erector Name Role Phone Anisha Monroe MD Primary Care Provider [phone] Social History Tobacco Use Types Packs/Day Years [...] age to complete this topic Care Teams Billboard Erector Relationship Specialty Start Date End Date Anisha Monroe MD [address] [place] [address] PCP - General Internal Medicine 12/04/17
--- OUTSIDE RECORDS SUMMARY | 2025-01-15 10:38 | XMS_ITS | Encounter Summary ---
Author Organization [facility] [facility] Address [address] [place] [address] [address], [place] [address] Care Team Providers Care Coating Operator Name Role Phone Unavailable Primary Care Provider Unavailabl e Encounter Details Date Type Department Care Team (Latest Contact Info) Description 08/08/[address] [facility] CONVERSIONS Dental, Provider, DDS Social History [...]
--- OUTSIDE RECORDS SUMMARY | 2025-01-15 10:38 | XMS_ITS | Clinical Summary ---
Author Organization [employer] Address [address] [place] [address] [address] [address] Care Team Providers Care Student Career Development Specialist Name Role Phone Unavailable Primary Care Provider [...] patient's age to complete this topic Insurance [facility] C3 HSN FULL * Guarantor: Amee Burroughs Account Type Relation to Patient Date of Phone Billing Address Personal/Family Self [address] [facility] [address] [place] [id number] * Guarantor: Amee Burroughs Account Type Relation to Patient Date of Phone Billing Address Personal/Family Self [address] [facility] [address] [place] [id number] * Guarantor: Amee Burroughs Account Type Relation to Patient Date of Phone Billing Address Personal/Family Self [address] [facility] [address] [place] [id number]
--- OUTSIDE RECORDS SUMMARY | 2025-01-15 10:39 | XMS_ITS | Encounter Summary ---
Author Organization [employer] [facility] Address [address] [place] [address] 7[place] [address] Care Team Providers Care Supervisor Anodizing Name Role Phone Unavailable Primary Care Provider Unavailabl e Encounter Details Date Type Department Care Team (Latest Contact Info) Description 08/08/2021 Abstract [facility] CONVERSIONS Dental, Provider, DDS Social [...]
== END 2025-01-15 10:43 | disposition home or self-care (01) ==
LOC: HO.ENCR 10:04
PROVIDERS: PCP Internal Medicine; Visit Provider Physician Assistant Medical
DX: E11.9 Type 2 diabetes mellitus without complications (principal); Z79.4 Long term (current) use of insulin; E78.00 Pure hypercholesterolemia, unspecified; I10 Essential (primary) hypertension

== ENCOUNTER → 2025-01-15 10:04 | Outpatient (BNVA) | payer OTHER, SELFPAY | PROVIDERS: PCP Internal Medicine; Visit Provider Physician Assistant Medical | DX: E11.9 Type 2 diabetes mellitus without complications (principal); Z79.4 Long term (current) use of insulin; E78.00 Pure hypercholesterolemia, unspecified; E78.5 Hyperlipidemia, unspecified; I10 Essential (primary) hypertension | CPT/HCPCS: 82947; 83036; 99212 ==

== ENCOUNTER 2025-01-21 09:41 | Outpatient (AMB) | payer OTHER, SELFPAY ==
[2025-01-21 09:47] VITALS: BP 90/66; PULSE 80; RESP 18; TEMP 36.7; O2SAT 100; BMI 27.5
--- NOTE | 2025-01-21 09:47 | MHC.PC.OV ---
Vital Signs 01/21/25 09:47 Height 5 ft 4 in Weight 160 lb BMI 27.5 BP 90/66 Blood Pressure Location Lt brachial Position Sitting Respiration 18 Pulse 80 Pulse Source Pulse Oximeter Temp 98.0 F Temp Source Oral Pulse Oximetry (%) 100 Oxygen Delivery Method Room Air Intake Visit Reasons: 3 months f/up Intake Note: Pt is here today for 3 months follow up visit. Allergies atorvastatin Adverse Reaction (Intermediate, Verified 01/21/25 09:53) Depression Medication List - Last Reconciled 01/21/25 by Nichol Brown MD blood sugar diagnostic (FreeStyle Lite Strips) 1 strip miscellaneous TID blood-glucose sensor (DexModiv Media G7 Sensor device) apply new sensor every 10 days as directed blood-glucose,consumer insights specialist,cont (Dexcom G7 Production Analyst) As directed dextrose (TRUEplus Glucose) 15 grams (32 mL) PO Q15M PRN empagliflozin (Jardiance) 25 mg PO DAILY glucose (Dex4 Glucose) 16 grams (4 x 4 gram) PO Q15M PRN insulin degludec (Tresiba FlexTouch U-100 insulin) 14 units subcut BEDTIME insulin glulisine U-100 (Apidra SoloStar U-100 Insulin) subcutaneously 14 units with breakfast and lunch and 10 units with dinner, 15 minutes prior to meals lancets (FreeStyle Lancets) tests 4 X/day lisinopril 5 mg PO DAILY metformin ER 2,000 mg (4 x 500 mg) PO DAILY 90 days pantoprazole 40 mg PO QAM pen needle, diabetic (BD Yumiko 2nd Gen Pen Needle) DIRECTED INJECTS ONCE A DAY rosuvastatin (Crestor) 40 mg PO DAILY sennosides (senna) 17.2 mg (2 x 8.6 mg) PO BEDTIME tirzepatide (Mounjaro) 5 mg (0.5 mL) subcut QWEEK Ventolin HFA 90 mcg/actuation (albuterol sulfate) 2 puffs inhalation Q6H PRN 30 days NS Tobacco use date assessed: 01/21/25 Dental Screening Dental Screen Date: 05/05/24 HPI 3 months f/up HPI Details Patient presents for a follow-up insulin-dependent diabetes hyperlipidemia. She has been working with endocrinology PA. Patient reports overly better controlled diabetes with 70% in the range for the last month. She has been more compliant with ADA diet and trying to exercise regularly. she had one episode of nocturnal hypoglycemia and her Tresiba dose was decreased. [facility] Medical History (Updated 01/21/25 @ 10:54 by Nichol Brown MD) Diabetes mellitus with nephropathy Annual physical exam Hyperlipidemia Insulin dependent type 2 diabetes mellitus Surgical History H/O hand surgery Hx of colonoscopy Hx of section H/O gastric sleeve H/O abdominal hysterectomy Family History Sister Breast CA Maternal Aunt Breast CA Social History Household Members: None Housing: Apartment Alcohol intake: current Alcohol intake frequency: holidays/special occasions only Patient Tobacco Use Status: Never used Tobacco e-Cigarette/Vaping Use: Never Used Second Hand Smoke Exposure: No service: No Current occupational status: employed 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 1. Little interest or pleasure in doing things: several days 2. Feeling down, depressed, or hopeless: not at all 3. Trouble falling or staying asleep, or sleeping too much: several days 4. Feeling tired or having little energy: several days 5. Poor appetite or overeating: several days 6. Feeling bad about yourself - or that you are a failure or have let yourself or your family down: not at all 7. Trouble concentrating on things, such as reading the newspaper or watching television: not at all 8. Moving or speaking so slowly that other people could have noticed. Or the opposite - being so fidgety or restless that you have been moving around a lot more than usual: not at all 9. Thoughts that you would be better off or of hurting yourself in some way: not at all Total score: 4 Depression Screening Interpretation: Negative Depression Screening Done: Yes Source: Developed by Drs. Bertrand BakerJulia Kurt Kroenke and colleagues, with an educational mariella from [employer] Thrive Questionnaire Date Thrive assessed: 05/05/24 I am a: Patient What is your living situation today?: I have a steady place to live Within the past 12 months, did the food you bought not last and you didn't have the money to get more?: I choose not to answer this question Within the past 12 months, did you worry whether your food would run out before you got money to buy more?: Often true Do you have trouble paying for medicines?: No Do you have trouble getting transportation to medical appointments?: No Do you have trouble paying your heating and electricity bill?: Yes Do you have trouble taking care of your child, family member or friend?: No Do you have trouble with day-to-day activities such as bathing, preparing meals, shopping, managing finances, etc.?: No Are you currently unemployed and looking for a job?: No Are you interested in more education?: No Currently or been in a relationship where the following occur: I choose not to answer THRIVE Score: 2 TYLER-7 AMB Questionnaire TYLER-7 Date TYLER - 7 assessed: 05/05/24 Feeling nervous, anxious, or on edge: 0 = Not at all Not being able to stop or control worryin = Not at all Worrying too much about different things: 0 = Not at all Trouble relaxin = Not at all Being so restless that it is hard to sit still: 0 = Not at all Becoming easily annoyed or irritable: 0 = Not at all Feeling afraid as if something awful might happen: 0 = Not at all Total TYLER-7 score (0-4 normal; 5-9 mild; 10-14 moderate; 15-21 severe): 0 Source: Developed by Drs. Bertrand Baker, Julia Sears, Kemar Talley and colleagues, with an educational mariella from [employer]. Review of Systems Const All systems reviewed & are unremarkable except as noted in HPI and below Eyes Reports no additional complaints ENT Reports no additional complaints Card Reports no additional complaints Resp Reports no additional complaints GI Reports no additional complaints Reports no additional complaints Physical exam (Primary Care) Vital Signs: Last Vital Signs Temp 98.0 F 01/21/25 09:47 Pulse 80 01/21/25 09:47 Resp 18 01/21/25 09:47 BP 90/66 01/21/25 09:47 Pulse Ox 100 01/21/25 09:47 Oxygen Delivery Method Room Air 01/21/25 09:47 BMI result Body Mass Index 27.5 Tobacco/Smoking Status: Tobacco use Status Tobacco use date assessed 01/21/25 01/21/25 10:00 Patient Tobacco Use Status Never used Tobacco 01/21/25 09:47 e-Cigarette/Vaping Use Never Used 01/21/25 09:47 PHQ-9: PHQ-9 Score PHQ-9: Total score 4 01/21/25 10:00 Depression Screening Interpretation: Negative Thrive Assessment: Date of Thrive Assessment Date Thrive assessed 05/05/24 01/21/25 09:47 Currently or been in a relationship where the following occur: I choose not to answer Const General: no acute distress HENMT Head: Yes normal to inspection Eyes General: appearance normal, both eyes and all related structures Neck Neck: Yes supple Resp Effort & Inspection: normal respiratory effort Auscultation: clear to auscultation bilaterally Cardio Rhythm: regular rhythm Heart sounds: S1 normal heart sound present and S2 normal heart sound present Coding Level of Care Code Est Pt Level 4 (40633) Diagnoses Insulin dependent type 2 diabetes mellitus E11.9; Z79.4 Diabetes mellitus with nephropathy E11.21 Pure hypercholesterolemia E78.00 Hyperlipidemia type: pure hypercholesterolemia Assessment & Plan Assessment & Plan (1) Insulin dependent type 2 diabetes mellitus: Code(s): E11.9 - Type 2 diabetes mellitus without complications; Z79.4 - long term care phlebotomist (current) use of insulin Category: Medical Plan: A1c is 7.3, continue ADA diet regular exercise current medications. Patient will return for fasting blood work (2) Diabetes mellitus with nephropathy: Comment: On NAYANA inhibitor Code(s): E11.21 - Type 2 diabetes mellitus with diabetic nephropathy Category: Medical Plan: Continue lisinopril and monitor microalbumin (3) Hyperlipidemia: Code(s): E78.5 - Hyperlipidemia, unspecified Category: Medical Qualifiers: Hyperlipidemia type: pure hypercholesterolemia Qualified Code(s): E78.00 - Pure hypercholesterolemia, unspecified Plan: Continue statin follow-up for physical in 3 months Orders: Orders Microalbumin, Random (w Creat) 3 Months E11.9 - Type 2 diabetes mellitus without complications, E78.00 - Pure hypercholesterolemia, unspecified, Z79.4 - skilled nursing (current) use of insulin Complete Blood Count Auto Diff 3 Months E11.9 - Type 2 diabetes mellitus without complications, E78.00 - Pure hypercholesterolemia, unspecified, Z79.4 - skilled nursing (current) use of insulin TSH reflex Free T4 3 Months E11.9 - Type 2 diabetes mellitus without complications, E78.00 - Pure hypercholesterolemia, unspecified, Z79.4 - long term care phlebotomist (current) use of insulin Vitamin B12 and Folate 3 Months E11.9 - Type 2 diabetes mellitus without complications, E78.00 - Pure hypercholesterolemia, unspecified, Z79.4 - long term care phlebotomist (current) use of insulin Comprehensive [place]. Panel Fast 3 Months E11.9 - Type 2 diabetes mellitus without complications, E78.00 - Pure hypercholesterolemia, unspecified, Z79.4 - long term care phlebotomist (current) use of insulin Lipid Panel 3 Months E11.9 - Type 2 diabetes mellitus without complications, E78.00 - Pure hypercholesterolemia, unspecified, Z79.4 - long term care phlebotomist (current) use of insulin Vitamin D 25-OH Total 3 Months E11.9 - Type 2 diabetes mellitus without complications, E78.00 - Pure hypercholesterolemia, unspecified, Z79.4 - long term care phlebotomist (current) use of insulin
--- OUTSIDE RECORDS SUMMARY | 2025-01-21 11:28 | XMS_ITS | Clinical Summary ---
Author Organization [facility] Address [address] [place] [address] Phone Care Team Providers Care Hris Developer Name Role Phone Nichol Brown MD Primary Care Provider [phone] Allergies No known active allergies Medications atorvastatin [...] ACO C3 ACO C3 [place]CO [place] [place] [address] [address] [place] [address] C3 ACO Care Teams Hris Developer Relationship Specialty Start Date End Date Nichol Brown MD [address] [place] [address] PCP - General Internal Medicine 01/18/23 Additional Source Comments The information contained in this document represents components of the legal health record. It is not the complete legal health record.[facility]
--- OUTSIDE RECORDS SUMMARY | 2025-01-21 11:28 | XMS_ITS | Clinical Summary ---
Author Organization [employer] Address [address] [place] [address] Care Team Providers Care Coal Digger Name Role Phone Anisha Monroe MD Primary Care Provider [phone] Social History Tobacco Use Types Packs/Day Years [...] age to complete this topic Care Teams Coal Digger Relationship Specialty Start Date End Date Anisha Monroe MD [address] [place] [address] PCP - General Internal Medicine 12/04/17
--- OUTSIDE RECORDS SUMMARY | 2025-01-21 11:28 | XMS_ITS | Clinical Summary ---
Author Organization [employer] Address [address] [place] [address] [address] [address] Care Team Providers Care Sales Recruiting Coordinator Name Role Phone Unavailable Primary Care Provider [...] patient's age to complete this topic Insurance [facility] C3 HSN FULL * Guarantor: Amee Burroughs Account Type Relation to Patient Date of Phone Billing Address Personal/Family Self [address] [facility] [address] [place] [id number] * Guarantor: Amee Burroughs Account Type Relation to Patient Date of Phone Billing Address Personal/Family Self [address] [facility] [address] [place] [id number] * Guarantor: Amee Burroughs Account Type Relation to Patient Date of Phone Billing Address Personal/Family Self [address] [facility] [address] [place] [phone]
--- OUTSIDE RECORDS SUMMARY | 2025-01-21 11:28 | XMS_ITS | Encounter Summary ---
Author Organization [employer] [facility] Address [address] [place] [address] [place] [address] Care Team Providers Care Bookseamer Blindstitch Name Role Phone Unavailable Primary Care Provider Unavailabl e Encounter Details Date Type Department Care Team (Latest Contact Info) Description 08/08/2021 Abstract [facility] CONVERSIONS Dental, Provider, DDS Social [...]
--- OUTSIDE RECORDS SUMMARY | 2025-01-21 11:28 | XMS_ITS | Encounter Summary ---
Author Organization [facility] Address [address] [place] [address] [place] [address] Care Team Providers Care Shift Engineer Name Role Phone Unavailable Primary Care Provider Unavailabl e Encounter Details Date Type Department Care Team (Latest Contact Info) Description 08/08/2021 Abstract [facility] CONVERSIONS Dental, Provider, DDS Social History [...]
== END 2025-01-21 10:50 | disposition home or self-care (01) ==
LOC: HO.HMCC 09:41
PROVIDERS: PCP Internal Medicine; Visit Provider Internal Medicine
DX: E11.21 Type 2 diabetes mellitus with diabetic nephropathy (principal); Z79.4 Long term (current) use of insulin; E78.00 Pure hypercholesterolemia, unspecified

== ENCOUNTER → 2025-01-21 09:41 | Outpatient (BNVA) | payer OTHER, SELFPAY | PROVIDERS: PCP Internal Medicine; Visit Provider Internal Medicine | DX: E11.21 Type 2 diabetes mellitus with diabetic nephropathy (principal); E78.00 Pure hypercholesterolemia, unspecified; Z79.4 Long term (current) use of insulin; Z79.899 Other long term (current) drug therapy; Z13.31 Encounter for screening for depression | CPT/HCPCS: 99212 ==

== ENCOUNTER 2025-01-22 07:18 | Outpatient (REF) | payer OTHER, SELFPAY ==
--- OUTSIDE RECORDS SUMMARY | 2025-01-22 07:19 | XMS_ITS | Clinical Summary ---
Author Organization [employer] Address [address] [place] [address] Care Team Providers Care Replenishment Associate Name Role Phone Anisha Monroe MD Primary Care Provider [phone] Social History Tobacco Use Types Packs/Day Years [...] age to complete this topic Care Teams Replenishment Associate Relationship Specialty Start Date End Date Anisha Monroe MD [address] [place] [address] PCP - General Internal Medicine 12/04/17
--- OUTSIDE RECORDS SUMMARY | 2025-01-22 07:19 | XMS_ITS | Clinical Summary ---
Author Organization [facility] Address [address] [place] [address] Phone Care Team Providers Care Stockroom Attendant Name Role Phone Nichol Brown MD Primary Care Provider [phone] Allergies No known active allergies Medications atorvastatin [...] ACO C3 ACO C3 ACO C[address] [place] [address] [address] C3 ACO Care Teams Stockroom Attendant Relationship Specialty Start Date End Date Nichol Brown MD [address] [facility] [place] [address] PCP - General Internal Medicine 01/18/23 Additional Source Comments The information contained in this document represents components of the legal health record. It is not the complete legal health record.[facility]
--- OUTSIDE RECORDS SUMMARY | 2025-01-22 07:19 | XMS_ITS | Clinical Summary ---
Author Organization [employer] Address [address] [place] [address] [address] [address] Care Team Providers Care Calibration Technician Name Role Phone Unavailable Primary Care [...] patient's age to complete this topic Insurance [facility] C3 HSN FULL * Guarantor: Amee Burroughs Account Type Relation to Patient Date of Phone Billing Address Personal/Family Self [address] [facility] [address] [place] [phone] * Guarantor: Amee Burroughs Account Type Relation to Patient Date of Phone Billing Address Personal/Family Self [address] [facility] [address] [place] [id number] * Guarantor: Amee Burroughs Account Type Relation to Patient Date of Phone Billing Address Personal/Family Self [address] [facility] [address] [place] [phone]
--- OUTSIDE RECORDS SUMMARY | 2025-01-22 07:20 | XMS_ITS | Encounter Summary ---
Author Organization [facility] Address [address] [place] [address] [place] [address] Care Team Providers Care Panelbeater Name Role Phone Unavailable Primary Care Provider Unavailabl e Encounter Details Date Type Department Care Team (Latest Contact Info) Description 08/08/2021 Abstract [facility] CONVERSIONS Dental, Provider, DDS Social History [...]
--- OUTSIDE RECORDS SUMMARY | 2025-01-22 07:20 | XMS_ITS | Encounter Summary ---
Author Organization [facility] Address [address] [place] [address] [place] [address] Care Team Providers Care Motor Carrier Inspector Name Role Phone Unavailable Primary Care Provider Unavailabl e Encounter Details Date Type Department Care Team (Latest Contact Info) Description 08/08/2021 Abstract [facility] CONVERSIONS Dental, Provider, DDS Social History [...]
[2025-01-22 10:14] LABS: MANUAL DIFF FLAG NO
[2025-01-22 10:42] LABS: Hematocrit 38.7 % (37.0-47.0); Hemoglobin 12.3 g/dl (12.0-16.0); Imm Gran Abs Auto 0.01 X10*3/uL (0.00-0.03); Imm Gran Pct Auto 0.2 % (0.0-0.4); Lymphocytes Absolute Auto 1.7 X10*3/uL (1.2-4.9); Mean Corpuscular HGB Conc 31.8 g/dl (31.0-35.0); Mean Corpuscular Hemoglobin 26.4 pg (27.0-33.0); Mean Corpuscular Volume 83.0 fL (80.0-98.0); NRBC Abs Auto 0.000 X10*3/uL (0.0-0.012); NRBC Pct Auto 0.0 /100WBC (0.0-0.2); Platelet Count 271 X10*3/uL (160-400); Red Blood Count 4.66 X10*6/uL (4.20-5.50); White Blood Count 5.1 X10*3/uL (4.8-10.8)
[2025-01-22 11:00] LABS: Total Hemoglobin (HGBA1C) 3189.1721 umol/L
[2025-01-22 11:02] LABS: Alanine Aminotransferase 12 U/L (0-31); Albumin Level 4.2 g/dL (3.5-5.0); Alkaline Phosphatase 90 U/L (39-117); Anion Gap 10 (12-20); Aspartate Amino Transferase 19 U/L (5-31); Blood Urea Nitrogen 20 mg/dL (9-16); Calcium 9.2 mg/dL (8.4-10.2); Carbon Dioxide 28 mmol/L (22-29); Chloride 109 mmol/L (96-108); Cholesterol 246 mg/dL (<200); Estimated Glomerular Filt Rate > 60; HDL Cholesterol 42 mg/dL (>40); Potassium 4.0 mmol/L (3.3-5.1); Sodium 143 mmol/L (135-145); Total Protein 7.6 g/dL (6.5-8.0); Triglycerides 123 mg/dL (<150)
[2025-01-22 11:22] LABS: Vitamin B12 693 pg/mL (200-900)
[2025-01-22 11:24] LABS: Microalbum/Creatinine Ratio Ur 12.2 ug/mg cr (<30)
== END 2025-01-22 07:19 | disposition home or self-care (01) ==
LOC: HO.HMGCLDS 07:18
PROVIDERS: Physician Assistant Medical; PCP Internal Medicine; Visit Provider Internal Medicine
DX: I10 Essential (primary) hypertension (principal); E78.00 Pure hypercholesterolemia, unspecified; E78.5 Hyperlipidemia, unspecified; E11.9 Type 2 diabetes mellitus without complications; Z79.4 Long term (current) use of insulin; Z91.89 Other specified personal risk factors, not elsewhere classified
CPT/HCPCS: 36415; 80053; 80061; 82043; 82570; 82607; 83036; 85025

== ENCOUNTER 2025-04-16 09:50 | Outpatient (AMB) | payer OTHER, SELFPAY ==
[2025-04-16 09:53] VITALS: BP 130/86; PULSE 81; O2SAT 100; BMI 28.8
--- NOTE | 2025-04-16 09:53 | MHC.OFFVIS ---
Vital Signs 04/16/25 09:53 Height 5 ft 4 in Weight 167 lb 15.876 oz BMI 28.8 BP 130/86 Blood Pressure Location Lt brachial Position Sitting Pulse 81 Pulse Source Pulse Oximeter Pulse Oximetry (%) 100 Oxygen Delivery Method Room Air Intake Visit Reasons: DMT2 Follow-up Intake Note: Patient present today for Type 2 Diabetes Mellitus Last Diabetic eye exam: Last exam was on 12/25/23 at [facility] Last Podiatry Visit: Doesn't have one Random Glucose: 116 mg/dl HgA1C: 8.3% Locomotive Operator Helper Required: Yes Locomotive Operator Helper Language: Reverse Logistics Analyst Services: Locomotive Operator Helper Present Locomotive Operator Helper Name: ena [id number] Information Interpreted: non-clinical & clinical Accompanied by: Self / Same As Patient Allergies atorvastatin Adverse Reaction (Intermediate, Verified 04/16/25 09:59) Depression Medication List - Last Reconciled 04/16/25 by Faby Chester PA-C blood sugar diagnostic (FreeStyle Lite Strips) 1 strip miscellaneous TID blood-glucose sensor (Dexcom G7 Sensor device) APPLY NEW SENSOR EVERY 10 DAYS DIRECTED blood-glucose,child psychiatrist,cont (Dexcom G7 Piano Maker) As directed dextrose (TRUEplus Glucose) 15 grams (32 mL) PO Q15M PRN empagliflozin (Jardiance) 25 mg PO DAILY glucose (Dex4 Glucose) 16 grams (4 x 4 gram) PO Q15M PRN insulin degludec (Tresiba FlexTouch U-100 insulin) 14 units subcut BEDTIME insulin glulisine U-100 (Apidra SoloStar U-100 Insulin) subcutaneously 14 units with breakfast and lunch and 10 units with dinner, 15 minutes prior to meals lancets (FreeStyle Lancets) tests 4 X/day lisinopril 5 mg PO DAILY metformin ER 2,000 mg (4 x 500 mg) PO DAILY 90 days pantoprazole 40 mg PO QAM pen needle, diabetic (BD Yumiko 2nd Gen Pen Needle) DIRECTED INJECTS ONCE A DAY rosuvastatin (Crestor) 40 mg PO DAILY sennosides (senna) 17.2 mg (2 x 8.6 mg) PO BEDTIME Ventolin HFA 90 mcg/actuation (albuterol sulfate) 2 puffs inhalation Q6H PRN 30 days NS HPI HPI DMT2 Follow-up: Details: This is a 53-year-old female with a past medical history of insulin-dependent type 2 diabetes, hyperlipidemia and hypertension presenting for diabetic management. 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 Reviewed Dexcom data G [place] 8.1% 26% very high 23% high 51% in range 0% hypoglycemia She has a pattern of postprandial hyperglycemia during the day/evening. Hemoglobin A1c 8.3% today Current medication regimen: Mounjaro 5 mg weekly, metformin ER 2000 mg daily, Apidra 10 units before meals, Tresiba 14 units daily, Jardiance 25 mg daily. Compliance issues: None She did not tolerate the higher dosage of Mounjaro due to vomiting in the past but would be open to increasing this again. She switch the administration to night and is avoiding heavy, greasy foods, and she is tolerating it fine now. She is frustrated that her diabetes is not because she is diet has been improved. She denies significant dietary indiscretions. Past medications: Ozempic ineffective and tried Trulicity in the past Hypoglycemia symptoms: No episodes. Hyperglycemia symptoms: none [facility] Microvascular complications: Nephropathy (microalbuminuria) and OU retinopathy and macular edema Macrovascular complications: none Hypertension: treated with lisinopril 5 mg. Normotensive today. Hyperlipidemia: Treated with 40 mg rosuvastatin. Intolerant to atorvastatin. [facility] Medical History (Updated 01/21/25 @ 10:54 by Nichol Brown MD) Diabetes mellitus with nephropathy Annual physical exam Hyperlipidemia Insulin dependent type 2 diabetes mellitus Surgical History H/O hand surgery Hx of colonoscopy Hx of section H/O gastric sleeve H/O abdominal hysterectomy Family History Sister Breast CA Maternal Aunt Breast CA Social History Household Members: None Housing: Apartment Alcohol intake: current Alcohol intake frequency: holidays/special occasions only Patient Tobacco Use Status: Never used Tobacco e-Cigarette/Vaping Use: Never Used Second Hand Smoke Exposure: No service: No Current occupational status: employed 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/hazards: Yes Cognitive needs: No Hearing needs: No Vision needs: No Female Reproductive History Menstrual Age of Menarche: 10 Physical Exam Vital Signs: Last Vital Signs Pulse 81 04/16/25 09:53 BP 130/86 04/16/25 09:53 Pulse Ox 100 04/16/25 09:53 Oxygen Delivery Method Room Air 04/16/25 09:53 BMI result Body Mass Index 28.8 Const Orientation/consciousness: patient oriented x3 HEENT Ears: hearing grossly normal bilaterally Neck Thyroid: Thyroid normal Lymphatic: no lymphadenopathy noted Resp Auscultation: clear to auscultation bilaterally Cardio Rate: regular rate Rhythm: regular rhythm Heart sounds: S1 normal heart sound present and S2 normal heart sound present Skin General skin exam: no rashes or lesions noted Neuro General: patient oriented x3, gait normal and no focal motor deficits Results AMB Hemoglobin A1c AMB Hemoglobin A1c 8.3 % Last Edit by ANTONIA Mckenzie on 04/16/25 10:12 Results Reviewed Results Reviewed: Laboratory Last Values Glucose (Clinic) 116 mg/dL (60-115) H 04/16/25 10:02 Assessment & Plan Assessment & Plan (1) Insulin dependent type 2 diabetes mellitus: Code(s): E11.9 - Type 2 diabetes mellitus without complications; Z79.4 - bed bug exterminator (current) use of insulin Category: Medical Plan: Increase Mounjaro to 7.5 mg. She will let me know if she does not tolerate this. She has significantly changed her diet and believes that she will tolerate this. I did also order her Zofran if needed. She will continue with the insulin dosing Continue metformin 2000 mg daily Continue Jardiance 25 mg daily Labs ordered We will do a short term follow up to be reassessed. Sooner if anything worsens or changes. Patient understands and agrees with the plan. Orders: Orders C Peptide Today E11.9 - Type 2 diabetes mellitus without complications, Z79.4 - correction (current) use of insulin Islet Cell Antibody Scrn/Titer Today E11.9 - Type 2 diabetes mellitus without complications, Z79.4 - correction (current) use of insulin AMB Hemoglobin A1c Today E11.21 - Type 2 diabetes mellitus with diabetic nephropathy, Z13.9 - Encounter for screening, unspecified Glutamic acid decarboxylase Ab Today E11.9 - Type 2 diabetes mellitus without complications, Z79.4 - correction (current) use of insulin Medications: New tirzepatide (Mounjaro) 7.5 mg (0.5 mL) subcut QWEEK 2 mL 3RF ondansetron 4 mg PO Q8H PRN 10 tabs 0RF nausea and vomiting Coding Level of Care Code Est Pt Level 4 (29761) Add On Problem Visit Only Diagnoses Insulin dependent type 2 diabetes mellitus E11.9; Z79.4
[2025-04-16 10:06] LABS: Glucose, Whole Blood 116 mg/dL (60-115)
--- OUTSIDE RECORDS SUMMARY | 2025-04-16 10:51 | XMS_ITS | Clinical Summary ---
Author Organization [facility] Address [address] [place] [address] Phone Care Team Providers Care Programmer Developer Name Role Phone Nichol Brown MD Primary Care Provider [phone] Allergies No known active allergies Medications atorvastatin [...] ears) (1 of 1 - PCV) 2018 RSV VACCINE (1 - Risk 50-74 years 1-dose series) 2018 ZOSTER VACCINES (1 of 2) 2018 INFLUENZA VACCINE (#1) 2024 COVID-19 VACCINE ( - 2024-2 6 season) 2024 SMOKING STATUS SCREENING (On ce [...] ACO C3 ACO C3 ACO C3 [address]CO [address] [place] [address] C[address] [place] [id number] [place] [address] C3 ACO Care Teams Programmer Developer Relationship Specialty Start Date End Date Nichol Brown MD [facility] [place] [address] PCP - General Internal Medicine 01/18/23 Additional Source Comments The information contained in this document represents components of the legal health record. It is not the complete legal health record.[facility]
--- OUTSIDE RECORDS SUMMARY | 2025-04-16 10:51 | XMS_ITS | Clinical Summary ---
Author Organization [employer] Address [address] [place] [address] [address] [address] Care Team Providers Care Conflicts Analyst Name Role Phone Unavailable Primary Care Provider [...] patient's age to complete this topic Insurance [facility] C3 HSN FULL * Guarantor: Amee Burroughs Account Type Relation to Patient Date of Phone Billing Address Personal/Family Self [address] [facility] [address] [place] [id number] * Guarantor: Amee Burroughs Account Type Relation to Patient Date of Phone Billing Address Personal/Family Self [address] [facility] [address] [place] [id number] * Guarantor: Amee Burroughs Account Type Relation to Patient Date of Phone Billing Address Personal/Family Self [address] [facility] [address] [place] [id number]
--- OUTSIDE RECORDS SUMMARY | 2025-04-16 10:51 | XMS_ITS | Clinical Summary ---
Author Organization [email or web address] Address [address] [place] [address] Care Team Providers Care Lamination Machine Operator Name Role Phone Anisha Monroe MD Primary Care Provider [phone] Social History Tobacco Use Types Packs/Day Years [...] 2) 2018 Depression Screening 04/29/2024 COVID-19 Vaccine (1 - 2024-2 6 season) 2024 Influenza Vaccine (#1) 2024 RSV Immunization Adult Patie nts (1 - 1-dose 75+ series) 11/18/2043 HIB [...] age to complete this topic Care Teams Lamination Machine Operator Relationship Specialty Start Date End Date Anisha Monroe MD [address] [place] [address] PCP - General Internal Medicine 12/04/17
--- OUTSIDE RECORDS SUMMARY | 2025-04-16 10:51 | XMS_ITS | Encounter Summary ---
Author Organization [email or web address] [facility] Address [address] [place] [address] [address] [address] Care Team Providers Care Drum Maker Name Role Phone Unavailable Primary Care Provider Unavailabl e Encounter Details Date Type Department Care Team (Latest Contact Info) Description 08/08/2021 Abstract [facility] CONVERSIONS Dental, Provider, DDS Social History [...]
--- OUTSIDE RECORDS SUMMARY | 2025-04-16 10:51 | XMS_ITS | Encounter Summary ---
Author Organization [employer] [facility] Address [address] [place] [address] [place], [place] [address] Care Team Providers Care Flatwork Tier Name Role Phone Unavailable Primary Care Provider Unavailabl e Encounter Details Date Type Department Care Team (Latest Contact Info) Description 08/08/2021 Abstract [facility] CONVERSIONS Dental, Provider, DDS Social [...]
== END 2025-04-16 10:27 | disposition home or self-care (01) ==
LOC: HO.ENCR 09:51
PROVIDERS: PCP Internal Medicine; Visit Provider Physician Assistant
DX: E11.21 Type 2 diabetes mellitus with diabetic nephropathy (principal); Z79.4 Long term (current) use of insulin

== ENCOUNTER → 2025-04-16 09:50 | Outpatient (BNVA) | payer OTHER, SELFPAY | PROVIDERS: PCP Internal Medicine; Visit Provider Physician Assistant | DX: E11.9 Type 2 diabetes mellitus without complications (principal); Z79.4 Long term (current) use of insulin | CPT/HCPCS: 82947; 83036; 99212 ==